=== PATIENT | female | born 1960 | race Caucasian/White ===

== ENCOUNTER 2016-12-18 16:55 | Observation (INO) | payer MEDICARE ==
[~2016-12-18] VITALS: Ht 160 cm; Wt 37.4 kg
[2016-12-18 16:57] VITALS: BP 156/104
--- NOTE | 2016-12-18 17:15 | Emergency Room Report ---
History of Present Illness Time Seen by [id number] Presenting Problem in Triage Pt arrived:Wheelchair Presenting Problem:C/O "FEELING FUNNY" TODAY, STATED SHE CHECKED BP AND IT WAS HIGH, PATIENT STATES SHE DID TAKE BP MEDICINE THIS MORING Onset of symptoms date/time:12/18/16 or onset unknown for: Treatment Prior to Arrival: ELECTROMATIC TYPIST Provided by: Sepsis Risk Assessment: Temp: 97.9 B/P: 156/104 MAP: 121 Pulse: 136 Resp: 20 Recent fever? N Clinical Suspician of Infection? N Mental Status: 1 - Regular (Normal Baseline) Sepsis Risk:Possible Sepsis Risk Have you (or family members/close friends) recently traveled outside the [place]? N If Yes, where/when: Have you had exposure to infectious disease within the past month? N TB? Other? Specify: 56 years old white female with a history of anxiety and abdominal surgery 2 weeks ago. She developed palpitations today she denies anxiety. She denies having chest pain nausea vomiting. Her abdominal pain is the same since surgery. Source patient, RN notes reviewed, family Exam Limitations no limitations ALLERGIES Coded Allergies: cinnamon (Severe, TONGUE SWELL, NAUSEA 12/07/16) acetaminophen (LIVER ISSUE 12/07/16) Home Medications Active Scripts DILTIAZEM HCL (Diltiazem 24HR ER) 120 MG PO DAILY #30 Ref 5 Prov: 01/12/16 Reported Medications Sucralfate (Carafate) 1 GM PO BID Aspirin (Aspirin EC) 81 MG PO DAILY Clonazepam (Klonopin 0.5MG) 0.5 MG PO TIDP PRN ANXIETY Omeprazole (Omeprazole 40MG) 40 MG PO QHS INSULIN GLARGINE (Lantus 3ML Solostar Pen) 15 UNITS SC QHS Apixaban (Eliquis) 2.5 MG PO BID OXYCODONE HCL (Oxycodone) 5 MG PO TIDP PRN PAIN LIPASE/PROTEASE/AMYLASE (Tashia Little 24,000 Units Capsule) 1 ECC PO AC MAGNESIUM OXIDE (Magnesium Oxide) 400 MG PO BID Polyethylene Glycol 3350 (Miralax) 17 GM PO DAILY ALBUTEROL (Albuterol 0.083% Neb) 2.5 MG INH QID LISINOPRIL (Lisinopril) 20 MG PO BID Estradiol 0.5 MG PO DAILY BUDESONIDE/FORMOTEROL FUMARATE (Symbicort 160-4.5 Mcg Inhaler) 2 PUFFS IH DAILY MULTIVITAMIN (Daily Multiple Vitamin) 1 TAB PO DAILY History Medical History General CAD? Yes Angina: Yes [place]: Yes Hypertension? Yes Hyperlipidemia? No CHF? No DVT? No PE? No COPD? Yes Asthma? No Anemia? No GERD? Yes Gastric ulcers? Yes GI Bleed? No Hernia? Yes Thyroid Problems? No Hypothyroidism? No CVA? No Seizures? Yes Diabetes? Yes Insulin Dependent: Yes Insulin Pump: No Home FSBS? Yes Renal Insuffiency? No End Stage Renal Disease? No UTI? Yes Stones? No BPH? No GB Disease: No Nephritic Syndrome? No Asplenia? No Hepatitis? No Sickle Cell Disease? No Arthritis? No Migraines? No Cataracts? No Glaucoma? No MRSA? No HIV? No TB? No Anxiety? Yes Depression? No Cancer? No Site: \\ More? Yes Additional hx: A. FIB Pancreatitis Malnutrition Immunization Hx DT/Tetanus 1-4 Years Ago Flu 2015-FSN Pneumonia Refuses Surgical Hx Previous Surgery?Y Hysterect TUBAL LIGATION L 4 FUSION BREAST AUGMENTATION PANCREATIC STENT HEART CATH HERNIA REPAIR [employer] Hx LMP N/A Comment hYSTERECTOMY Family History Family Hx Diabetes Yes CAD No Hypertension No Hyperlipidemia No Cancer Yes TB No Social History Smoking Hx Smoker: Current Every Day Smoker Tobacco: Yes Type Cigarettes Packs/day N/A Alcohol Alcohol: No Review of Systems All Other Systems Reviewed and Negative Constitutional no symptoms reported Eyes no symptoms reported ENT no symptoms reported. Respiratory no symptoms reported Cardiovascular see HPI, palpitations Gastrointestinal no symptoms reported Genitourinary no symptoms reported. Musculoskeletal no symptoms reported Skin no symptoms reported Psychiatric/Neurological no symptoms reported Physical Exam Vital Signs Vital Signs Date Time Temp Pulse Resp B/P Pulse O2 O2 Flow FiO2 Ox Delivery Rate 12/19 2003 97.9 133 22 116/78 96 12/18 1924 133 22 127/99 96 12/18 1657 97.9 136 20 156/104 98 - WBC >12,000 or <4,000 or 10% bands? 2 or more SIRS Criteria Met? B/P:156/104 MAP:121 Creatinine >2.0? UA output<0.5ml/kg/hr for 2 hrs? Platelet count >100,000? Lactate >2.0mmol/1? INR >1.2 or PTT > than 60 sec? Evidence of Organ Dysfunction? Provider documented clinical suspician of infection? N Sepsis Criteria Count: 2 Sepsis Risk: Possible Sepsis Risk General Appearance normal appearance, WD/WN, emaciated Eye Exam - bilateral eye normal exam, bilateral eye PERRL, bilateral eye EOMI Ear, Nose, Throat hearing grossly normal, normal ENT inspection Neck normal inspection, non-tender, supple, full range of motion Respiratory Status Yes: trachea midline, chest symmetrical, non tender chest. No: respiratory distress. Lung Sounds bilateral: normal breath sounds, lungs clear. Cardiovascular normal exam, regular rate/rhythm, no peripheral edema, no gallop, no JVD, no murmur, no rub, normal peripheral pulses Peripheral Pulses Pulses normal Yes Gastrointestinal normal bowel sounds, soft, no organomegaly, soft his abdominal tenderness, steristrips from her surgery. 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 No Results/Orders Laboratory Tests 12/18/161704: B-Natriuretic Peptide Pending, TSH 1.53, Free T4 Index 6.8, Thyroxine (T4) 8.5, T3 Uptake 32 12/18/161704: Sodium 136, Potassium 3.4 L, Chloride 97 L, Carbon Dioxide 25, BUN 9, Creatinine 0.7, Estimated Creat Clear 53, Estimated GFR (MDRD) 87, Glucose 184 H, Calcium 10.0, Total Bilirubin 0.6, AST 32, ALT 35, Alkaline Phosphatase 485 H, Creatine Kinase 38, CK-MB (CK-2) Rel Index 1.3, CK and CKMB Interp < 0.5, Troponin I < 0.02, Total Protein 8.0, Albumin 3.9, Globulin 4.1 H, Albumin/ Globulin Ratio 1.0 L, WBC 14.6 H, RBC 5.15, Hgb 15.7, Hct 48.8 H, MCV 94.6, RDW 14.2, Plt Count 630 H, MPV 7.1 L, Gran % 74.9, Gran # 10.9 H, Lymphocytes % 17.6, Monocytes % 6.1, Eosinophils % 0.9, Basophils % 0.5, Lymphocytes # 2.6, Monocytes # 0.9, Eosinophils # 0.1, Basophils # 0.1, PUBS MCHC 32.2, MCH 30.5 Current Medication Orders Sig/Gabriel Start time Last Medication Dose Route Stop Time Status Admin Potassium Chloride 20 MEQ ONCE ONE 12/18 2000 DC 12/18 PO 12/18 Potassium Chloride 0 .STK-MED ONE 12/18 1948 DC PO Ondansetron HCl 0 .STK-MED ONE 12/18 1947 DC .ROUTE Iopamidol 60 ML ONCE ONE 12/18 1900 UNV 12/18 IV 12/18 190 1901 Sodium Chloride 10 ML ONCE ONE 12/18 1900 UNV 12/18 IV 12/18 190 1901 Sodium Chloride 40 ML ONCE ONE 12/18 1900 UNV 12/18 IV 12/18 190 190 Ondansetron HCl 4 MG ONCE ONE 12/18 1730 DC 12/18 IV 12/18 1731 2000 Ondansetron HCl 0 .STK-MED ONE 12/18 1730 DC .ROUTE Sodium Chloride 1,000 ML .Q1H1M 12/18 1715 DC 12/18 IV 12/18 1815 1944 Sodium Chloride 10 ML PRN PRN 12/18 1715 AC IV 12/19 1711 Aspirin 324 MG ONCE ONE 12/18 1700 CAN PO 12/18 1701 Sodium Chloride 10 ML PRN PRN 12/18 1700 AC IV 12/19 1659 Orders Procedure Date/time Status DIET-NOTHING BY MOUTH 12/[address] ABD & PELVIS W/O CONTRAST 12/[address] ABD/PELVIS REQ 12/18 190 Complete CTA-CHEST 12/18 1818 Active LACTIC ACID 12/[address] CHEST W/PE PROTOCOL REQ 12/18 171 Complete ABD ACUTE(MUL VIEWS) 12/18 1710 Active THYROID PANEL 2 (WITH TSH) 12/18 171 Active BRAIN NATRIURETIC PEPTIDE 12/18 171 Active ELECTROCARDIOGRAM REQUEST 12/18 170 Active IV SALINE LOCK 12/18 170 Active CBC WITH AUTO DIFF 12/18 170 Complete CARDIAC ENZYMES 12/18 170 Complete CHEM 12 PROFILE 12/18 170 Complete 12 LEAD EKG-JOSE (INITIAL) 08/31 UNK Active Departure Departure Time of Disposition 2007 Disposition Still a Patient Clinical Impression Primary Impression: Tachycardia Secondary Impressions: Diarrhea, Leukocytosis Condition STABLE Referrals Kyree RICKETTS,Lorena Cunha (Family) Additional Instructions I DISCUSSED WITH DR WARREN WHO WILL ADMIT FOR IVF AND POSSIBLE ADDITIONAL CARDIZAEM. I INFOMED DR WINTER OF THE ADMISSION AND REQUESTD DIARRHEA PANEL AND FLAT AND UPROGHT X RAY IN AM. I DISCUSSED [facility] FAMILY WHO WERE AGREEABLE AND WAS ADMITTED IN A STABLE CONDTITION. Discharge Counseling Counseled pt/family regarding diagnosis, test results, medications/RX, follow up needs ED Critical Care Critical Care No If Critical Care minutes are documented, the time involved in the performance of seperately reportable procedures was not counted toward critical care time documented. I directly delivered medical care to this critically ill and/or injured patient. Timely evaluation and treatment was necessary to address the significant organ system(s) dysfunction present in this patient. at 2013
[2016-12-18 17:17] LABS: LYMPH # 2.6 K/mm3 (0.7-4.5); LYMPH % 17.6 % (10-50.0)
[2016-12-18 17:28] LABS: HEMOGLOBIN 15.7 g/dL (12.2-16.2)
[2016-12-18 17:34] LABS: FREE THYROXIN INDEX 6.8 ug/dl (5.93-13.13)
[2016-12-18 17:41] LABS: BUN 9 mg/dL (7-18)
[2016-12-18 17:43] LABS: GFR (ESTIMATED) 87 ML/MIN (59-)
[2016-12-18 20:29] LABS: AEROMONAS NOT DETECTED (NOT DETECTE); ASTROVIRUS NOT DETECTED (NOT DETECTE); CYCLOSPORA CAYETANENSIS NOT DETECTED (NOT DETECTE); E COLI O157 NOT DETECTED (NOT DETECTE); ENTEROAGGREGATIVE E COLI NOT DETECTED (NOT DETECTE); ENTEROPATHOGENIC E COLI NOT DETECTED (NOT DETECTE); ENTEROTOXIGENIC E COLI NOT DETECTED (NOT DETECTE); NOROVIRUS NOT DETECTED (NOT DETECTE); SAPOVIRUS NOT DETECTED (NOT DETECTE); SHIGA-LIKE TOXIN PROD. E COLI NOT DETECTED (NOT DETECTE); SHIGELLA/ENTEROINVASIVE E COLI NOT DETECTED (NOT DETECTE); VIBRIO CHOLERAE NOT DETECTED (NOT DETECTE)
[2016-12-18 22:13] VITALS: BP 127/91
[2016-12-18 22:15] VITALS: BP 127/91
[2016-12-19] VITALS (14 sets, daily range): BP systolic 82–112; BP diastolic 51–73
--- NOTE | 2016-12-19 05:39 | RADIOLOGY REPORT PS360 ---
CT ABD PELVIS W/O CONTRAST CLINICAL INDICATION: Generalized abdominal pain with elevated white blood cell count, recent colon surgery for bowel obstruction POST-OP 2 WEEKS BOWEL OBSTRUCTION SX ORDERING PHYSICIAN: Demi Gomes MD PATIENT AGE: 56 years COMPARISON: 12/07/2016 TECHNIQUE: Axial images obtained with sagittal and coronal reformats. PROCEDURE: Oral Contrast: None IV Contrast: None . FINDINGS: Contrast was not utilized for the exam however, there is residual contrast within the renal collecting system and kidneys with a dense nephrogram bilaterally raising the question of hypotension. Centrilobular emphysematous changes involve the lower chest. Small hiatal hernia. Partially visualized left breast implant. Liver margin is somewhat irregular anteriorly. There is subtle area of decreased attenuation involving the anterior aspect of the right hepatic lobe. There is moderate enhancement with central aspect of the liver. The spleen, adrenal glands, have an unremarkable appearance. There is diffuse calcification of the pancreas consistent with chronic pancreatitis. There is diffuse enhancement of the renal parenchyma raising the suspicion of hypotension. Gallbladder tidwell thickened. Multiple loops of nondilated gas and fluid-filled small bowel are present with mild wall thickening and mucosal enhancement consistent with enteritis. There is small amount of ascites. There may also be enhancement of the bowel wall with hypotension. Diffuse ischemia also a consideration. Gas and fluid-filled... Large bowel as well as may be seen with diarrhea. No evidence of appendicitis. No acute bony anomalies. IMPRESSION: 1. Chronic pancreatitis. 2. Irregular contour of the liver with heterogeneous enhancement which may be due to cirrhosis. There is enhancement central portion of the liver. This is of questionable clinical significance. Much of this is felt to be vascular in nature. Follow-up recommended 3. Multiple loops of mildly distended gas and fluid-filled small bowel with enhancement of the wall consistent with enteritis or diffuse small bowel ischemia. 4. Fluid-filled loops of large bowel with some enhancement of the wall which may be seen with colitis which could be infectious or ischemic. Diarrhea disease also considered 5. Intense enhancement of the renal parenchyma along with enhancement of the bowel wall which may be seen with diffuse hypotension.
--- NOTE | 2016-12-19 06:55 | CONSULT NOTE ---
See Addendum Standard Demographics Patient Demo Date of Consultation: 12/19/16 Referring Provider: Ewelina Adorno MD Reason for Consultation: abdominal pain and diarrhea during the postoperative phase PRIMARY DIAGNOSIS: TACHYCARDIA Allergies: Coded Allergies: cinnamon (Severe, TONGUE SWELL, NAUSEA 12/07/16) acetaminophen (LIVER ISSUE 12/07/16) History of Present Illness Chief Complaint: Abdominal pain and diarrhea History of Present Illness: This is a 56-year-old female who presented to emergency department yesterday with increasing abdominal pain and diarrhea. She was initially seen by her primary care provider with the above stated symptoms and was found to be tachycardic leading to subsequent transfer to the emergency department. She is now postoperative day 12 status post lysis of adhesions for small bowel obstruction. She had been progressing well postoperatively and was followed up earlier this week in the outpatient clinic for staple removal. Over the past 24- 36 hours she developed increasing symptoms and states that she "just got sick real fast". No fevers. No melena. No bright red blood per rectum. Past Medical History Reports: CAD, COPD, hypertension, diabetes mellitus. Surgical History Previous Surgery?Y Hysterect TUBAL LIGATION L 4 FUSION BREAST AUGMENTATION PANCREATIC STENT HEART CATH HERNIA REPAIR Incarcerated femoral hernia leading to small bowel resection in March 2014 Lysis of adhesions for small bowel obstruction in March 2016 Lysis of adhesions for small bowel obstruction on December 07, 2016 Allergies Coded Allergies: cinnamon (Severe, TONGUE SWELL, NAUSEA 12/07/16) acetaminophen (LIVER ISSUE 12/07/16) Medications: Active Scripts DILTIAZEM HCL (Diltiazem 24HR ER) 120 MG PO DAILY #30 Ref 5 Prov: 01/12/16 Reported Medications Sucralfate (Carafate) 1 GM PO BID Aspirin (Aspirin EC) 81 MG PO DAILY Clonazepam (Klonopin 0.5MG) 0.5 MG PO TIDP PRN ANXIETY Omeprazole (Omeprazole 40MG) 40 MG PO QHS INSULIN GLARGINE (Lantus 3ML Solostar Pen) 15 UNITS SC QHS Apixaban (Eliquis) 2.5 MG PO BID OXYCODONE HCL (Oxycodone) 5 MG PO TIDP PRN PAIN LIPASE/PROTEASE/AMYLASE (Creon Dr 24,000 Units Capsule) 1 ECC PO AC MAGNESIUM OXIDE (Magnesium Oxide) 400 MG PO BID Polyethylene Glycol 3350 (Miralax) 17 GM PO DAILY ALBUTEROL (Albuterol 0.083% Neb) 2.5 MG INH QID LISINOPRIL (Lisinopril) 20 MG PO BID Estradiol 0.5 MG PO DAILY BUDESONIDE/FORMOTEROL FUMARATE (Symbicort 160-4.5 Mcg Inhaler) 2 PUFFS IH DAILY MULTIVITAMIN (Daily Multiple Vitamin) 1 TAB PO DAILY Family history Postive for: HTN. Smoking Hx Tobacco: Yes Smoker: Current Every Day Smoker Type: Cigarettes Packs/day: < 1 Pack Are you/the child exposed to second-hand smoke: Yes Alcohol Alcohol: No Hx of Drug Use Drug Use? No Review of Systems Constitutional No: chills. Skin No: bruising. Immune/allergy No: anaphalaxis. Eyes No: discharge. ENT No: nose bleed. Respiratory No: pneumonia. Cardiovascular No: chest pain. GI Positive for: diarrhea. No: hematemeis, hematochezia, melena. (female) No: hematuria. Musculoskeletal No: thoracic pain. Heme No: petechia. Endocrine No: polydipsia. Neurological No: change in LOC. Psychiatric No: anxious. Physical Exam VS/I&O Vital Signs Date Time Temp Pulse Resp B/P Pulse O2 O2 Flow FiO2 Ox Delivery Rate 12/19 412 16 12/19 400 98.6 86 18 106/66 94 ROOM AIR 12/18 2252 16 12/18 2214 118 12/18 2214 98.3 118 16 127/91 12/18 2214 96 ROOM AIR 12/18 2212 98.3 118 20 127/91 96 ROOM AIR 12/18 2209 97.9 113 29 130/95 96 12/18 2140 97.9 113 29 130/95 96 12/18 2124 97.9 113 26 125/92 95 12/19 2003 97.9 133 22 116/78 96 12/18 1924 133 22 127/99 96 12/18 1657 97.9 136 20 156/104 98 I&O 12/19 0700 Intake Total 1888.8 Output Total 200 Balance 1688.8 Intake, IV 1888.8 Intake, Oral 0 Intake, Tube 0 Feeding Intake, Tube 0 Irrigant Output, 200 Emesis Output, Stool Patient 37.393 kg Weight Exam General appearance no acute distress Neck full ROM Respiratory no distress Cardiovascular regular rate and rhythm Abdomen no guarding, soft (+ TTP throughout) Findings/Data CT scan reveals multiple fluid and air-filled loops of small bowel with no definitive dilatation Plan Plan: Impression: Abdominal pain Diarrhea Likely enteritis Recent lysis of adhesions for small bowel obstruction Plan: Serial abdominal exams Follow-up pending morning labs and films Follow-up diarrhea panel Continue management as per primary service at 0657
--- NOTE | 2016-12-19 07:44 | PHARMACY CLINIC NOTE ---
Patient Demographics Patient Demographics Admission date: 12/18/16 Date: 12/19/16 Time: 0743 Allergies Coded Allergies: cinnamon (Severe, TONGUE SWELL, NAUSEA 12/07/16) acetaminophen (LIVER ISSUE 12/07/16) HEIGHT- FT: 5 IN: 3.00 K.393 VTE General Information Labs: Laboratory Tests 12/18 1705 Hematology Hgb (12.2 - 16.2 g/dL) 15.7 Hct (37.0 - 47.0 %) 48.8 H Plt Count (142 - 424 K/mm3) 630 H Disclaimer The following section includes nursing documentation that has been pulled in for pharmacy review. Patient's VTE score: 3 Patient's VTE Risk: LOW RISK Clinical trial participant? No VTE prophylaxis [id number] VTE prophylaxis ordered? Yes Type of prophylaxis/treatment: YENNY at 0743
[2016-12-19 08:22] LABS: LYMPH # 2.1 K/mm3 (0.7-4.5); LYMPH % 21.3 % (10-50.0)
[2016-12-19 08:26] LABS: HEMOGLOBIN 12.9 g/dL (12.2-16.2)
--- NOTE | 2016-12-19 08:42 | Operative Note ---
Surgeon/Diagnoses Surgeon/River Transportation Worker(s) Date of procedure: 12/19/16 Surgeon: MD Alise Winter Diagnoses Pre-op diagnosis: Hematemesis History peptic ulcer disease Upper abdominal pain Diarrhea Post-op diagnosis Same as preoperative diagnoses, with the addition of the following: Gastritis Sliding hiatal hernia Procedure Procedure Procedure: Esophagogastroduodenoscopy with biopsy Indications: LAURA KILLIAN is a 56 year-old Female with a history of peptic ulcer disease and recent nausea and vomiting with positive "Gastroccult". She is postoperative day 12 from [place] is some adhesions for small bowel obstruction and had progressed well and ultimately discharged from the hospital. She represented overnight with increasing abdominal pain and diarrhea and also complained of possible hematemesis. Gastroccult was positive. She does have a history of peptic ulcer disease and states that she "feels like this is an ulcer again". Findings: Gastroesophageal junction at 39 cm Moderate sliding hiatal hernia Mild to moderate patchy gastritis Increased inflammation of pylorus No visualized ulcers No sign of active or recent bleeding Complex deep rugal folds and the mid gastric body making visualization in this portion of stomach very difficult Procedure Description: After informed consent was obtained, the patient was taken to the endoscopy suite. Monitored anesthesia care ensued after she was transferred to the LEFT lateral decubitus position. The gastroscope was advanced. The stomach was entered. Retroflexion revealed a sliding hiatal hernia. Mild to moderate patchy gastritis was seen. Despite maximum insufflation very complex deep rugal folds in the mid gastric body were noted and visualization in and around this area was difficult. Biopsies were obtained. The pylorus was slightly more inflamed than surrounding tissue and multiple biopsies were obtained. Evaluation of the duodenal bulb and duodenal sweep revealed no ulcerations and no sign of active or recent bleeding. In general, no sign of recent hemorrhage or ulceration was noted throughout. The gastroscope was carefully removed and the patient was transferred to recovery. EBL (ml): 1 Anesthesia: Monitored anesthesia care Complications: No immediate Specimens: Biopsy of pylorus Biopsy of mid gastric body (deep rugal folds) Disposition Disposition: Stable to recovery from where she will be transferred back to the floor. at 0842
--- NOTE | 2016-12-19 08:46 | ACUTE CARE PROGRESS NOTE (QUA) ---
See Addendum Progress Notes Subjective Date 12/19/16 Time 0836 Note This 56-year-old white female was readmitted yesterday evening. She presented in the office of [facility] with abdominal pain and tachycardia. She recently had lysis of adhesions which was causing small bowel obstruction. She saw Dr. Galeano in follow-up and louis were removed this week but her symptoms developed subsequently. She is not running fever. She's had nausea. She has had some diarrhea. She's not had chest pain but has been aware of the tachycardia. From [facility] she was sent to the emergency room for evaluation. Her x-ray study was consistent with the bowel distention. She had sinus tachycardia. She was admitted for further evaluation treatment. Objective Findings Laboratory Tests 12/19/16 0630: Sodium 141, Potassium 3.6, Chloride 107, Carbon Dioxide 24, BUN 10, Creatinine 0.7, Estimated Creat Clear 53, Estimated GFR (MDRD) 87, Glucose 97, Calcium 8.4 L, WBC 9.8, RBC 4.15 L, Hgb 12.9, Hct 40.1, MCV 96.7, RDW 14.2, Plt Count 458 H, MPV 8.5, Gran % 69.1, Gran # 6.8, Lymphocytes % 21.3, Monocytes % 7.5, Eosinophils % 1.4, Basophils % 0.7, Lymphocytes # 2.1, Monocytes # 0.7, Eosinophils # 0.1, Basophils # 0.1, PUBS MCHC 32.1, MCH 31.0 12/18/162048: Lactic Acid 1.4 12/18/16 2030: Emesis for Blood POSITIVE 12/18/16 2010: Stl Cyclospora species NOT DETECTED, Stool Rotavirus (PCR) NOT DETECTED, Stool Campylobacter PCR NOT DETECTED, Stool Giardia Lamblia PCR NOT DETECTED, Stl Norovirus GI/GII PCR NOT DETECTED, Adenovirus (PCR) NOT DETECTED, C. difficile Tox (PCR) NOT DETECTED, E. coli (PCR) NOT DETECTED, Yersinia (PCR) NOT DETECTED 12/18/16 1705: B-Natriuretic Peptide 69, TSH 1.53, Free T4 Index 6.8, Thyroxine (T4) 8.5, T3 Uptake 32 12/18/16 1705: Sodium 136, Potassium 3.4 L, Chloride 97 L, Carbon Dioxide 25, BUN 9, Creatinine 0.7, Estimated Creat Clear 53, Estimated GFR (MDRD) 87, Glucose 184 H, Calcium 10.0, Total Bilirubin 0.6, AST 32, ALT 35, Alkaline Phosphatase 485 H, Creatine Kinase 38, CK-MB (CK-2) Rel Index 1.3, CK and CKMB Interp < 0.5, Troponin I < 0.02, Total Protein 8.0, Albumin 3.9, Globulin 4.1 H, Albumin/ Globulin Ratio 1.0 L, WBC 14.6 H, RBC 5.15, Hgb 15.7, Hct 48.8 H, MCV 94.6, RDW 14.2, Plt Count 630 H, MPV 7.1 L, Gran % 74.9, Gran # 10.9 H, Lymphocytes % 17.6, Monocytes % 6.1, Eosinophils % 0.9, Basophils % 0.5, Lymphocytes # 2.6, Monocytes # 0.9, Eosinophils # 0.1, Basophils # 0.1, PUBS MCHC 32.2, MCH 30.5 Microbiology 12/18 2048 BLOOD: Anaerobic Blood Culture - RECD 12/18 2048 BLOOD: Aerobic Blood Culture - RECD 12/18 2048 BLOOD: Anaerobic Blood Culture - RECD 12/18 2048 BLOOD: Aerobic Blood Culture - RECD Last VS-Temp:98.6 B/P:106/66 Pulse:86 Resp:16 SaO2:98 ROOM AIR Last weight lbs:82 oz:7 K.393 Method:Bed Scales Exam General appearance: mild distress Eyes: anicteric ENT: mucous membranes moist Neck: no JVD Cardiovascular: tachycardia (130's) Respiratory: clear to auscultation, diminished breath sounds ABD: surgical scar healing. Some distention and tenderness. Bowel sounds are hyperactive. Extremities: no peripheral edema Musculoskeletal: she is extremely thin. Skin: dry, intact, normal color Neuro: no deficit, oriented, speech clear Reviewed: vital signs, lab results, radiology report Assessment/Plan Problem List 1. Tobacco user Status: Chronic 2. pancreatic pseudocyst Status: Chronic 3. Nausea & vomiting Status: Acute 4. Abdominal pain Status: Acute 5. Tachycardia Status: Acute 6. Abdominal pain Status: Acute 7. Ileus Patient condition this evaluation is based on the day of admission. On the morning of December 19 the patient is receiving an EGD per Dr. Sewell. He reports that he saw some evidence of gastritis but no active ulceration. Rugae were prominent. In reviewing the record this morning her heart rate seems to have come into a normal range. Electrocardiogram was reviewed and is normal apart from her sinus tachycardia. Plan: continue current care, medications are reviewed. Her routine medications will be restarted if she can tolerate by mouth. This inpt stay is expected to cross 2 MNs from start of care Yes at 0845
--- NOTE | 2016-12-19 09:28 | HISTORY AND PHYSICAL REPORT ---
History and Physical (FCA) Date of admission: 12/18/16 Chief complaint: Hypertension History: History of Present Illness: Ms. Pineda is a 56-year-old white female with a history of CAD, COPD, hypertension, and DM who presented to the emergency department yesterday with increasing abdominal pain and diarrhea. She was initially seen by her primary care provider with the above stated symptoms, as well as some CP, elevated bp, and weakness, and was found to be tachycardic, which lead to subsequent transfer to the emergency department. Upon arrival, she was noted to be tachycardic. Her WBC was elevated and CT was abnormal. She was admitted and surgery was consulted. She is now postoperative day 12 status post lysis of adhesions for small bowel obstruction. She had been progressing well postoperatively and was followed up earlier this week in the outpatient clinic for staple removal. Over the past 24- 36 hours she developed increasing symptoms and stated that she "just got sick real fast". No fevers. No melena. No bright red blood per rectum. Past Medical History: Medical History: CAD? Yes Angina: Yes UT: Yes Hypertension? Yes Hyperlipidemia? No CHF? No DVT? No PE? No COPD? Yes Asthma? No Anemia? No GERD? Yes Gastric ulcers? Yes GI Bleed? No Hernia? Yes Thyroid Problems? No Hypothyroidism? No CVA? No Seizures? Yes Diabetes? Yes Insulin Dependent: Yes Insulin Pump: No Home FSBS? Yes Renal Insuffiency? No UTI? Yes Stones? No BPH? No GB Disease: No Nephritic Syndrome? No Asplenia? No Hepatitis? No Sickle Cell Disease? No Arthritis? No Migraines? No Cataracts? No Glaucoma? No MRSA? No HIV? No TB? No Anxiety? Yes Depression? No Cancer? No Site: \\ More? Yes Additional hx: A. FIB Pancreatitis Malnutrition Surgical history: Previous Surgery? 1. Hysterectomy 2. TUBAL LIGATION 3. L 4 FUSION 4. BREAST AUGMENTATION 5. PANCREATIC STENT 6. HEART CATH 7. Strangulated HERNIA REPAIR 03/2014 8. Exploratory Lap with lysis of adhesions for SBO 03/2016 9. Exploratory Lap with lysis of adhesions for SBO 11/2016 Medications: Discontinued Scripts DILTIAZEM HCL (Diltiazem 24HR ER) 120 MG PO DAILY #30 Ref 5 Prov: 01/12/16 DC: 12/19/16 0914 Reported Medications Aspirin (Aspirin EC) 81 MG PO DAILY Clonazepam (Klonopin 0.5MG) 0.5 MG PO TIDP PRN ANXIETY Omeprazole (Omeprazole 40MG) 40 MG PO QHS INSULIN GLARGINE (Lantus 3ML Solostar Pen) 15 UNITS SC QHS Apixaban (Eliquis) 2.5 MG PO BID Polyethylene Glycol 3350 (Miralax) 17 GM PO DAILY ALBUTEROL (Albuterol 0.083% Neb) 2.5 MG INH QID LISINOPRIL (Lisinopril) 20 MG PO BID LIPASE/PROTEASE/AMYLASE ([place] Dr 36,000 Units Capsule) 2 ECC PO TID Sucralfate (Carafate) 2 GM PO BID Hyoscyamine Sulfate (Anaspaz) 0.125 MG FT W/MEALS&HS DILTIAZEM HCL (Cartia Xt) 240 MG PO DAILY KETOROLAC TROMETHAMINE (TORADOL 10MG) 10 MG PO QID Estradiol 0.5 MG PO DAILY BUDESONIDE/FORMOTEROL FUMARATE (Symbicort 160-4.5 Mcg Inhaler) 2 PUFFS IH DAILY MULTIVITAMIN (Daily Multiple Vitamin) 1 TAB PO DAILY Discontinued Reported Medications Sucralfate (Carafate) 1 GM PO BID OXYCODONE HCL (Oxycodone) 5 MG PO TIDP PRN PAIN LIPASE/PROTEASE/AMYLASE ([place] Dr 24,000 Units Capsule) 1 ECC PO AC MAGNESIUM OXIDE (Magnesium Oxide) 400 MG PO BID Allergies: Coded Allergies: cinnamon (Severe, TONGUE SWELL, NAUSEA 12/07/16) acetaminophen (LIVER ISSUE 12/07/16) Family History: Family history: Postive for: cancer. Social History: Smoking Hx Tobacco: Yes Smoker: Current Every Day Smoker Type: Cigarettes Packs/day: < 1 Pack Are you exposed to second hand Yes Alcohol: Alcohol: No Hx of Drug Use: Drug Use? No Patien't marital status is: Review of Systems: Patient unresponsive? No Constitutional Positive for: weak, recent weight loss. No: chills. ENT No: ear ache, nasal congestion, sinus problems, sore throat. Cardiovascular Positive for: MARIANO, chest pain, edema, palpitations. Respiratory Positive for: dyspnea on exertion, shortness of air. No: hemoptysis, non- productive, pleuritic pain, pneumonia, productive cough (sputum), wheezing. GI Positive for: abdominal pain, diarrhea, nausea, vomitting. No: hematemeis, hematochezia, rectal pain. (female) No: frequency, hematuria, pelvic pain, urgency. Skin No: rash. Neurological Positive for: dizziness, weakness. No: confusion, gait problem, headache, light headed, numbness, syncope. Eyes No: blurry vision, vision loss. Musculoskeletal No: joint pain, joint swelling. Heme No: bleeding. Psychiatric No: confused, change in mental status. Physical Exam: Vital signs: 1ST Vital Signs Result Date Time Pulse Ox 98 12/18 1656 B/P 156/104 12/18 1656 Temp 97.9 12/18 1656 Pulse 136 12/18 1656 Resp 20 12/18 1656 O2 Delivery ROOM AIR 12/18 2213 Exam: General appearance: alert, awake, no acute distress, thin Eyes: anicteric, conjunctiva clear, PERRLA ENT: mucous membranes moist, pharynx normal, nares patent Neck: non-tender, full range of motion, no LAD Cardiovascular: regular rate & rhythm, normal peripheral pulses Respiratory: CTAB A&P ABD: no rebound, soft, no guarding, no organomegaly, no palpable mass, bowel sounds present, ttp bilateral upper quads and epigastrium Extremities: moves all, no peripheral edema Neuro: alert, oriented, speech clear, no focal deficit Lab data: Labs: Laboratory Tests 12/19/16 0630: Sodium 141, Potassium 3.6, Chloride 107, Carbon Dioxide 24, BUN 10, Creatinine 0.7, Estimated Creat Clear 53, Estimated GFR (MDRD) 87, Glucose 97, Calcium 8.4 L, WBC 9.8, RBC 4.15 L, Hgb 12.9, Hct 40.1, MCV 96.7, RDW 14.2, Plt Count 458 H, MPV 8.5, Gran % 69.1, Gran # 6.8, Lymphocytes % 21.3, Monocytes % 7.5, Eosinophils % 1.4, Basophils % 0.7, Lymphocytes # 2.1, Monocytes # 0.7, Eosinophils # 0.1, Basophils # 0.1, PUBS MCHC 32.1, MCH 31.0 12/18/162048: Lactic Acid 1.4 12/18/16 2030: Emesis for Blood POSITIVE 12/18/16 2010: Stl Cyclospora species NOT DETECTED, Stool Rotavirus (PCR) NOT DETECTED, Stool Campylobacter PCR NOT DETECTED, Stool Giardia Lamblia PCR NOT DETECTED, Stl Norovirus GI/GII PCR NOT DETECTED, Adenovirus (PCR) NOT DETECTED, C. difficile Tox (PCR) NOT DETECTED, E. coli (PCR) NOT DETECTED, Yersinia (PCR) NOT DETECTED 12/18/16 1705: B-Natriuretic Peptide 69, TSH 1.53, Free T4 Index 6.8, Thyroxine (T4) 8.5, T3 Uptake 32 12/18/16 170: Sodium 136, Potassium 3.4 L, Chloride 97 L, Carbon Dioxide 25, BUN 9, Creatinine 0.7, Estimated Creat Clear 53, Estimated GFR (MDRD) 87, Glucose 184 H, Calcium 10.0, Total Bilirubin 0.6, AST 32, ALT 35, Alkaline Phosphatase 485 H, Creatine Kinase 38, CK-MB (CK-2) Rel Index 1.3, CK and CKMB Interp < 0.5, Troponin I < 0.02, Total Protein 8.0, Albumin 3.9, Globulin 4.1 H, Albumin/ Globulin Ratio 1.0 L, WBC 14.6 H, RBC 5.15, Hgb 15.7, Hct 48.8 H, MCV 94.6, RDW 14.2, Plt Count 630 H, MPV 7.1 L, Gran % 74.9, Gran # 10.9 H, Lymphocytes % 17.6, Monocytes % 6.1, Eosinophils % 0.9, Basophils % 0.5, Lymphocytes # 2.6, Monocytes # 0.9, Eosinophils # 0.1, Basophils # 0.1, PUBS MCHC 32.2, MCH 30.5 Microbiology 12/18 2048 BLOOD: Anaerobic Blood Culture - RECD 12/18 2048 BLOOD: Aerobic Blood Culture - RECD 12/18 2048 BLOOD: Anaerobic Blood Culture - RECD 12/18 2048 BLOOD: Aerobic Blood Culture - RECD Radiology results: Results: 12/18/16 CT Abdomen/Pelvis without Contrast: 1. Chronic pancreatitis. 2. Irregular contour of the liver with heterogeneous enhancement which may be due to cirrhosis. There is enhancement central portion of the liver. This is of questionable clinical significance. Much of this is felt to be vascular in nature. Follow-up recommended 3. Multiple loops of mildly distended gas and fluid-filled small bowel with enhancement of the wall consistent with enteritis or diffuse small bowel ischemia. 4. Fluid-filled loops of large bowel with some enhancement of the wall which may be seen with colitis which could be infectious or ischemic. Diarrhea disease also considered 5. Intense enhancement of the renal parenchyma along with enhancement of the bowel wall which may be seen with diffuse hypotension. Diagnosis(es): 1. Tachycardia Status: Acute 2. Diarrhea Status: Acute 3. Abdominal pain Status: Acute 4. Nausea & vomiting Status: Acute 5. Type 2 diabetes mellitus Status: Chronic 6. COPD (chronic obstructive pulmonary disease) Status: Chronic 7. Leukocytosis Status: Acute 8. HTN (hypertension) Status: Chronic Plan: for EGD today per surgeon. at [id number]
--- NOTE | 2016-12-19 09:56 | RADIOLOGY REPORT PS360 ---
ABD ACUTE(MUL VIEWS) HISTORY: DIARRHEA, DEHYDRATION, S/P ABDOMINAL SURGERY. Patient Age: 56 years: Female Ordering Physician: Lorena Adorno MD TECHNIQUE: Upright chest with flat and upright views of abdomen COMPARISON :Acute abdominal series from 12/18/2016 FINDINGS \ Upright chest . Lungs clear with no active disease. No focal infiltrate Hyperexpansion. Emphysematous changes. Bilateral breast implants noted. Some type loop [device artifact overlying r base of left neck. Heart normal size no pleural effusion Abdomen. Contrast from yesterday's CT with a collecting systems of the kidneys bilaterally. The right pelvicalyceal system is more generous than the left but within normal limits There is a nonspecific bowel gas pattern. Given the fluid distention and enhancement of thickened small bowel tidwell on yesterday's CT and surprised that the plain film appearance of small bowel is quite unimpressive. Today. The small bowel gas is diminished with only a few small air-fluid level seen at the pelvis barely evident. Today we see minimal gas within the left colon and rectosigmoid today. . The air-fluid levels seen yesterday have improved at small bowel have regressed and barely evident today Faint staple lines from bowel anastomosis right upper quadrant. Stippled calcifications throughout the pancreas reflect chronic pancreatitis previously noted in this patient.. . No free air. IMPRESSION: Overall improvement since yesterday Only very small residual air-fluid levels in nondilated small bowel on today's plain film. Barely evident\ Surprisingly unimpressive bowel gas pattern given yesterday's CT Calcifications pancreas from chronic pancreatitis. Contrast within renal collecting systems from yesterday's CT Right pelvicalyceal system is slightly more generous than the left but I but within normal limits No active disease in the chest. COPD.
--- NOTE | 2016-12-19 09:56 | RADIOLOGY REPORT PS360 ---
ABD ACUTE(MUL VIEWS) HISTORY: 2 weeks post presnting eith tachycardia Patient Age: 56 years: Female Ordering Physician: Demi Gomes MD TECHNIQUE: Upright chest with flat and upright view abdomen COMPARISON :CT abdomen pelvis from this imaging performed 1 area subsequent to this exam, also previous flat and upright abdomen from May 2016 FINDINGS Upright chest. No active disease COPD blunting of CP angles most likely due to such The heart and mediastinal structures unremarkable. No free air beneath the diaphragm. Scattered calcified granulomas towards right and left lung base. Calcified hilar nodes bilaterally Abdomen. Again numerous stippled calcifications throughout pancreas reflecting chronic pancreatitis. Degenerative disc space L3/4 to the right. No free air. There are some moderate air-fluid levels seen throughout the bowel loops towards the left lower quadrant. IMPRESSION: 1_air-fluid minimal levels are seen mildly distended small bowel loop at pelvis & left lower quadrant. Findings are less pronounced than on the CT performed 1 hour thereafter which showed thickened enhancing small bowel loops throughout lower abdomen and pelvis 2. Chronic pancreatitis calcification 3. No active disease in the chest. COPD.
[2016-12-20 05:03] VITALS: BP 125/62
[2016-12-20 08:00] VITALS: BP 136/76
[2016-12-20 08:15] VITALS: BP 136/76
--- NOTE | 2016-12-20 08:17 | SURGEON PROGRESS NOTE ---
Subjective data Subjective data: She states that she is "feeling better today". No significant nausea this morning. She states that her bowel movements are "more normal now". Objective data Vitals,I&O,and Labs: Vital signs, intake and output,and available lab data for the last 24 hours is as noted below. Vital Signs Date Time Temp Pulse Resp B/P Pulse O2 O2 Flow FiO2 Ox Delivery Rate 12/20 0814 18 12/20 0510 18 12/20 0503 97.7 76 18 125/62 95 ROOM AIR 12/19 2353 18 12/19 2100 97.8 61 18 100/63 95 / 2024 18 12/19 1953 97.8 61 18 100/63 95 ROOM AIR 12/19 1707 18 12/19 1600 98.2 62 18 109/69 95 ROOM AIR 12/19 1432 18 12/19 1300 98.4 66 18 112/65 97 / 1202 18 12/19 1200 98.3 65 18 108/67 97 / 1100 98.2 59 18 110/68 94 / 1030 98.0 60 18 99/64 93 09/01 1000 97.9 60 18 106/69 93 / 0945 97.9 66 18 97/51 95 / 0930 98.0 61 18 104/73 96 09/ 0921 18 12/19 0915 97.6 57 18 100/58 97 09/01 0900 98.0 78 18 82/57 96 /01 0900 98.0 69 18 105/69 97 /01 0900 98.0 78 18 82/57 96 09/01 0845 98.0 78 18 82/57 96 OXYGEN 12/19 0844 77 18 78/45 12/19 0843 83 16 72/50 12/19 0831 98 /01 1500 12/19 2300 12/20 0700 Intake Total 620 693 1070 Output Total Balance 056 807 6977 Intake, IV 1969 Intake, Oral 600 600 Patient 37.393 kg Weight Laboratory Tests Test Result Date Time Chemistry Sodium (mmoL/L) 141 12/19 0630 Potassium (mmoL/L) 3.6 12/19 0630 Chloride (mmoL/L) 107 12/19 0630 Carbon Dioxide (mmoL/L) 24 12/19 0630 BUN (mg/dL) 10 12/19 0630 Creatinine (mg/dL) 0.7 12/19 629 Estimated Creat Clear (ML/MIN) 53 12/19 629 Estimated GFR (MDRD) (ML/MIN) 87 12/19 629 Glucose (mg/dL) 97 12/19 629 POC Glucose (mg/dl) 84 12/20 614 Lactic Acid (mmol/L) 1.4 12/18 2048 Calcium (mg/dL) 8.4 12/19 629 Total Bilirubin (mg/dL) 0.6 12/18 1704 AST (U/L) 32 12/18 1704 ALT (U/L) 35 12/18 1704 Alkaline Phosphatase (U/L) 485 12/18 1704 Creatine Kinase (U/L) 38 12/18 1704 CK-MB (CK-2) Rel Index (U/L) 1.3 12/18 1704 CK and CKMB Interp (ng/mL) < 0.5 12/18 1704 Troponin I (ng/mL) < 0.02 12/18 1704 B-Natriuretic Peptide (pg/mL) 69 12/18 1704 Total Protein (gm/dL) 8.0 12/18 1704 Albumin (gm/dL) 3.9 12/18 1704 Globulin (gm/dL) 4.1 12/18 1704 Albumin/Globulin Ratio 1.0 12/18 1704 Amylase (U/L) 9 12/19 629 Lipase (U/L) 40 12/19 629 TSH (uIU/ml) 1.53 12/18 1704 Free T4 Index (ug/dl) 6.8 12/18 1704 Thyroxine (T4) (ug/dl) 8.5 12/18 1704 T3 Uptake (%) 32 12/18 1704 Hematology WBC (K/MM3) 9.8 12/19 629 RBC (M/mm3) 4.15 12/19 629 Hgb (g/dL) 12.9 12/19 629 Hct (%) 40.1 12/19 629 MCV (fl) 96.7 12/19 629 RDW (%) 14.2 12/19 629 Plt Count (K/mm3) 458 12/19 629 MPV (fl) 8.5 12/19 629 Gran % (%) 69.1 12/19 629 Gran # (K/mm3) 6.8 12/19 629 Lymphocytes % (%) 21.3 12/19 629 Monocytes % (%) 7.5 12/19 629 Eosinophils % (%) 1.4 12/19 629 Basophils % (%) 0.7 12/19 629 Lymphocytes # (K/mm3) 2.1 12/19 629 Monocytes # (K/mm3) 0.7 12/19 629 Eosinophils # (K/mm3) 0.1 12/19 629 Basophils # (K/MM3) 0.1 12/19 629 PUBS MCHC (g/dl) 32.1 12/19 629 Immunology MCH (pg) 31.0 12/19 629 Other Body Source Emesis for Blood POSITIVE 12/18 2029 Stl Cyclospora species NOT DETECTED 12/18 2009 Stool Rotavirus (PCR) NOT DETECTED 12/18 2009 Stool Campylobacter PCR NOT DETECTED 12/18 2009 Stool Giardia Lamblia PCR NOT DETECTED 12/18 2009 Stl Norovirus GI/GII PCR NOT DETECTED 12/18 2009 Serology Adenovirus (PCR) NOT DETECTED 12/18 2009 C. difficile Tox (PCR) NOT DETECTED 12/18 2009 E. coli (PCR) NOT DETECTED 12/18 2009 Yersinia (PCR) NOT DETECTED 12/18 2009 Assessment findings Assessment Exam General appearance: no acute distress Cardiovascular: regular rate & rhythm Respiratory: no respiratory distress ABD: soft Patient plan Diagnoses: Enteritis-improving Recent small bowel obstruction due to adhesions Diarrhea-improving Plan: Advance diet, Ambulate, continue management as per primary service at 0816
--- NOTE | 2016-12-20 09:00 | ACUTE CARE PROGRESS NOTE (QUA) ---
Progress Notes Subjective Date 12/20/16 Time 0856 Note She is anxious to go home. Did require dose of pain med last PM. Passing gas, no BM Patient/family reports: feeling better Objective Findings Laboratory Tests 12/20/16 0615: POC Glucose 84 12/19/16 2025: POC Glucose 86 12/19/16 1654: POC Glucose 238 H 12/19/16 1206: POC Glucose 153 H Last VS-Temp:98.3 B/P:136/76 Pulse:79 Resp:18 SaO2:97 ROOM AIR Last weight lbs:82 oz:7 K.393 Method:Bed Scales Exam General appearance: alert, no acute distress Eyes: anicteric ENT: mucous membranes moist Cardiovascular: regular rate & rhythm Respiratory: clear to auscultation ABD: bowel sounds present (hyperactive) Extremities: no peripheral edema Skin: dry, intact Neuro: oriented, speech clear Reviewed: medications, vital signs, lab results, Amylase and lipase WNL Assessment/Plan Problem List 1. Tachycardia Status: Acute 2. Diarrhea Status: Acute 3. Abdominal pain Status: Acute 4. Nausea & vomiting Status: Acute 5. Type 2 diabetes mellitus Status: Chronic 6. COPD (chronic obstructive pulmonary disease) Status: Chronic 7. Leukocytosis Status: Acute 8. HTN (hypertension) Status: Chronic Patient condition Improving Plan: continue current care This inpt stay is expected to cross 2 MNs from start of care Yes at 0900
[2016-12-20 16:00] VITALS: BP 116/66
[2016-12-20 20:30] VITALS: BP 109/71
[2016-12-21 04:24] VITALS: BP 141/78
[2016-12-21 06:58] LABS: LYMPH # 1.8 K/mm3 (0.7-4.5); LYMPH % 23.4 % (10-50.0)
[2016-12-21 07:48] VITALS: BP 143/83
--- NOTE | 2016-12-21 08:34 | SURGEON PROGRESS NOTE ---
Subjective data Subjective data: She states that she "feels better". She states that her bowel movements are "much more normal". Objective data Vitals,I&O,and Labs: Vital signs, intake and output,and available lab data for the last 24 hours is as noted below. Vital Signs Date Time Temp Pulse Resp B/P Pulse O2 O2 Flow FiO2 Ox Delivery Rate 12/21 0748 97.9 69 18 143/83 96 ROOM AIR 12/21 0619 18 12/21 0424 97.6 61 18 141/78 97 ROOM AIR 12/21 0343 18 12/20 2327 18 12/20 2030 97.7 65 18 109/71 98 12/20 2030 97.7 65 18 109/71 98 ROOM AIR 12/20 2004 18 12/20 1632 18 12/20 1600 98.0 71 16 116/66 96 ROOM AIR 12/20 1354 18 12/20 1039 18 12/20 1500 12/20 2300 12/21 0700 Intake Total 1449 700 0823 Output Total Balance 6755 017 4574 Intake, IV 1799 Intake, Oral 1480 480 Laboratory Tests Test Result Date Time Chemistry Sodium (mmoL/L) 144 12/21 0555 Potassium (mmoL/L) 4.2 12/21 0555 Chloride (mmoL/L) 112 12/21 0555 Carbon Dioxide (mmoL/L) 21 12/21 0555 BUN (mg/dL) 4 12/21 0555 Creatinine (mg/dL) 0.6 12/21 0555 Estimated Creat Clear (ML/MIN) 62 12/21 0555 Estimated GFR (MDRD) (ML/MIN) 103 12/21 0555 Glucose (mg/dL) 86 12/21 0555 POC Glucose (mg/dl) 74 12/21 0613 Lactic Acid (mmol/L) 1.4 12/18 2049 Calcium (mg/dL) 8.0 12/21 0555 Total Bilirubin (mg/dL) 0.6 12/18 1705 AST (U/L) 32 12/18 1705 ALT (U/L) 35 12/18 1705 Alkaline Phosphatase (U/L) 485 12/18 170 Creatine Kinase (U/L) 38 12/18 170 CK-MB (CK-2) Rel Index (U/L) 1.3 12/18 170 CK and CKMB Interp (ng/mL) < 0.5 12/18 1704 Troponin I (ng/mL) < 0.02 12/18 1704 B-Natriuretic Peptide (pg/mL) 69 12/18 1704 Total Protein (gm/dL) 8.0 12/18 1704 Albumin (gm/dL) 3.9 12/18 1704 Globulin (gm/dL) 4.1 12/18 1704 Albumin/Globulin Ratio 1.0 12/18 1704 Amylase (U/L) 9 12/19 629 Lipase (U/L) 40 12/19 06 TSH (uIU/ml) 1.53 12/18 1704 Free T4 Index (ug/dl) 6.8 12/18 1704 Thyroxine (T4) (ug/dl) 8.5 12/18 1704 T3 Uptake (%) 32 12/18 1704 Hematology WBC (K/MM3) 7.5 12/21 05 RBC (M/mm3) 3.91 12/21 05 Hgb (g/dL) 12.0 12/21 0555 Hct (%) 38.1 12/21 0555 MCV (fl) 97.3 12/21 0555 RDW (%) 14.1 12/21 0555 Plt Count (K/mm3) 392 12/21 05 MPV (fl) 9.0 12/21 0555 Gran % (%) 64.8 12/21 0555 Gran # (K/mm3) 4.9 12/21 0555 Lymphocytes % (%) 23.4 12/21 0555 Monocytes % (%) 6.2 12/21 0555 Eosinophils % (%) 4.7 12/21 0555 Basophils % (%) 0.8 12/21 0555 Lymphocytes # (K/mm3) 1.8 12/21 0555 Monocytes # (K/mm3) 0.5 12/21 0555 Eosinophils # (K/mm3) 0.4 12/21 0555 Basophils # (K/MM3) 0.1 12/21 0555 PUBS MCHC (g/dl) 31.4 12/21 05 Immunology MCH (pg) 30.6 12/21 05 Other Body Source Emesis for Blood POSITIVE 12/18 2029 Stl Cyclospora species NOT DETECTED 12/18 2009 Stool Rotavirus (PCR) NOT DETECTED 12/18 2009 Stool Campylobacter PCR NOT DETECTED 12/18 2009 Stool Giardia Lamblia PCR NOT DETECTED 12/18 2009 Stl Norovirus GI/GII PCR NOT DETECTED 12/18 2009 Serology Adenovirus (PCR) NOT DETECTED 12/18 2009 C. difficile Tox (PCR) NOT DETECTED 12/18 2009 E. coli (PCR) NOT DETECTED 12/18 2009 Yersinia (PCR) NOT DETECTED 12/18 2009 Assessment findings Assessment Exam General appearance: normal appearance, no acute distress Cardiovascular: regular rate & rhythm Respiratory: no respiratory distress ABD: soft Patient plan Diagnoses: Enteritis-improving Diarrhea-essentially resolved POD 14 status post extensive lysis of adhesions for small bowel obstruction Plan: Ambulate, management as per primary service at 0833
--- NOTE | 2016-12-21 09:56 | ACUTE CARE PROGRESS NOTE (QUA) ---
Progress Notes Subjective Date 12/21/16 Time 0949 Note She would like to go home today. She did require 1 dose of pain medicine early this morning. She is eating and tolerating full liquids. Her vital signs are stable. Patient/family reports: feeling better Nursing reports: no complaints Objective Findings Last VS-Temp:97.9 B/P:143/83 Pulse:69 Resp:18 SaO2:96 ROOM AIR Last weight lbs:82 oz:7 K.393 Method:Bed Scales Exam General appearance: normal appearance, alert Eyes: anicteric ENT: mucous membranes moist Neck: normal inspection Cardiovascular: regular rate & rhythm Respiratory: clear to auscultation, diminished breath sounds ABD: soft, wound healing, hyperactive bowel sounds Genitourinary: normal voiding & quantity Extremities: no peripheral edema Skin: dry, intact Neuro: alert, oriented, speech clear Reviewed: medications, vital signs, consult note Assessment/Plan Problem List 1. Tachycardia Status: Acute 2. Diarrhea Status: Acute 3. Abdominal pain Status: Acute 4. Nausea & vomiting Status: Acute 5. Type 2 diabetes mellitus Status: Chronic 6. COPD (chronic obstructive pulmonary disease) Status: Chronic 7. Leukocytosis Status: Acute 8. HTN (hypertension) Status: Chronic 9. Ileus 10. Post-operative state Patient condition Improving Plan: initiate discharge plan This inpt stay is expected to cross 2 MNs from start of care Yes Antibiotic Stewardship (2) Current Culture Results Microbiology 12/18 2048 BLOOD: Anaerobic Blood Culture - RECD 12/18 2048 BLOOD: Aerobic Blood Culture - RECD Infxn that will respond? Yes Right drug,dose,and route? Yes More targeted antbx? No How long atbx needed? 0 Comment: Discharge to home at 0955
[2016-12-21 13:38] VITALS: BP 143/83
--- NOTE | 2016-12-21 19:02 | DISCHARGE SUMMARY STANDARD ---
Discharge Summary (F[facility]2) Date of admission: 12/18/16 Date of discharge: 12/21/16 Problem List: 1. Tachycardia 2. Diarrhea 3. Abdominal pain 4. Nausea & vomiting 5. Type 2 diabetes mellitus 6. COPD (chronic obstructive pulmonary disease) 7. Leukocytosis 8. HTN (hypertension) 9. Ileus 10. Post-operative state History of present illness: History of Present Illness: Ms. Pineda is a 56-year-old white female with a history of CAD, COPD, hypertension, and DM who presented to the emergency department with increasing abdominal pain and diarrhea. She was initially seen by her primary care provider with the above stated symptoms, as well as some CP, elevated bp, and weakness, and was found to be tachycardic, which lead to subsequent transfer to the emergency department. Upon arrival, she was noted to be tachycardic. Her WBC was elevated and CT was abnormal. She was admitted and surgery was consulted. She was noted to be postoperative day 12 status post lysis of adhesions for small bowel obstruction. She had been progressing well postoperatively and was followed up earlier in the week in the outpatient clinic for staple removal. Over the past 24-36 hours she developed increasing symptoms and stated that she "just got sick real fast". No fevers. No melena. No bright red blood per rectum. She was evaluated in the ER, given IVF and antiemetics and then admitted for further evaluation and treatment. Exam on admission: Vital signs: 1ST Vital Signs Result Date Time Pulse Ox 98 12/18 1657 B/P 156/104 12/18 1657 Temp 97.9 12/18 1657 Pulse 136 12/18 1657 Resp 20 12/18 1657 O2 Delivery ROOM AIR 12/18 2213 Exam: General appearance: alert, awake, no acute distress, thin Eyes: anicteric, conjunctiva clear, PERRLA ENT: mucous membranes moist, pharynx normal, nares patent Neck: non-tender, full range of motion, no LAD Cardiovascular: regular rate & rhythm, normal peripheral pulses Respiratory: CTAB A&P ABD: no rebound, soft, no guarding, no organomegaly, no palpable mass, bowel sounds present, ttp bilateral upper quads and epigastrium Extremities: moves all, no peripheral edema Neuro: alert, oriented, speech clear, no focal deficit Hospital Course: Patient was seen by her surgeon, Dr. Sewell, on admission. He performed an EGD with biopsy on 12/19/16 and found a sliding hiatal hernia and gastritis. He followed her throughout her admission. The patient received IVF and was started on home meds which included her insulin, PPI, carafate, and cardizem. Her heart returned to normal and her stools were normal. She tolerated Full liquids and required minimal pain med. On 12/21/16 she was stable to be discharged to home. Laboratory data this visit: 12/19/16 0630: Sodium 141, Potassium 3.6, Chloride 107, Carbon Dioxide 24, BUN 10, Creatinine 0.7, Estimated Creat Clear 53, Estimated GFR (MDRD) 87, Glucose 97, Calcium 8.4 L, WBC 9.8, RBC 4.15 L, Hgb 12.9, Hct 40.1, MCV 96.7, RDW 14.2, Plt Count 458 H, MPV 8.5, Gran % 69.1, Gran # 6.8, Lymphocytes % 21.3, Monocytes % 7.5, Eosinophils % 1.4, Basophils % 0.7, Lymphocytes # 2.1, Monocytes # 0.7, Eosinophils # 0.1, Basophils # 0.1, PUBS MCHC 32.1, MCH 31.0 12/18/162048: Lactic Acid 1.4 12/18/16 2030: Emesis for Blood POSITIVE 12/18/16 2010: Stl Cyclospora species NOT DETECTED, Stool Rotavirus (PCR) NOT DETECTED, Stool Campylobacter PCR NOT DETECTED, Stool Giardia Lamblia PCR NOT DETECTED, Stl Norovirus GI/GII PCR NOT DETECTED, Adenovirus (PCR) NOT DETECTED, C. difficile Tox (PCR) NOT DETECTED, E. coli (PCR) NOT DETECTED, Yersinia (PCR) NOT DETECTED 12/18/16 1705: B-Natriuretic Peptide 69, TSH 1.53, Free T4 Index 6.8, Thyroxine (T4) 8.5, T3 Uptake 32 12/18/16 170: Sodium 136, Potassium 3.4 L, Chloride 97 L, Carbon Dioxide 25, BUN 9, Creatinine 0.7, Estimated Creat Clear 53, Estimated GFR (MDRD) 87, Glucose 184 H, Calcium 10.0, Total Bilirubin 0.6, AST 32, ALT 35, Alkaline Phosphatase 485 H, Creatine Kinase 38, CK-MB (CK-2) Rel Index 1.3, CK and CKMB Interp < 0.5, Troponin I < 0.02, Total Protein 8.0, Albumin 3.9, Globulin 4.1 H, Albumin/ Globulin Ratio 1.0 L, WBC 14.6 H, RBC 5.15, Hgb 15.7, Hct 48.8 H, MCV 94.6, RDW 14.2, Plt Count 630 H, MPV 7.1 L, Gran % 74.9, Gran # 10.9 H, Lymphocytes % 17.6, Monocytes % 6.1, Eosinophils % 0.9, Basophils % 0.5, Lymphocytes # 2.6, Monocytes # 0.9, Eosinophils # 0.1, Basophils # 0.1, PUBS MCHC 32.2, MCH 30.5 Chemistry Sodium (mmoL/L) 144 12/21 0555 Potassium (mmoL/L) 4.2 12/21 0555 Chloride (mmoL/L) 112 12/21 0555 Carbon Dioxide (mmoL/L) 21 12/21 0555 BUN (mg/dL) 4 12/21 0555 Creatinine (mg/dL) 0.6 12/21 0555 Estimated Creat Clear (ML/MIN) 62 12/21 0555 Estimated GFR (MDRD) (ML/MIN) 103 12/21 0555 Glucose (mg/dL) 86 12/21 0555 POC Glucose (mg/dl) 74 12/21 0613 Lactic Acid (mmol/L) 1.4 12/18 2049 Calcium (mg/dL) 8.0 12/21 0555 Total Bilirubin (mg/dL) 0.6 12/18 170 AST (U/L) 32 12/18 1705 ALT (U/L) 35 12/18 170 Alkaline Phosphatase (U/L) 485 12/18 170 Creatine Kinase (U/L) 38 12/18 170 CK-MB (CK-2) Rel Index (U/L) 1.3 12/18 1704 CK and CKMB Interp (ng/mL) < 0.5 12/18 1704 Troponin I (ng/mL) < 0.02 12/18 1704 B-Natriuretic Peptide (pg/mL) 69 12/18 170 Total Protein (gm/dL) 8.0 12/18 170 Albumin (gm/dL) 3.9 12/18 170 Globulin (gm/dL) 4.1 12/18 170 Albumin/Globulin Ratio 1.0 12/18 1704 Amylase (U/L) 9 12/19 629 Lipase (U/L) 40 12/19 629 TSH (uIU/ml) 1.53 12/18 1704 Free T4 Index (ug/dl) 6.8 12/18 1704 Thyroxine (T4) (ug/dl) 8.5 12/18 1704 T3 Uptake (%) 32 12/18 170 Hematology WBC (K/MM3) 7.5 12/21 05 RBC (M/mm3) 3.91 12/21 05 Hgb (g/dL) 12.0 12/21 05 Hct (%) 38.1 12/21 0555 MCV (fl) 97.3 12/21 0555 RDW (%) 14.1 12/21 0555 Plt Count (K/mm3) 392 12/21 554 MPV (fl) 9.0 12/21 0555 Gran % (%) 64.8 12/21 0555 Gran # (K/mm3) 4.9 12/21 0555 Lymphocytes % (%) 23.4 12/21 0555 Monocytes % (%) 6.2 12/21 0555 Eosinophils % (%) 4.7 12/21 0555 Basophils % (%) 0.8 12/21 0555 Lymphocytes # (K/mm3) 1.8 12/21 0555 Monocytes # (K/mm3) 0.5 12/21 0555 Eosinophils # (K/mm3) 0.4 12/21 0555 Basophils # (K/MM3) 0.1 12/21 0555 PUBS MCHC (g/dl) 31.4 12/21 0555 Immunology MCH (pg) 30.6 12/21 0555 Imagin12/18/16 CT Abdomen/Pelvis without Contrast: 1. Chronic pancreatitis. 2. Irregular contour of the liver with heterogeneous enhancement which may be due to cirrhosis. There is enhancement central portion of the liver. This is of questionable clinical significance. Much of this is felt to be vascular in nature. Follow-up recommended 3. Multiple loops of mildly distended gas and fluid-filled small bowel with enhancement of the wall consistent with enteritis or diffuse small bowel ischemia. 4. Fluid-filled loops of large bowel with some enhancement of the wall which may be seen with colitis which could be infectious or ischemic. Diarrhea disease also considered 5. Intense enhancement of the renal parenchyma along with enhancement of the bowel wall which may be seen with diffuse hypotension. 12/18/16 Acute abdominal IMPRESSION: 1_air-fluid minimal levels are seen mildly distended small bowel loop at pelvis & left lower quadrant. Findings are less pronounced than on the CT performed 1 hour thereafter which showed thickened enhancing small bowel loops throughout lower abdomen and pelvis 2. Chronic pancreatitis calcification 3. No active disease in the chest. COPD. 12/19/16 acute abdominal series IMPRESSION: Overall improvement since yesterday Only very small residual air-fluid levels in nondilated small bowel on today's plain film. Barely evident\\ Surprisingly unimpressive bowel gas pattern given yesterday's CT Calcifications pancreas from chronic pancreatitis. Contrast within renal collecting systems from yesterday's CT Right pelvicalyceal system is slightly more generous than the left but I but within normal limits No active disease in the chest. COPD. Discharge medications: Stop taking the following medications: LISINOPRIL (Lisinopril) 20 MG TABLET ORAL TWICE A DAY Continue taking these medications: Estradiol (Estradiol) 0.5 MG TABLET 0.5 MILLIGRAM ORAL DAILY ALBUTEROL (Albuterol 0.083% Neb) 2.5 MG/3 ML NEB 3 MILLILITER INHALATION (NEB) FOUR TIMES A DAY NEEDED as needed for BREATHING BUDESONIDE/FORMOTEROL FUMARATE (Symbicort 160-4.5 Mcg Inhaler) 10.2 GM HFA.AER.AD 2 PUFFS INHALATION DAILY Instructions: PT STATES SHE DOESN'T USE THIS A LOT BECAUSE "SHE CAN'T AFFORD IT." Clonazepam (Klonopin 0.5MG) 0.5 MG TABLET 0.5 MILLIGRAM ORAL THREE TIMES A DAY NEEDED as needed for ANXIETY Omeprazole (Omeprazole 40MG) 40 MG CAPSULE. 40 MILLIGRAM ORAL AT BEDTIME NIGHTLY INSULIN GLARGINE (Lantus 3ML Solostar Pen) 100 UNIT/ML VIAL 15 UNITS Subcutaneous Injection AT BEDTIME NIGHTLY Aspirin (Aspirin EC) 81 MG TABLET. 81 MILLIGRAM ORAL DAILY MULTIVITAMIN (Daily Multiple Vitamin) 1 EACH TABLET 1 TABLET ORAL DAILY Apixaban (Eliquis) 5 MG TABLET 2.5 MILLIGRAM ORAL TWICE A DAY LIPASE/PROTEASE/AMYLASE (Reaon 36,000 Units Capsule) 1 EACH CAPSULE.DR 2 CAPSULE, ENTERIC COATED ORAL THREE TIMES A DAY Sucralfate (Carafate) 1 GM TABLET 2 GRAM ORAL TWICE A DAY Hyoscyamine Sulfate (Anaspaz) 0.125 MG TAB.RAPDIS 0.125 MILLIGRAM ORAL WITH MEALS & AT BEDTIME DILTIAZEM HCL (Cartia Xt) 240 MG CAP.ER.24H 240 MILLIGRAM ORAL DAILY KETOROLAC TROMETHAMINE (TORADOL 10MG) 10 MG TABLET 10 MILLIGRAM ORAL FOUR TIMES A DAY Start taking the following new medications: OXYCODONE HCL (Oxycodone) 5 MG TABLET 5 MILLIGRAM NASOGASTRIC TUBE THREE TIMES A DAY Qty = 60 No Refills Disposition: Patient was discharged to home in stable and satisfactory condition. Meds as per reconciliation sheet. She was to have limited activity and a regular diet as tolerated. She was to follow-up with Dr. Adorno in 4 days. at 1901
--- NOTE | 2016-12-22 17:21 | RADIOLOGY REPORT PS360 ---
CTA-CHEST HISTORY: Chest pain surgery. 2 weeks ago colon surgery bowel obstruction POST OP X1 WEEK, TACHYCARDIA ORDERING PHYSICIAN: Demi Gomes MD PATIENT AGE: 56 years TECHNIQUE: Helical acquisition obtained following the bolus administration of 60 mL of Isovue 370 followed by a saline bolus. Axial, sagittal, and coronal reformatted images are generated and reviewed. COMPARISON: 2 view chest 01/09/[address] chest March 2015 FINDINGS: 2 sets of chest images were performed.. The initial set is an arterial injection, which yields contrast through the left subclavian artery filling the posterior aspect of the aorta and yields extensive filling of numerous arterial vessels overlying the left chest. The technologist recognized such an the ER restarted the patient's IV with appropriate venous positioning. The technologist proceeded with repeat study yielding normal CTA type images contrast distribution nicely visualizing pulmonary artery The latter study is of good quality CTA chest pulmonary arteries are well-visualized with no evidence of PE... Lung downs: hyperexpanded clear with nothing definitely acute. No focal pneumonia . Underlying prominent underlying COPD & emphysematous changes. . No consolidation. No pleural findings. Minimal apical pleural scarring is similar to previous 2015 study chest wall and ribs appear intact. No pneumothorax. No pleural the effusion No significant mass lesion or nodule . Only CalcifiedGranulomas at the left lung base Bilateral breast implants. No rib fractures evident. Mediastinum. No mediastinal mass or adenopathy. Heart normal size no pericardial effusion. . Osseous structures appear intact with minor degenerative changes minor anterior marginal osteophytes lower T-spine. IMPRESSION: 1. No evidence of pulmonary embolism. . Today's second injection demonstrates excellent visualization of pulmonary arteries. The appear normal 2. Aorta and mediastinum appear satisfactory.. No mediastinal pathology evident. 3. COPD. Prominent Emphysematous changes throughout the lungs, with no acute pulmonary findings. No focal pneumonia. No chest wall lesions. Send copy Lindsay Garvey--/.
--- OUTSIDE RECORDS SUMMARY | 2017-01-23 21:45 | External Medical Summary Rpt ---
Author Author , DAGOBERTO ARENAS Address Unknown Phone [email or web address] Providers Care Health And Safety Representative Name Role Phone Charlene PHIPPS, Unavailable Unavailable Charlene Adorno MD, Unavailable Unavailable Ewelina Juárez APRN, Unavailable Unavailable Rosanne Jha MD, Unavailable Unavailable Princess Jha MD Purpose Continuity of Care Document - 09-06-2012 through 2016 Problems Code Diagnosis DOS Provider Status [id number] Acute [facility] [id number] Abdominal [place] pain [facility] 288.8 Leukocytosi [facility] 305.1 Tobacco [place] user [facility] [id number] Active [facility] 571.2 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 [facility] 577.1 Chronic [facility] 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 [facility] 787.01 Nausea and [place] vomiting [facility] 787.91 Diarrhea [facility] [id number] [facility] Allergies, Adverse Reactions, Alerts Type Allergy to substance Drug Allergy Propensity to adverse reactions to drug Adverse Reaction to Substance Substance Reaction Severity Cinnamon Oil TONGUE SWELL, NAUSEA Severe Cinnamon Bark TONGUE SWELL, NAUSEA Severe Acetaminophen LIVER ISSUE Unknown Medications Na ND Rx Da Fi Fi Am Da Di Ph RX Ph St me C No te ll ll ou ys ag ar # ys at rm s nt no ma ic us Or Da si cy ia de te s n re d FA 51 02 1 No MO 07 -2 TI 90 1- Lo DI 96 20 ng NE 62 14 er 0 20 Ac ti MG ve TA BL ET Mo 00 02 2 No rp 40 -2 hi 91 0- Lo ne 76 20 ng 23 14 er 2M 0 G/ Ac Ml ti ve Sy ri ng e LI 63 02 2 No SI 73 -2 NO 90 0- Lo TN 34 20 ng IL 91 14 er 0 10 Ac ti MG ve TA BL ET IS 00 02 0 No OV 27 -2 UE 01 0- Lo -3 31 20 ng 70 65 14 er 2 76 Ac % ti IN ve FU S DOUG TT LE ON 00 02 3 No DA 64 -1 NS 16 9- Lo ET 08 20 ng RO 02 14 er N 5 HC Ac L ti 4 ve MG /2 ML AL Mo 00 02 0 No rp 40 -1 hi 91 9- Lo ne 76 20 ng 23 14 er 2M 0 G/ Ac Ml ti ve Sy ri ng e OX 00 02 3 No YC 40 -1 OD 60 9- Lo ON 55 20 ng E 26 14 er HC 2 L Ac 5 ti MG ve TA BL ET CL 00 02 1 No ON 90 -1 ID 45 9- Lo IN 65 20 ng E 66 14 er HC 1 L Ac 0. ti 1 ve MG TA BL ET FA 00 02 2 No MO 64 -1 TI 16 9- Lo DI 02 20 ng NE 22 14 er 5 20 Ac ti MG ve /2 ML AL LI 63 02 1 No SI 73 -1 NO 90 9- Lo TN 35 20 ng IL 01 14 er 0 20 Ac ti MG ve TA BL ET NA 51 02 3 No DO 07 -1 LO 90 9- Lo L 81 20 ng 20 22 14 er 0 MG Ac ti TA ve BL ET MO 00 02 3 No RP 40 -1 HI 68 9- Lo NE 31 20 ng 50 14 er GARZA 1 LF Ac ti ER ve 15 MG TA BL ET LA 00 02 3 No NT 08 -1 US 82 9- Lo 21 20 ng SO 90 [address] Ac AR ti ve 10 0 UN IT /M L FS 02 3 No -1 BL 9- Lo OO 20 ng D 14 er GARZA GA Ac R ti ve HU 00 02 3 No MA 00 -1 LO 27 9- Lo G 51 20 ng 10 01 14 er 0 7 UN Ac IT ti S/ ve ML AL Mo 00 02 1 No rp 40 -1 hi 91 9- Lo ne 76 20 ng 23 14 er 2M 0 G/ Ac Ml ti ve Sy ri ng e SO 00 02 2 No DI 40 -1 UM 97 9- Lo 98 20 ng CH 30 14 er LO 9 RI Ac DE ti ve 0. 9% SO TYREL TI ON FA 00 02 1 No MO 64 -1 TI 16 8- Lo DI 02 20 ng NE 22 14 er 5 20 Ac ti MG ve /2 ML AL FS 02 1 No -1 BL 8- Lo OO 20 ng D 14 er GARZA GA Ac R ti ve HU 00 02 1 No MA 00 -1 LO 27 8- Lo G 51 20 ng 10 01 14 er 0 7 UN Ac IT ti S/ ve ML AL LI 63 02 1 No SI 73 -1 NO 90 8- Lo TN 35 20 ng IL 01 14 er 0 20 Ac ti MG ve TA BL ET NA 51 02 1 No DO 07 -1 LO 90 8- Lo L 81 20 ng 20 22 14 er 0 MG Ac ti TA ve BL ET Mo 00 02 1 No rp 40 -1 hi 91 8- Lo ne 76 20 ng 23 14 er 2M 0 G/ Ac Ml ti ve Sy ri ng e CL 00 02 1 No ON 90 -1 ID 45 8- Lo IN 65 20 ng E 66 14 er HC 1 L Ac 0. ti 1 ve MG TA BL ET SO 00 02 1 No DI 40 -1 UM 97 8- Lo 98 20 ng CH 30 14 er LO 9 RI Ac DE ti ve 0. 9% SO TYREL TI ON NI 00 01 1 No TR 28 -0 O- 10 6- Lo BI 32 20 ng D 60 14 er 2% 8 Ac OI ti NT ve ME NT SO 00 01 1 No TYREL 00 -0 -M 90 6- Lo ED 04 20 ng RO 72 14 er L 2 12 Ac 5 ti MG ve AL Ce 59 01 1 No fd 76 -0 in 22 6- Lo ir 18 20 ng 00 14 er 30 1 0M Ac G ti Ca ve ps ul e IP 00 01 1 No RA 48 -0 T- 70 6- Lo AL 20 20 ng BU 10 14 er T 1 0. Ac 5- ti 3( ve 2. 5) MG /3 ML Po 00 01 1 No ta 24 -0 ss 50 6- Lo iu 04 20 ng m 10 14 er Ch 1 lo Ac ri ti de ve 10 ME Q TA BL E SO 00 01 1 No DI 40 -0 UM 97 6- Lo 98 20 ng CH 30 14 er LO 9 RI Ac DE ti ve 0. 9% SO TYREL TI ON BI 00 01 0 No SO 18 -0 TN 50 6- Lo OL 77 20 ng OL 13 14 er 0 FU Ac MA ti RA ve TE 5 MG TA B Ce 59 01 1 No fd 76 -0 in 22 6- Lo ir 18 20 ng 00 14 er 30 1 0M Ac G ti Ca ve ps ul e CL 51 01 1 No ON 07 -0 ID 90 6- Lo IN 30 20 ng E 02 14 er HC 0 L Ac 0. ti 2 ve MG TA BL ET LI 63 01 0 No SI 73 -0 NO 90 6- Lo TN 35 20 ng IL 01 14 er 0 20 Ac ti MG ve TA BL ET AM 51 01 1 No LO 07 -0 DI 90 6- Lo PI 45 20 ng NE 22 14 er 0 BE Ac SY ti LA ve TE 10 MG TA B 16 01 1 No PI 10 -0 RI 30 6- Lo N 35 20 ng EC 60 14 er 9 81 Ac ti MG ve TA BL ET FA 51 01 1 No MO 07 -0 TI 90 6- Lo DI 96 20 ng NE 62 14 er 0 20 Ac ti MG ve TA BL ET MO 00 01 1 No RP 40 -0 HI 68 6- Lo NE 31 20 ng 50 14 er GARZA 1 LF Ac ti ER ve 15 MG TA BL ET Po 00 01 1 No ta 24 -0 ss 50 6- Lo iu 04 20 ng m 10 14 er Ch 1 lo Ac ri ti de ve 10 ME Q TA BL E Sa 63 01 1 No li 80 -0 ne 70 5- Lo 10 20 ng Fl 07 14 er us 5 h Ac 10 ti ML ve Sy ri ng e Sa 63 01 1 No li 80 -0 ne 70 5- Lo 10 20 ng Fl 07 14 er us 5 h Ac 10 ti ML ve Sy ri ng e IP 00 01 0 No RA 48 -0 T- 70 5- Lo AL 20 20 ng BU 10 14 er T 1 0. Ac 5- ti 3( ve 2. 5) MG /3 ML 66 01 0 No PI 55 -0 RI 30 5- Lo N 00 20 ng 32 10 14 er 5 1 MG Ac ti TA ve BL ET SO 00 01 0 No TYREL 00 -0 -M 90 5- Lo ED 04 20 ng RO 72 14 er L 2 12 Ac 5 ti MG ve AL NI 00 01 0 No TR 28 -0 O- 10 5- Lo BI 32 20 ng D 60 14 er 2% 8 Ac OI ti NT ve ME NT AM 51 12 0 No LO 07 -3 DI 90 0- Lo PI 45 20 ng NE 22 13 er 0 BE Ac SY ti LA ve TE 10 MG TA B TN 00 12 0 No ED 05 -3 NI 40 0- Lo SO 01 20 ng NE 72 13 er 0 10 Ac ti MG ve TA BL ET CL 51 12 1 No ON 07 -2 ID 90 9- Lo IN 30 20 ng E 02 13 er HC 0 L Ac 0. ti 2 ve MG TA BL ET AM 51 12 0 No LO 07 -2 DI 90 9- Lo PI 45 20 ng NE 12 13 er 0 BE Ac SY ti LA ve TE 5 MG TA B CL 00 12 0 No ON 90 -2 ID 45 8- Lo IN 65 20 ng E 66 13 er HC 1 L Ac 0. ti 1 ve MG TA BL ET AM 51 12 1 No LO 07 -2 DI 90 8- Lo PI 45 20 ng NE 12 13 er 0 BE Ac SY ti LA ve TE 5 MG TA B FA 51 12 2 No MO 07 -2 TI 90 8- Lo DI 96 20 ng NE 62 13 er 0 20 Ac ti MG ve TA BL ET 16 12 3 No PI 10 -2 RI 30 7- Lo N 35 20 ng EC 60 13 er 9 81 Ac ti MG ve TA BL ET LO 00 12 3 No VE 07 -2 NO 50 7- Lo X 62 20 ng 40 04 13 er 1 MG Ac /0 ti .4 ve ML SY RI NG E LI 63 12 3 No SI 73 -2 NO 90 7- Lo TN 35 20 ng IL 01 13 er 0 20 Ac ti MG ve TA BL ET PA 12 3 No TI -2 EN 7- Lo T' 20 ng S 13 er OW N Ac HO ti ME ve ME DS MA 00 12 0 No GN 51 -2 ES 72 7- Lo IU 60 20 ng M 22 13 er GARZA 5 LF Ac AT ti E ve 50 % AL SO 00 12 0 No DI 40 -2 UM 97 7- Lo 98 20 ng CH 43 13 er LO 6 RI Ac DE ti ve 0. 9% SO TYREL TI ON SO 00 12 2 No TYREL 00 -2 -M 90 7- Lo ED 04 20 ng RO 72 13 er L 2 12 Ac 5 ti MG ve AL Po 00 12 0 No ta 24 -2 ss 50 6- Lo iu 04 20 ng m 10 13 er Ch 1 lo Ac ri ti de ve 10 ME Q TA BL E Mo 00 12 4 No rp 40 -2 hi 91 6- Lo ne 76 20 ng 23 13 er 2M 0 G/ Ac Ml ti ve Sy ri ng e Mo 00 12 4 No rp 40 -2 hi 91 6- Lo ne 25 20 ng 83 13 er 4M 0 G/ Ac Ml ti ve Sy ri ng e Sa 63 12 4 No li 80 -2 ne 70 6- Lo 10 20 ng Fl 07 13 er us 5 h Ac 10 ti ML ve Sy ri ng e Le 00 12 4 No va 59 -2 lb 12 6- Lo ut 92 20 ng er 02 13 er ol 3 Ac 1. ti 25 ve MG /3 ML Ne b FA 63 12 2 No MO 32 -2 TI 30 6- Lo DI 73 20 ng NE 91 13 er 2 20 Ac ti MG ve /2 ML AL Po 00 12 4 No ta 24 -2 ss 50 6- Lo iu 04 20 ng m 10 13 er Ch 1 lo Ac ri ti de ve 10 ME Q TA BL E Sa 63 12 3 No li 80 -2 ne 70 6- Lo 10 20 ng Fl 07 13 er us 5 h Ac 10 ti ML ve Sy ri ng e Po 00 12 0 No ta 24 -2 ss 50 6- Lo iu 04 20 ng m 10 13 er Ch 1 lo Ac ri ti de ve 10 ME Q TA BL E LO 00 12 3 No RA 64 -2 ZE 16 6- Lo PA 04 20 ng M 82 13 er 2 5 MG Ac /M ti L ve AL Mo 00 12 4 No rp 40 -2 hi 91 6- Lo ne 76 20 ng 23 13 er 2M 0 G/ Ac Ml ti ve Sy ri ng e Mo 00 12 4 No rp 40 -2 hi 91 6- Lo ne 25 20 ng 83 13 er 4M 0 G/ Ac Ml ti ve Sy ri ng e Sa 63 12 4 No li 80 -2 ne 70 6- Lo 10 20 ng Fl 07 13 er us 5 h Ac 10 ti ML ve Sy ri ng e NI 00 12 4 No TR 28 -2 O- 10 6- Lo BI 32 20 ng D 60 13 er 2% 8 Ac OI ti NT ve ME NT MO 00 12 4 No RP 40 -2 HI 68 6- Lo NE 31 20 ng 50 13 er GARZA 1 LF Ac ti ER ve 15 MG TA BL ET Le 00 12 4 No va 59 -2 lb 12 6- Lo ut 92 20 ng er 02 13 er ol 3 Ac 1. ti 25 ve MG /3 ML Ne b CL 00 12 2 No ON 90 -2 ID 45 6- Lo IN 65 20 ng E 66 13 er HC 1 L Ac 0. ti 1 ve MG TA BL ET Fa 63 12 2 No mo 32 -2 ti 30 6- Lo di 73 20 ng ne 90 13 er 2 20 Ac MG ti /2 ve ML Vi al Po 00 12 4 No ta 24 -2 ss 50 6- Lo iu 04 20 ng m 10 13 er Ch 1 lo Ac ri ti de ve 10 ME Q TA BL E Sa 63 12 3 No li 80 -2 ne 70 6- Lo 10 20 ng Fl 07 13 er us 5 h Ac 10 ti ML ve Sy ri ng e BI 00 12 4 No SO 18 -2 TN 50 6- Lo OL 77 20 ng OL 13 13 er 0 FU Ac MA ti RA ve TE 5 MG TA B CE 00 12 4 No FT 40 -2 RI 97 6- Lo AX 33 20 ng ON 30 13 er E 4 1 Ac GM ti ve AL SO 00 12 4 No DI 40 -2 UM 97 6- Lo 10 20 ng CH 16 13 er LO 6 RI Ac DE ti ve 0. 9% SO LN PO 00 12 0 No TA 40 -2 SS 99 6- Lo IU 25 20 ng M 73 13 er CL 9 Ac 20 ti ve ME Q- 0. 45 % NA CL SO 00 12 1 No DI 40 -2 UM 97 5- Lo 98 20 ng CH 50 13 er LO 9 RI Ac DE ti ve 0. 45 % SO LN LI 63 12 1 No SI 73 -2 NO 90 5- Lo TN 35 20 ng IL 01 13 er 0 20 Ac ti MG ve TA BL ET Sa 63 12 1 No li 80 -2 ne 70 5- Lo 10 20 ng Fl 07 13 er us 5 h Ac 10 ti ML ve Sy ri ng e CL 00 12 1 No ON 90 -2 ID 45 5- Lo IN 65 20 ng E 66 13 er HC 1 L Ac 0. ti 1 ve MG TA BL ET 16 12 1 No PI 10 -2 RI 30 5- Lo N 35 20 ng EC 60 13 er 9 81 Ac ti MG ve TA BL ET LO 00 12 1 No VE 07 -2 NO 50 5- Lo X 62 20 ng 40 04 13 er 1 MG Ac /0 ti .4 ve ML SY RI NG E LO 00 12 1 No RA 64 -2 ZE 16 5- Lo PA 04 20 ng M 82 13 er 2 5 MG Ac /M ti L ve AL Sa 63 12 1 No li 80 -2 ne 70 5- Lo 10 20 ng Fl 07 13 er us 5 h Ac 10 ti ML ve Sy ri ng e Mo 00 12 2 No rp 40 -2 hi 91 4- Lo ne 76 20 ng 23 13 er 2M 0 G/ Ac Ml ti ve Sy ri ng e 45 12 0 No AI 80 -2 FE 20 4- Lo NE 49 20 ng SI 85 13 er N 8 ER Ac ti 60 ve 0 MG TA BL ET FA 63 12 2 No MO 32 -2 TI 30 4- Lo DI 73 20 ng NE 91 13 er 2 20 Ac ti MG ve /2 ML AL Sa 63 12 2 No li 80 -2 ne 70 4- Lo 10 20 ng Fl 07 13 er us 5 h Ac 10 ti ML ve Sy ri ng e Mo 00 12 0 No rp 40 -2 hi 91 4- Lo ne 76 20 ng 23 13 er 2M 0 G/ Ac Ml ti ve Sy ri ng e IP 00 12 2 No RA 48 -2 T- 70 4- Lo AL 20 20 ng BU 10 13 er T 1 0. Ac 5- ti 3( ve 2. 5) MG /3 ML CE 00 12 2 No FT 40 -2 RI 97 4- Lo AX 33 20 ng ON 30 13 er E 4 1 Ac GM ti ve AL LE 25 12 4 No VO 02 -2 FL 10 4- Lo OX 13 20 ng AC 28 13 er IN 3 Ac 75 ti 0 ve MG /1 50 ML -D 5W DI 63 12 1 No TN 32 -2 IV 30 4- Lo AN 26 20 ng 96 13 er 1, 5 00 Ac 0 ti MG ve /1 00 ML AL AL 00 12 0 No BU 48 -2 TE 79 4- Lo RO 50 20 ng L 10 13 er GARZA 1 L Ac 2. ti 5 ve MG /3 ML SO LN SO 00 12 0 No TYREL 00 -2 -M 90 4- Lo ED 04 20 ng RO 72 13 er L 2 12 Ac 5 ti MG ve AL KS 00 12 0 No DA 40 -2 ZO 92 4- Lo LA 30 20 ng M 84 13 er HC 9 L Ac 5 ti MG ve /M L AL Mo 00 12 2 No rp 40 -2 hi 91 4- Lo ne 76 20 ng 23 13 er 2M 0 G/ Ac Ml ti ve Sy ri ng e SO 00 12 0 No DI 40 -2 UM 97 4- Lo 98 20 ng CH 30 13 er LO 2 RI Ac DE ti ve 0. 9% SO TYREL TI ON Gu 63 12 0 No ai 82 -2 fe 40 4- Lo ne 00 20 ng si 84 13 er n 0 LA Ac ti 60 ve 0M G Ta bl et LO 00 12 0 No VE 07 -2 NO 50 4- Lo X 62 20 ng 40 04 13 er 1 MG Ac /0 ti .4 ve ML SY RI NG E Fa 63 12 2 No mo 32 -2 ti 30 4- Lo di 73 20 ng ne 90 13 er 2 20 Ac MG ti /2 ve ML Vi al Sa 63 12 2 No li 80 -2 ne 70 4- Lo 10 20 ng Fl 07 13 er us 5 h Ac 10 ti ML ve Sy ri ng e LO 00 12 0 No RA 64 -2 ZE 16 4- Lo PA 04 20 ng M 82 13 er 2 5 MG Ac /M ti L ve AL Mo 00 12 0 No rp 40 -2 hi 91 4- Lo ne 76 20 ng 23 13 er 2M 0 G/ Ac Ml ti ve Sy ri ng e 63 12 0 No PI 73 -2 RI 90 4- Lo N 02 20 ng EC 30 13 er 1 32 Ac 5 ti MG ve TA BL ET ME 51 12 2 No TO 07 -2 TN 90 4- Lo OL 25 20 ng OL 52 13 er 0 TA Ac RT ti RA ve TE 25 MG TA B CL 00 12 0 No ON 90 -2 ID 45 4- Lo IN 65 20 ng E 66 13 er HC 1 L Ac 0. ti 1 ve MG TA BL ET DE 00 12 2 No XT 40 -2 RO 97 3- Lo SE 92 20 ng 40 13 er 5% 9 -0 Ac .2 ti 25 ve % NA CL IV SO L TA 00 12 1 No KS 00 -2 FL 40 3- Lo U 80 20 ng 75 08 13 er 5 MG Ac ti CA ve PS UL E TN 00 12 1 No ED 05 -2 NI 40 3- Lo SO 01 20 ng NE 72 13 er 0 10 Ac ti MG ve TA BL ET OX 00 12 1 No YC 40 -2 OD 60 3- Lo ON 55 20 ng E 26 13 er HC 2 L Ac 5 ti MG ve TA BL ET Le 00 12 3 No va 59 -2 lb 12 3- Lo ut 92 20 ng er 02 13 er ol 3 Ac 1. ti 25 ve MG /3 ML Ne b MO 00 12 3 No RP 40 -2 HI 68 3- Lo NE 31 20 ng 50 13 er GARZA 1 LF Ac ti ER ve 15 MG TA BL ET Le 00 12 3 No va 59 -2 lb 12 3- Lo ut 92 20 ng er 02 13 er ol 3 Ac 1. ti 25 ve MG /3 ML Ne b CL 00 12 1 No ON 90 -2 ID 45 3- Lo IN 65 20 ng E 66 13 er HC 1 L Ac 0. ti 1 ve MG TA BL ET PN 00 09 0 No EU 00 -2 MO 64 3- Lo VA 94 20 ng X 30 13 er 23 0 Ac ti AL ve Le 51 09 0 No vo 07 -2 fl 90 3- Lo ox 03 20 ng ac 52 13 er in 0 Ac 50 ti 0M ve G Ta bl et Mo 00 09 1 No rp 40 -2 hi 91 2- Lo ne 76 20 ng 23 13 er 2M 0 G/ Ac Ml ti ve Sy ri ng e Sa 63 09 1 No li 80 -2 ne 70 2- Lo 10 20 ng Fl 07 13 er us 5 h Ac 10 ti ML ve Sy ri ng e MO 00 09 1 No RP 40 -2 HI 68 2- Lo NE 31 20 ng 50 13 er GARZA 1 LF Ac ti ER ve 15 MG TA BL ET TN 00 09 1 No ED 05 -2 NI 40 2- Lo SO 01 20 ng NE 72 13 er 0 10 Ac ti MG ve TA BL ET NA 51 09 3 No DO 07 -2 LO 90 0- Lo L 81 20 ng 20 22 13 er 0 MG Ac ti TA ve BL ET PA 09 3 No TI -2 EN 0- Lo T' 20 ng S 13 er OW N Ac HO ti ME ve ME DS LE 50 09 3 No VA 45 -1 QU 80 9- Lo IN 16 20 ng -D 80 13 er 5W 1 Ac 50 ti 0 ve MG /1 00 ML BA G SO 00 09 3 No DI 40 -1 UM 97 9- Lo 98 20 ng CH 30 13 er LO 9 RI Ac DE ti ve 0. 9% SO TYREL TI ON TN 00 09 3 No ED 05 -1 NI 40 9- Lo SO 01 20 ng NE 72 13 er 0 10 Ac ti MG ve TA BL ET Mo 00 09 3 No rp 40 -1 hi 91 9- Lo ne 25 20 ng 83 13 er 4M 0 G/ Ac Ml ti ve Sy ri ng e LI 63 09 4 No SI 73 -1 NO 90 9- Lo TN 35 20 ng IL 01 13 er 0 20 Ac ti MG ve TA BL ET OX 00 09 4 No YC 40 -1 OD 60 9- Lo ON 55 20 ng E 26 13 er HC 2 L Ac 5 ti MG ve TA BL ET AN 00 09 4 No 22 -1 PA 50 9- Lo Z 29 20 ng 0. 51 13 er 12 5 5 Ac MG ti ve TA BL ET OD T CL 00 09 4 No ON 90 -1 ID 45 9- Lo IN 65 20 ng E 66 13 er HC 1 L Ac 0. ti 1 ve MG TA BL ET HY [address] 07 -0 OC 90 2- Lo HL 77 20 ng OR 62 13 er OT 0 HI Ac AZ ti ID ve E 12 .5 MG CP RA 63 09 0 No D- 80 -0 SA 70 1- Lo LI 10 20 ng NE 07 13 er 5A FL Ac US ti H ve 10 ML SY RI NG E IS 00 09 0 No OV 27 -0 UE 01 1- Lo -3 31 20 ng 70 65 13 er 2 76 Ac % ti IN ve FU S DOUG TT LE RA 63 09 0 No D- 80 -0 SA 70 1- Lo LI 10 20 ng NE 07 13 er 5A FL Ac US ti H ve 10 ML SY RI NG E TO 00 08 2 No TN 18 -3 OL 61 1- Lo 08 20 ng XL 83 13 er 9 25 Ac ti MG ve TA BL ET TN 00 08 4 No ED 05 -2 NI 40 9- Lo SO 01 20 ng NE 82 13 er 0 20 Ac ti MG ve TA BL ET CL 00 08 0 No ON 90 -2 ID 45 9- Lo IN 65 20 ng E 66 13 er HC 1 L Ac 0. ti 1 ve MG TA BL ET LI 63 08 4 No SI 73 -2 NO 90 9- Lo TN 35 20 ng IL 01 13 er 0 20 Ac ti MG ve TA BL ET MO 00 08 5 No RP 40 -2 HI 68 8- Lo NE 31 20 ng 50 13 er GARZA 1 LF Ac ti ER ve 15 MG TA BL ET OC 62 08 5 No TR 75 -2 EO 60 8- Lo TI 34 20 ng DE 94 13 er 4 AC Ac ET ti ve 10 0 MC G/ ML AM P TN 00 08 0 No ED 05 -2 NI 40 8- Lo SO 01 20 ng NE 82 13 er 0 20 Ac ti MG ve TA BL ET HY [address] 40 -2 OM 91 8- Lo OR 31 20 ng PH 23 13 er ON 0 E Ac 2 ti MG ve /M L CA RP UJ CT AN 00 08 5 No 22 -2 PA 50 8- Lo Z 29 20 ng 0. 51 13 er 12 5 5 Ac MG ti ve TA BL ET OD T IS 00 08 0 No OV 27 -2 UE 01 7- Lo -3 31 20 ng 70 65 13 er 2 76 Ac % ti IN ve FU S DOUG TT LE RA 63 08 0 No D- 80 -2 SA 70 7- Lo LI 10 20 ng NE 07 13 er 5A FL Ac US ti H ve 10 ML SY RI NG E Mo 00 08 0 No rp 40 -2 hi 91 7- Lo ne 26 20 ng 06 13 er 8M 9 G/ Ac Ml ti ve Sy ri ng e TN 00 08 6 No OT 00 -2 ON 80 7- Lo IX 92 20 ng 35 13 er IV 5 Ac 40 ti ve MG AL SO 00 08 6 No DI 40 -2 UM 97 7- Lo 98 20 ng CH 43 13 er LO 7 RI Ac DE ti ve 0. 9% SO TYREL TI ON ON 00 08 0 No DA 64 -2 NS 16 7- Lo ET 08 20 ng RO 02 13 er N 5 HC Ac L ti 4 ve MG /2 ML AL GA [address] 27 -2 RO 00 7- Lo GR 44 20 ng AF 53 13 er IN 5 Ac 66 ti -1 ve 0 SO TYREL TI ON RA 63 08 0 No D- 80 -2 SA 70 7- Lo LI 10 20 ng NE 07 13 er 5A FL Ac US ti H ve 10 ML SY RI NG E HY [address] 40 -2 OM 91 7- Lo OR 30 20 ng PH 43 13 er ON 1 E Ac 4 ti MG ve /M L CA RP UJ CT TN 00 08 6 No OM 64 -2 ET 11 7- Lo BURCH 49 20 ng ZI 53 13 er NE 5 Ac 25 ti ve MG /M L AM PU L Mo 00 08 0 No rp 40 -2 hi 91 7- Lo ne 26 20 ng 06 13 er 8M 9 G/ Ac Ml ti ve Sy ri ng e CL 00 08 0 No IN 33 -0 IM 81 5- Lo IX 14 20 ng E 50 13 er 3 4. Ac 25 ti %- ve 10 % SO TYREL TI ON M. 61 08 0 No V. 70 -0 I. 30 5- Lo 42 20 ng AD 28 13 er UL 2 T Ac ti AL ve HU 00 08 1 No MA 00 -0 LO 27 5- Lo G 51 20 ng 10 01 13 er 0 7 UN Ac IT ti S/ ve ML AL FS 08 1 No -0 BL 5- Lo OO 20 ng D 13 er GARZA GA Ac R ti ve MA 00 08 0 No GN 51 -0 ES 72 5- Lo IU 60 20 ng M 22 13 er GARZA 5 LF Ac AT ti E ve 50 % AL SO 00 08 0 No DI 40 -0 UM 97 5- Lo 98 20 ng CH 43 13 er LO 6 RI Ac DE ti ve 0. 9% SO TYREL TI ON LI 63 08 2 No SI 73 -0 NO 90 4- Lo TN 35 20 ng IL 01 13 er 0 20 Ac ti MG ve TA BL ET PO 00 08 0 No TA 40 -0 SS 97 4- Lo IU 07 20 ng M 42 13 er CL 6 Ac 10 ti ve ME Q/ 10 0 ML SO L CL 00 08 0 No IN 33 -0 IM 81 4- Lo IX 14 20 ng E 50 13 er 3 4. Ac 25 ti %- ve 10 % SO TYREL TI ON CL 00 08 2 No ON 90 -0 ID 45 4- Lo IN 65 20 ng E 66 13 er HC 1 L Ac 0. ti 1 ve MG TA BL ET FS 08 0 No -0 BL 4- Lo OO 20 ng D 13 er GARZA GA Ac R ti ve MA 00 08 0 No GN 51 -0 ES 72 4- Lo IU 60 20 ng M 22 13 er GARZA 5 LF Ac AT ti E ve 50 % AL SO 00 08 0 No DI 40 -0 UM 97 4- Lo 98 20 ng CH 43 13 er LO 6 RI Ac DE ti ve 0. 9% SO TYREL TI ON Li 00 08 1 No si 17 -0 no 23 3- Lo pr 75 20 ng il 91 13 er 0 10 Ac MG ti ve Ta bl et Li 00 08 1 No si 17 -0 no 23 3- Lo pr 75 20 ng il 91 13 er 0 10 Ac MG ti ve Ta bl et CA 00 08 0 No TA 59 -0 TN 70 3- Lo ES 03 20 ng -T 13 13 er TS 4 1 Ac ti PA ve TC H CL 00 08 0 No ON 90 -0 ID 45 3- Lo IN 65 20 ng E 66 13 er HC 1 L Ac 0. ti 1 ve MG TA BL ET CL 00 08 0 No IN 33 -0 IM 81 3- Lo IX 14 20 ng E 50 13 er 3 4. Ac 25 ti %- ve 10 % SO TYREL TI ON M. 61 08 1 No V. 70 -0 I. 30 3- Lo 42 20 ng AD 28 13 er UL 2 T Ac ti AL ve IN 00 08 4 No TR 33 -0 AL 80 2- Lo IP 51 20 ng ID 90 13 er 2 20 Ac % ti IV ve FA T EM UL MA 00 08 0 No GN 51 -0 ES 72 2- Lo IU 60 20 ng M 22 13 er GARZA 5 LF Ac AT ti E ve 50 % AL SO 00 08 0 No DI 40 -0 UM 97 2- Lo 98 20 ng CH 43 13 er LO 6 RI Ac DE ti ve 0. 9% SO TYREL TI ON M. 61 08 1 No V. 70 -0 I. 30 2- Lo 42 20 ng AD 28 13 er UL 2 T Ac ti AL ve PA 08 0 No TI -0 EN 2- Lo T' 20 ng S 13 er OW N Ac HO ti ME ve ME DS OC 62 08 4 No TR 75 -0 EO 60 2- Lo TI 34 20 ng DE 94 13 er 4 AC Ac ET ti ve 10 0 MC G/ ML AM P CL 00 08 1 No IN 33 -0 IM 81 2- Lo IX 14 20 ng E 50 13 er 3 4. Ac 25 ti %- ve 10 % SO TYREL TI ON M. 61 08 1 No V. 70 -0 I. 30 1- Lo 42 20 ng AD 28 13 er UL 2 T Ac ti AL ve IN 00 08 5 No VA 00 -0 NZ 63 1- Lo 1 84 20 ng 57 13 er GM 1 Ac AD ti D- ve VA NT AG E AL SO 00 08 5 No DI 40 -0 UM 97 1- Lo 10 20 ng CH 16 13 er LO 6 RI Ac DE ti ve 0. 9% SO LN OX 00 08 5 No YC 40 -0 OD 60 1- Lo ON 55 20 ng E 26 13 er HC 2 L Ac 5 ti MG ve TA BL ET PA 08 5 No TI -0 EN 1- Lo T' 20 ng S 13 er OW N Ac HO ti ME ve ME DS HU 00 08 4 No MA 00 -0 LO 27 1- Lo G 51 20 ng 10 01 13 er 0 7 UN Ac IT ti S/ ve ML AL LO 00 08 5 No VE 07 -0 NO 50 1- Lo X 62 20 ng 40 04 13 er 1 MG Ac /0 ti .4 ve ML SY RI NG E FS 08 4 No -0 BL 1- Lo OO 20 ng D 13 er GARZA GA Ac R ti ve 00 08 1 No TA 40 -0 KS 99 1- Lo N 15 20 ng K- 80 13 er 1 1 10 Ac ti MG ve /M L AM PU L CY 00 08 1 No AN 51 -0 OC 70 1- Lo OB 03 20 ng AL 12 13 er AM 5 IN Ac ti 1, ve 00 0 MC G/ ML CL 00 08 1 No IN 33 -0 IM 81 1- Lo IX 14 20 ng E 50 13 er 3 4. Ac 25 ti %- ve 10 % SO TYREL TI ON CE 00 07 0 No FT 40 -3 RI 97 1- Lo AX 33 20 ng ON 30 13 er E 4 1 Ac GM ti ve AL IN 00 07 1 No VA 00 -3 NZ 63 1- Lo 1 84 20 ng 57 13 er GM 1 Ac AD ti D- ve VA NT AG E AL LA [address] 40 -3 AT 97 1- Lo ED 95 20 ng 30 13 er RI 9 NG Ac ER ti S ve IN JE CT IO N NICK 00 07 6 No L 40 -3 20 97 1- Lo 11 20 ng ME 50 13 er Q- 9 NS Ac ti 1, ve 00 0 ML IV SO LN Sa 63 07 1 No li 80 -3 ne 70 1- Lo 10 20 ng Fl 07 13 er us 5 h Ac 10 ti ML ve Sy ri ng e ON 00 07 0 No DA 64 -3 NS 16 1- Lo ET 08 20 ng RO 02 13 er N 5 HC Ac L ti 4 ve MG /2 ML AL GA [address] 27 -3 RO 00 1- Lo GR 44 20 ng AF 53 13 er IN 5 Ac 66 ti -1 ve 0 SO TYREL TI ON Mo 00 07 0 No rp 40 -3 hi 91 1- Lo ne 26 20 ng 06 13 er 8M 9 G/ Ac Ml ti ve Sy ri ng e Mo 00 07 0 No rp 40 -3 hi 91 1- Lo ne 26 20 ng 06 13 er 8M 9 G/ Ac Ml ti ve Sy ri ng e RA 00 07 0 No D- 27 -3 IS 01 1- Lo OV 31 20 ng UE 53 13 er -3 5B 00 Ac ;1 ti 00 ve ML AL RA 63 07 0 No D- 80 -3 SA 70 1- Lo LI 10 20 ng NE 07 13 er 5A FL Ac US ti H ve 10 ML SY RI NG E OX 00 07 0 No YC 40 -3 OD 60 1- Lo ON 55 20 ng E 26 13 er HC 2 L Ac 5 ti MG ve TA BL ET Mo 00 07 0 No rp 40 -3 hi 91 1- Lo ne 26 20 ng 06 13 er 8M 9 G/ Ac Ml ti ve Sy ri ng e Mo 00 07 6 No rp 40 -3 hi 91 1- Lo ne 25 20 ng 83 13 er 4M 0 G/ Ac Ml ti ve Sy ri ng e TN 00 07 6 No OM 64 -3 ET 11 1- Lo BURCH 49 20 ng ZI 53 13 er NE 5 Ac 25 ti ve MG /M L AM PU L SO 00 07 6 No TYREL 00 -3 -M 90 1- Lo ED 04 20 ng RO 72 13 er L 2 12 Ac 5 ti MG ve AL SO 00 07 6 No DI 40 -3 UM 97 1- Lo 98 20 ng CH 42 13 er LO 0 RI Ac DE ti ve 0. 9% SO TYREL TI ON Sa 63 07 1 No li 80 -3 ne 70 1- Lo 10 20 ng Fl 07 13 er us 5 h Ac 10 ti ML ve Sy ri ng e Mo 00 07 0 No rp 40 -3 hi 91 1- Lo ne 26 20 ng 06 13 er 8M 9 G/ Ac Ml ti ve Sy ri ng e Mo 00 07 0 No rp 40 -3 hi 91 1- Lo ne 26 20 ng 06 13 er 8M 9 G/ Ac Ml ti ve Sy ri ng e RA 00 07 0 No D- 27 -3 IS 01 1- Lo OV 31 20 ng UE 53 13 er -3 5B 00 Ac ;1 ti 00 ve ML AL RA 63 07 0 No D- 80 -3 SA 70 1- Lo LI 10 20 ng NE 07 13 er 5A FL Ac US ti H ve 10 ML SY RI NG E Mo 00 07 0 No rp 40 -3 hi 91 1- Lo ne 26 20 ng 06 13 er 8M 9 G/ Ac Ml ti ve Sy ri ng e Mo 00 07 6 No rp 40 -3 hi 91 1- Lo ne 25 20 ng 83 13 er 4M 0 G/ Ac Ml ti ve Sy ri ng e MO 00 07 6 No RP 40 -3 HI 68 1- Lo NE 31 20 ng 50 13 er GARZA 1 LF Ac ti ER ve 15 MG TA BL ET SO 00 07 0 No DI 40 -1 UM 97 0- Lo 98 20 ng CH 30 13 er LO 9 RI Ac DE ti ve 0. 9% SO TYREL TI ON TN 00 07 0 No OM 64 -1 ET 11 0- Lo BURCH 49 20 ng ZI 53 13 er NE 5 Ac 25 ti ve MG /M L AM PU L Mo 00 07 0 No rp 40 -1 hi 91 0- Lo ne 25 20 ng 83 13 er 4M 0 G/ Ac Ml ti ve Sy ri ng e ON 00 07 0 No DA 64 -1 NS 16 0- Lo ET 08 20 ng RO 02 13 er N 5 HC Ac L ti 4 ve MG /2 ML AL Mo 00 07 0 No rp 40 -1 hi 91 0- Lo ne 25 20 ng 83 13 er 4M 0 G/ Ac Ml ti ve Sy ri ng e Mo 00 07 0 No rp 40 -1 hi 91 0- Lo ne 25 20 ng 83 13 er 4M 0 G/ Ac Ml ti ve Sy ri ng e Mo 00 07 0 No rp 40 -1 hi 91 0- Lo ne 25 20 ng 83 13 er 4M 0 G/ Ac Ml ti ve Sy ri ng e AN 00 06 1 No TA 11 -2 CI 30 4- Lo D [address] 74 13 er US 0 Ac AN ti TI ve -G RE LF LI Q Mo 00 06 2 No rp 40 -2 hi 91 3- Lo ne 76 20 ng 23 13 er 2M 0 G/ Ac Ml ti ve Sy ri ng e Mo 00 06 0 No rp 40 -2 hi 91 3- Lo ne 76 20 ng 23 13 er 2M 0 G/ Ac Ml ti ve Sy ri ng e Mo 00 06 2 No rp 40 -2 hi 91 3- Lo ne 76 20 ng 23 13 er 2M 0 G/ Ac Ml ti ve Sy ri ng e Mo 00 06 0 No rp 40 -2 hi 91 3- Lo ne 76 20 ng 23 13 er 2M 0 G/ Ac Ml ti ve Sy ri ng e Ib 62 06 3 No up 58 -2 ro 40 2- Lo fe 74 20 ng n 70 13 er 60 1 0M Ac G ti Ta ve bl et TN 00 06 3 No ED 05 -2 NI 40 2- Lo SO 01 20 ng NE 72 13 er 0 10 Ac ti MG ve TA BL ET Ib 62 06 3 No up 58 -2 ro 40 2- Lo fe 74 20 ng n 70 13 er 60 1 0M Ac G ti Ta ve bl et PA 06 4 No TI -2 EN 1- Lo T' 20 ng S 13 er OW N Ac HO ti ME ve ME DS Mo 00 06 2 No rp 40 -2 hi 91 1- Lo ne 76 20 ng 23 13 er 2M 0 G/ Ac Ml ti ve Sy ri ng e MO 00 06 4 No RP 40 -2 HI 68 1- Lo NE 31 20 ng 50 13 er GARZA 1 LF Ac ti ER ve 15 MG TA BL ET Mo 00 06 2 No rp 40 -2 hi 91 1- Lo ne 76 20 ng 23 13 er 2M 0 G/ Ac Ml ti ve Sy ri ng e Mo 00 06 0 No rp 40 -2 hi 91 0- Lo ne 76 20 ng 23 13 er 2M 0 G/ Ac Ml ti ve Sy ri ng e Mo 00 06 1 No rp 40 -2 hi 91 0- Lo ne 25 20 ng 83 13 er 4M 0 G/ Ac Ml ti ve Sy ri ng e DE 00 06 3 No XT 40 -2 RO 97 0- Lo SE 92 20 ng 60 13 er 5% 9 -0 Ac .4 ti 5% ve NA CL IV SO LN Mo 00 06 0 No rp 40 -2 hi 91 0- Lo ne 76 20 ng 23 13 er 2M 0 G/ Ac Ml ti ve Sy ri ng e Mo 00 06 1 No rp 40 -2 hi 91 0- Lo ne 25 20 ng 83 13 er 4M 0 G/ Ac Ml ti ve Sy ri ng e TN 00 06 0 No OM 64 -1 ET 11 9- Lo BURCH 49 20 ng ZI 53 13 er NE 5 Ac 25 ti ve MG /M L AM PU L Mo 00 06 0 No rp 40 -1 hi 91 9- Lo ne 25 20 ng 83 13 er 4M 0 G/ Ac Ml ti ve Sy ri ng e SO 00 06 6 No DI 40 -1 UM 97 9- Lo 98 20 ng CH 42 13 er LO 0 RI Ac DE ti ve 0. 9% SO TYREL TI ON Mo 00 06 0 No rp 40 -1 hi 91 9- Lo ne 25 20 ng 83 13 er 4M 0 G/ Ac Ml ti ve Sy ri ng e FE 00 05 1 No NT 59 -2 AN 13 3- Lo YL 60 20 ng 17 13 er 50 2 Ac MC ti G/ ve HR PA TC H ES 00 05 1 No TR 43 -2 AC 00 1- Lo E 72 20 ng 1 12 13 er MG 4 Ac TA ti BL ve ET TO 00 05 1 No TN 18 -2 OL 61 1- Lo 09 20 ng XL 00 13 er 5 50 Ac ti MG ve TA BL ET SP 51 05 1 No IR 07 -2 ON 90 1- Lo OL 10 20 ng AC 32 13 er TO 0 NE Ac ti 25 ve MG TA BL ET Mo 00 05 1 No rp 40 -2 hi 91 1- Lo ne 76 20 ng 23 13 er 2M 0 G/ Ac Ml ti ve Sy ri ng e SO 00 05 2 No DI 40 -2 UM 97 0- Lo 98 20 ng CH 50 13 er LO 9 RI Ac DE ti ve 0. 45 % SO LN TN 00 05 2 No ED 05 -2 NI 40 0- Lo SO 01 20 ng NE 72 13 er 0 10 Ac ti MG ve TA BL ET Fe 00 05 1 No nt 59 -2 an 13 0- Lo yl 60 20 ng 07 13 er 25 2 MC Ac G/ ti Pa ve tc h Mo 00 05 1 No rp 40 -2 hi 91 0- Lo ne 76 20 ng 23 13 er 2M 0 G/ Ac Ml ti ve Sy ri ng e LA [address] 12 -2 UL 14 0- Lo OS 57 20 ng E 73 13 er 20 0 Ac GM ti /3 ve 0 ML SO TYREL TI ON Vital Signs 06-11-2013 12:50 Name Value Interpretat Reference Comment ion Range Body 98.5 [degF] Temperature BP 95 mm[Hg] Diastolic BP Systolic 136 mm[Hg] Heart 62 /min Rate/Pulse Respiratory 17 /min Rate 06-11-2013 08:00 Name Value Interpretat Reference Comment ion Range O2% 97 % 06-07-2013 19:40 Name Value Interpretat Reference Comment ion Range O2% 99 % 06-07-2013 15:15 Name Value Interpretat Reference Comment ion Range Body 98.1 [degF] Temperature BP 104 mm[Hg] Diastolic BP Systolic 147 mm[Hg] Heart 110 /min Rate/Pulse Height 160.02 cm Respiratory 24 /min Rate Weight 86 [lb_av] Measured Weight 39.009 kg Measured 04-26-2013 13:51 Name Value Interpretat Reference Comment ion Range Body 98.0 [degF] Temperature BP 88 mm[Hg] Diastolic BP Systolic 159 mm[Hg] Heart 75 /min Rate/Pulse Respiratory 20 /min Rate 04-26-2013 12:00 Name Value Interpretat Reference Comment ion Range O2% 93 % 04-25-2013 00:37 Name Value Interpretat Reference Comment ion Range Height 160.02 cm Weight 42.411 kg Measured 04-24-2013 20:59 Name Value Interpretat Reference Comment ion Range Body 98.4 [degF] Temperature BP 85 mm[Hg] Diastolic BP Systolic 120 mm[Hg] Heart 92 /min Rate/Pulse O2% 98 % Respiratory 28 /min Rate Weight 0 [oz_av] Measured 04-18-2013 11:36 Name Value Interpretat Reference Comment ion Range Body 97.8 [degF] Temperature BP 56 mm[Hg] Diastolic BP Systolic 87 mm[Hg] Heart 72 /min Rate/Pulse Respiratory 22 /min Rate 04-18-2013 08:00 Name Value Interpretat Reference Comment ion Range O2% 86 % 04-11-2013 16:00 Name Value Interpretat Reference Comment ion Range O2% 92 % 04-11-2013 12:18 Name Value Interpretat Reference Comment ion Range Body 98.4 [degF] Temperature BP 73 mm[Hg] Diastolic BP Systolic 109 mm[Hg] Height 160.02 cm Respiratory 24 /min Rate Weight 98 [lb_av] Measured Weight 44.537 kg Measured 04-11-2013 12:08 Name Value Interpretat Reference Comment ion Range Heart 99 /min Rate/Pulse 01-10-2013 10:47 Name Value Interpretat Reference Comment ion Range Body 97.0 [degF] Temperature BP 84 mm[Hg] Diastolic BP Systolic 153 mm[Hg] Heart 63 /min Rate/Pulse Respiratory 18 /min Rate 01-10-2013 08:00 Name Value Interpretat Reference Comment ion Range O2% 99 % 01-06-2013 16:00 Name Value Interpretat Reference Comment ion Range O2% 97 % 01-06-2013 15:00 Name Value Interpretat Reference Comment ion Range Body 98.8 [degF] Temperature BP 99 mm[Hg] Diastolic BP Systolic 144 mm[Hg] Heart 74 /min Rate/Pulse Height 160.02 cm Respiratory 20 /min Rate Weight 91 [lb_av] Measured Weight 41.277 kg Measured 12-20-2012 13:20 Name Value Interpretat Reference Comment ion Range Body 97.4 [degF] Temperature BP 74 mm[Hg] Diastolic BP Systolic 142 mm[Hg] Heart 53 /min Rate/Pulse Respiratory 20 /min Rate 12-20-2012 11:00 Name Value Interpretat Reference Comment ion Range Body 97.4 [degF] Temperature BP 74 mm[Hg] Diastolic BP Systolic 142 mm[Hg] Heart 53 /min Rate/Pulse O2% 98 % Respiratory 20 /min Rate 12-14-2012 18:40 Name Value Interpretat Reference Comment ion Range Height 160.02 cm Weight 42.893 kg Measured 12-14-2012 13:47 Name Value Interpretat Reference Comment ion Range Body 98 [degF] Temperature BP 99 mm[Hg] Diastolic BP Systolic 155 mm[Hg] Heart 134 /min Rate/Pulse O2% 100 % Respiratory 20 /min Rate Weight 0 [oz_av] Measured 11-23-2012 13:49 Name Value Interpretat Reference Comment ion Range Body 98.2 [degF] Temperature BP 97 mm[Hg] Diastolic BP Systolic 194 mm[Hg] Heart 50 /min Rate/Pulse Respiratory 20 /min Rate 11-23-2012 12:00 Name Value Interpretat Reference Comment ion Range Body 98.2 [degF] Temperature BP 97 mm[Hg] Diastolic BP Systolic 194 mm[Hg] Heart 50 /min Rate/Pulse O2% 97 % Respiratory 20 /min Rate 11-17-2012 16:55 Name Value Interpretat Reference Comment ion Range Height 160.02 cm Weight 43.092 kg Measured 11-17-2012 09:56 Name Value Interpretat Reference Comment ion Range Body 98.5 [degF] Temperature BP 94 mm[Hg] Diastolic BP Systolic 138 mm[Hg] Heart 115 /min Rate/Pulse O2% 98 % Respiratory 24 /min Rate Weight 0 [oz_av] Measured 10-27-2012 10:14 Name Value Interpretat Reference Comment ion Range Body 98.9 [degF] Temperature BP 99 mm[Hg] Diastolic BP Systolic 159 mm[Hg] Heart 81 /min Rate/Pulse O2% 97 % Respiratory 18 /min Rate 10-27-2012 08:55 Name Value Interpretat Reference Comment ion Range BP 101 mm[Hg] Diastolic BP Systolic 170 mm[Hg] Heart 80 /min Rate/Pulse O2% 97 % Respiratory 18 /min Rate 10-12-2012 12:00 Name Value Interpretat Reference Comment ion Range Body 98.1 [degF] Temperature BP 80 mm[Hg] Diastolic BP Systolic 148 mm[Hg] Heart 82 /min Rate/Pulse Respiratory 20 /min Rate 10-12-2012 07:34 Name Value Interpretat Reference Comment ion Range Body 98.1 [degF] Temperature BP 80 mm[Hg] Diastolic BP Systolic 148 mm[Hg] Heart 82 /min Rate/Pulse O2% 97 % Respiratory 20 /min Rate 10-06-2012 17:00 Name Value Interpretat Reference Comment ion Range Height 160.02 cm Weight 39.009 kg Measured 10-06-2012 13:31 Name Value Interpretat Reference Comment ion Range Body 97.6 [degF] Temperature BP 93 mm[Hg] Diastolic BP Systolic 126 mm[Hg] Heart 130 /min Rate/Pulse O2% 98 % Respiratory 16 /min Rate Weight 0 [oz_av] Measured 09-08-2012 08:00 Name Value Interpretat Reference Comment ion Range Body 97.6 [degF] Temperature BP 79 mm[Hg] Diastolic BP Systolic 113 mm[Hg] Heart 70 /min Rate/Pulse O2% 98 % Respiratory 20 /min Rate 09-06-2012 20:00 Name Value Interpretat Reference Comment ion Range O2% 98 % 09-06-2012 15:32 Name Value Interpretat Reference Comment ion Range Body 98.1 [degF] Temperature BP 94 mm[Hg] Diastolic BP Systolic 115 mm[Hg] Heart 93 /min Rate/Pulse Height 160.02 cm Respiratory 20 /min Rate Weight 97 [lb_av] Measured Weight 43.999 kg Measured Results Labs Lab Lab Date Result Refere Interp Status Commen Order Detail nces retati t Range on Glucose BldC Glucomtr-mCnc (06-11-2013 11:45) Glucose 187 70-110 complet BldC 014 mg/dl ed Glucomt 11:45 r-mCnc Glucose BldC Glucomtr-mCnc (06-10-2013 20:45) Glucose 132 70-110 complet BldC 014 mg/dl ed Glucomt 20:45 r-mCnc Glucose BldC Glucomtr-mCnc (06-10-2013 17:58) Glucose 126 70-110 complet BldC 014 mg/dl ed Glucomt 17:58 r-mCnc Glucose BldC Glucomtr-mCnc (06-10-2013 17:06) Glucose 158 70-110 complet BldC 014 mg/dl ed Glucomt 17:06 r-mCnc Glucose BldC Glucomtr-mCnc (06-10-2013 11:39) Glucose 322 70-110 High complet BldC 014 mg/dl alert ed Glucomt 11:39 r-mCnc Glucose BldC Glucomtr-mCnc (06-10-2013 06:48) Glucose 138 70-110 complet BldC 014 mg/dl ed Glucomt 06:48 r-mCnc Glucose BldC Glucomtr-mCnc (06-09-2013 20:28) Glucose 144 70-110 complet BldC 014 mg/dl ed Glucomt 20:28 r-mCnc Glucose BldC Glucomtr-mCnc (06-09-2013 16:40) Glucose 246 70-110 complet BldC 014 mg/dl ed Glucomt 16:40 r-nc Glucose BldC Glucomtr-nc (06-09-2013 11:33) Glucose 156 70-110 complet BldC 014 mg/dl ed Glucomt 11:33 r-nc Glucose BldC Glucomtr-nc (06-09-2013 06:54) Glucose 143 70-110 complet BldC 014 mg/dl ed Glucomt 06:54 r[facility] BASIC METABOLIC PANEL (06-09-2013 06:10) Glucose 157 74-106 complet 014 mg/dL ed Bld-mCn 06:10 c BUN 7 mg/dL 7-18 complet Bld-mCn 014 ed c 06:10 Creat 0.6 0.6-1.0 complet SerPl-m 014 mg/dL ed Cnc 06:10 Creat 68 50-200 complet Cl 014 ML/MIN ed predict 06:10 ed SerPl C-G-vRa te GFR/BSA 105 59- complet .pred 014 ML/MIN ed SerPl 06:10 Schwart z-vRate Sodium 139 136-145 complet SerPl-s 014 mmoL/L ed Cnc 06:10 Potassi 4.5 3.5-5.1 complet um 014 mmoL/L ed SerPl-s 06:10 Cnc Chlorid 108 98-107 complet e 014 mmoL/L ed SerPl-s 06:10 Cnc CO2 02-20-2 25 21.0-32 complet SerPl-s 014 mmoL/L .0 ed Cnc 06:10 Calcium -20-2 8.3 8.5-10. complet 014 mg/dL 1 ed SerPl-m 06:10 Cnc CBC with AUTO DIFF (06-09-2013 06:10) WBC # 02-20-2 6.6 4.8-10. complet Bld 014 K/MM3 8 ed Auto 06:10 RBC # 02-20-2 4.18 4.2-5.4 complet Bld 014 M/mm3 ed Auto 06:10 Hgb 20-2 11.7 12.2-16 complet Bld-mCn 014 g/dL .2 ed c 06:10 Hct Fr 06-09- 36.6 % 37.0-47 complet Bld 014 .0 ed 06:10 MCV RBC 20-2 87.8 fl 82.2-97 complet 014 .8 ed 06:10 MCH RBC 06-09- 28.0 pg 27-31.2 complet Qn 014 ed Auto 06:10 MEAN 06-09- 31.9 31.8-35 complet CORPUSC 014 g/dl .4 ed ULAR 06:10 HGB CONC RDW RBC 06-09-2 15.6 % 11.5-17 complet Auto 014 .5 ed 06:10 Platele 20-2 192 142-424 complet t Bld 014 K/mm3 ed Ql 06:10 Manual MEAN 06-09-2 7.9 fl 7.4-10. complet PLATELE 014 4 ed T 06:10 VOLUME Granulo 06-09-2 53.7 % 37.0-80 complet cytes 014 .0 ed Fr Bld 06:10 Auto LYMPH % -20-2 37.1 % 10-50.0 complet 014 ed 06:10 Monocyt -20-2 5.9 % 1.7-9.3 complet es Fr 014 ed Bld 06:10 Auto Eosinop -20-2 2.6 % 0.1-12. complet hil Fr 014 0 ed Bld 06:10 Auto Basophi 20-2 0.6 % 0.1-2.0 complet ls Fr 014 ed Bld 06:10 Auto Granulo -20-2 3.5 1.8-7.8 complet cytes # 014 K/mm3 ed Bld 06:10 Auto Lymphoc 20-2 2.5 0.7-4.5 complet ytes Fr 014 K/mm3 ed Bld 06:10 Auto Monocyt -20-2 0.4 0.1-1.0 complet es # 014 K/mm3 ed Bld 06:10 Auto Eosinop 20-2 0.2 0.0-0.4 complet hil # 014 K/mm3 ed Bld 06:10 Auto Basophi 06-09-2 0.0 0-0.2 complet ls # 014 K/MM3 ed Bld 06:10 Auto Glucose BldC Glucomtr-nc (06-08-2013 20:03) Glucose 239 70-110 complet BldC 014 mg/dl ed Glucomt 20:03 r-nc Glucose BldC Glucomtr-nc (06-08-2013 16:40) Glucose 363 70-110 High complet BldC 014 mg/dl alert ed Glucomt 16:40 r-nc Glucose BldC Glucomtr-nc (06-08-2013 11:33) Glucose 326 70-110 High complet BldC 014 mg/dl alert ed Glucomt 11:33 r-nc Glucose BldC Glucomtr-mCnc (06-08-2013 06:25) Glucose 202 70-110 complet BldC 014 mg/dl ed Glucomt 06:25 r-nc BASIC METABOLIC PANEL (06-08-2013 06:15) Glucose 203 74-106 complet 014 mg/dL ed Bld-mCn 06:15 c BUN 13 7-18 complet Bld-mCn 014 mg/dL ed c 06:15 Creat 0.7 0.6-1.0 complet SerPl-m 014 mg/dL ed Cnc 06:15 Creat 58 50-200 complet Cl 014 ML/MIN ed predict 06:15 ed SerPl C-G-vRa te GFR/BSA 88 59- complet .pred 014 ML/MIN ed SerPl 06:15 Schwart z-vRate Sodium 139 136-145 complet SerPl-s 014 mmoL/L ed Cnc 06:15 Potassi 4.4 3.5-5.1 complet um 014 mmoL/L ed SerPl-s 06:15 Cnc Chlorid 103 98-107 complet e 014 mmoL/L ed SerPl-s 06:15 Cnc CO2 26 21.0-32 complet SerPl-s 014 mmoL/L .0 ed Cnc 06:15 Calcium 9.8 8.5-10. complet 014 mg/dL 1 ed SerPl-m 06:15 Cnc Amylase SerPl-cCnc (06-08-2013 06:15) Amylase 19 U/L 25-115 complet 014 ed SerPl-c 06:15 Cnc LIPASE (06-08-2013 06:15) LIPASE 143 U/L 73-393 complet 014 ed 06:15 ACETONE, SERUM (06-08-2013 06:15) ACETONE NONE NOT complet , SERUM 014 DETECTE DETECTD ed 06:15 D CBC with AUTO DIFF (06-08-2013 06:15) WBC # 06-08-2 10.5 4.8-10. complet Bld 014 K/MM3 8 ed Auto 06:15 RBC # 06-08-2 5.10 4.2-5.4 complet Bld 014 M/mm3 ed Auto 06:15 Hgb 14.1 12.2-16 complet Bld-mCn 014 g/dL .2 ed c 06:15 Hct Fr 44.7 % 37.0-47 complet Bld 014 .0 ed 06:15 MCV RBC 87.7 fl 82.2-97 complet 014 .8 ed 06:15 MCH RBC 27.6 pg 27-31.2 complet Qn 014 ed Auto 06:15 MEAN 31.5 31.8-35 complet CORPUSC 014 g/dl .4 ed ULAR 06:15 HGB CONC RDW RBC 06-08- 15.9 % 11.5-17 complet Auto 014 .5 ed 06:15 Platele 297 142-424 complet t Bld 014 K/mm3 ed Ql 06:15 Manual MEAN 8.4 fl 7.4-10. complet PLATELE 014 4 ed T 06:15 VOLUME Granulo 02-19-2 67.1 % 37.0-80 complet cytes 014 .0 ed Fr Bld 06:15 Auto LYMPH % 02-19-2 24.9 % 10-50.0 complet 014 ed 06:15 Monocyt 02-19-2 6.2 % 1.7-9.3 complet es Fr 014 ed Bld 06:15 Auto Eosinop 02-19-2 1.3 % 0.1-12. complet hil Fr 014 0 ed Bld 06:15 Auto Basophi 02-19-2 0.5 % 0.1-2.0 complet ls Fr 014 ed Bld 06:15 Auto Granulo 02-19-2 7.0 1.8-7.8 complet cytes # 014 K/mm3 ed Bld 06:15 Auto Lymphoc 02-19-2 2.6 0.7-4.5 complet ytes Fr 014 K/mm3 ed Bld 06:15 Auto Monocyt 02-19-2 0.7 0.1-1.0 complet es # 014 K/mm3 ed Bld 06:15 Auto Eosinop 02-19-2 0.1 0.0-0.4 complet hil # 014 K/mm3 ed Bld 06:15 Auto Basophi 02-19-2 0.1 0-0.2 complet ls # 014 K/MM3 ed Bld 06:15 Auto GLYCOHEMOGLOBIN (A1c) (06-08-2013 06:15) HEMOGLO -19-2 13.2 % 0.0-7.0 complet BIN A1C 014 ed 06:15 Glucose BldC Glucomtr-nc (06-07-2013 21:00) Glucose 06-07-2 447 70-110 High complet BldC 014 mg/dl alert ed [facility] (06-07-2013 16:49) Glucose 06-07-2 336 70-110 High complet BldC 014 mg/dl alert ed [facility] COMPREHENSIVE METABOLIC PANEL (06-07-2013 16:00) Glucose 06-07-2 376 74-106 complet 014 mg/dL ed Bld-n 16:00 c BUN 02-18-2 13 7-18 complet Bld-mCn 014 mg/dL ed c 16:00 Creat 06-07-2 0.7 0.6-1.0 complet SerPl-m 014 mg/dL ed Cnc 16:00 Creat 58 50-200 complet Cl 014 ML/MIN ed predict 16:00 ed SerPl C-G-vRa te GFR/BSA 88 59- complet .pred 014 ML/MIN ed SerPl 16:00 Schwart z-vRate Sodium 132 136-145 complet SerPl-s 014 mmoL/L ed Cnc 16:00 Potassi 4.9 3.5-5.1 complet um 014 mmoL/L ed SerPl-s 16:00 Cnc Chlorid 95 98-107 complet e 014 mmoL/L ed SerPl-s 16:00 Cnc CO2 17 21.0-32 complet SerPl-s 014 mmoL/L .0 ed Cnc 16:00 Calcium 10.5 8.5-10. complet 014 mg/dL 1 ed SerPl-m 16:00 Cnc Prot 7.7 6.4-8.2 complet SerPl-m 014 gm/dL ed Cnc 16:00 Albumin 06-07- 3.7 3.4-5.0 complet 014 gm/dL ed SerPl-m 16:00 Cnc Globuli 4.0 1.3-3.2 complet n 014 gm/dL ed Ser-mCn 16:00 c Albumin 0.9 UNK 1.1-1.8 complet /Glob 014 ed SerPl-m 16:00 Rto Bilirub 0.7 0.2-1.0 complet 014 mg/dL ed SerPl-m 16:00 Cnc AST 06-07- 31 U/L 15-37 complet SerPl-c 014 ed Cnc 16:00 ALT 06-07- 33 U/L 12-78 complet SerPl-c 014 ed Cnc 16:00 ALP 06-07- 550 U/L 50-136 complet SerPl-c 014 ed Cnc 16:00 Amylase SerPl-cCnc (06-07-2013 16:00) Amylase 02 13 U/L 25-115 complet 014 ed SerPl-c 16:00 Cnc LIPASE (06-07-2013 16:00) LIPASE 97 U/L 73-393 complet 014 ed 16:00 ACETONE, SERUM (06-07-2013 16:00) ACETONE DETECTE NOT complet , SERUM 014 D DETECTD ed 16:00 Glucose BldC Glucomtr-mCnc (06-07-2013 15:11) Glucose 418 70-110 High complet BldC 014 mg/dl alert ed Glucomt 15:11 r-mCnc BNP Bld-mCnc (04-26-2013 11:50) BNP 536 0-100 complet Bld-mCn 014 pg/mL ed c 11:50 D Dimer PPP (04-26-2013 11:50) D Dimer 183 0-400 complet PPP 014 ng/mL ed 11:50 Amylase SerPl-cCnc (04-25-2013 00:10) Amylase 19 U/L 25-115 complet 014 ed SerPl-c 00:10 Cnc LIPASE (04-25-2013 00:10) LIPASE 82 U/L 73-393 complet 014 ed 00:10 ARTERIAL BLOOD GAS (04-24-2013 21:19) ARTERIA 7.40 7.35-7. complet L PH 014 MMOL/L 45 ed 21:19 ARTERIA 40.4 35.0-45 complet L PCO2 014 MMHG .0 ed 21:19 ARTERIA 103.1 80-100 complet L PO2 014 MMHG ed 21:19 ARTERIA 24.5 22.0-26 complet L HCO3 014 MMOL/L .0 ed 21:19 ARTERIA 25.8 23-27 complet L TCO2 014 MMOL/L ed 21:19 Base -0.3 -2.4-+2 complet excess 014 MMOL/L .3 ed BldA-sC 21:19 nc ARTERIA 98 % 90-100 complet L O2 014 ed SAT 21:19 OXYGEN 2 UNK complet 014 ed 21:19 Arteria Y complet l 014 ed patency 21:19 Wrist a SOURCE R/R complet 014 ed 21:19 COMPREHENSIVE METABOLIC PANEL (04-24-2013 21:15) Glucose 173 74-106 complet 014 mg/dL ed Bld-mCn 21:15 c BUN 14 7-18 complet Bld-mCn 014 mg/dL ed c 21:15 Creat 0.8 0.6-1.0 complet SerPl-m 014 mg/dL ed Cnc 21:15 GFR/BSA 75 59- complet .pred 014 ML/MIN ed SerPl 21:15 Schwart z-vRate Sodium 139 136-145 complet SerPl-s 014 mmoL/L ed Cnc 21:15 Potassi 3.8 3.5-5.1 complet um 014 mmoL/L ed SerPl-s 21:15 Cnc Chlorid 102 98-107 complet e 014 mmoL/L ed SerPl-s 21:15 Cnc CO2 26 21.0-32 complet SerPl-s 014 mmoL/L .0 ed Cnc 21:15 Calcium 8.4 8.5-10. complet 014 mg/dL 1 ed SerPl-m 21:15 Cnc Prot 6.5 6.4-8.2 complet SerPl-m 014 gm/dL ed Cnc 21:15 Albumin 2.9 3.4-5.0 complet 014 gm/dL ed SerPl-m 21:15 Cnc Globuli 3.6 1.3-3.2 complet n 014 gm/dL ed Ser-mCn 21:15 c Albumin 0.8 UNK 1.1-1.8 complet /Glob 014 ed SerPl-m 21:15 Rto Bilirub 0.4 0.2-1.0 complet 014 mg/dL ed SerPl-m 21:15 Cnc AST 24 U/L 15-37 complet SerPl-c 014 ed Cnc 21:15 ALT 59 U/L 30-65 complet SerPl-c 014 ed Cnc 21:15 ALP 423 U/L 50-136 complet SerPl-c 014 ed Cnc 21:15 CBC with AUTO DIFF (04-24-2013 21:15) WBC # 01-05-2 8.0 4.8-10. complet Bld 014 K/MM3 8 ed Auto 21:15 RBC # -05-2 4.27 4.2-5.4 complet Bld 014 M/mm3 ed Auto 21:15 Hgb -05-2 11.7 12.2-16 complet Bld-mCn 014 g/dL .2 ed c 21:15 Hct Fr 05-2 37.4 % 37.0-47 complet Bld 014 .0 ed 21:15 MCV RBC 05-2 87.6 fl 82.2-97 complet 014 .8 ed 21:15 MCH RBC 05-2 27.5 pg 27-31.2 complet Qn 014 ed Auto 21:15 MEAN 04-24-2 31.4 31.8-35 complet CORPUSC 014 g/dl .4 ed ULAR 21:15 HGB CONC RDW RBC 05-2 17.3 % 11.5-17 complet Auto 014 .5 ed 21:15 Platele 05-2 273 142-424 complet t Bld 014 K/mm3 ed Ql 21:15 Manual MEAN 04-24-2 7.5 fl 7.4-10. complet PLATELE 014 4 ed T 21:15 VOLUME Granulo -05-2 72.0 % 37.0-80 complet cytes 014 .0 ed Fr Bld 21:15 Auto LYMPH % 05-2 18.4 % 10-50.0 complet 014 ed 21:15 Monocyt -05-2 7.8 % 1.7-9.3 complet es Fr 014 ed Bld 21:15 Auto Eosinop -05-2 1.5 % 0.1-12. complet hil Fr 014 0 ed Bld 21:15 Auto Basophi -05-2 0.3 % 0.1-2.0 complet ls Fr 014 ed Bld 21:15 Auto Granulo -05-2 5.7 1.8-7.8 complet cytes # 014 K/mm3 ed Bld 21:15 Auto Lymphoc -05-2 1.5 0.7-4.5 complet ytes Fr 014 K/mm3 ed Bld 21:15 Auto Monocyt 2 0.6 0.1-1.0 complet es # 014 K/mm3 ed Bld 21:15 Auto Eosinop 2 0.1 0.0-0.4 complet hil # 014 K/mm3 ed Bld 21:15 Auto Basophi 0.0 0-0.2 complet ls # 014 K/MM3 ed Bld 21:15 Auto BASIC METABOLIC PANEL (04-15-2013 06:15) Glucose 131 74-106 complet 013 mg/dL ed Bld-mCn 06:15 c BUN 17 7-18 complet Bld-mCn 013 mg/dL ed c 06:15 Creat 0.7 0.6-1.0 complet SerPl-m 013 mg/dL ed Cnc 06:15 Creat 67 50-200 complet Cl 013 ML/MIN ed predict 06:15 ed SerPl C-G-vRa te GFR/BSA 88 59- complet .pred 013 ML/MIN ed SerPl 06:15 Schwart z-vRate Sodium 137 136-145 complet SerPl-s 013 mmoL/L ed Cnc 06:15 Potassi 4.2 3.5-5.1 complet um 013 mmoL/L ed SerPl-s 06:15 Cnc Chlorid 102 98-107 complet e 013 mmoL/L ed SerPl-s 06:15 Cnc CO2 30 21.0-32 complet SerPl-s 013 mmoL/L .0 ed Cnc 06:15 Calcium 8.9 8.5-10. complet 013 mg/dL 1 ed SerPl-m 06:15 Cnc Magnesium SerPl-mCnc (04-15-2013 06:15) Magnesi 1.6 1.4-2.2 complet um 013 mg/dL ed SerPl-m 06:15 Cnc TROPONIN I (04-15-2013 06:15) TROPONI 0.12 0.00-0. complet N I 013 ng/mL 06 ed 06:15 CBC with AUTO DIFF (04-15-2013 06:15) WBC # 12-27-2 9.6 4.8-10. complet Bld 013 K/MM3 8 ed Auto 06:15 RBC # 04-15-2 4.64 4.2-5.4 complet Bld 013 M/mm3 ed Auto 06:15 Hgb 04-15-2 12.7 12.2-16 complet Bld-mCn 013 g/dL .2 ed c 06:15 Hct Fr 40.2 % 37.0-47 complet Bld 013 .0 ed 06:15 MCV RBC 86.5 fl 82.2-97 complet 013 .8 ed 06:15 MCH RBC 27.4 pg 27-31.2 complet Qn 013 ed Auto 06:15 MEAN 31.7 31.8-35 complet CORPUSC 013 g/dl .4 ed ULAR 06:15 HGB CONC RDW RBC 17.2 % 11.5-17 complet Auto 013 .5 ed 06:15 Platele 04-15- 224 142-424 complet t Bld 013 K/mm3 ed Ql 06:15 Manual MEAN 8.0 fl 7.4-10. complet PLATELE 013 4 ed T 06:15 VOLUME Granulo 73.5 % 37.0-80 complet cytes 013 .0 ed Fr Bld 06:15 Auto LYMPH % 04-15-2 18.0 % 10-50.0 complet 013 ed 06:15 Monocyt 04-15-2 8.1 % 1.7-9.3 complet es Fr 013 ed Bld 06:15 Auto Eosinop 04-15-2 0.0 % 0.1-12. complet hil Fr 013 0 ed Bld 06:15 Auto Basophi 04-15-2 0.3 % 0.1-2.0 complet ls Fr 013 ed Bld 06:15 Auto Granulo 04-15-2 7.1 1.8-7.8 complet cytes # 013 K/mm3 ed Bld 06:15 Auto Lymphoc 04-15-2 1.7 0.7-4.5 complet ytes Fr 013 K/mm3 ed Bld 06:15 Auto Monocyt 04-15-2 0.8 0.1-1.0 complet es # 013 K/mm3 ed Bld 06:15 Auto Eosinop 2 0.0 0.0-0.4 complet hil # 013 K/mm3 ed Bld 06:15 Auto Basophi 04-15-2 0.0 0-0.2 complet ls # 013 K/MM3 ed Bld 06:15 Auto ARTERIAL BLOOD GAS (04-14-2013 10:35) ARTERIA 04-14- 7.47 7.35-7. complet L PH 013 MMOL/L 45 ed 10:35 ARTERIA 04-14-2 35.1 35.0-45 complet L PCO2 013 MMHG .0 ed 10:35 ARTERIA 04-14-2 80.8 80-100 complet L PO2 013 MMHG ed 10:35 ARTERIA 24.7 22.0-26 complet L HCO3 013 MMOL/L .0 ed 10:35 ARTERIA 04-14-2 25.8 23-27 complet L TCO2 013 MMOL/L ed 10:35 Base 1.0 -2.4-+2 complet excess 013 MMOL/L .3 ed BldA-sC 10:35 nc ARTERIA 96.3 % 90-100 complet L O2 013 ed SAT 10:35 OXYGEN 28% complet 013 ed 10:35 Arteria ACCEPTA complet l 013 BLE ed patency 10:35 Wrist a SOURCE RIGHT complet 013 BRACHIA ed 10:35 L BASIC METABOLIC PANEL (04-14-2013 10:15) Glucose 251 74-106 complet 013 mg/dL ed Bld-mCn 10:15 c BUN 19 7-18 complet Bld-mCn 013 mg/dL ed c 10:15 Creat 0.7 0.6-1.0 complet SerPl-m 013 mg/dL ed Cnc 10:15 Creat 67 50-200 complet Cl 013 ML/MIN ed predict 10:15 ed SerPl C-G-vRa te GFR/BSA 88 59- complet .pred 013 ML/MIN ed SerPl 10:15 Schwart z-vRate Sodium 138 136-145 complet SerPl-s 013 mmoL/L ed Cnc 10:15 Potassi 3.0 3.5-5.1 complet um 013 mmoL/L ed SerPl-s 10:15 Cnc Chlorid 102 98-107 complet e 013 mmoL/L ed SerPl-s 10:15 Cnc CO2 28 21.0-32 complet SerPl-s 013 mmoL/L .0 ed Cnc 10:15 Calcium 8.6 8.5-10. complet 013 mg/dL 1 ed SerPl-m 10:15 Cnc CBC with AUTO DIFF (04-14-2013 10:15) WBC # 04-14-2 9.1 4.8-10. complet Bld 013 K/MM3 8 ed Auto 10:15 RBC # 04-14-2 4.43 4.2-5.4 complet Bld 013 M/mm3 ed Auto 10:15 Hgb 04-14- 12.2 12.2-16 complet Bld-mCn 013 g/dL .2 ed c 10:15 Hct Fr 37.9 % 37.0-47 complet Bld 013 .0 ed 10:15 MCV RBC 85.5 fl 82.2-97 complet 013 .8 ed 10:15 MCH RBC 27.5 pg 27-31.2 complet Qn 013 ed Auto 10:15 MEAN 32.1 31.8-35 complet CORPUSC 013 g/dl .4 ed ULAR 10:15 HGB CONC RDW RBC 04-14- 17.1 % 11.5-17 complet Auto 013 .5 ed 10:15 Platele 183 142-424 complet t Bld 013 K/mm3 ed Ql 10:15 Manual MEAN 8.3 fl 7.4-10. complet PLATELE 013 4 ed T 10:15 VOLUME Granulo 83.3 % 37.0-80 complet cytes 013 .0 ed Fr Bld 10:15 Auto LYMPH % 04-14-2 12.0 % 10-50.0 complet 013 ed 10:15 Monocyt 04-14-2 4.5 % 1.7-9.3 complet es Fr 013 ed Bld 10:15 Auto Eosinop 04-14-2 0.1 % 0.1-12. complet hil Fr 013 0 ed Bld 10:15 Auto Basophi 04-14-2 0.2 % 0.1-2.0 complet ls Fr 013 ed Bld 10:15 Auto Granulo 04-14-2 7.6 1.8-7.8 complet cytes # 013 K/mm3 ed Bld 10:15 Auto Lymphoc 04-14-2 1.1 0.7-4.5 complet ytes Fr 013 K/mm3 ed Bld 10:15 Auto Monocyt 04-14-2 0.4 0.1-1.0 complet es # 013 K/mm3 ed Bld 10:15 Auto Eosinop 04-14-2 0.0 0.0-0.4 complet hil # 013 K/mm3 ed Bld 10:15 Auto Basophi 04-14-2 0.0 0-0.2 complet ls # 013 K/MM3 ed Bld 10:15 Auto ARTERIAL BLOOD GAS (04-13-2013 12:38) ARTERIA 7.45 7.35-7. complet L PH 013 MMOL/L 45 ed 12:38 ARTERIA 36.3 35.0-45 complet L PCO2 013 MMHG .0 ed 12:38 ARTERIA 125.2 80-100 complet L PO2 013 MMHG ed 12:38 ARTERIA 24.8 22.0-26 complet L HCO3 013 MMOL/L .0 ed 12:38 ARTERIA 25.9 23-27 complet L TCO2 013 MMOL/L ed 12:38 Base 0.9 -2.4-+2 complet excess 013 MMOL/L .3 ed BldA-sC 12:38 nc ARTERIA 98.9 % 90-100 complet L O2 013 ed SAT 12:38 TIDAL 450 UNK complet VOLUME 013 ed 12:38 OXYGEN 40 UNK complet 013 ed 12:38 VENT 6 UNK complet RATE 013 ed 12:38 PEEP 04-13-2 5 UNK complet 013 ed 12:38 Arteria ACCEPTA complet l 013 BLE ed patency 12:38 Wrist a SOURCE LEFT complet 013 RADIAL ed 12:38 ARTERIAL BLOOD GAS (04-13-2013 05:35) ARTERIA 7.40 7.35-7. complet L PH 013 MMOL/L 45 ed 05:35 ARTERIA 41.1 35.0-45 complet L PCO2 013 MMHG .0 ed 05:35 ARTERIA 138.0 80-100 complet L PO2 013 MMHG ed 05:35 ARTERIA 24.7 22.0-26 complet L HCO3 013 MMOL/L .0 ed 05:35 ARTERIA 25.9 23-27 complet L TCO2 013 MMOL/L ed 05:35 Base -0.2 -2.4-+2 complet excess 013 MMOL/L .3 ed BldA-sC 05:35 nc ARTERIA 99.1 % 90-100 complet L O2 013 ed SAT 05:35 TIDAL 450 UNK complet VOLUME 013 ed 05:35 OXYGEN 50 UNK complet 013 ed 05:35 VENT 16 UNK complet RATE 013 ed 05:35 PEEP 5 UNK complet 013 ed 05:35 SOURCE LEFT complet 013 RADIAL ed 05:35 BASIC METABOLIC PANEL (04-13-2013 04:35) Glucose 385 74-106 complet 013 mg/dL ed Bld-mCn 04:35 c BUN 15 7-18 complet Bld-mCn 013 mg/dL ed c 04:35 Creat 0.7 0.6-1.0 complet SerPl-m 013 mg/dL ed Cnc 04:35 Creat 69 50-200 complet Cl 013 ML/MIN ed predict 04:35 ed SerPl C-G-vRa te GFR/BSA 88 59- complet .pred 013 ML/MIN ed SerPl 04:35 Schwart z-vRate Sodium 134 136-145 complet SerPl-s 013 mmoL/L ed Cnc 04:35 Potassi 3.9 3.5-5.1 complet um 013 mmoL/L ed SerPl-s 04:35 Cnc Chlorid 99 98-107 complet e 013 mmoL/L ed SerPl-s 04:35 Cnc CO2 12-25-2 25 21.0-32 complet SerPl-s 013 mmoL/L .0 ed Cnc 04:35 Calcium --2 8.8 8.5-10. complet 013 mg/dL 1 ed SerPl-m 04:35 Cnc LIPID PROFILE (04-13-2013 04:35) Cholest -25-2 139 Less complet 013 mg/dL than ed SerPl-m 04:35 200 Cnc HDLc 25-2 29.0 40-60 complet SerPl-m 013 MG/DL ed Cnc 04:35 LDLc -25-2 79.6 0-130 complet SerPl 013 mg/dL ed Calc-mC 04:35 nc VLDL 04-13-2 30.4 0-40 complet CHOLEST 013 UNK ed LANEY 04:35 Trigl 04-13-2 152 30-200 complet SerPl-m 013 mg/dL ed Cnc 04:35 CBC with AUTO DIFF (04-13-2013 04:35) WBC # 25-2 3.9 4.8-10. complet Bld 013 K/MM3 8 ed Auto 04:35 RBC # 04-13-2 4.19 4.2-5.4 complet Bld 013 M/mm3 ed Auto 04:35 Hgb 04-13-2 11.8 12.2-16 complet Bld-mCn 013 g/dL .2 ed c 04:35 Hct Fr 04-13-2 37.3 % 37.0-47 complet Bld 013 .0 ed 04:35 MCV RBC 04-13-2 88.9 fl 82.2-97 complet 013 .8 ed 04:35 MCH RBC 04-13-2 28.0 pg 27-31.2 complet Qn 013 ed Auto 04:35 MEAN 04-13-2 31.6 31.8-35 complet CORPUSC 013 g/dl .4 ed ULAR 04:35 HGB CONC RDW RBC 04-13-2 17.4 % 11.5-17 complet Auto 013 .5 ed 04:35 Platele --2 113 142-424 complet t Bld 013 K/mm3 ed Ql 04:35 Manual MEAN 1225-2 8.9 fl 7.4-10. complet PLATELE 013 4 ed T 04:35 VOLUME Granulo 04-13-2 80.6 % 37.0-80 complet cytes 013 .0 ed Fr Bld 04:35 Auto LYMPH % 12-25-2 15.0 % 10-50.0 complet 013 ed 04:35 Monocyt 12-25-2 4.0 % 1.7-9.3 complet es Fr 013 ed Bld 04:35 Auto Eosinop 12-25-2 0.3 % 0.1-12. complet hil Fr 013 0 ed Bld 04:35 Auto Basophi 12-25-2 0.2 % 0.1-2.0 complet ls Fr 013 ed Bld 04:35 Auto Granulo 12-25-2 3.2 1.8-7.8 complet cytes # 013 K/mm3 ed Bld 04:35 Auto Lymphoc 12-25-2 0.6 0.7-4.5 complet ytes Fr 013 K/mm3 ed Bld 04:35 Auto Monocyt 12-25-2 0.2 0.1-1.0 complet es # 013 K/mm3 ed Bld 04:35 Auto Eosinop 12-25-2 0.0 0.0-0.4 complet hil # 013 K/mm3 ed Bld 04:35 Auto Basophi 12-25-2 0.0 0-0.2 complet ls # 013 K/MM3 ed Bld 04:35 Auto URINALYSIS/COMPLETE (04-12-2013 09:39) URINE 12-24-2 DK YELLOW complet COLOR 013 YELLOW ed 09:39 URINE 12-24-2 CLEAR CLEAR complet APPEARA 013 ed NCE 09:39 URINE 12-24-2 TRACE NEG complet GLUCOSE 013 ed - 09:39 DIPSTIC K URINE 12-24-2 NEGATIV NEG complet BILIRUB 013 E ed IN - 09:39 DIPSTIC K URINE 12-24-2 NEGATIV NEG complet KETONE 013 E mg/dL ed 09:39 URINE 12-24-2 Greater 1.005-1 complet SPECIFI 013 than .030 ed C 09:39 or GRAVITY equal to 1.030 URINE 12-24-2 TRACE-I NEG complet BLOOD 013 NTACT ed 09:39 URINE 12-24-2 6.0 UNK 5.0-8.5 complet PH 013 ed 09:39 URINE 12-24-2 2+ NEG complet PROTEIN 013 mg/dL ed - 09:39 DIPSTIC K URINE 12-24-2 1.0 NEG complet UROBILI 013 E.U./dL ed NOGEN - 09:39 DIPSTIC K URINE 04-12-2 NEGATIV NEG complet NITRATE 013 E ed - 09:39 DIPSTIC K URINE 04-12-2 NEGATIV NEG complet LEUK 013 E ed ESTERAS 09:39 E URINE 04-12-2 5-10 0 complet RBC 013 rbc/hpf ed 09:39 URINE 04-12-2 5-10 O complet WBC 013 wbc/hpf ed 09:39 URINE 04-12-2 OCC 0-5 complet SQUAMOU 013 #/hpf ed S CELLS 09:39 URINE 04-12-2 3+ O complet BACTERI 013 ed A 09:39 ARTERIAL BLOOD GAS (04-12-2013 08:45) ARTERIA 04-12-2 7.35 7.35-7. complet L PH 013 MMOL/L 45 ed 08:45 ARTERIA 2 46.0 35.0-45 complet L PCO2 013 MMHG .0 ed 08:45 ARTERIA 2 76.0 80-100 complet L PO2 013 MMHG ed 08:45 ARTERIA 2 25.0 22.0-26 complet L HCO3 013 MMOL/L .0 ed 08:45 ARTERIA 2 16.0 23-27 complet L TCO2 013 MMOL/L ed 08:45 Base 04-12-2 -0.5 -2.4-+2 complet excess 013 MMOL/L .3 ed BldA-sC 08:45 nc ARTERIA 2 95 % 90-100 complet L O2 013 ed SAT 08:45 TIDAL 2 500 UNK complet VOLUME 013 ed 08:45 OXYGEN 04-12-2 50 UNK complet 013 ed 08:45 VENT 04-12-2 16 UNK complet RATE 013 ed 08:45 PEEP 24-2 5 UNK complet 013 ed 08:45 Arteria 04-12-2 ACCEPTA complet l 013 BLE ed patency 08:45 Wrist a SOURCE 04-12-2 RIGHT complet 013 RADIAL ed 08:45 ARTERIAL BLOOD GAS (04-12-2013 07:30) ARTERIA 04-12-2 7.12 7.35-7. Low complet L PH 013 MMOL/L 45 alert ed 07:30 ARTERIA 2 84.0 35.0-45 complet L PCO2 013 MMHG .0 ed 07:30 ARTERIA 51.0 80-100 complet L PO2 013 MMHG ed 07:30 ARTERIA 27.0 22.0-26 complet L HCO3 013 MMOL/L .0 ed 07:30 ARTERIA 14.0 23-27 complet L TCO2 013 MMOL/L ed 07:30 Base -2.5 -2.4-+2 complet excess 013 MMOL/L .3 ed BldA-sC 07:30 nc ARTERIA 74 % 90-100 Low complet L O2 013 alert ed SAT 07:30 OXYGEN 35 UNK complet 013 ed 07:30 Arteria NON complet l 013 APPLICA ed patency 07:30 BLE Wrist a SOURCE RIGHT complet 013 FEMORAL ed 07:30 BNP Bld-mCnc (04-12-2013 07:10) BNP 272 0-100 complet Bld-mCn 013 pg/mL ed c 07:10 BASIC METABOLIC PANEL (04-12-2013 07:09) Glucose 169 74-106 complet 013 mg/dL ed Bld-mCn 07:09 c BUN 11 7-18 complet Bld-mCn 013 mg/dL ed c 07:09 Creat 0.7 0.6-1.0 complet SerPl-m 013 mg/dL ed Cnc 07:09 Creat 66 50-200 complet Cl 013 ML/MIN ed predict 07:09 ed SerPl C-G-vRa te GFR/BSA 88 59- complet .pred 013 ML/MIN ed SerPl 07:09 Schwart z-vRate Sodium 135 136-145 complet SerPl-s 013 mmoL/L ed Cnc 07:09 Potassi 3.8 3.5-5.1 complet um 013 mmoL/L ed SerPl-s 07:09 Cnc Chlorid 97 98-107 complet e 013 mmoL/L ed SerPl-s 07:09 Cnc CO2 27 21.0-32 complet SerPl-s 013 mmoL/L .0 ed Cnc 07:09 Calcium 1224-2 8.7 8.5-10. complet 013 mg/dL 1 ed SerPl-m 07:09 Cnc CBC with AUTO DIFF (04-12-2013 07:09) WBC # 12-24-2 12.2 4.8-10. complet Bld 013 K/MM3 8 ed Auto 07:09 RBC # 1224-2 4.56 4.2-5.4 complet Bld 013 M/mm3 ed Auto 07:09 Hgb 24-2 11.9 12.2-16 complet Bld-mCn 013 g/dL .2 ed c 07:09 Hct Fr 24-2 39.1 % 37.0-47 complet Bld 013 .0 ed 07:09 MCV RBC 24-2 85.7 fl 82.2-97 complet 013 .8 ed 07:09 MCH RBC 24-2 26.1 pg 27-31.2 complet Qn 013 ed Auto 07:09 MEAN 24-2 30.4 31.8-35 complet CORPUSC 013 g/dl .4 ed ULAR 07:09 HGB CONC RDW RBC 24-2 18.5 % 11.5-17 complet Auto 013 .5 ed 07:09 Platele 04-12-2 225 142-424 complet t Bld 013 K/mm3 ed Ql 07:09 Manual Granulo 24-2 74.7 % 37.0-80 complet cytes 013 .0 ed Fr Bld 07:09 Auto LYMPH % 24-2 20.1 % 10-50.0 complet 013 ed 07:09 Monocyt 24-2 5.2 % 1.7-9.3 complet es Fr 013 ed Bld 07:09 Auto Granulo -24-2 9.1 1.8-7.8 complet cytes # 013 K/mm3 ed Bld 07:09 Auto Lymphoc 24-2 2.5 0.7-4.5 complet ytes Fr 013 K/mm3 ed Bld 07:09 Auto Monocyt 12-24-2 0.6 0.1-1.0 complet es # 013 K/mm3 ed Bld 07:09 Auto COMPREHENSIVE METABOLIC PANEL (04-11-2013 14:20) Glucose 04-11-2 147 74-106 complet 013 mg/dL ed Bld-mCn 14:20 c BUN 04-11-2 21 7-18 complet Bld-mCn 013 mg/dL ed c 14:20 Creat 04-11-2 0.7 0.6-1.0 complet SerPl-m 013 mg/dL ed Cnc 14:20 Creat 04-11- 66 50-200 complet Cl 013 ML/MIN ed predict 14:20 ed SerPl C-G-vRa te GFR/BSA 88 59- complet .pred 013 ML/MIN ed SerPl 14:20 Schwart z-vRate Sodium 135 136-145 complet SerPl-s 013 mmoL/L ed Cnc 14:20 Potassi 3.5 3.5-5.1 complet um 013 mmoL/L ed SerPl-s 14:20 Cnc Chlorid 96 98-107 complet e 013 mmoL/L ed SerPl-s 14:20 Cnc CO2 30 21.0-32 complet SerPl-s 013 mmoL/L .0 ed Cnc 14:20 Calcium 8.8 8.5-10. complet 013 mg/dL 1 ed SerPl-m 14:20 Cnc Prot 6.7 6.4-8.2 complet SerPl-m 013 gm/dL ed Cnc 14:20 Albumin 3.3 3.4-5.0 complet 013 gm/dL ed SerPl-m 14:20 Cnc Globuli 3.4 1.3-3.2 complet n 013 gm/dL ed Ser-mCn 14:20 c Albumin 04-11-2 1.0 UNK 1.1-1.8 complet /Glob 013 ed SerPl-m 14:20 Rto Bilirub 04-11-2 0.5 0.2-1.0 complet 013 mg/dL ed SerPl-m 14:20 Cnc AST 04-11- 41 U/L 15-37 complet SerPl-c 013 ed Cnc 14:20 ALT 04-11- 52 U/L 30-65 complet SerPl-c 013 ed Cnc 14:20 ALP 426 U/L 50-136 complet SerPl-c 013 ed Cnc 14:20 Amylase SerPl-cCnc (12-23-2013 14:20) Amylase -23-2 22 U/L 25-115 complet 013 ed SerPl-c 14:20 Cnc LIPASE (04-11-2013 14:20) LIPASE -23-2 123 U/L 73-393 complet 013 ed 14:20 CBC with AUTO DIFF (04-11-2013 14:20) WBC # 12-23-2 8.2 4.8-10. complet Bld 013 K/MM3 8 ed Auto 14:20 RBC # 12-23-2 4.29 4.2-5.4 complet Bld 013 M/mm3 ed Auto 14:20 Hgb -23-2 11.6 12.2-16 complet Bld-mCn 013 g/dL .2 ed c 14:20 Hct Fr 23-2 36.8 % 37.0-47 complet Bld 013 .0 ed 14:20 MCV RBC 23-2 85.8 fl 82.2-97 complet 013 .8 ed 14:20 MCH RBC 23-2 27.0 pg 27-31.2 complet Qn 013 ed Auto 14:20 MEAN 23-2 31.5 31.8-35 complet CORPUSC 013 g/dl .4 ed ULAR 14:20 HGB CONC RDW RBC 23-2 17.3 % 11.5-17 complet Auto 013 .5 ed 14:20 Platele 12-23-2 164 142-424 complet t Bld 013 K/mm3 ed Ql 14:20 Manual MEAN 23-2 7.9 fl 7.4-10. complet PLATELE 013 4 ed T 14:20 VOLUME Granulo -23-2 82.6 % 37.0-80 complet cytes 013 .0 ed Fr Bld 14:20 Auto LYMPH % -23-2 10.7 % 10-50.0 complet 013 ed 14:20 Monocyt 12-23-2 6.2 % 1.7-9.3 complet es Fr 013 ed Bld 14:20 Auto Eosinop 12-23-2 0.3 % 0.1-12. complet hil Fr 013 0 ed Bld 14:20 Auto Basophi 12-23-2 0.2 % 0.1-2.0 complet ls Fr 013 ed Bld 14:20 Auto Granulo 12-23-2 6.8 1.8-7.8 complet cytes # 013 K/mm3 ed Bld 14:20 Auto Lymphoc 04-11-2 0.9 0.7-4.5 complet ytes Fr 013 K/mm3 ed Bld 14:20 Auto Monocyt 04-11-2 0.5 0.1-1.0 complet es # 013 K/mm3 ed Bld 14:20 Auto Eosinop 04-11-2 0.0 0.0-0.4 complet hil # 013 K/mm3 ed Bld 14:20 Auto Basophi 04-11-2 0.0 0-0.2 complet ls # 013 K/MM3 ed Bld 14:20 Auto COMPREHENSIVE METABOLIC PANEL (01-07-2013 08:25) Glucose 252 74-106 complet 013 mg/dL ed Bld-mCn 08:25 c BUN 12 7-18 complet Bld-mCn 013 mg/dL ed c 08:25 Creat 0.8 0.6-1.0 complet SerPl-m 013 mg/dL ed Cnc 08:25 ESTIMAT 54 50-200 complet ED 013 ML/MIN ed CREATIN 08:25 INE CLEARAN CE GFR 75 59- complet (ESTIMA 013 ML/MIN ed YENNY) 08:25 Sodium 01-07- 138 136-145 complet SerPl-s 013 mmoL/L ed Cnc 08:25 Potassi 4.3 3.5-5.1 complet um 013 mmoL/L ed SerPl-s 08:25 Cnc Chlorid 102 98-107 complet e 013 mmoL/L ed SerPl-s 08:25 Cnc CO2 01-07- 27 21.0-32 complet SerPl-s 013 mmoL/L .0 ed Cnc 08:25 Calcium 01-07-2 8.9 8.5-10. complet 013 mg/dL 1 ed SerPl-m 08:25 Cnc Prot 01-07-2 6.9 6.4-8.2 complet SerPl-m 013 gm/dL ed Cnc 08:25 Albumin 01-07-2 3.1 3.4-5.0 complet 013 gm/dL ed SerPl-m 08:25 Cnc GLOBULI 09-20-2 3.8 1.3-3.2 complet N 013 gm/dL ed 08:25 ALB/UMESH 09-20-2 0.8 UNK 1.1-1.8 complet B RATIO 013 ed 08:25 Bilirub 09-20-2 0.8 0.2-1.0 complet 013 mg/dL ed SerPl-m 08:25 Cnc AST 20-2 14 U/L 15-37 complet SerPl-c 013 ed Cnc 08:25 ALT -20-2 55 U/L 30-65 complet SerPl-c 013 ed Cnc 08:25 ALP -20-2 527 U/L 50-136 complet SerPl-c 013 ed Cnc 08:25 CBC with AUTO DIFF (01-07-2013 08:25) WBC # 09-20-2 8.0 4.8-10. complet Bld 013 K/MM3 8 ed Auto 08:25 RBC # 09-20-2 3.78 4.2-5.4 complet Bld 013 M/mm3 ed Auto 08:25 Hgb -20-2 10.4 12.2-16 complet Bld-mCn 013 g/dL .2 ed c 08:25 Hct Fr 20-2 34.9 % 37.0-47 complet Bld 013 .0 ed 08:25 MCV RBC -20-2 92.4 fl 82.2-97 complet 013 .8 ed 08:25 MCH RBC -20-2 27.4 pg 27-31.2 complet Qn 013 ed Auto 08:25 MEAN 09-20-2 29.7 31.8-35 complet CORPUSC 013 g/dl .4 ed ULAR 08:25 HGB CONC RDW RBC -20-2 17.9 % 11.5-17 complet Auto 013 .5 ed 08:25 Platele 09-20-2 312 142-424 complet t Bld 013 K/mm3 ed Ql 08:25 Manual MEAN 09-20-2 7.7 fl 7.4-10. complet PLATELE 013 4 ed T 08:25 VOLUME Granulo 09-20-2 73.1 % 37.0-80 complet cytes 013 .0 ed Fr Bld 08:25 Auto LYMPH % 09-20-2 18.5 % 10-50.0 complet 013 ed 08:25 Monocyt 09-20-2 6.1 % 1.7-9.3 complet es Fr 013 ed Bld 08:25 Auto Eosinop 09-20-2 2.1 % 0.1-12. complet hil Fr 013 0 ed Bld 08:25 Auto Basophi 09-20-2 0.2 % 0.1-2.0 complet ls Fr 013 ed Bld 08:25 Auto Granulo 09-20-2 5.9 1.8-7.8 complet cytes # 013 K/mm3 ed Bld 08:25 Auto Lymphoc 09-20-2 1.5 0.7-4.5 complet ytes Fr 013 K/mm3 ed Bld 08:25 Auto Monocyt 09-20-2 0.5 0.1-1.0 complet es # 013 K/mm3 ed Bld 08:25 Auto Eosinop 09-20-2 0.2 0.0-0.4 complet hil # 013 K/mm3 ed Bld 08:25 Auto Basophi 09-20-2 0.0 0-0.2 complet ls # 013 K/MM3 ed Bld 08:25 Auto COMPREHENSIVE METABOLIC PANEL (01-06-2013 14:20) Glucose 84 74-106 complet 013 mg/dL ed Bld-mCn 14:20 c BUN 01-06- 15 7-18 complet Bld-mCn 013 mg/dL ed c 14:20 Creat 01-06- 0.6 0.6-1.0 complet SerPl-m 013 mg/dL ed Cnc 14:20 GFR 105 59- complet (ESTIMA 013 ML/MIN ed YENNY) 14:20 Sodium 135 136-145 complet SerPl-s 013 mmoL/L ed Cnc 14:20 Potassi 4.7 3.5-5.1 complet um 013 mmoL/L ed SerPl-s 14:20 Cnc Chlorid 98 98-107 complet e 013 mmoL/L ed SerPl-s 14:20 Cnc CO2 26 21.0-32 complet SerPl-s 013 mmoL/L .0 ed Cnc 14:20 Calcium 9.7 8.5-10. complet 013 mg/dL 1 ed SerPl-m 14:20 Cnc Prot 7.4 6.4-8.2 complet SerPl-m 013 gm/dL ed Cnc 14:20 Albumin 01-06- 4.0 3.4-5.0 complet 013 gm/dL ed SerPl-m 14:20 Cnc Globuli 3.4 1.3-3.2 complet n 013 gm/dL ed Ser-mCn 14:20 c Albumin 1.2 UNK 1.1-1.8 complet /Glob 013 ed SerPl-m 14:20 Rto Bilirub 1.3 0.2-1.0 complet 013 mg/dL ed SerPl-m 14:20 Cnc AST 31 U/L 15-37 complet SerPl-c 013 ed Cnc 14:20 ALT 79 U/L 30-65 complet SerPl-c 013 ed Cnc 14:20 ALP 744 U/L 50-136 complet SerPl-c 013 ed Cnc 14:20 Amylase SerPl-cCnc (01-06-2013 14:20) Amylase 01-06- 54 U/L 25-115 complet 013 ed SerPl-c 14:20 Cnc LIPASE (01-06-2013 14:20) LIPASE 293 U/L 73-393 complet 013 ed 14:20 CBC with AUTO DIFF (12-19-2012 10:30) WBC # 12-19- 11.9 4.8-10. complet Bld 013 K/MM3 8 ed Auto 10:30 RBC # 12-19- 3.98 4.2-5.4 complet Bld 013 M/mm3 ed Auto 10:30 Hgb 11.2 12.2-16 complet Bld-mCn 013 g/dL .2 ed c 10:30 Hct Fr 36.6 % 37.0-47 complet Bld 013 .0 ed 10:30 MCV RBC 91.9 fl 82.2-97 complet 013 .8 ed 10:30 MCH RBC 28.0 pg 27-31.2 complet Qn 013 ed Auto 10:30 MEAN 30.5 31.8-35 complet CORPUSC 013 g/dl .4 ed ULAR 10:30 HGB CONC RDW RBC 16.5 % 11.5-17 complet Auto 013 .5 ed 10:30 Platele --2 384 142-424 complet t Bld 013 K/mm3 ed Ql 10:30 Manual MEAN 12-19-2 7.5 fl 7.4-10. complet PLATELE 013 4 ed T 10:30 VOLUME Granulo 12-19-2 83.6 % 37.0-80 complet cytes 013 .0 ed Fr Bld 10:30 Auto LYMPH % 12-19-2 10.2 % 10-50.0 complet 013 ed 10:30 Monocyt 12-19-2 5.4 % 1.7-9.3 complet es Fr 013 ed Bld 10:30 Auto Eosinop --2 0.5 % 0.1-12. complet hil Fr 013 0 ed Bld 10:30 Auto Basophi 12-19-2 0.3 % 0.1-2.0 complet ls Fr 013 ed Bld 10:30 Auto Granulo 12-19-2 9.9 1.8-7.8 complet cytes # 013 K/mm3 ed Bld 10:30 Auto Lymphoc 12-19-2 1.2 0.7-4.5 complet ytes Fr 013 K/mm3 ed Bld 10:30 Auto Monocyt 12-19-2 0.7 0.1-1.0 complet es # 013 K/mm3 ed Bld 10:30 Auto Eosinop --2 0.1 0.0-0.4 complet hil # 013 K/mm3 ed Bld 10:30 Auto Basophi 12-19-2 0.0 0-0.2 complet ls # 013 K/MM3 ed Bld 10:30 Auto BASIC METABOLIC PANEL (12-18-2012 10:05) Glucose 12-18- 181 74-106 complet 013 mg/dL ed Bld-mCn 10:05 c BUN 12-18- 8 mg/dL 7-18 complet Bld-mCn 013 ed c 10:05 Creat 12-18-2 0.8 0.6-1.0 complet SerPl-m 013 mg/dL ed Cnc 10:05 ESTIMAT 56 50-200 complet ED 013 ML/MIN ed CREATIN 10:05 INE CLEARAN CE GFR 75 59- complet (ESTIMA 013 ML/MIN ed YENNY) 10:05 Sodium 142 136-145 complet SerPl-s 013 mmoL/L ed Cnc 10:05 Potassi 3.8 3.5-5.1 complet um 013 mmoL/L ed SerPl-s 10:05 Cnc Chlorid 107 98-107 complet e 013 mmoL/L ed SerPl-s 10:05 Cnc CO2 24 21.0-32 complet SerPl-s 013 mmoL/L .0 ed Cnc 10:05 Calcium 8.2 8.5-10. complet 013 mg/dL 1 ed SerPl-m 10:05 Cnc BASIC METABOLIC PANEL (12-15-2012 06:15) Glucose 71 74-106 complet 013 mg/dL ed Bld-mCn 06:15 c BUN 11 7-18 complet Bld-mCn 013 mg/dL ed c 06:15 Creat 0.6 0.6-1.0 complet SerPl-m 013 mg/dL ed Cnc 06:15 ESTIMAT 74 50-200 complet ED 013 ML/MIN ed CREATIN 06:15 INE CLEARAN CE GFR 105 59- complet (ESTIMA 013 ML/MIN ed YENNY) 06:15 Sodium 138 136-145 complet SerPl-s 013 mmoL/L ed Cnc 06:15 Potassi 4.6 3.5-5.1 complet um 013 mmoL/L ed SerPl-s 06:15 Cnc Chlorid 106 98-107 complet e 013 mmoL/L ed SerPl-s 06:15 Cnc CO2 27 21.0-32 complet SerPl-s 013 mmoL/L .0 ed Cnc 06:15 Calcium 8.3 8.5-10. complet 013 mg/dL 1 ed SerPl-m 06:15 Cnc Amylase SerPl-cCnc (12-15-2012 06:15) Amylase 71 U/L 25-115 complet 013 ed SerPl-c 06:15 Cnc LIPASE (12-15-2012 06:15) LIPASE 08-28-2 284 U/L 73-393 complet 013 ed 06:15 CBC with AUTO DIFF (12-15-2012 06:15) WBC # 08-2 6.9 4.8-10. complet Bld 013 K/MM3 8 ed Auto 06:15 RBC # 12-15-2 3.75 4.2-5.4 complet Bld 013 M/mm3 ed Auto 06:15 Hgb 12-15-2 10.2 12.2-16 complet Bld-mCn 013 g/dL .2 ed c 06:15 Hct Fr 2 33.4 % 37.0-47 complet Bld 013 .0 ed 06:15 MCV RBC 89.0 fl 82.2-97 complet 013 .8 ed 06:15 MCH RBC 2 27.1 pg 27-31.2 complet Qn 013 ed Auto 06:15 MEAN 30.4 31.8-35 complet CORPUSC 013 g/dl .4 ed ULAR 06:15 HGB CONC RDW RBC 2 16.7 % 11.5-17 complet Auto 013 .5 ed 06:15 Platele 12-15-2 389 142-424 complet t Bld 013 K/mm3 ed Ql 06:15 Manual MEAN 2 7.2 fl 7.4-10. complet PLATELE 013 4 ed T 06:15 VOLUME Granulo 12-15-2 72.5 % 37.0-80 complet cytes 013 .0 ed Fr Bld 06:15 Auto LYMPH % 12-15-2 15.3 % 10-50.0 complet 013 ed 06:15 Monocyt 12-15-2 9.8 % 1.7-9.3 complet es Fr 013 ed Bld 06:15 Auto Eosinop 12-15-2 2.2 % 0.1-12. complet hil Fr 013 0 ed Bld 06:15 Auto Basophi 12-15-2 0.2 % 0.1-2.0 complet ls Fr 013 ed Bld 06:15 Auto Granulo 12-15-2 5.0 1.8-7.8 complet cytes # 013 K/mm3 ed Bld 06:15 Auto Lymphoc 12-15-2 1.1 0.7-4.5 complet ytes Fr 013 K/mm3 ed Bld 06:15 Auto Monocyt 12-15-2 0.7 0.1-1.0 complet es # 013 K/mm3 ed Bld 06:15 Auto Eosinop 12-15-2 0.2 0.0-0.4 complet hil # 013 K/mm3 ed Bld 06:15 Auto Basophi 12-15-2 0.0 0-0.2 complet ls # 013 K/MM3 ed Bld 06:15 Auto COMPREHENSIVE METABOLIC PANEL (12-14-2012 14:25) Glucose 125 74-106 complet 013 mg/dL ed Bld-mCn 14:25 c BUN 15 7-18 complet Bld-mCn 013 mg/dL ed c 14:25 Creat 0.7 0.6-1.0 complet SerPl-m 013 mg/dL ed Cnc 14:25 GFR 88 59- complet (ESTIMA 013 ML/MIN ed YENNY) 14:25 Sodium 135 136-145 complet SerPl-s 013 mmoL/L ed Cnc 14:25 Potassi 4.3 3.5-5.1 complet um 013 mmoL/L ed SerPl-s 14:25 Cnc Chlorid 100 98-107 complet e 013 mmoL/L ed SerPl-s 14:25 Cnc CO2 26 21.0-32 complet SerPl-s 013 mmoL/L .0 ed Cnc 14:25 Calcium 10.0 8.5-10. complet 013 mg/dL 1 ed SerPl-m 14:25 Cnc Prot 7.8 6.4-8.2 complet SerPl-m 013 gm/dL ed Cnc 14:25 Albumin 3.4 3.4-5.0 complet 013 gm/dL ed SerPl-m 14:25 Cnc GLOBULI 4.4 1.3-3.2 complet N 013 gm/dL ed 14:25 ALB/UMESH 0.8 UNK 1.1-1.8 complet B RATIO 013 ed 14:25 Bilirub 2 0.5 0.2-1.0 complet 013 mg/dL ed SerPl-m 14:25 Cnc AST 12-14-2 65 U/L 15-37 complet SerPl-c 013 ed Cnc 14:25 ALT 12-14-2 87 U/L 30-65 complet SerPl-c 013 ed Cnc 14:25 ALP 12-14-2 585 U/L 50-136 complet SerPl-c 013 ed Cnc 14:25 Amylase SerPl-cCnc (12-14-2012 14:25) Amylase 12-14-2 127 U/L 25-115 complet 013 ed SerPl-c 14:25 Cnc LIPASE (12-14-2012 14:25) LIPASE 12-14-2 915 U/L 73-393 complet 013 ed 14:25 CBC with AUTO DIFF (12-14-2012 14:25) WBC # 27-2 12.7 4.8-10. complet Bld 013 K/MM3 8 ed Auto 14:25 RBC # 12-14-2 4.62 4.2-5.4 complet Bld 013 M/mm3 ed Auto 14:25 Hgb 12-14-2 12.8 12.2-16 complet Bld-mCn 013 g/dL .2 ed c 14:25 Hct Fr 12-14-2 40.0 % 37.0-47 complet Bld 013 .0 ed 14:25 MCV RBC 12-14-2 86.5 fl 82.2-97 complet 013 .8 ed 14:25 MCH RBC 12-14-2 27.8 pg 27-31.2 complet Qn 013 ed Auto 14:25 MEAN 12-14-2 32.1 31.8-35 complet CORPUSC 013 g/dl .4 ed ULAR 14:25 HGB CONC RDW RBC 12-14-2 16.8 % 11.5-17 complet Auto 013 .5 ed 14:25 Platele 12-14-2 699 142-424 complet t Bld 013 K/mm3 ed Ql 14:25 Manual MEAN 12-14-2 7.6 fl 7.4-10. complet PLATELE 013 4 ed T 14:25 VOLUME Granulo 12-14-2 77.1 % 37.0-80 complet cytes 013 .0 ed Fr Bld 14:25 Auto LYMPH % 12-14-2 14.4 % 10-50.0 complet 013 ed 14:25 Monocyt 12-14-2 6.6 % 1.7-9.3 complet es Fr 013 ed Bld 14:25 Auto Eosinop 08-27-2 1.6 % 0.1-12. complet hil Fr 013 0 ed Bld 14:25 Auto Basophi 08-27-2 0.3 % 0.1-2.0 complet ls Fr 013 ed Bld 14:25 Auto Granulo 08-27-2 9.8 1.8-7.8 complet cytes # 013 K/mm3 ed Bld 14:25 Auto Lymphoc 08-27-2 1.8 0.7-4.5 complet ytes Fr 013 K/mm3 ed Bld 14:25 Auto Monocyt 08-27-2 0.8 0.1-1.0 complet es # 013 K/mm3 ed Bld 14:25 Auto Eosinop 08-27-2 0.2 0.0-0.4 complet hil # 013 K/mm3 ed Bld 14:25 Auto Basophi 08-27-2 0.0 0-0.2 complet ls # 013 K/MM3 ed Bld 14:25 Auto Glucose BldC Glucomtr-mCnc (11-23-2012 12:25) Glucose 11-23-2 189 70-110 complet BldC 013 mg/dl ed Glucomt 12:25 r-mCnc C dif Tox A+B Stl Ql (11-23-2012 11:03) C dif 11-23-2 NOT NOT complet Tox A+B 013 DETECTE DETECTE ed Stl Ql 11:03 D BASIC METABOLIC PANEL (11-23-2012 08:40) Glucose 11-23-2 146 74-106 complet 013 mg/dL ed Bld-mCn 08:40 c BUN 11-23-2 19 7-18 complet Bld-mCn 013 mg/dL ed c 08:40 Creat 11-23-2 0.8 0.6-1.0 complet SerPl-m 013 mg/dL ed Cnc 08:40 ESTIMAT 06-2 65 50-200 complet ED 013 ML/MIN ed CREATIN 08:40 INE CLEARAN CE GFR 06-2 75 59- complet (ESTIMA 013 ML/MIN ed YENNY) 08:40 Sodium 0806-2 140 136-145 complet SerPl-s 013 mmoL/L ed Cnc 08:40 Potassi 08-06-2 4.1 3.5-5.1 complet um 013 mmoL/L ed SerPl-s 08:40 Cnc Chlorid 105 98-107 complet e 013 mmoL/L ed SerPl-s 08:40 Cnc CO2 34 21.0-32 complet SerPl-s 013 mmoL/L .0 ed Cnc 08:40 Calcium 8.5 8.5-10. complet 013 mg/dL 1 ed SerPl-m 08:40 Cnc Phosphate SerPl-mCnc (11-23-2012 08:40) Phospha 3.1 2.4-4.9 complet te 013 mg/dL ed SerPl-m 08:40 Cnc Magnesium SerPl-nc (11-23-2012 08:40) Magnesi 1.8 1.4-2.2 complet um 013 mg/dL ed SerPl-m 08:40 Cnc Glucose BldC Glucomtr-[facility] (11-23-2012 06:32) Glucose 257 70-110 complet BldC 013 mg/dl ed Glucomt 06:32 r-mCnc Glucose BldC Glucomtr-[facility] (11-22-2012 17:02) Glucose 380 70-110 High complet BldC 013 mg/dl alert ed Glucomt 17:02 r-mCnc Glucose BldC Glucomtr-nc (11-22-2012 11:17) Glucose 210 70-110 complet BldC 013 mg/dl ed Glucomt 11:17 r-nc Glucose BldC Glucomtr-nc (11-22-2012 05:44) Glucose 254 70-110 complet BldC 013 mg/dl ed Glucomt 05:44 r-nc COMPREHENSIVE METABOLIC PANEL (11-22-2012 05:40) Glucose 257 74-106 complet 013 mg/dL ed Bld-mCn 05:40 c BUN 17 7-18 complet Bld-mCn 013 mg/dL ed c 05:40 Creat 0.8 0.6-1.0 complet SerPl-m 013 mg/dL ed Cnc 05:40 ESTIMAT 59 50-200 complet ED 013 ML/MIN ed CREATIN 05:40 INE CLEARAN CE GFR 11-22- 75 59- complet (ESTIMA 013 ML/MIN ed YENNY) 05:40 Sodium 11-22- 139 136-145 complet SerPl-s 013 mmoL/L ed Cnc 05:40 Potassi 4.2 3.5-5.1 complet um 013 mmoL/L ed SerPl-s 05:40 Cnc Chlorid 101 98-107 complet e 013 mmoL/L ed SerPl-s 05:40 Cnc CO2 11-22-2 33 21.0-32 complet SerPl-s 013 mmoL/L .0 ed Cnc 05:40 Calcium 2 9.0 8.5-10. complet 013 mg/dL 1 ed SerPl-m 05:40 Cnc Prot 5.9 6.4-8.2 complet SerPl-m 013 gm/dL ed Cnc 05:40 Albumin 2.8 3.4-5.0 complet 013 gm/dL ed SerPl-m 05:40 Cnc Globuli 3.1 1.3-3.2 complet n 013 gm/dL ed Ser-mCn 05:40 c Albumin 2 0.9 UNK 1.1-1.8 complet /Glob 013 ed SerPl-m 05:40 Rto Bilirub 2 0.4 0.2-1.0 complet 013 mg/dL ed SerPl-m 05:40 Cnc AST 50 U/L 15-37 complet SerPl-c 013 ed Cnc 05:40 ALT 97 U/L 30-65 complet SerPl-c 013 ed Cnc 05:40 ALP 214 U/L 50-136 complet SerPl-c 013 ed Cnc 05:40 Phosphate SerPl-mCnc (11-22-2012 05:40) Phospha 11-22-2 3.3 2.4-4.9 complet te 013 mg/dL ed SerPl-m 05:40 Cnc Magnesium SerPl-mCnc (11-22-2012 05:40) Magnesi 11-22-2 1.9 1.4-2.2 complet um 013 mg/dL ed SerPl-m 05:40 Cnc Glucose BldC Glucomtr-[facility] (11-21-2012 20:40) Glucose 245 70-110 complet BldC 013 mg/dl ed Glucomt 20:40 r-nc Glucose BldC Glucomtr-[facility] (11-21-2012 18:51) Glucose 451 70-110 High complet BldC 013 mg/dl alert ed Glucomt 18:51 r-[facility] Glucose Bld-nc (11-21-2012 16:30) Glucose 458 74-106 complet 013 mg/dL ed Bld-mCn 16:30 c Glucose BldC Glucomtr-[facility] (11-21-2012 11:25) Glucose 187 70-110 complet BldC 013 mg/dl ed Glucomt 11:25 r-[facility] BASIC METABOLIC PANEL (11-21-2012 06:30) Glucose 202 74-106 complet 013 mg/dL ed Bld-mCn 06:30 c BUN 16 7-18 complet Bld-mCn 013 mg/dL ed c 06:30 Creat 0.7 0.6-1.0 complet SerPl-m 013 mg/dL ed Cnc 06:30 ESTIMAT 67 50-200 complet ED 013 ML/MIN ed CREATIN 06:30 INE CLEARAN CE GFR 88 59- complet (ESTIMA 013 ML/MIN ed YENNY) 06:30 Sodium 142 136-145 complet SerPl-s 013 mmoL/L ed Cnc 06:30 Potassi 3.2 3.5-5.1 complet um 013 mmoL/L ed SerPl-s 06:30 Cnc Chlorid 103 98-107 complet e 013 mmoL/L ed SerPl-s 06:30 Cnc CO2 31 21.0-32 complet SerPl-s 013 mmoL/L .0 ed Cnc 06:30 Calcium 9.3 8.5-10. complet 013 mg/dL 1 ed SerPl-m 06:30 Cnc Phosphate SerPl-[facility] (11-21-2012 06:30) Phospha 3.1 2.4-4.9 complet te 013 mg/dL ed SerPl-m 06:30 Cnc Magnesium SerPl-mCnc (11-21-2012 06:30) Magnesi 1.6 1.4-2.2 complet um 013 mg/dL ed SerPl-m 06:30 Cnc Glucose BldC Glucomtr-mCnc (11-21-2012 04:49) Glucose 228 70-110 complet BldC 013 mg/dl ed Glucomt 04:49 r-mCnc Glucose BldC Glucomtr-mCnc (11-20-2012 21:29) Glucose 130 70-110 complet BldC 013 mg/dl ed Glucomt 21:29 r-mCnc Glucose BldC Glucomtr-mCnc (11-20-2012 16:43) Glucose 266 70-110 complet BldC 013 mg/dl ed Glucomt 16:43 r-mCnc Glucose BldC Glucomtr-mCnc (11-20-2012 11:21) Glucose 310 70-110 High complet BldC 013 mg/dl alert ed Glucomt 11:21 r-mCnc Glucose BldC Glucomtr-mCnc (11-20-2012 06:42) Glucose 203 70-110 complet BldC 013 mg/dl ed Glucomt 06:42 r-mCnc BASIC METABOLIC PANEL (11-20-2012 06:20) Glucose 191 74-106 complet 013 mg/dL ed Bld-mCn 06:20 c BUN 12 7-18 complet Bld-mCn 013 mg/dL ed c 06:20 Creat 0.6 0.6-1.0 complet SerPl-m 013 mg/dL ed Cnc 06:20 ESTIMAT 77 50-200 complet ED 013 ML/MIN ed CREATIN 06:20 INE CLEARAN CE GFR 105 59- complet (ESTIMA 013 ML/MIN ed YENNY) 06:20 Sodium 138 136-145 complet SerPl-s 013 mmoL/L ed Cnc 06:20 Potassi 4.5 3.5-5.1 complet um 013 mmoL/L ed SerPl-s 06:20 Cnc Chlorid 102 98-107 complet e 013 mmoL/L ed SerPl-s 06:20 Cnc CO2 24 21.0-32 complet SerPl-s 013 mmoL/L .0 ed Cnc 06:20 Calcium 2 9.4 8.5-10. complet 013 mg/dL 1 ed SerPl-m 06:20 Cnc Phosphate SerPl-mCnc (11-20-2012 06:20) Phospha 11-20-2 3.2 2.4-4.9 complet te 013 mg/dL ed SerPl-m 06:20 Cnc Magnesium SerPl-mCnc (11-20-2012 06:20) Magnesi 11-20-2 2.0 1.4-2.2 complet um 013 mg/dL ed SerPl-m 06:20 Cnc CBC with AUTO DIFF (11-20-2012 06:20) WBC # -03-2 10.6 4.8-10. complet Bld 013 K/MM3 8 ed Auto 06:20 RBC # 03-2 3.83 4.2-5.4 complet Bld 013 M/mm3 ed Auto 06:20 Hgb 11.2 12.2-16 complet Bld-mCn 013 g/dL .2 ed c 06:20 Hct Fr 35.6 % 37.0-47 complet Bld 013 .0 ed 06:20 MCV RBC 92.9 fl 82.2-97 complet 013 .8 ed 06:20 MCH RBC 29.1 pg 27-31.2 complet Qn 013 ed Auto 06:20 MEAN 31.4 31.8-35 complet CORPUSC 013 g/dl .4 ed ULAR 06:20 HGB CONC RDW RBC 11-20-2 15.6 % 11.5-17 complet Auto 013 .5 ed 06:20 Platele 11-20- 244 142-424 complet t Bld 013 K/mm3 ed Ql 06:20 Manual MEAN 9.3 fl 7.4-10. complet PLATELE 013 4 ed T 06:20 VOLUME Granulo 89.5 % 37.0-80 complet cytes 013 .0 ed Fr Bld 06:20 Auto LYMPH % 08-03-2 6.4 % 10-50.0 complet 013 ed 06:20 Monocyt 08-03-2 3.4 % 1.7-9.3 complet es Fr 013 ed Bld 06:20 Auto Eosinop 08-03-2 0.6 % 0.1-12. complet hil Fr 013 0 ed Bld 06:20 Auto Basophi 08-03-2 0.1 % 0.1-2.0 complet ls Fr 013 ed Bld 06:20 Auto Granulo 08-03-2 9.5 1.8-7.8 complet cytes # 013 K/mm3 ed Bld 06:20 Auto Lymphoc 08-03-2 0.7 0.7-4.5 complet ytes Fr 013 K/mm3 ed Bld 06:20 Auto Monocyt 08-03-2 0.4 0.1-1.0 complet es # 013 K/mm3 ed Bld 06:20 Auto Eosinop 08-03-2 0.1 0.0-0.4 complet hil # 013 K/mm3 ed Bld 06:20 Auto Basophi 08-03-2 0.0 0-0.2 complet ls # 013 K/MM3 ed Bld 06:20 Auto Glucose BldC [facility] (11-19-2012 16:17) Glucose 11-19-2 268 70-110 complet BldC 013 mg/[facility] (11-19-2012 11:34) Glucose 11-19-2 260 70-110 complet BldC 013 mg/dl ed Glucomt 11:34 r-[facility] Glucose BldC [facility] (11-19-2012 06:27) Glucose 11-19-2 245 70-110 complet BldC 013 mg/dl ed Glucomt 06:27 r-[facility] BASIC METABOLIC PANEL (11-19-2012 05:00) Glucose 11-19-2 197 74-106 complet 013 mg/dL ed Bld-mCn 05:00 c BUN 12 7-18 complet Bld-mCn 013 mg/dL ed c 05:00 Creat 11-19-2 0.7 0.6-1.0 complet SerPl-m 013 mg/dL ed Cnc 05:00 ESTIMAT 64 50-200 complet ED 013 ML/MIN ed CREATIN 05:00 INE CLEARAN CE GFR 88 59- complet (ESTIMA 013 ML/MIN ed YENNY) 05:00 Sodium 138 136-145 complet SerPl-s 013 mmoL/L ed Cnc 05:00 Potassi 4.6 3.5-5.1 complet um 013 mmoL/L ed SerPl-s 05:00 Cnc Chlorid 106 98-107 complet e 013 mmoL/L ed SerPl-s 05:00 Cnc CO2 23 21.0-32 complet SerPl-s 013 mmoL/L .0 ed Cnc 05:00 Calcium 9.2 8.5-10. complet 013 mg/dL 1 ed SerPl-m 05:00 Cnc Phosphate SerPl-mCnc (11-19-2012 05:00) Phospha 3.3 2.4-4.9 complet te 013 mg/dL ed SerPl-m 05:00 Cnc Magnesium SerPl-mCnc (11-19-2012 05:00) Magnesi 1.7 1.4-2.2 complet um 013 mg/dL ed SerPl-m 05:00 Cnc Glucose BldC Glucomtr-mCnc (11-18-2012 21:46) Glucose 223 70-110 complet BldC 013 mg/dl ed Glucomt 21:46 r-mCnc Glucose BldC Glucomtr-mCnc (11-18-2012 17:12) Glucose 244 70-110 complet BldC 013 mg/dl ed Glucomt 17:12 r-mCnc Phosphate SerPl-mCnc (11-18-2012 16:50) Phospha 2.9 2.4-4.9 complet te 013 mg/dL ed SerPl-m 16:50 Cnc Cholest SerPl-mCnc (11-18-2012 16:50) Cholest 178 Less complet 013 mg/dL than ed SerPl-m 16:50 200 Cnc Trigl SerPl-mCnc (11-18-2012 16:50) Trigl 92 30-200 complet SerPl-m 013 mg/dL ed Cnc 16:50 COMPREHENSIVE METABOLIC PANEL (11-18-2012 04:35) Glucose 179 74-106 complet 013 mg/dL ed Bld-mCn 04:35 c BUN 12 7-18 complet Bld-mCn 013 mg/dL ed c 04:35 Creat 0.9 0.6-1.0 complet SerPl-m 013 mg/dL ed Cnc 04:35 ESTIMAT 50 50-200 complet ED 013 ML/MIN ed CREATIN 04:35 INE CLEARAN CE GFR 66 59- complet (ESTIMA 013 ML/MIN ed YENNY) 04:35 Sodium 139 136-145 complet SerPl-s 013 mmoL/L ed Cnc 04:35 Potassi 5.1 3.5-5.1 complet um 013 mmoL/L ed SerPl-s 04:35 Cnc Chlorid 105 98-107 complet e 013 mmoL/L ed SerPl-s 04:35 Cnc CO2 30 21.0-32 complet SerPl-s 013 mmoL/L .0 ed Cnc 04:35 Calcium 8.7 8.5-10. complet 013 mg/dL 1 ed SerPl-m 04:35 Cnc Prot 6.1 6.4-8.2 complet SerPl-m 013 gm/dL ed Cnc 04:35 Albumin 2.7 3.4-5.0 complet 013 gm/dL ed SerPl-m 04:35 Cnc GLOBULI 3.4 1.3-3.2 complet N 013 gm/dL ed 04:35 ALB/UMESH 0.8 UNK 1.1-1.8 complet B RATIO 013 ed 04:35 Bilirub 11-18-2 0.7 0.2-1.0 complet 013 mg/dL ed SerPl-m 04:35 Cnc AST 11-18- 13 U/L 15-37 complet SerPl-c 013 ed Cnc 04:35 ALT 11-18- 31 U/L 30-65 complet SerPl-c 013 ed Cnc 04:35 ALP 11-18- 258 U/L 50-136 complet SerPl-c 013 ed Cnc 04:35 Amylase SerPl-cCnc (11-18-2012 04:35) Amylase 11-18-2 39 U/L 25-115 complet 013 ed SerPl-c 04:35 Cnc LIPASE (11-18-2012 04:35) LIPASE 11-18-2 219 U/L 73-393 complet 013 ed 04:35 CBC with AUTO DIFF (11-18-2012 04:35) WBC # 08-01-2 11.0 4.8-10. complet Bld 013 K/MM3 8 ed Auto 04:35 RBC # 11-18-2 3.78 4.2-5.4 complet Bld 013 M/mm3 ed Auto 04:35 Hgb 11-18-2 10.8 12.2-16 complet Bld-mCn 013 g/dL .2 ed c 04:35 Hct Fr 35.2 % 37.0-47 complet Bld 013 .0 ed 04:35 MCV RBC 93.0 fl 82.2-97 complet 013 .8 ed 04:35 MCH RBC 2 28.5 pg 27-31.2 complet Qn 013 ed Auto 04:35 MEAN 30.6 31.8-35 complet CORPUSC 013 g/dl .4 ed ULAR 04:35 HGB CONC RDW RBC 11-18-2 15.7 % 11.5-17 complet Auto 013 .5 ed 04:35 Platele 11-18-2 230 142-424 complet t Bld 013 K/mm3 ed Ql 04:35 Manual MEAN 7.5 fl 7.4-10. complet PLATELE 013 4 ed T 04:35 VOLUME Granulo 2 92.2 % 37.0-80 complet cytes 013 .0 ed Fr Bld 04:35 Auto LYMPH % 11-18-2 5.3 % 10-50.0 complet 013 ed 04:35 Monocyt 11-18-2 2.4 % 1.7-9.3 complet es Fr 013 ed Bld 04:35 Auto Eosinop 11-18-2 0.0 % 0.1-12. complet hil Fr 013 0 ed Bld 04:35 Auto Basophi 11-18-2 0.1 % 0.1-2.0 complet ls Fr 013 ed Bld 04:35 Auto Granulo 08-01-2 10.2 1.8-7.8 complet cytes # 013 K/mm3 ed Bld 04:35 Auto Lymphoc 08-01-2 0.6 0.7-4.5 complet ytes Fr 013 K/mm3 ed Bld 04:35 Auto Monocyt 08-01-2 0.3 0.1-1.0 complet es # 013 K/mm3 ed Bld 04:35 Auto Eosinop 08-01-2 0.0 0.0-0.4 complet hil # 013 K/mm3 ed Bld 04:35 Auto Basophi 08-01-2 0.0 0-0.2 complet ls # 013 K/MM3 ed Bld 04:35 Auto URINALYSIS/COMPLETE (11-17-2012 16:44) URINE -31-2 YELLOW YELLOW complet COLOR 013 ed 16:44 URINE -31-2 CLEAR CLEAR complet APPEARA 013 ed NCE 16:44 URINE -31-2 NEGATIV NEG complet GLUCOSE 013 E ed - 16:44 DIPSTIC K URINE -31-2 NEGATIV NEG complet BILIRUB 013 E ed IN - 16:44 DIPSTIC K URINE -31-2 NEGATIV NEG complet KETONE 013 E mg/dL ed 16:44 URINE -31-2 Less 1.005-1 complet SPECIFI 013 than or .030 ed C 16:44 equal GRAVITY to 1.005 URINE -31-2 NEGATIV NEG complet BLOOD 013 E ed 16:44 URINE 11-17-2 7.0 UNK 5.0-8.5 complet PH 013 ed 16:44 URINE -31-2 NEGATIV NEG complet PROTEIN 013 E mg/dL ed - 16:44 DIPSTIC K URINE 07-31-2 0.2 NEG complet UROBILI 013 E.U./dL ed NOGEN - 16:44 DIPSTIC K URINE -31-2 NEGATIV NEG complet NITRATE 013 E ed - 16:44 DIPSTIC K URINE 07-31-2 NEGATIV NEG complet LEUK 013 E ed ESTERAS 16:44 E URINE 07-31-2 OCC 0 complet RBC 013 rbc/hpf ed 16:44 URINE 07-31-2 3-5 O complet WBC 013 wbc/hpf ed 16:44 URINE 07-31-2 10-20 0-5 complet SQUAMOU 013 #/hpf ed S CELLS 16:44 URINE 11-17-2 TRACE O complet BACTERI 013 ed A 16:44 COMPREHENSIVE METABOLIC PANEL (11-17-2012 09:50) Glucose 11-17-2 161 74-106 complet 013 mg/dL ed Bld-mCn 09:50 c BUN 11-17-2 15 7-18 complet Bld-mCn 013 mg/dL ed c 09:50 Creat 11-17-2 0.7 0.6-1.0 complet SerPl-m 013 mg/dL ed Cnc 09:50 GFR 11-17-2 88 59- complet (ESTIMA 013 ML/MIN ed YENNY) 09:50 Sodium 11-17-2 139 136-145 complet SerPl-s 013 mmoL/L ed Cnc 09:50 Potassi 11-17-2 4.1 3.5-5.1 complet um 013 mmoL/L ed SerPl-s 09:50 Cnc Chlorid 11-17-2 100 98-107 complet e 013 mmoL/L ed SerPl-s 09:50 Cnc CO2 11-17-2 32 21.0-32 complet SerPl-s 013 mmoL/L .0 ed Cnc 09:50 Calcium 11-17-2 9.5 8.5-10. complet 013 mg/dL 1 ed SerPl-m 09:50 Cnc Prot 11-17-2 8.1 6.4-8.2 complet SerPl-m 013 gm/dL ed Cnc 09:50 Albumin 11-17-2 3.6 3.4-5.0 complet 013 gm/dL ed SerPl-m 09:50 Cnc Globuli 11-17-2 4.5 1.3-3.2 complet n 013 gm/dL ed Ser-mCn 09:50 c Albumin 11-17-2 0.8 UNK 1.1-1.8 complet /Glob 013 ed SerPl-m 09:50 Rto Bilirub 11-17-2 0.5 0.2-1.0 complet 013 mg/dL ed SerPl-m 09:50 Cnc AST 11-17-2 25 U/L 15-37 complet SerPl-c 013 ed Cnc 09:50 ALT 11-17-2 38 U/L 30-65 complet SerPl-c 013 ed Cnc 09:50 ALP 11-17-2 494 U/L 50-136 complet SerPl-c 013 ed Cnc 09:50 TROPONIN I (11-17-2012 09:50) TROPONI 31-2 Less 0.00-0. complet N I 013 than 06 ed 09:50 0.02 ng/mL D Dimer PPP (11-17-2012 09:50) D Dimer 11-17-2 391 0-400 complet PPP 013 ng/mL ed 09:50 CBC with AUTO DIFF (11-17-2012 09:50) WBC # -31-2 22.9 4.8-10. High complet Bld 013 K/MM3 8 alert ed Auto 09:50 RBC # 31-2 4.82 4.2-5.4 complet Bld 013 M/mm3 ed Auto 09:50 Hgb 11-17-2 13.6 12.2-16 complet Bld-mCn 013 g/dL .2 ed c 09:50 Hct Fr 11-17-2 44.0 % 37.0-47 complet Bld 013 .0 ed 09:50 MCV RBC 11-17-2 91.4 fl 82.2-97 complet 013 .8 ed 09:50 MCH RBC 31-2 28.3 pg 27-31.2 complet Qn 013 ed Auto 09:50 MEAN 11-17-2 30.9 31.8-35 complet CORPUSC 013 g/dl .4 ed ULAR 09:50 HGB CONC RDW RBC 31-2 15.9 % 11.5-17 complet Auto 013 .5 ed 09:50 Platele 31-2 519 142-424 complet t Bld 013 K/mm3 ed Ql 09:50 Manual MEAN 31-2 7.6 fl 7.4-10. complet PLATELE 013 4 ed T 09:50 VOLUME Granulo 11-17-2 88.2 % 37.0-80 complet cytes 013 .0 ed Fr Bld 09:50 Auto LYMPH % -31-2 6.6 % 10-50.0 complet 013 ed 09:50 Monocyt 31-2 4.7 % 1.7-9.3 complet es Fr 013 ed Bld 09:50 Auto Eosinop -31-2 0.3 % 0.1-12. complet hil Fr 013 0 ed Bld 09:50 Auto Basophi 07-31-2 0.3 % 0.1-2.0 complet ls Fr 013 ed Bld 09:50 Auto Granulo 11-17-2 20.2 1.8-7.8 complet cytes # 013 K/mm3 ed Bld 09:50 Auto Lymphoc 31-2 1.5 0.7-4.5 complet ytes Fr 013 K/mm3 ed Bld 09:50 Auto Monocyt 31-2 1.1 0.1-1.0 complet es # 013 K/mm3 ed Bld 09:50 Auto Eosinop -31-2 0.1 0.0-0.4 complet hil # 013 K/mm3 ed Bld 09:50 Auto Basophi 31-2 0.1 0-0.2 complet ls # 013 K/MM3 ed Bld 09:50 Auto Amylase SerPl-cCnc (11-17-2012 09:10) Amylase 11-17-2 61 U/L 25-115 complet 013 ed SerPl-c 09:10 Cnc LIPASE (11-17-2012 09:10) LIPASE 11-17-2 494 U/L 73-393 complet 013 ed 09:10 COMPREHENSIVE METABOLIC PANEL (10-27-2012 08:05) Glucose 117 74-106 complet 013 mg/dL ed Bld-mCn 08:05 c BUN 6 mg/dL 7-18 complet Bld-mCn 013 ed c 08:05 Creat 10-27- 0.5 0.6-1.0 complet SerPl-m 013 mg/dL ed Cnc 08:05 GFR 130 59- complet (ESTIMA 013 ML/MIN ed YENNY) 08:05 Sodium 10-27- 139 136-145 complet SerPl-s 013 mmoL/L ed Cnc 08:05 Potassi 3.9 3.5-5.1 complet um 013 mmoL/L ed SerPl-s 08:05 Cnc Chlorid 103 98-107 complet e 013 mmoL/L ed SerPl-s 08:05 Cnc CO2 27 21.0-32 complet SerPl-s 013 mmoL/L .0 ed Cnc 08:05 Calcium 8.9 8.5-10. complet 013 mg/dL 1 ed SerPl-m 08:05 Cnc Prot 10-2 6.5 6.4-8.2 complet SerPl-m 013 gm/dL ed Cnc 08:05 Albumin 10-2 2.8 3.4-5.0 complet 013 gm/dL ed SerPl-m 08:05 Cnc Globuli 10-27-2 3.7 1.3-3.2 complet n 013 gm/dL ed Ser-mCn 08:05 c Albumin 10-27-2 0.8 UNK 1.1-1.8 complet /Glob 013 ed SerPl-m 08:05 Rto Bilirub 10-27-2 0.5 0.2-1.0 complet 013 mg/dL ed SerPl-m 08:05 Cnc AST 10-27- 6 U/L 15-37 complet SerPl-c 013 ed Cnc 08:05 ALT 10-27- 24 U/L 30-65 complet SerPl-c 013 ed Cnc 08:05 ALP 10-27-2 319 U/L 50-136 complet SerPl-c 013 ed Cnc 08:05 Amylase SerPl-cCnc (10-27-2012 08:05) Amylase 10-27-2 32 U/L 25-115 complet 013 ed SerPl-c 08:05 Cnc LIPASE (10-27-2012 08:05) LIPASE 10-27-2 87 U/L 73-393 complet 013 ed 08:05 CBC with AUTO DIFF (10-27-2012 08:05) WBC # 10-2 8.7 4.8-10. complet Bld 013 K/MM3 8 ed Auto 08:05 RBC # 10-2 3.61 4.2-5.4 complet Bld 013 M/mm3 ed Auto 08:05 Hgb 10-27-2 10.7 12.2-16 complet Bld-mCn 013 g/dL .2 ed c 08:05 Hct Fr 33.5 % 37.0-47 complet Bld 013 .0 ed 08:05 MCV RBC 10-27- 92.7 fl 82.2-97 complet 013 .8 ed 08:05 MCH RBC 10-27- 29.6 pg 27-31.2 complet Qn 013 ed Auto 08:05 MEAN 07-10-2 31.9 31.8-35 complet CORPUSC 013 g/dl .4 ed ULAR 08:05 HGB CONC RDW RBC 07-10-2 14.7 % 11.5-17 complet Auto 013 .5 ed 08:05 Platele 07-10-2 436 142-424 complet t Bld 013 K/mm3 ed Ql 08:05 Manual MEAN 07-10-2 8.0 fl 7.4-10. complet PLATELE 013 4 ed T 08:05 VOLUME Granulo 07-10-2 80.7 % 37.0-80 complet cytes 013 .0 ed Fr Bld 08:05 Auto LYMPH % 07-10-2 11.8 % 10-50.0 complet 013 ed 08:05 Monocyt 07-10-2 6.2 % 1.7-9.3 complet es Fr 013 ed Bld 08:05 Auto Eosinop 07-10-2 0.9 % 0.1-12. complet hil Fr 013 0 ed Bld 08:05 Auto Basophi 07-10-2 0.3 % 0.1-2.0 complet ls Fr 013 ed Bld 08:05 Auto Granulo 07-10-2 7.1 1.8-7.8 complet cytes # 013 K/mm3 ed Bld 08:05 Auto Lymphoc 07-10-2 1.0 0.7-4.5 complet ytes Fr 013 K/mm3 ed Bld 08:05 Auto Monocyt 07-10-2 0.5 0.1-1.0 complet es # 013 K/mm3 ed Bld 08:05 Auto Eosinop 07-10-2 0.1 0.0-0.4 complet hil # 013 K/mm3 ed Bld 08:05 Auto Basophi 07-10-2 0.0 0-0.2 complet ls # 013 K/MM3 ed Bld 08:05 Auto COMPREHENSIVE METABOLIC PANEL (10-09-2012 06:15) Glucose 10-09-2 115 74-106 complet 013 mg/dL ed Bld-mCn 06:15 c BUN 10-09-2 3 mg/dL 7-18 complet Bld-mCn 013 ed c 06:15 Creat 10-09-2 0.6 0.6-1.0 complet SerPl-m 013 mg/dL ed Cnc 06:15 ESTIMAT 10-09-2 68 50-200 complet ED 013 ML/MIN ed CREATIN 06:15 INE CLEARAN CE GFR 10-09-2 105 59- complet (ESTIMA 013 ML/MIN ed YENNY) 06:15 Sodium 10-09-2 138 136-145 complet SerPl-s 013 mmoL/L ed Cnc 06:15 Potassi 10-09-2 3.7 3.5-5.1 complet um 013 mmoL/L ed SerPl-s 06:15 Cnc Chlorid 105 98-107 complet e 013 mmoL/L ed SerPl-s 06:15 Cnc CO2 10-09-2 28 21.0-32 complet SerPl-s 013 mmoL/L .0 ed Cnc 06:15 Calcium 10-09-2 8.1 8.5-10. complet 013 mg/dL 1 ed SerPl-m 06:15 Cnc Prot 10-09-2 5.2 6.4-8.2 complet SerPl-m 013 gm/dL ed Cnc 06:15 Albumin 2 2.5 3.4-5.0 complet 013 gm/dL ed SerPl-m 06:15 Cnc Globuli 10-09-2 2.7 1.3-3.2 complet n 013 gm/dL ed Ser-mCn 06:15 c Albumin 10-09-2 0.9 UNK 1.1-1.8 complet /Glob 013 ed SerPl-m 06:15 Rto Bilirub 10-09-2 0.5 0.2-1.0 complet 013 mg/dL ed SerPl-m 06:15 Cnc AST 10-09-2 17 U/L 15-37 complet SerPl-c 013 ed Cnc 06:15 ALT 10-09-2 30 U/L 30-65 complet SerPl-c 013 ed Cnc 06:15 ALP 10-09-2 276 U/L 50-136 complet SerPl-c 013 ed Cnc 06:15 Amylase SerPl-cCnc (10-09-2012 06:15) Amylase 10-09-2 66 U/L 25-115 complet 013 ed SerPl-c 06:15 Cnc LIPASE (10-09-2012 06:15) LIPASE 10-09-2 232 U/L 73-393 complet 013 ed 06:15 CBC with AUTO DIFF (10-09-2012 06:15) WBC # 22-2 5.3 4.8-10. complet Bld 013 K/MM3 8 ed Auto 06:15 RBC # 22-2 3.76 4.2-5.4 complet Bld 013 M/mm3 ed Auto 06:15 Hgb 10-09-2 11.7 12.2-16 complet Bld-mCn 013 g/dL .2 ed c 06:15 Hct Fr 10-09-2 37.0 % 37.0-47 complet Bld 013 .0 ed 06:15 MCV RBC 10-09-2 98.4 fl 82.2-97 complet 013 .8 ed 06:15 MCH RBC 10-09-2 31.1 pg 27-31.2 complet Qn 013 ed Auto 06:15 MEAN 10-09-2 31.6 31.8-35 complet CORPUSC 013 g/dl .4 ed ULAR 06:15 HGB CONC RDW RBC 2 15.1 % 11.5-17 complet Auto 013 .5 ed 06:15 Platele 10-09-2 321 142-424 complet t Bld 013 K/mm3 ed Ql 06:15 Manual MEAN 10-09-2 7.1 fl 7.4-10. complet PLATELE 013 4 ed T 06:15 VOLUME Granulo 10-09-2 67.9 % 37.0-80 complet cytes 013 .0 ed Fr Bld 06:15 Auto LYMPH % 10-09-2 22.0 % 10-50.0 complet 013 ed 06:15 Monocyt 10-09-2 6.2 % 1.7-9.3 complet es Fr 013 ed Bld 06:15 Auto Eosinop 10-09-2 3.3 % 0.1-12. complet hil Fr 013 0 ed Bld 06:15 Auto Basophi 22-2 0.5 % 0.1-2.0 complet ls Fr 013 ed Bld 06:15 Auto Granulo -22-2 3.6 1.8-7.8 complet cytes # 013 K/mm3 ed Bld 06:15 Auto Lymphoc 22-2 1.2 0.7-4.5 complet ytes Fr 013 K/mm3 ed Bld 06:15 Auto Monocyt 22-2 0.3 0.1-1.0 complet es # 013 K/mm3 ed Bld 06:15 Auto Eosinop 10-09-2 0.2 0.0-0.4 complet hil # 013 K/mm3 ed Bld 06:15 Auto Basophi 10-09-2 0.0 0-0.2 complet ls # 013 K/MM3 ed Bld 06:15 Auto COMPREHENSIVE METABOLIC PANEL (10-07-2012 08:57) Glucose 10-07-2 71 74-106 complet 013 mg/dL ed Bld-mCn 08:57 c BUN 10-07-2 17 7-18 complet Bld-mCn 013 mg/dL ed c 08:57 Creat 10-07-2 1.0 0.6-1.0 complet SerPl-m 013 mg/dL ed Cnc 08:57 ESTIMAT 10-07-2 41 50-200 complet ED 013 ML/MIN ed CREATIN 08:57 INE CLEARAN CE GFR 10-07-2 58 59- complet (ESTIMA 013 ML/MIN ed YENNY) 08:57 Sodium 10-07-2 137 136-145 complet SerPl-s 013 mmoL/L ed Cnc 08:57 Potassi 2 3.5 3.5-5.1 complet um 013 mmoL/L ed SerPl-s 08:57 Cnc Chlorid 10-07-2 102 98-107 complet e 013 mmoL/L ed SerPl-s 08:57 Cnc CO2 10-07-2 26 21.0-32 complet SerPl-s 013 mmoL/L .0 ed Cnc 08:57 Calcium 10-07-2 8.6 8.5-10. complet 013 mg/dL 1 ed SerPl-m 08:57 Cnc Prot 10-07-2 6.1 6.4-8.2 complet SerPl-m 013 gm/dL ed Cnc 08:57 Albumin 20-2 2.7 3.4-5.0 complet 013 gm/dL ed SerPl-m 08:57 Cnc GLOBULI 10-07-2 3.4 1.3-3.2 complet N 013 gm/dL ed 08:57 ALB/UMESH 20-2 0.8 UNK 1.1-1.8 complet B RATIO 013 ed 08:57 Bilirub 10-07-2 0.5 0.2-1.0 complet 013 mg/dL ed SerPl-m 08:57 Cnc AST 10-07-2 12 U/L 15-37 complet SerPl-c 013 ed Cnc 08:57 ALT 06-20-2 24 U/L 30-65 complet SerPl-c 013 ed Cnc 08:57 ALP 06-20-2 297 U/L 50-136 complet SerPl-c 013 ed Cnc 08:57 Amylase SerPl-cCnc (10-07-2012 08:57) Amylase 06-20-2 80 U/L 25-115 complet 013 ed SerPl-c 08:57 Cnc LIPASE (10-07-2012 08:57) LIPASE 06-20-2 291 U/L 73-393 complet 013 ed 08:57 CBC with AUTO DIFF (10-07-2012 08:57) WBC # 06-20-2 6.8 4.8-10. complet Bld 013 K/MM3 8 ed Auto 08:57 RBC # 06-20-2 3.77 4.2-5.4 complet Bld 013 M/mm3 ed Auto 08:57 Hgb 06-20-2 11.8 12.2-16 complet Bld-mCn 013 g/dL .2 ed c 08:57 Hct Fr 06-20-2 37.1 % 37.0-47 complet Bld 013 .0 ed 08:57 MCV RBC 06-20-2 98.4 fl 82.2-97 complet 013 .8 ed 08:57 MCH RBC 06-20-2 31.2 pg 27-31.2 complet Qn 013 ed Auto 08:57 MEAN 06-20-2 31.7 31.8-35 complet CORPUSC 013 g/dl .4 ed ULAR 08:57 HGB CONC RDW RBC 06-20-2 15.3 % 11.5-17 complet Auto 013 .5 ed 08:57 Platele 06-20-2 359 142-424 complet t Bld 013 K/mm3 ed Ql 08:57 Manual MEAN 06-20-2 7.7 fl 7.4-10. complet PLATELE 013 4 ed T 08:57 VOLUME Granulo 06-20-2 66.1 % 37.0-80 complet cytes 013 .0 ed Fr Bld 08:57 Auto LYMPH % 06-20-2 24.1 % 10-50.0 complet 013 ed 08:57 Monocyt 06-20-2 6.4 % 1.7-9.3 complet es Fr 013 ed Bld 08:57 Auto Eosinop 06-20-2 2.7 % 0.1-12. complet hil Fr 013 0 ed Bld 08:57 Auto Basophi 06-20-2 0.6 % 0.1-2.0 complet ls Fr 013 ed Bld 08:57 Auto Granulo 06-20-2 4.5 1.8-7.8 complet cytes # 013 K/mm3 ed Bld 08:57 Auto Lymphoc 06-20-2 1.6 0.7-4.5 complet ytes Fr 013 K/mm3 ed Bld 08:57 Auto Monocyt 06-20-2 0.4 0.1-1.0 complet es # 013 K/mm3 ed Bld 08:57 Auto Eosinop 06-20-2 0.2 0.0-0.4 complet hil # 013 K/mm3 ed Bld 08:57 Auto Basophi 06-20-2 0.0 0-0.2 complet ls # 013 K/MM3 ed Bld 08:57 Auto COMPREHENSIVE METABOLIC PANEL (10-06-2012 14:00) Glucose 142 74-106 complet 013 mg/dL ed Bld-mCn 14:00 c BUN 10-06- 13 7-18 complet Bld-mCn 013 mg/dL ed c 14:00 Creat 1.7 0.6-1.0 complet SerPl-m 013 mg/dL ed Cnc 14:00 GFR 32 59- complet (ESTIMA 013 ML/MIN ed YENNY) 14:00 Sodium 131 136-145 complet SerPl-s 013 mmoL/L ed Cnc 14:00 Potassi 3.6 3.5-5.1 complet um 013 mmoL/L ed SerPl-s 14:00 Cnc Chlorid 93 98-107 complet e 013 mmoL/L ed SerPl-s 14:00 Cnc CO2 22 21.0-32 complet SerPl-s 013 mmoL/L .0 ed Cnc 14:00 Calcium 10.8 8.5-10. complet 013 mg/dL 1 ed SerPl-m 14:00 Cnc Prot 8.9 6.4-8.2 complet SerPl-m 013 gm/dL ed Cnc 14:00 Albumin 10-06-2 3.7 3.4-5.0 complet 013 gm/dL ed SerPl-m 14:00 Cnc Globuli 10-06-2 5.2 1.3-3.2 complet n 013 gm/dL ed Ser-mCn 14:00 c Albumin 0.7 UNK 1.1-1.8 complet /Glob 013 ed SerPl-m 14:00 Rto Bilirub 10-06-2 0.6 0.2-1.0 complet 013 mg/dL ed SerPl-m 14:00 Cnc AST 17 U/L 15-37 complet SerPl-c 013 ed Cnc 14:00 ALT 30 U/L 30-65 complet SerPl-c 013 ed Cnc 14:00 ALP 487 U/L 50-136 complet SerPl-c 013 ed Cnc 14:00 LIPASE (10-06-2012 14:00) LIPASE 308 U/L 73-393 complet 013 ed 14:00 CBC with AUTO DIFF (10-06-2012 14:00) WBC # 10-06-2 12.3 4.8-10. complet Bld 013 K/MM3 8 ed Auto 14:00 RBC # 10-06-2 5.17 4.2-5.4 complet Bld 013 M/mm3 ed Auto 14:00 Hgb 10-06- 15.6 12.2-16 complet Bld-mCn 013 g/dL .2 ed c 14:00 Hct Fr 50.1 % 37.0-47 complet Bld 013 .0 ed 14:00 MCV RBC 97.0 fl 82.2-97 complet 013 .8 ed 14:00 MCH RBC 10-06- 30.1 pg 27-31.2 complet Qn 013 ed Auto 14:00 MEAN 10-06- 31.1 31.8-35 complet CORPUSC 013 g/dl .4 ed ULAR 14:00 HGB CONC RDW RBC 10-06- 15.6 % 11.5-17 complet Auto 013 .5 ed 14:00 Platele 597 142-424 complet t Bld 013 K/mm3 ed Ql 14:00 Manual MEAN 10-06-2 7.8 fl 7.4-10. complet PLATELE 013 4 ed T 14:00 VOLUME Granulo 19-2 75.8 % 37.0-80 complet cytes 013 .0 ed Fr Bld 14:00 Auto LYMPH % 19-2 17.3 % 10-50.0 complet 013 ed 14:00 Monocyt 19-2 5.4 % 1.7-9.3 complet es Fr 013 ed Bld 14:00 Auto Eosinop -19-2 1.0 % 0.1-12. complet hil Fr 013 0 ed Bld 14:00 Auto Basophi 19-2 0.5 % 0.1-2.0 complet ls Fr 013 ed Bld 14:00 Auto Granulo 19-2 9.4 1.8-7.8 complet cytes # 013 K/mm3 ed Bld 14:00 Auto Lymphoc 19-2 2.1 0.7-4.5 complet ytes Fr 013 K/mm3 ed Bld 14:00 Auto Monocyt 19-2 0.7 0.1-1.0 complet es # 013 K/mm3 ed Bld 14:00 Auto Eosinop -19-2 0.1 0.0-0.4 complet hil # 013 K/mm3 ed Bld 14:00 Auto Basophi -19-2 0.1 0-0.2 complet ls # 013 K/MM3 ed Bld 14:00 Auto COMPREHENSIVE METABOLIC PANEL (09-08-2012 06:30) Glucose 105 74-106 complet 013 mg/dL ed Bld-mCn 06:30 c BUN 10 7-18 complet Bld-mCn 013 mg/dL ed c 06:30 Creat 0.6 0.6-1.0 complet SerPl-m 013 mg/dL ed Cnc 06:30 ESTIMAT 09-08- 76 50-200 complet ED 013 ML/MIN ed CREATIN 06:30 INE CLEARAN CE GFR 09-08- 105 59- complet (ESTIMA 013 ML/MIN ed YENNY) 06:30 Sodium 09-08- 136 136-145 complet SerPl-s 013 mmoL/L ed Cnc 06:30 Potassi 4.2 3.5-5.1 complet um 013 mmoL/L ed SerPl-s 06:30 Cnc Chlorid 22-2 102 98-107 complet e 013 mmoL/L ed SerPl-s 06:30 Cnc CO2 -22-2 30 21.0-32 complet SerPl-s 013 mmoL/L .0 ed Cnc 06:30 Calcium 05-22-2 8.3 8.5-10. complet 013 mg/dL 1 ed SerPl-m 06:30 Cnc Prot -22-2 5.8 6.4-8.2 complet SerPl-m 013 gm/dL ed Cnc 06:30 Albumin 05-22-2 2.3 3.4-5.0 complet 013 gm/dL ed SerPl-m 06:30 Cnc Globuli 22-2 3.5 1.3-3.2 complet n 013 gm/dL ed Ser-mCn 06:30 c Albumin 22-2 0.7 UNK 1.1-1.8 complet /Glob 013 ed SerPl-m 06:30 Rto Bilirub 09-08-2 0.3 0.2-1.0 complet 013 mg/dL ed SerPl-m 06:30 Cnc AST 22-2 24 U/L 15-37 complet SerPl-c 013 ed Cnc 06:30 ALT -22-2 32 U/L 30-65 complet SerPl-c 013 ed Cnc 06:30 ALP -22-2 382 U/L 50-136 complet SerPl-c 013 ed Cnc 06:30 Amylase SerPl-cCnc (09-08-2012 06:30) Amylase -22-2 77 U/L 25-115 complet 013 ed SerPl-c 06:30 Cnc LIPASE (09-08-2012 06:30) LIPASE -22-2 215 U/L 73-393 complet 013 ed 06:30 CBC with AUTO DIFF (09-08-2012 06:30) WBC # 05-22-2 9.0 4.8-10. complet Bld 013 K/MM3 8 ed Auto 06:30 RBC # 05-22-2 3.66 4.2-5.4 complet Bld 013 M/mm3 ed Auto 06:30 Hgb 05-22-2 11.8 12.2-16 complet Bld-mCn 013 g/dL .2 ed c 06:30 Hct Fr 09-08-2 38.2 % 37.0-47 complet Bld 013 .0 ed 06:30 MCV RBC 09-08-2 104.4 82.2-97 complet 013 fl .8 ed 06:30 MCH RBC 09-08-2 32.1 pg 27-31.2 complet Qn 013 ed Auto 06:30 MEAN -22-2 30.8 31.8-35 complet CORPUSC 013 g/dl .4 ed ULAR 06:30 HGB CONC RDW RBC 09-08-2 15.5 % 11.5-17 complet Auto 013 .5 ed 06:30 Platele -22-2 287 142-424 complet t Bld 013 K/mm3 ed Ql 06:30 Manual MEAN 09-08-2 7.9 fl 7.4-10. complet PLATELE 013 4 ed T 06:30 VOLUME Granulo 22-2 74.8 % 37.0-80 complet cytes 013 .0 ed Fr Bld 06:30 Auto LYMPH % 05-22-2 17.2 % 10-50.0 complet 013 ed 06:30 Monocyt 05-22-2 6.2 % 1.7-9.3 complet es Fr 013 ed Bld 06:30 Auto Eosinop 05-22-2 1.4 % 0.1-12. complet hil Fr 013 0 ed Bld 06:30 Auto Basophi 05-22-2 0.3 % 0.1-2.0 complet ls Fr 013 ed Bld 06:30 Auto Granulo 05-22-2 6.7 1.8-7.8 complet cytes # 013 K/mm3 ed Bld 06:30 Auto Lymphoc 05-22-2 1.5 0.7-4.5 complet ytes Fr 013 K/mm3 ed Bld 06:30 Auto Monocyt 05-22-2 0.6 0.1-1.0 complet es # 013 K/mm3 ed Bld 06:30 Auto Eosinop 05-22-2 0.1 0.0-0.4 complet hil # 013 K/mm3 ed Bld 06:30 Auto Basophi 05-22-2 0.0 0-0.2 complet ls # 013 K/MM3 ed Bld 06:30 Auto COMPREHENSIVE METABOLIC PANEL (09-07-2012 06:30) Glucose 05-21-2 102 74-106 complet 013 mg/dL ed Bld-mCn 06:30 c BUN 09-07-2 10 7-18 complet Bld-mCn 013 mg/dL ed c 06:30 Creat 09-07-2 0.7 0.6-1.0 complet SerPl-m 013 mg/dL ed Cnc 06:30 ESTIMAT 09-07-2 65 50-200 complet ED 013 ML/MIN ed CREATIN 06:30 INE CLEARAN CE GFR 88 59- complet (ESTIMA 013 ML/MIN ed YENNY) 06:30 Sodium 09-07- 135 136-145 complet SerPl-s 013 mmoL/L ed Cnc 06:30 Potassi 4.5 3.5-5.1 complet um 013 mmoL/L ed SerPl-s 06:30 Cnc Chlorid 97 98-107 complet e 013 mmoL/L ed SerPl-s 06:30 Cnc CO2 32 21.0-32 complet SerPl-s 013 mmoL/L .0 ed Cnc 06:30 Calcium 09-07- 8.6 8.5-10. complet 013 mg/dL 1 ed SerPl-m 06:30 Cnc Prot 09-07- 5.7 6.4-8.2 complet SerPl-m 013 gm/dL ed Cnc 06:30 Albumin 09-07-2 2.5 3.4-5.0 complet 013 gm/dL ed SerPl-m 06:30 Cnc GLOBULI 09-07- 3.2 1.3-3.2 complet N 013 gm/dL ed 06:30 ALB/UMESH 09-07-2 0.8 UNK 1.1-1.8 complet B RATIO 013 ed 06:30 Bilirub 09-07-2 0.4 0.2-1.0 complet 013 mg/dL ed SerPl-m 06:30 Cnc AST 09-07-2 29 U/L 15-37 complet SerPl-c 013 ed Cnc 06:30 ALT 09-07-2 34 U/L 30-65 complet SerPl-c 013 ed Cnc 06:30 ALP 09-07-2 545 U/L 50-136 complet SerPl-c 013 ed Cnc 06:30 Amylase SerPl-cCnc (09-07-2012 06:30) Amylase 05-21-2 104 U/L 25-115 complet 013 ed SerPl-c 06:30 Cnc LIPASE (09-07-2012 06:30) LIPASE 09-07- 299 U/L 73-393 complet 013 ed 06:30 COMPREHENSIVE METABOLIC PANEL (09-06-2012 16:09) Glucose 09-06- 104 74-106 complet 013 mg/dL ed Bld-mCn 16:09 c BUN 09-06-2 17 7-18 complet Bld-mCn 013 mg/dL ed c 16:09 Creat 20-2 0.8 0.6-1.0 complet SerPl-m 013 mg/dL ed Cnc 16:09 ESTIMAT 20-2 57 50-200 complet ED 013 ML/MIN ed CREATIN 16:09 INE CLEARAN CE GFR 09-06-2 75 59- complet (ESTIMA 013 ML/MIN ed YENNY) 16:09 Sodium 09-06-2 138 136-145 complet SerPl-s 013 mmoL/L ed Cnc 16:09 Potassi 09-06-2 3.8 3.5-5.1 complet um 013 mmoL/L ed SerPl-s 16:09 Cnc Chlorid 09-06-2 97 98-107 complet e 013 mmoL/L ed SerPl-s 16:09 Cnc CO2 09-06-2 34 21.0-32 complet SerPl-s 013 mmoL/L .0 ed Cnc 16:09 Calcium 20-2 8.8 8.5-10. complet 013 mg/dL 1 ed SerPl-m 16:09 Cnc Prot 20-2 7.3 6.4-8.2 complet SerPl-m 013 gm/dL ed Cnc 16:09 Albumin -20-2 2.9 3.4-5.0 complet 013 gm/dL ed SerPl-m 16:09 Cnc Globuli 20-2 4.4 1.3-3.2 complet n 013 gm/dL ed Ser-mCn 16:09 c Albumin 20-2 0.7 UNK 1.1-1.8 complet /Glob 013 ed SerPl-m 16:09 Rto Bilirub 20-2 0.6 0.2-1.0 complet 013 mg/dL ed SerPl-m 16:09 Cnc AST 05-20-2 46 U/L 15-37 complet SerPl-c 013 ed Cnc 16:09 ALT 05-20-2 39 U/L 30-65 complet SerPl-c 013 ed Cnc 16:09 ALP 05-20-2 652 U/L 50-136 complet SerPl-c 013 ed Cnc 16:09 Amylase SerPl-cCnc (09-06-2012 16:09) Amylase 05-20-2 136 U/L 25-115 complet 013 ed SerPl-c 16:09 Cnc LIPASE (09-06-2012 16:09) LIPASE 05-20-2 487 U/L 73-393 complet 013 ed 16:09 CBC with AUTO DIFF (09-06-2012 16:09) WBC # 05-20-2 9.1 4.8-10. complet Bld 013 K/MM3 8 ed Auto 16:09 RBC # 05-20-2 4.14 4.2-5.4 complet Bld 013 M/mm3 ed Auto 16:09 Hgb 05-20-2 13.3 12.2-16 complet Bld-mCn 013 g/dL .2 ed c 16:09 Hct Fr 05-20-2 42.6 % 37.0-47 complet Bld 013 .0 ed 16:09 MCV RBC 05-20-2 102.9 82.2-97 complet 013 fl .8 ed 16:09 MCH RBC 05-20-2 32.1 pg 27-31.2 complet Qn 013 ed Auto 16:09 MEAN 05-20-2 31.2 31.8-35 complet CORPUSC 013 g/dl .4 ed ULAR 16:09 HGB CONC RDW RBC 05-20-2 15.8 % 11.5-17 complet Auto 013 .5 ed 16:09 Platele 05-20-2 408 142-424 complet t Bld 013 K/mm3 ed Ql 16:09 Manual MEAN 05-20-2 7.8 fl 7.4-10. complet PLATELE 013 4 ed T 16:09 VOLUME Granulo 05-20-2 72.7 % 37.0-80 complet cytes 013 .0 ed Fr Bld 16:09 Auto LYMPH % 05-20-2 18.0 % 10-50.0 complet 013 ed 16:09 Monocyt 05-20-2 6.7 % 1.7-9.3 complet es Fr 013 ed Bld 16:09 Auto Eosinop 05-20-2 2.0 % 0.1-12. complet hil Fr 013 0 ed Bld 16:09 Auto Basophi 05-20-2 0.5 % 0.1-2.0 complet ls Fr 013 ed Bld 16:09 Auto Granulo 05-20-2 6.6 1.8-7.8 complet cytes # 013 K/mm3 ed Bld 16:09 Auto Lymphoc 05-20-2 1.6 0.7-4.5 complet ytes Fr 013 K/mm3 ed Bld 16:09 Auto Monocyt 05-20-2 0.6 0.1-1.0 complet es # 013 K/mm3 ed Bld 16:09 Auto Eosinop 05-20-2 0.2 0.0-0.4 complet hil # 013 K/mm3 ed Bld 16:09 Auto Basophi 05-20-2 0.1 0-0.2 complet ls # 013 K/MM3 ed Bld 16:09 Auto Procedures Procedure DOS Code Location Performer Comment CONTINUOU 96.71 Ewelina Adorno INVASIVE MECHANICA L VENTILATI ON <96 CONSEC HRS INSERT 96.04 Ewelina ENDOTRACH Kyree EAL TUBE LEFT 37.22 Nezar HEART Abhijeet CARDIAC CATH LT HEART 88.53 Nezar ANGIOCARD Abhijeet IOGRAM CORONAR 88.55 Princess ARTERIOGR Falluji -1 CATH MD Encounters Encounter Start End Date Code Location Performer Type Date Inpatient HIEU Adorno MD (IN) 4 14:24 4 13:40 [facility] Inpatient HIEU Adorno MD (IN) 4 21:31 4 13:50 [facility] Inpatient HIEU (IN) 3 11:20 3 12:10 Inpatient HIEU Adorno MD (IN) 3 13:50 3 10:47 [facility] Inpatient HIEU Adorno MD (IN) 3 14:01 3 13:20 [facility] Inpatient HIEU Adorno MD (IN) 3 10:17 3 13:49 [facility] LorenaMiguelinaAlphonse Emergency ROSMERY Betancur (ER) 3 07:49 3 10:20 [facility] Inpatient HIEU Adorno MD (IN) 3 13:46 3 12:00 [facility] GonzaloAlphonse Inpatient HIEU Adorno MD (IN) 3 15:17 3 09:50 [facility]
--- OUTSIDE RECORDS SUMMARY | 2017-01-23 21:45 | External Medical Summary Rpt ---
Author Author , DAGOBERTO ARENAS Address Unknown Phone [email or web address] [email or web address] Care [email or web address] Development Project Manager Name Role Phone Charlene PHIPPS, Unavailable Unavailable Charlene Adorno MD, Unavailable Unavailable Ewelina Juárez APRN, Unavailable Unavailable Rosanne Jha MD, Unavailable Unavailable Princess Jha MD Purpose Continuity of Care Document - 09-06-2012 through 2016 Problems Code Diagnosis DOS Provider Status [id number] Acute [facility] [id number] Abdominal [place] pain [facility] 288.8 Leukocytosi [facility] 305.1 Tobacco [place] user [facility] [id number] Active [facility] 571.2 Alcoholic [place] cirrhosis [facility] 577.1 Chronic [facility] 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 9% SO YTREL TI ON BI 00 01 0 No SO 18 -0 W[place] 50 6- Lo OL 77 20 ng [...] SI 73 -0 NO 90 6- Lo WY 35 20 ng IL 01 14 er [...] LA ve TE 10 MG TA B WY 00 12 0 No ED 05 -3 [...] SI 73 -2 NO 90 7- Lo WY 35 20 ng IL 01 13 er [...] 00 12 4 No SO 18 -2 WY 50 6- Lo OL 77 20 ng [...] SI 73 -2 NO 90 5- Lo WY 35 20 ng IL 01 13 er [...] -D 5W DI 63 12 1 No WY 32 -2 IV 30 4- Lo AN [...] 12 Ac 5 ti MG ve AL IL 00 12 0 No DA 40 -2 [...] 51 12 2 No TO 07 -2 WY 90 4- Lo OL 25 20 ng [...] SO L TA 00 12 1 No IL 00 -2 FL 40 3- Lo U 80 20 ng 75 08 13 er 5 MG Ac ti CA ve PS UL E WY 00 12 1 No ED 05 -2 [...] ER ve 15 MG TA BL ET WY 00 09 1 No ED 05 -2 [...] ve 0. 9% SO TYREL TI ON WY 00 09 3 No ED 05 -1 [...] SI 73 -1 NO 90 9- Lo WY 35 20 ng IL 01 13 er [...] NG E TO 00 08 2 No WY 18 -3 OL 61 1- Lo 08 20 ng XL 83 13 er 9 25 Ac ti MG ve TA BL ET [place] 00 08 4 No ED 05 -2 [...] SI 73 -2 NO 90 9- Lo WY 35 20 ng IL 01 13 er [...] 10 0 MC G/ ML AM P WY 00 08 0 No ED 05 -2 [...] Ml ti ve Sy ri ng e WY 00 08 6 No OT 00 -2 [...] ve /M L CA RP UJ CT [place] 00 08 6 No OM 64 -2 [...] SI 73 -0 NO 90 4- Lo WY 35 20 ng IL 01 13 er [...] 00 08 0 No TA 59 -0 WY 70 3- Lo ES 03 20 ng [...] 00 08 1 No TA 40 -0 IL 99 1- Lo N 15 20 ng [...] Ml ti ve Sy ri ng e WY 00 07 6 No OM 64 -3 [...] ve 0. 9% SO TYREL TI ON WY 00 07 0 No OM 64 -1 [...] Ac G ti Ta ve bl et WY 00 06 3 No ED 05 -2 [...] Ml ti ve Sy ri ng e WY 00 06 0 No OM 64 -1 [...] ve ET TO 00 05 1 No WY 18 -2 OL 61 1- Lo 09 [...] ti ve 0. 45 % SO LN [place] 00 05 2 No ED 05 -2 [...] complet BldC 014 mg/dl ed Glucomt 06:54 r-[facility] BASIC METABOLIC PANEL (06-09-2013 06:10) Glucose [...] BldC 014 mg/dl alert ed [facility] 21:[facility] Glucomtr-nc (06-07-2013 16:49) Glucose 06-07-2 336 70-110 High complet BldC 014 mg/dl alert ed Glucomt 16:49 [facility] COMPREHENSIVE METABOLIC PANEL (06-07-2013 16:00) Glucose 06-07-2 [...] mg/dL ed SerPl-m 08:40 Cnc Glucose BldC Glucomtr-[facility] (11-23-2012 06:32) Glucose 257 70-110 complet BldC 013 mg/dl ed Glucomt 06:32 r-mCnc Glucose BldC Glucomtr-[facility] (11-22-2012 17:02) Glucose 380 70-110 High [...] mg/dL ed SerPl-m 05:40 Cnc Glucose BldC Glucomtr-[facility] (11-21-2012 20:40) Glucose 245 70-110 complet BldC 013 mg/dl ed Glucomt 20:40 r-nc Glucose BldC Glucomtr-[facility] (11-21-2012 18:51) Glucose 451 70-110 High complet BldC 013 mg/dl alert ed Glucomt 18:51 r-[facility] Glucose Bld-nc (11-21-2012 16:30) Glucose 458 74-106 complet 013 mg/dL ed Bld-mCn 16:30 c Glucose BldC Glucomtr-[facility] (11-21-2012 11:25) Glucose 187 70-110 complet BldC 013 mg/dl ed Glucomt 11:25 r-[facility] BASIC METABOLIC PANEL (11-21-2012 06:30) Glucose [...] mg/dL 1 ed SerPl-m 06:30 Cnc Phosphate SerPl-[facility] (11-21-2012 06:30) Phospha 3.1 2.4-4.9 complet [...] 105 59- complet (ESTIMA 013 ML/MIN ed EYNNY) 06:20 Sodium 138 136-145 complet SerPl-s 013 [...] K/MM3 ed Bld 06:20 Auto Glucose BldC Glucomtr-[facility] (11-19-2012 16:17) Glucose 11-19-2 268 70-110 complet BldC 013 mg/dl ed Glucomt 16:17 [facility] Glucom[facility] (11-19-2012 11:34) Glucose 11-19-2 260 70-110 complet BldC 013 mg/dl ed Glucomt 11:34 r-[facility] Glucose BldC Glucomtr-[facility] (11-19-2012 06:27) Glucose 11-19-2 245 70-110 complet BldC 013 mg/dl ed Glucomt 06:27 r-[facility] BASIC METABOLIC PANEL (11-19-2012 05:00) Glucose [...] Adorno MD (IN) 4 14:24 4 13:40 [facility] Inpatient HIEU Adorno MD (IN) 4 21:31 4 13:50 [facility] Inpatient HIEU (IN) 3 11:20 3 12:10 Inpatient HIEU Adorno MD (IN) 3 13:50 3 10:47 [facility] Inpatient HIEU Adorno MD (IN) 3 14:01 3 13:20 [facility] Inpatient HIEU Adorno MD (IN) 3 10:17 3 13:49 [facility] LorenaMiguelinaAlphonse Emergency ROSMERY Betancur (ER) 3 07:49 3 10:20 [facility] Inpatient HIEU Adorno MD (IN) 3 13:46 3 12:00 [facility] GonzaloAlphonse Inpatient HIEU Adorno MD (IN) 3 15:17 3 09:50 [facility]
--- OUTSIDE RECORDS SUMMARY | 2017-01-23 21:50 | External Medical Summary Rpt ---
Author Author , CHRIS ARENAS Address Unknown Phone [email or web address] Immunization Name Date Rout CVX Reac Dose Comm Prov Is Faci e tion ent ider Refu lity Give sed n Infl 09-2 0.5 Hist D049 No D049 uenz 7-20 mL oric 01 01 a 17 al Quad Info rmat W/Pr ion es - Sour ce Unsp ecif ied PPV2 01-0 Intr 33 999 Hist [facility] No [facility] 3 1-20 amus oric 1 1 14 cula al r Info rmat ion - Sour ce Unsp ecif ied
--- OUTSIDE RECORDS SUMMARY | 2017-01-23 21:50 | External Medical Summary Rpt ---
Author Author , CHRIS ARENAS Address Unknown Phone [email or web address] Immunization Name Date Rout CVX Reac Dose [...]
--- OUTSIDE RECORDS SUMMARY | 2017-01-23 21:51 | External Medical Summary Rpt ---
Author Author DAGOBERTO Balbuena, DAGOBERTO Production Organization [facility] Address Unknown Phone Unavailable Results Basic metabolic panel in Blood Observa Value Referen Units Interpr Notes Date tion ce etation Range Urea 7 - 18 mg/dL Low No Sep 14 nitrogen informati 2017 9:48 [Mass/vol on in AM ume] in source Serum or data Plasma Calcium 8.5 - mg/dL Low No Sep 14 [Mass/vol 10.1 informati 2017 9:48 ume] in on in AM Serum or source Plasma data Chloride 98 - 107 mmoL/L Normal No Sep 14 [Moles/vo informati 2017 9:48 lume] in on in AM Serum or source Plasma data Carbon 21.0 - mmoL/L Normal No Sep 14 dioxide, 32.0 informati 2017 9:48 total on in AM [Moles/vo source lume] in data Serum or Plasma Creatinin 0.55 - mg/dL Normal No Sep 14 e 1.02 informati 2017 9:48 [Mass/vol on in AM ume] in source Serum or data Plasma Creatinin 50 - 200 ML/MIN Normal No Sep 14 e renal informati 2017 9:48 clearance on in AM source predicted data by Cockcroft -Gault formula Estimated 59- ML/MIN No REFERENCE Sep 14 informati RANGE: 2017 9:48 glomerula on in >60 AM r source ML/MIN/1. filtratio data 73 SQUARE n rate METERSIf (GF this patient is -A merican, then multiply theresult by 1.210. Glucose 74 - 106 mg/dL High No Sep 14 [Mass/vol informati 2017 9:48 ume] in on in AM Serum or source Plasma data Potassium 3.5 - 5.1 mmoL/L Normal No Sep 14 informati 2017 9:48 [Moles/vo on in AM lume] in source Serum or data Plasma Sodium 136 - 145 mmoL/L Normal No Sep 14 [Moles/vo informati 2017 9:48 lume] in on in AM Serum or source Plasma data CBC W Auto Differential panel in Blood Observa Value Referen Units Interpr Notes Date tion ce etation Range Basophils 0 - 0.2 K/MM3 Normal No Sep 14 informati 2017 9:48 [#/volume on in AM ] in source Blood by data Automated count Basophils 0.1 - 2.0 % Normal No Sep 14 /100 informati 2017 9:48 leukocyte on in AM s in source Blood by data Automated count Eosinophi 0.0 - 0.4 K/mm3 Normal No Sep 14 ls informati 2016 9:48 [#/volume on in AM ] in source Blood by data Automated count Eosinophi 0.1 - % Normal No Sep 14 ls/100 12.0 informati 2017 9:48 leukocyte on in AM s in source Blood by data Automated count Granulocy 1.8 - 7.8 K/mm3 Normal No Sep 14 casey informati 2017 9:48 [#/volume on in AM ] in source Blood by data Automated count Granulocy 37.0 - % Normal No Sep 14 casey/100 80.0 informati 2016 9:48 leukocyte on in AM s in source Blood by data Automated count Hematocri 37.0 - % Normal No Sep 14 t [Volume 47.0 informati 2017 9:48 on in AM Fraction] source of Blood data Hemoglobi 12.2 - g/dL Low No Sep 14 n 16.2 informati 2017 9:48 [Mass/vol on in AM ume] in source Blood data Lymphocyt 0.7 - 4.5 K/mm3 Normal No Sep 14 es informati 2017 9:48 [#/volume on in AM ] in source Unspecifi data ed specimen by Automated count Lymphocyt 10 - 50.0 % Normal No Sep 14 es informati 2016 9:48 [#/volume on in AM ] in source Unspecifi data ed specimen by Automated count Erythrocy 27 - 31.2 pg Normal No Sep 14 te mean informati 2017 9:48 corpuscul on in AM ar source hemoglobi data n [Entitic mass] Erythrocy 31.8 - g/dl Low No Sep 14 te mean 35.4 informati 2017 9:48 corpuscul on in AM ar source hemoglobi data n concentra tion [Mass/vol ume] by Automated count Erythrocy 82.2 - fl High No Sep 14 te mean 97.8 informati 2016 9:48 corpuscul on in AM ar volume source [Entitic data volume] by Automated count Monocytes 0.1 - 1.0 K/mm3 Normal No Sep 14 informati 2016 9:48 [#/volume on in AM ] in source Blood by data Automated count Monocytes 1.7 - 9.3 % Normal No Sep 14 /100 inform2016 9:48 leukocyte on in AM s in source Blood by data Automated count Platelet 7.4 - fl Normal No Sep 14 mean 10.4 informati 2016 9:48 volume on in AM [Entitic source volume] data in Blood by Automated count Platelets 142 - 424 K/mm3 Normal No Sep 14 informati 2016 9:48 [#/volume on in AM ] in source Blood data Erythrocy 4.2 - 5.4 M/mm3 Low No Sep 14 casey informati 2016 9:48 [#/volume on in AM ] in source Amniotic data fluid Erythrocy 11.5 - % Normal No Sep 14 te 17.5 informati 2016 9:48 distribut on in AM ion width source [Entitic data volume] by Automated count Leukocyte 4.8 - K/MM3 Normal No Sep 14 s 10.8 informati 2016 9:48 [#/volume on in AM ] in source Blood data Fibrin D-dimer FEU [Mass/volume] in Platelet poor plasma Observa Value Referen Units Interpr Notes Date tion ce etation Range Fibrin 0 - 400 ng/mL Normal The Dec 12 D-dimer D-Dimer 2016 9:18 FEU values AM [Mass/vol are ume] in presented Platelet in units poor of plasma mass(ng/m L) ofD-Dimer units(DDU ).This test has been FDA approved as an aid in the assessmen tand evaluatio n of suspected DIC, and thromboem bolic eventsinc luding PE and DVT. However, it does not have approvalf or cut-off values for the exclusion of these condition s. PT & aPTT panel in Platelet poor plasma by Coagulation assay Observa Value Referen Units Interpr Notes Date tion ce etation Range INR in 0.9 - 1.1 No Normal INDICATIO Sep 12 Blood by informati N 2016 9:18 Coagulati on in AM on assay source INR data RANGETHER APY FOR DVT, PE, ATRIAL FIB; 2.0 - 3.0PROPHY LAXIS FOR VTETHERAP Y FOR MECHANICA L HEART 2.5 - 3.5VALVE; PREVENTIO N OF SYSTEMICE MBOLISM SECONDARY TO AMI Prothromb 9.4 - SECONDS Normal No Sep 12 in time 11.8 informati 2017 9:18 (PT) in on in AM Platelet source poor data plasma by Coagulati on assay Activated 23.6 - SECONDS Normal No Sep 12 partial 34.0 informati 2017 9:18 thrombpla on in AM stin time source (aPTT) data in Platelet poor plasma by Coagulati on assay Amylase [Enzymatic activity/volume] in Serum or Plasma Observa Value Referen Units Interpr Notes Date tion ce etation Range Amylase 25 - 115 U/L Low No Sep 12 [Enzymati informati 2017 8:55 c on in AM activity/ source volume] data in Serum or Plasma Comprehensive metabolic 2000 panel in Serum or Plasma Observa Value Referen Units Interpr Notes Date tion ce etation Range Albumin/G 1.1 - 1.8 No Low No Sep 12 lobulin informati informati 2017 8:55 [Mass on in on in AM ratio] in source source Serum or data data Plasma Albumin 3.4 - 5.0 gm/dL Low No Sep 12 [Mass/vol informati 2017 8:55 ume] in on in AM Serum or source Plasma data Alkaline 46 - 116 U/L High No Sep 12 phosphata informati 2017 8:55 se on in AM [Enzymati source c data activity/ volume] in Serum or Plasma Bilirubin 0.2 - 1.0 mg/dL Normal No Sep 12 .total informati 2017 8:55 [Mass/vol on in AM ume] in source Serum or data Plasma Urea 7 - 18 mg/dL Normal No Sep 12 nitrogen informati 2017 8:55 [Mass/vol on in AM ume] in source Serum or data Plasma Calcium 8.5 - mg/dL Normal No Sep 12 [Mass/vol 10.1 informati 2017 8:55 ume] in on in AM Serum or source Plasma data Chloride 98 - 107 mmoL/L Normal No Sep 12 [Moles/vo informati 2017 8:55 lume] in on in AM Serum or source Plasma data Carbon 21.0 - mmoL/L Normal No Sep 12 dioxide, 32.0 informati 2017 8:55 total on in AM [Moles/vo source lume] in data Serum or Plasma Creatinin 0.55 - mg/dL Normal No Sep 12 e 1.02 informati 2016 8:55 [Mass/vol on in AM ume] in source Serum or data Plasma Creatinin 50 - 200 ML/MIN Normal No Sep 12 e renal informati 2016 8:55 clearance on in AM source predicted data by Cockcroft -Gault formula Estimated 59- ML/MIN No REFERENCE Sep 12 informati RANGE: 2017 8:55 glomerula on in >60 AM r source ML/MIN/1. filtratio data 73 SQUARE n rate METERSIf (GF this patient is -A merican, then multiply theresult by 1.210. Globulin 1.3 - 3.2 gm/dL Normal No Sep 12 [Mass/vol informati 2016 8:55 ume] in on in AM Serum source data Glucose 74 - 106 mg/dL Low No Sep 12 [Mass/vol informati 2016 8:55 ume] in on in AM Serum or source Plasma data Potassium 3.5 - 5.1 mmoL/L Normal No Sep 12 informati 2016 8:55 [Moles/vo on in AM lume] in source Serum or data Plasma Sodium 136 - 145 mmoL/L Normal No Sep 12 [Moles/vo informati 2017 8:55 lume] in on in AM Serum or source Plasma data Aspartate 15 - 37 U/L Normal No Sep 12 informati 2016 8:55 aminotran on in AM sferase source [Enzymati data c activity/ volume] in Serum or Plasma Alanine 12 - 78 U/L Normal No Sep 12 aminotran informati 2016 8:55 sferase on in AM [Enzymati source c data activity/ volume] in Serum or Plasma Protein 6.4 - 8.2 gm/dL Low No Sep 12 [Mass/vol informati 2016 8:55 ume] in on in AM Serum or source Plasma data Lipase [Enzymatic activity/volume] in Serum or Plasma Observa Value Referen Units Interpr Notes Date tion ce etation Range Lipase 73 - 393 U/L Low No Sep 12 [Enzymati informati 2017 8:55 c on in AM activity/ source volume] data in Serum or Plasma CBC W Auto Differential panel in Blood Observa Value Referen Units Interpr Notes Date tion ce etation Range Basophils 0 - 0.2 K/MM3 Normal No Sep 12 informati 2016 8:55 [#/volume on in AM ] in source Blood by data Automated count Basophils 0.1 - 2.0 % Normal No Sep 12 /100 informati 2017 8:55 leukocyte on in AM s in source Blood by data Automated count Eosinophi 0.0 - 0.4 K/mm3 Normal No Sep 12 ls informati 2016 8:55 [#/volume on in AM ] in source Blood by data Automated count Eosinophi 0.1 - % Normal No Sep 12 ls/100 12.0 informati 2017 8:55 leukocyte on in AM s in source Blood by data Automated count Granulocy 1.8 - 7.8 K/mm3 Normal No Sep 12 casey informati 2017 8:55 [#/volume on in AM ] in source Blood by data Automated count Granulocy 37.0 - % Normal No Sep 12 casey/100 80.0 informati 2017 8:55 leukocyte on in AM s in source Blood by data Automated count Hematocri 37.0 - % Normal No Sep 12 t [Volume 47.0 informati 2016 8:55 on in AM Fraction] source of Blood data Hemoglobi 12.2 - g/dL Normal No Sep 12 n 16.2 informati 2017 8:55 [Mass/vol on in AM ume] in source Blood data Lymphocyt 0.7 - 4.5 K/mm3 Normal No Sep 12 es informati 2017 8:55 [#/volume on in AM ] in source Unspecifi data ed specimen by Automated count Lymphocyt 10 - 50.0 % Normal No Sep 12 es informati 2017 8:55 [#/volume on in AM ] in source Unspecifi data ed specimen by Automated count Erythrocy 27 - 31.2 pg Normal No Sep 12 te mean informati 2017 8:55 corpuscul on in AM ar source hemoglobi data n [Entitic mass] Erythrocy 31.8 - g/dl Low No Sep 12 te mean 35.4 informati 2017 8:55 corpuscul on in AM ar source hemoglobi data n concentra tion [Mass/vol ume] by Automated count Erythrocy 82.2 - fl Normal No Sep 12 te mean 97.8 informati 2016 8:55 corpuscul on in AM ar volume source [Entitic data volume] by Automated count Monocytes 0.1 - 1.0 K/mm3 Normal No Sep 12 informati 2016 8:55 [#/volume on in AM ] in source Blood by data Automated count Monocytes 1.7 - 9.3 % Normal No Sep 12 /100 informati 2017 8:55 leukocyte on in AM s in source Blood by data Automated count Platelet 7.4 - fl Normal No Sep 12 mean 10.4 informati 2016 8:55 volume on in AM [Entitic source volume] data in Blood by Automated count Platelets 142 - 424 K/mm3 No No Sep 12 informati informati 2017 8:55 [#/volume on in on in AM ] in source source Blood data data Erythrocy 4.2 - 5.4 M/mm3 Normal No Sep 12 casey informati 2016 8:55 [#/volume on in AM ] in source Amniotic data fluid Erythrocy 11.5 - % Normal No Sep 12 te 17.5 informati 2016 8:55 distribut on in AM ion width source [Entitic data volume] by Automated count Leukocyte 4.8 - K/MM3 Normal No Sep 12 s 10.8 informati 2016 8:55 [#/volume on in AM ] in source Blood data Glucose [Mass/volume] in Capillary blood by Glucometer Observa Value Referen Units Interpr Notes Date tion ce etation Range Glucose 70 - 110 mg/dl Normal No Sep 12 [Mass/vol informati 2017 8:52 ume] in on in AM Capillary source blood by data Glucomete r Glucose [Mass/volume] in Capillary blood by Glucometer Observa Value Referen Units Interpr Notes Date tion ce etation Range Glucose 70 - 110 mg/dl Normal No Sep 3 [Mass/vol informati 2017 ume] in on in 12:10 PM Capillary source blood by data Glucomete r Glucose [Mass/volume] in Capillary blood by Glucometer Observa Value Referen Units Interpr Notes Date tion ce etation Range Glucose 70 - 110 mg/dl No No Sep 3 [Mass/vol informati informati 2016 6:13 ume] in on in on in AM Capillary source source blood by data data Glucomete r Basic metabolic panel in Blood Observa Value Referen Units Interpr Notes Date tion ce etation Range Urea 7 - 18 mg/dL Low No Sep 3 nitrogen informati 2017 5:55 [Mass/vol on in AM ume] in source Serum or data Plasma Calcium 8.5 - mg/dL Low No Sep 3 [Mass/vol 10.1 informati 2017 5:55 ume] in on in AM Serum or source Plasma data Chloride 98 - 107 mmoL/L High No Sep 3 [Moles/vo informati 2017 5:55 lume] in on in AM Serum or source Plasma data Carbon 21.0 - mmoL/L Low No Sep 3 dioxide, 32.0 informati 2017 5:55 total on in AM [Moles/vo source lume] in data Serum or Plasma Creatinin 0.55 - mg/dL Normal No Sep 3 e 1.02 informati 2016 5:55 [Mass/vol on in AM ume] in source Serum or data Plasma Creatinin 50 - 200 ML/MIN Normal No Sep 3 e renal informati 2017 5:55 clearance on in AM source predicted data by Cockcroft -Gault formula Estimated 59- ML/MIN No REFERENCE Sep 3 informati RANGE: 2017 5:55 glomerula on in >60 AM r source ML/MIN/1. filtratio data 73 SQUARE n rate METERSIf (GF this patient is -A merican, then multiply theresult by 1.210. Glucose 74 - 106 mg/dL Normal No Sep 3 [Mass/vol informati 2017 5:55 ume] in on in AM Serum or source Plasma data Potassium 3.5 - 5.1 mmoL/L Normal POTASSIUM Sep 3 August 5:55 [Moles/vo FALSELY AM lume] in ELEVATED Serum or DUE TO Plasma SLIGHT HEMOLYSIS Sodium 136 - 145 mmoL/L Normal No Sep 3 [Moles/vo informati 2017 5:55 lume] in on in AM Serum or source Plasma data CBC W Auto Differential panel in Blood Observa Value Referen Units Interpr Notes Date tion ce etation Range Basophils 0 - 0.2 K/MM3 Normal No Sep 3 informati 2016 5:55 [#/volume on in AM ] in source Blood by data Automated count Basophils 0.1 - 2.0 % Normal No Sep 3 /100 informati 2016 5:55 leukocyte on in AM s in source Blood by data Automated count Eosinophi 0.0 - 0.4 K/mm3 Normal No Sep 3 ls informati 2016 5:55 [#/volume on in AM ] in source Blood by data Automated count Eosinophi 0.1 - % Normal No Sep 3 ls/100 12.0 informati 2016 5:55 leukocyte on in AM s in source Blood by data Automated count Granulocy 1.8 - 7.8 K/mm3 Normal No Sep 3 casey informati 2016 5:55 [#/volume on in AM ] in source Blood by data Automated count Granulocy 37.0 - % Normal No Sep 3 casey/100 80.0 informati 2017 5:55 leukocyte on in AM s in source Blood by data Automated count Hematocri 37.0 - % Normal No Sep 3 t [Volume 47.0 informati 2016 5:55 on in AM Fraction] source of Blood data Hemoglobi 12.2 - g/dL Low No Sep 3 n 16.2 informati 2017 5:55 [Mass/vol on in AM ume] in source Blood data Lymphocyt 0.7 - 4.5 K/mm3 Normal No Sep 3 es informati 2017 5:55 [#/volume on in AM ] in source Unspecifi data ed specimen by Automated count Lymphocyt 10 - 50.0 % Normal No Sep 3 es informati 2016 5:55 [#/volume on in AM ] in source Unspecifi data ed specimen by Automated count Erythrocy 27 - 31.2 pg Normal No Sep 3 te mean informati 2016 5:55 corpuscul on in AM ar source hemoglobi data n [Entitic mass] Erythrocy 31.8 - g/dl Low No Sep 3 te mean 35.4 informati 2016 5:55 corpuscul on in AM ar source hemoglobi data n concentra tion [Mass/vol ume] by Automated count Erythrocy 82.2 - fl Normal No Sep 3 te mean 97.8 informati 2016 5:55 corpuscul on in AM ar volume source [Entitic data volume] by Automated count Monocytes 0.1 - 1.0 K/mm3 Normal No Sep 3 informati 2016 5:55 [#/volume on in AM ] in source Blood by data Automated count Monocytes 1.7 - 9.3 % Normal No Sep 3 /100 informati 2017 5:55 leukocyte on in AM s in source Blood by data Automated count Platelet 7.4 - fl Normal No Sep 3 mean 10.4 informati 2016 5:55 volume on in AM [Entitic source volume] data in Blood by Automated count Platelets 142 - 424 K/mm3 Normal No Sep 3 informati 2016 5:55 [#/volume on in AM ] in source Blood data Erythrocy 4.2 - 5.4 M/mm3 Low No Sep 3 casey informati 2017 5:55 [#/volume on in AM ] in source Amniotic data fluid Erythrocy 11.5 - % Normal No Sep 3 te 17.5 informati 2017 5:55 distribut on in AM ion width source [Entitic data volume] by Automated count Leukocyte 4.8 - K/MM3 Normal No Sep 3 s 10.8 informati 2017 5:55 [#/volume on in AM ] in source Blood data Glucose [Mass/volume] in Capillary blood by Glucometer Observa Value Referen Units Interpr Notes Date tion ce etation Range Glucose 70 - 110 mg/dl High No Sep 2 [Mass/vol informati 2017 8:06 ume] in on in PM Capillary source blood by data Glucomete r Glucose [Mass/volume] in Capillary blood by Glucometer Observa Value Referen Units Interpr Notes Date tion ce etation Range Glucose 70 - 110 mg/dl No No Sep 2 [Mass/vol informati informati 2017 4:31 ume] in on in on in PM Capillary source source blood by data data Glucomete r Glucose [Mass/volume] in Capillary blood by Glucometer Observa Value Referen Units Interpr Notes Date tion ce etation Range Glucose 70 - 110 mg/dl High No Sep 2 [Mass/vol informati 2017 ume] in on in 12:06 PM Capillary source blood by data Glucomete r Glucose [Mass/volume] in Capillary blood by Glucometer Observa Value Referen Units Interpr Notes Date tion ce etation Range Glucose 70 - 110 mg/dl Normal No Sep 2 [Mass/vol informati 2016 6:15 ume] in on in AM Capillary source blood by data Glucomete r Glucose [Mass/volume] in Capillary blood by Glucometer Observa Value Referen Units Interpr Notes Date tion ce etation Range Glucose 70 - 110 mg/dl No No Sep 1 [Mass/vol informati informati 2017 8:25 ume] in on in on in PM Capillary source source blood by data data Glucomete r Glucose [Mass/volume] in Capillary blood by Glucometer Observa Value Referen Units Interpr Notes Date tion ce etation Range Glucose 70 - 110 mg/dl High No Sep 1 [Mass/vol informati 2017 4:54 ume] in on in PM Capillary source blood by data Glucomete r Glucose [Mass/volume] in Capillary blood by Glucometer Observa Value Referen Units Interpr Notes Date tion ce etation Range Glucose 70 - 110 mg/dl High No Sep 1 [Mass/vol informati 2017 ume] in on in 12:06 PM Capillary source blood by data Glucomete r Amylase [Enzymatic activity/volume] in Serum or Plasma Observa Value Referen Units Interpr Notes Date tion ce etation Range Amylase 25 - 115 U/L Low No Sep 1 [Enzymati informati 2017 6:30 c on in AM activity/ source volume] data in Serum or Plasma Lipase [Enzymatic activity/volume] in Serum or Plasma Observa Value Referen Units Interpr Notes Date tion ce etation Range Lipase 73 - 393 U/L Low No Sep 1 [Enzymati informati 2017 6:30 c on in AM activity/ source volume] data in Serum or Plasma CBC W Auto Differential panel in Blood Observa Value Referen Units Interpr Notes Date tion ce etation Range Basophils 0 - 0.2 K/MM3 Normal No Sep 1 informati 2017 6:30 [#/volume on in AM ] in source Blood by data Automated count Basophils 0.1 - 2.0 % Normal No Sep 1 /100 informati 2017 6:30 leukocyte on in AM s in source Blood by data Automated count Eosinophi 0.0 - 0.4 K/mm3 Normal No Sep 1 ls informati 2017 6:30 [#/volume on in AM ] in source Blood by data Automated count Eosinophi 0.1 - % Normal No Sep 1 ls/100 12.0 informati 2017 6:30 leukocyte on in AM s in source Blood by data Automated count Granulocy 1.8 - 7.8 K/mm3 Normal No Sep 1 casey informati 2017 6:30 [#/volume on in AM ] in source Blood by data Automated count Granulocy 37.0 - % Normal No Sep 1 casey/100 80.0 informati 2017 6:30 leukocyte on in AM s in source Blood by data Automated count Hematocri 37.0 - % Normal No Sep 1 t [Volume 47.0 informati 2017 6:30 on in AM Fraction] source of Blood data Hemoglobi 12.2 - g/dL No No Sep 1 n 16.2 informati informati 2016 6:30 [Mass/vol on in on in AM ume] in source source Blood data data Lymphocyt 0.7 - 4.5 K/mm3 Normal No Sep 1 es informati 2017 6:30 [#/volume on in AM ] in source Unspecifi data ed specimen by Automated count Lymphocyt 10 - 50.0 % Normal No Sep 1 es informati 2017 6:30 [#/volume on in AM ] in source Unspecifi data ed specimen by Automated count Erythrocy 27 - 31.2 pg Normal No Sep 1 te mean informati 2017 6:30 corpuscul on in AM ar source hemoglobi data n [Entitic mass] Erythrocy 31.8 - g/dl Normal No Sep 1 te mean 35.4 informati 2017 6:30 corpuscul on in AM ar source hemoglobi data n concentra tion [Mass/vol ume] by Automated count Erythrocy 82.2 - fl Normal No Sep 1 te mean 97.8 informati 2017 6:30 corpuscul on in AM ar volume source [Entitic data volume] by Automated count Monocytes 0.1 - 1.0 K/mm3 Normal No Sep 1 informati 2017 6:30 [#/volume on in AM ] in source Blood by data Automated count Monocytes 1.7 - 9.3 % Normal No Sep 1 /100 informati 2017 6:30 leukocyte on in AM s in source Blood by data Automated count Platelet 7.4 - fl Normal No Sep 1 mean 10.4 informati 2017 6:30 volume on in AM [Entitic source volume] data in Blood by Automated count Platelets 142 - 424 K/mm3 High No Sep 1 informati 2017 6:30 [#/volume on in AM ] in source Blood data Erythrocy 4.2 - 5.4 M/mm3 Low No Sep 1 casey informati 2017 6:30 [#/volume on in AM ] in source Amniotic data fluid Erythrocy 11.5 - % Normal No Sep 1 te 17.5 informati 2017 6:30 distribut on in AM ion width source [Entitic data volume] by Automated count Leukocyte 4.8 - K/MM3 No No Sep 1 s 10.8 informati informati 2017 6:30 [#/volume on in on in AM ] in source source Blood data data Basic metabolic panel in Blood Observa Value Referen Units Interpr Notes Date tion ce etation Range Urea 7 - 18 mg/dL Normal No Sep 1 nitrogen informati 2017 6:30 [Mass/vol on in AM ume] in source Serum or data Plasma Calcium 8.5 - mg/dL Low No Sep 1 [Mass/vol 10.1 informati 2017 6:30 ume] in on in AM Serum or source Plasma data Chloride 98 - 107 mmoL/L Normal No Sep 1 [Moles/vo informati 2017 6:30 lume] in on in AM Serum or source Plasma data Carbon 21.0 - mmoL/L Normal No Sep 1 dioxide, 32.0 informati 2017 6:30 total on in AM [Moles/vo source lume] in data Serum or Plasma Creatinin 0.55 - mg/dL Normal No Sep 1 e 1.02 informati 2017 6:30 [Mass/vol on in AM ume] in source Serum or data Plasma Creatinin 50 - 200 ML/MIN Normal No Sep 1 e renal informati 2017 6:30 clearance on in AM source predicted data by Cockcroft -Gault formula Estimated 59- ML/MIN No REFERENCE Sep 1 informati RANGE: 2017 6:30 glomerula on in >60 AM r source ML/MIN/1. filtratio data 73 SQUARE n rate METERSIf (GF this patient is -A merican, then multiply theresult by 1.210. Glucose 74 - 106 mg/dL Normal No Sep 1 [Mass/vol informati 2017 6:30 ume] in on in AM Serum or source Plasma data Potassium 3.5 - 5.1 mmoL/L Normal No Sep 1 informati 2017 6:30 [Moles/vo on in AM lume] in source Serum or data Plasma Sodium 136 - 145 mmoL/L Normal No Sep 1 [Moles/vo informati 2017 6:30 lume] in on in AM Serum or source Plasma data Lactate [Moles/volume] in Blood Observa Value Referen Units Interpr Notes Date tion ce etation Range Lactate 0.4 - 2.0 mmol/L Normal No Dec 18 [Moles/vo informati 2016 8:49 lume] in on in PM Blood source data OCC BLOOD EMESIS Observa Value Referen Units Interpr Notes Date tion ce etation Range OCC POSITIV NEG No No No Dec 18 BLOOD E informa informa informa 2017 EMESIS tion in tion in tion in 8:30 PM source source source data data data DIARRHEA PANEL,PCR Observa Value Referen Units Interpr Notes Date tion ce etation Range Adenovi NOT NOT No No No Dec 18 sue DETECTE DETECTE informa informa informa 2017 40+41 D tion in tion in tion in 8:10 PM Ag source source source [Presen data data data ce] in Stool Aeromon NOT NOT No No No Dec 18 as DETECTE DETECTE informa informa informa 2017 salmoni D tion in tion in tion in 8:10 PM ines source source source [Presen data data data ce] in Unspeci fied specime n Astrovi NOT NOT No No No Dec 18 sue DETECTE DETECTE informa informa informa 2017 [Presen D tion in tion in tion in 8:10 PM ce] in source source source Stool data data data by Electro n microsc opy Campylo NOT NOT No No No Dec 18 bacter DETECTE DETECTE informa informa informa 2017 sp Ab D tion in tion in tion in 8:10 PM [Presen source source source ce] in data data data Serum Clostri NOT NOT No No No Dec 18 dium DETECTE DETECTE informa informa informa 2017 diffici D tion in tion in tion in 8:10 PM le source source source toxin data data data A+B [Presen ce] in Stool Cryptos NOT NOT No No No Dec 18 poridiu DETECTE DETECTE informa informa informa 2016 m sp Ag D tion in tion in tion in 8:10 PM source source source [Presen data data data ce] in Unspeci fied specime n Cyclosp NOT NOT No No No Dec 18 ora DETECTE DETECTE informa informa informa 2016 cayetan D tion in tion in tion in 8:10 PM stephen source source source [Presen data data data ce] in Unspeci fied specime n Escheri NOT NOT No No No Dec 18 amy DETECTE DETECTE informa informa informa 2017 coli D tion in tion in tion in 8:10 PM [Presen source source source ce] in data data data Unspeci fied specime n by Culture FDA method Escheri NOT NOT No No No Dec 18 amy DETECTE DETECTE informa informa informa 2017 coli D tion in tion in tion in 8:10 PM [Presen source source source ce] in data data data Unspeci fied specime n by Culture FDA method Escheri NOT NOT No No No Dec 18 amy DETECTE DETECTE informa informa informa 2017 coli D tion in tion in tion in 8:10 PM Shiga-l source source source abigail data data data toxin 1 assa Escheri NOT NOT No No No Dec 18 may DETECTE DETECTE informa informa informa 2017 coli D tion in tion in tion in 8:10 PM [id number] source source source data data data [Presen ce] in Stool by Organis m specifi c culture Entamoe NOT NOT No No No Dec 18 ba DETECTE DETECTE informa informa informa 2017 histoly D tion in tion in tion in 8:10 PM arsenio source source source [Presen data data data ce] in Stool by Trichro me stain Giardia NOT NOT No No No Dec 18 DETECTE DETECTE informa informa informa 2017 lamblia D tion in tion in tion in 8:10 PM Ag source source source [Presen data data data ce] in Stool Norovir NOT NOT No No No Dec 18 us Ag DETECTE DETECTE informa informa informa 2016 [Presen D tion in tion in tion in 8:10 PM ce] in source source source Stool data data data Stool NOT NOT No No No Dec 18 Plesiom DETECTE DETECTE informa informa informa 2017 onas D tion in tion in tion in 8:10 PM shigell source source source oides data data data DNA detec Rotavir NOT NOT No No No Dec 18 us RNA DETECTE DETECTE informa informa informa 2017 detecti D tion in tion in tion in 8:10 PM on by source source source probe data data data and tar Salmone NOT NOT No No No Dec 18 lla sp DETECTE DETECTE informa informa informa 2017 DNA D tion in tion in tion in 8:10 PM [Identi source source source fier] data data data in Unspeci fied specime n by Probe & target amplifi cation method Caliciv NOT NOT No No No Dec 18 irus DETECTE DETECTE informa informa informa 2017 [Identi D tion in tion in tion in 8:10 PM fier] source source source in data data data Stool by Electro n microsc opy Escheri NOT NOT No No No Dec 18 amy DETECTE DETECTE informa informa informa 2017 coli D tion in tion in tion in 8:10 PM [Presen source source source ce] in data data data Unspeci fied specime n by Culture FDA method Escheri NOT NOT No No No Dec 18 amy DETECTE DETECTE informa informa informa 2017 coli D tion in tion in tion in 8:10 PM SXT source source source gene+H7 data data data gene [Identi fier] in Unspeci fied specime n by Probe & target amplifi cation method Vibrio NOT NOT No No No Dec 18 cholera DETECTE DETECTE informa informa informa 2016 e DNA D tion in tion in tion in 8:10 PM [Presen source source source ce] in data data data Unspeci fied specime n by Probe & target amplifi cation method Vibrio NOT NOT No No No Dec 18 sp DNA DETECTE DETECTE informa informa informa 2017 [Identi D tion in tion in tion in 8:10 PM fier] source source source in data data data Unspeci fied specime n by Probe & target amplifi cation method Vibrio NOT NOT No No No Dec 18 sp DETECTE DETECTE informa informa informa 2017 identif D tion in tion in tion in 8:10 PM ied in source source source Stool data data data by Organis m specifi c culture Natriutietic peptide B [Mass/volume] in Serum or Plasma Observa Value Referen Units Interpr Notes Date tion ce etation Range Natriutie 0 - 100 pg/mL Normal No Dec 18 tic informati 2016 5:05 peptide B on in PM source [Mass/vol data ume] in Serum or Plasma Free T4 & TSH panel in Serum or Plasma Observa Value Referen Units Interpr Notes Date tion ce etation Range Thyroxine 5.93 - ug/dl Normal No Dec 18 (T4) 13.13 informati 2016 5:05 free on in PM index in source Serum or data Plasma Triiodoth 31 - 39 % Normal No Dec 18 yronine informati 2016 5:05 (T3) on in PM resin source uptake in data Serum or Plasma Thyroxine 4.7 - ug/dl Normal No Dec 18 (T4) 13.3 informati 2017 5:05 [Mass/vol on in PM ume] in source Serum or data Plasma Thyrotrop 0.358 - uIU/ml No No Dec 18 in 3.740 informati informati 2017 5:05 [Units/vo on in on in PM lume] in source source Serum or data data Plasma CBC W Auto Differential panel in Blood Observa Value Referen Units Interpr Notes Date tion ce etation Range Basophils 0 - 0.2 K/MM3 Normal No Dec 18 informati 2016 5:05 [#/volume on in PM ] in source Blood by data Automated count Basophils 0.1 - 2.0 % Normal No Dec 18 /100 informati 2017 5:05 leukocyte on in PM s in source Blood by data Automated count Eosinophi 0.0 - 0.4 K/mm3 Normal No Dec 18 ls informati 2016 5:05 [#/volume on in PM ] in source Blood by data Automated count Eosinophi 0.1 - % Normal No Dec 18 ls/100 12.0 informati 2016 5:05 leukocyte on in PM s in source Blood by data Automated count Granulocy 1.8 - 7.8 K/mm3 High No Dec 18 casey informati 2017 5:05 [#/volume on in PM ] in source Blood by data Automated count Granulocy 37.0 - % Normal No Dec 18 casey/100 80.0 informati 2017 5:05 leukocyte on in PM s in source Blood by data Automated count Hematocri 37.0 - % High No Dec 18 t [Volume 47.0 informati 2017 5:05 on in PM Fraction] source of Blood data Hemoglobi 12.2 - g/dL No Dec 18 n 16.2 informati informati 2016 5:05 [Mass/vol on in on in PM ume] in source source Blood data data Lymphocyt 0.7 - 4.5 K/mm3 Normal No Dec 18 es informati 2016 5:05 [#/volume on in PM ] in source Unspecifi data ed specimen by Automated count Lymphocyt 10 - 50.0 % Normal No Dec 18 es informati 2017 5:05 [#/volume on in PM ] in source Unspecifi data ed specimen by Automated count Erythrocy 27 - 31.2 pg Normal No Dec 18 te mean informati 2016 5:05 corpuscul on in PM ar source hemoglobi data n [Entitic mass] Erythrocy 31.8 - g/dl Normal No Dec 18 te mean 35.4 informati 2017 5:05 corpuscul on in PM ar source hemoglobi data n concentra tion [Mass/vol ume] by Automated count Erythrocy 82.2 - fl Normal No Dec 18 te mean 97.8 informati 2017 5:05 corpuscul on in PM ar volume source [Entitic data volume] by Automated count Monocytes 0.1 - 1.0 K/mm3 Normal No Dec 18 informati 2017 5:05 [#/volume on in PM ] in source Blood by data Automated count Monocytes 1.7 - 9.3 % Normal No Dec 18 /100 informati 2017 5:05 leukocyte on in PM s in source Blood by data Automated count Platelet 7.4 - fl Low No Dec 18 mean 10.4 informati 2017 5:05 volume on in PM [Entitic source volume] data in Blood by Automated count Platelets 142 - 424 K/mm3 High No Dec 18 informati 2017 5:05 [#/volume on in PM ] in source Blood data Erythrocy 4.2 - 5.4 M/mm3 Normal No Dec 18 casey informati 2017 5:05 [#/volume on in PM ] in source Amniotic data fluid Erythrocy 11.5 - % Normal No Dec 18 te 17.5 informati 2016 5:05 distribut on in PM ion width source [Entitic data volume] by Automated count Leukocyte 4.8 - K/MM3 High No Dec 18 s 10.8 informati 2016 5:05 [#/volume on in PM ] in source Blood data Glucose [Mass/volume] in Capillary blood by Glucometer Observa Value Referen Units Interpr Notes Date ti ce etation Range Glucose 70 - 110 mg/dl High No Dec 13 [Mass/vol informati 2016 6:27 ume] in on in AM Capillary source blood by data Glucomete r Glucose [Mass/volume] in Capillary blood by Glucometer Observa Value Referen Units Interpr Notes Date ce etation Range Glucose 70 - 110 mg/dl High No Dec 12 [Mass/vol informati 2016 8:17 ume] in on in PM Capillary source blood by data Glucomete r Glucose [Mass/volume] in Capillary blood by Glucometer Observa Value Referen Units Interpr Notes Date ti ce etation Range Glucose 70 - 110 mg/dl High No Dec 12 [Mass/vol informati 2017 4:47 ume] in on in PM Capillary source blood by data Glucomete r Glucose [Mass/volume] in Capillary blood by Glucometer Observa Value Referen Units Interpr Notes Date tion ce etation Range Glucose 70 - 110 mg/dl High No Dec 12 [Mass/vol informati 2017 ume] in on in 11:41 AM Capillary source blood by data Glucomete r Glucose [Mass/volume] in Capillary blood by Glucometer Observa Value Referen Units Interpr Notes Date tion ce etation Range Glucose 70 - 110 mg/dl High No Dec 12 [Mass/vol informati 2017 6:15 ume] in on in AM Capillary source blood by data Glucomete r Glucose [Mass/volume] in Capillary blood by Glucometer Observa Value Referen Units Interpr Notes Date ti ce etation Range Glucose 70 - 110 mg/dl High No Dec 11 [Mass/vol informati 2016 9:26 ume] in on in PM Capillary source blood by data Glucomete r Glucose [Mass/volume] in Capillary blood by Glucometer Observa Value Referen Units Interpr Notes Date ti ce etation Range Glucose 70 - 110 mg/dl High No Dec 11 [Mass/vol informati 2017 5:11 ume] in on in PM Capillary source blood by data Glucomete r Glucose [Mass/volume] in Capillary blood by Glucometer Observa Value Referen Units Interpr Notes Date ti ce etation Range Glucose 70 - 110 mg/dl High No Dec 11 [Mass/vol informati 2016 ume] in on in 12:22 PM Capillary source blood by data Glucomete r Glucose [Mass/volume] in Capillary blood by Glucometer Observa Value Referen Units Interpr Notes Date ti ce etation Range Glucose 70 - 110 mg/dl High No Dec 11 [Mass/vol informati 2017 6:34 ume] in on in AM Capillary source blood by data Glucomete r CBC W Auto Differential panel in Blood Observa Value Referen Units Interpr Notes Date tion ce etation Range Basophils 0 - 0.2 K/MM3 Normal No Dec 11 informati 2017 6:14 [#/volume on in AM ] in source Blood by data Automated count Basophils 0.1 - 2.0 % Normal No Dec 11 informati 2017 6:14 leukocyte on in AM s in source Blood by data Automated count Eosinophi 0.0 - 0.4 K/mm3 Normal No Dec 11 ls informati 2016 6:14 [#/volume on in AM ] in source Blood by data Automated count Eosinophi 0.1 - % Normal No Dec 11 ls/100 12.0 informati 2017 6:14 leukocyte on in AM s in source Blood by data Automated count Granulocy 1.8 - 7.8 K/mm3 Normal No Dec 11 casey informati 2016 6:14 [#/volume on in AM ] in source Blood by data Automated count Granulocy 37.0 - % Normal No Dec 11 casey/100 80.0 informati 2017 6:14 leukocyte on in AM s in source Blood by data Automated count Hematocri 37.0 - % Normal No Dec 11 t [Volume 47.0 informati 2016 6:14 on in AM Fraction] source of Blood data Hemoglobi 12.2 - g/dL Normal No Dec 11 n 16.2 informati 2017 6:14 [Mass/vol on in AM ume] in source Blood data Lymphocyt 0.7 - 4.5 K/mm3 Normal No Dec 11 es informati 2016 6:14 [#/volume on in AM ] in source Unspecifi data ed specimen by Automated count Lymphocyt 10 - 50.0 % Normal No Dec 11 es informati 2016 6:14 [#/volume on in AM ] in source Unspecifi data ed specimen by Automated count Erythrocy 27 - 31.2 pg Normal No Dec 11 te mean informati 2017 6:14 corpuscul on in AM ar source hemoglobi data n [Entitic mass] Erythrocy 31.8 - g/dl Low No Dec 11 te mean 35.4 informati 2016 6:14 corpuscul on in AM ar source hemoglobi data n concentra tion [Mass/vol ume] by Automated count Erythrocy 82.2 - fl High No Dec 11 te mean 97.8 informati 2016 6:14 corpuscul on in AM ar volume source [Entitic data volume] by Automated count Monocytes 0.1 - 1.0 K/mm3 Normal No Dec 11 informati 2016 6:14 [#/volume on in AM ] in source Blood by data Automated count Monocytes 1.7 - 9.3 % Normal No Dec 11 /100 informati 2017 6:14 leukocyte on in AM s in source Blood by data Automated count Platelet 7.4 - fl Normal No Dec 11 mean 10.4 informati 2017 6:14 volume on in AM [Entitic source volume] data in Blood by Automated count Platelets 142 - 424 K/mm3 Normal No Dec 11 informati 2017 6:14 [#/volume on in AM ] in source Blood data Erythrocy 4.2 - 5.4 M/mm3 Low No Dec 11 casey informati 2017 6:14 [#/volume on in AM ] in source Amniotic data fluid Erythrocy 11.5 - % Normal No Dec 11 te 17.5 informati 2017 6:14 distribut on in AM ion width source [Entitic data volume] by Automated count Leukocyte 4.8 - K/MM3 No No Dec 11 s 10.8 informati informati 2017 6:14 [#/volume on in on in AM ] in source source Blood data data Basic metabolic panel in Blood Observa Value Referen Units Interpr Notes Date tion ce etation Range Urea 7 - 18 mg/dL Low No Dec 11 nitrogen informati 2017 6:14 [Mass/vol on in AM ume] in source Serum or data Plasma Calcium 8.5 - mg/dL Normal No Dec 11 [Mass/vol 10.1 informati 2017 6:14 ume] in on in AM Serum or source Plasma data Chloride 98 - 107 mmoL/L Normal No Dec 11 [Moles/vo informati 2017 6:14 lume] in on in AM Serum or source Plasma data Carbon 21.0 - mmoL/L High No Dec 11 dioxide, 32.0 informati 2017 6:14 total on in AM [Moles/vo source lume] in data Serum or Plasma Creatinin 0.55 - mg/dL Low No Dec 11 e 1.02 informati 2017 6:14 [Mass/vol on in AM ume] in source Serum or data Plasma Creatinin 50 - 200 ML/MIN No No Dec 11 e renal informati informati 2017 6:14 clearance on in on in AM source source predicted data data by Cockcroft -Gault formula Estimated 59- ML/MIN No REFERENCE Dec 11 informati RANGE: 2017 6:14 glomerula on in >60 AM r source ML/MIN/1. filtratio data 73 SQUARE n rate METERSIf (GF this patient is -A merican, then multiply theresult by 1.210. Glucose 74 - 106 mg/dL High No Dec 11 [Mass/vol informati 2017 6:14 ume] in on in AM Serum or source Plasma data Potassium 3.5 - 5.1 mmoL/L Normal No Dec 11 informati 2017 6:14 [Moles/vo on in AM lume] in source Serum or data Plasma Sodium 136 - 145 mmoL/L Normal No Dec 11 [Moles/vo informati 2017 6:14 lume] in on in AM Serum or source Plasma data Glucose [Mass/volume] in Capillary blood by Glucometer Observa Value Referen Units Interpr Notes Date tion ce etation Range Glucose 70 - 110 mg/dl High No Dec 10 [Mass/vol informati 2016 9:34 ume] in on in PM Capillary source blood by data Glucomete r Glucose [Mass/volume] in Capillary blood by Glucometer Observa Value Referen Units Interpr Notes Date ti ce etation Range Glucose 70 - 110 mg/dl High No Dec 10 [Mass/vol informati 2016 4:18 ume] in on in PM Capillary source blood by data Glucomete r Glucose [Mass/volume] in Capillary blood by Glucometer Observa Value Referen Units Interpr Notes Date ti ce etation Range Glucose 70 - 110 mg/dl High No Dec 10 [Mass/vol informati 2017 ume] in on in 11:16 AM Capillary source blood by data Glucomete r Glucose [Mass/volume] in Capillary blood by Glucometer Observa Value Referen Units Interpr Notes Date ti ce etation Range Glucose 70 - 110 mg/dl High No Dec 10 [Mass/vol informati 2016 6:33 ume] in on in AM Capillary source blood by data Glucomete r Glucose [Mass/volume] in Capillary blood by Glucometer Observa Value Referen Units Interpr Notes Date tion ce etation Range Glucose 70 - 110 mg/dl High No Dec 09 [Mass/vol informati 2016 9:41 ume] in on in PM Capillary source blood by data Glucomete r Glucose [Mass/volume] in Capillary blood by Glucometer Observa Value Referen Units Interpr Notes Date ti ce etation Range Glucose 70 - 110 mg/dl High No Dec 09 [Mass/vol informati 2017 5:29 ume] in on in PM Capillary source blood by data Glucomete r Glucose [Mass/volume] in Capillary blood by Glucometer Observa Value Referen Units Interpr Notes Date tion ce etation Range Glucose 70 - 110 mg/dl Normal No Dec 09 [Mass/vol informati 2016 ume] in on in 11:41 AM Capillary source blood by data Glucomete r Glucose [Mass/volume] in Capillary blood by Glucometer Observa Value Referen Units Interpr Notes Date tion ce etation Range Glucose 70 - 110 mg/dl Normal No Dec 09 [Mass/vol informati 2016 6:32 ume] in on in AM Capillary source blood by data Glucomete r CBC W Auto Differential panel in Blood Observa Value Referen Units Interpr Notes Date tion ce etation Range Basophils 0 - 0.2 K/MM3 Normal No Dec 09 informati 2016 5:45 [#/volume on in AM ] in source Blood by data Automated count Basophils 0.1 - 2.0 % Normal No Dec 09 informati 2016 5:45 leukocyte on in AM s in source Blood by data Automated count Eosinophi 0.0 - 0.4 K/mm3 Normal No Dec 09 ls informati 2016 5:45 [#/volume on in AM ] in source Blood by data Automated count Eosinophi 0.1 - % Normal No Dec 09 ls/100 12.0 informati 2016 5:45 leukocyte on in AM s in source Blood by data Automated count Granulocy 1.8 - 7.8 K/mm3 Normal No Dec 09 casey informati 2016 5:45 [#/volume on in AM ] in source Blood by data Automated count Granulocy 37.0 - % Normal No Dec 09 casey/100 80.0 informati 2016 5:45 leukocyte on in AM s in source Blood by data Automated count Hematocri 37.0 - % Normal No Dec 09 t [Volume 47.0 informati 2016 5:45 on in AM Fraction] source of Blood data Hemoglobi 12.2 - g/dL No No Dec 09 n 16.2 informati informati 2016 5:45 [Mass/vol on in on in AM ume] in source source Blood data data Lymphocyt 0.7 - 4.5 K/mm3 Normal No Dec 09 es informati 2016 5:45 [#/volume on in AM ] in source Unspecifi data ed specimen by Automated count Lymphocyt 10 - 50.0 % Normal No Dec 09 es informati 2016 5:45 [#/volume on in AM ] in source Unspecifi data ed specimen by Automated count Erythrocy 27 - 31.2 pg Normal No Dec 09 te mean informati 2016 5:45 corpuscul on in AM ar source hemoglobi data n [Entitic mass] Erythrocy 31.8 - g/dl Normal No Dec 09 te mean 35.4 informati 2016 5:45 corpuscul on in AM ar source hemoglobi data n concentra tion [Mass/vol ume] by Automated count Erythrocy 82.2 - fl Normal No Dec 09 te mean 97.8 informati 2016 5:45 corpuscul on in AM ar volume source [Entitic data volume] by Automated count Monocytes 0.1 - 1.0 K/mm3 Normal No Dec 09 informati 2016 5:45 [#/volume on in AM ] in source Blood by data Automated count Monocytes 1.7 - 9.3 % Normal No Dec 09 /100 informati 2017 5:45 leukocyte on in AM s in source Blood by data Automated count Platelet 7.4 - fl Normal No Dec 09 mean 10.4 informati 2016 5:45 volume on in AM [Entitic source volume] data in Blood by Automated count Platelets 142 - 424 K/mm3 Normal No Dec 09 informati 2016 5:45 [#/volume on in AM ] in source Blood data Erythrocy 4.2 - 5.4 M/mm3 Low No Dec 09 casey informati 2017 5:45 [#/volume on in AM ] in source Amniotic data fluid Erythrocy 11.5 - % Normal No Dec 09 te 17.5 informati 2016 5:45 distribut on in AM ion width source [Entitic data volume] by Automated count Leukocyte 4.8 - K/MM3 Normal No Dec 09 s 10.8 informati 2016 5:45 [#/volume on in AM ] in source Blood data Basic metabolic panel in Blood Observa Value Referen Units Interpr Notes Date tion ce etation Range Urea 7 - 18 mg/dL Normal No Dec 09 nitrogen informati 2016 5:45 [Mass/vol on in AM ume] in source Serum or data Plasma Calcium 8.5 - mg/dL Low No Dec 09 [Mass/vol 10.1 informati 2016 5:45 ume] in on in AM Serum or source Plasma data Chloride 98 - 107 mmoL/L Normal No Dec 09 [Moles/vo informati 2016 5:45 lume] in on in AM Serum or source Plasma data Carbon 21.0 - mmoL/L Normal No Dec 09 dioxide, 32.0 informati 2016 5:45 total on in AM [Moles/vo source lume] in data Serum or Plasma Creatinin 0.55 - mg/dL Low No Dec 09 e 1.02 informati 2016 5:45 [Mass/vol on in AM ume] in source Serum or data Plasma Creatinin 50 - 200 ML/MIN No No Dec 09 e renal informati informati 2016 5:45 clearance on in on in AM source source predicted data data by Cockcroft -Gault formula Estimated 59- ML/MIN No REFERENCE Dec 09 informati RANGE: 2017 5:45 glomerula on in >60 AM r source ML/MIN/1. filtratio data 73 SQUARE n rate METERSIf (GF this patient is -A merican, then multiply theresult by 1.210. Glucose 74 - 106 mg/dL Normal No Dec 09 [Mass/vol informati 2016 5:45 ume] in on in AM Serum or source Plasma data Potassium 3.5 - 5.1 mmoL/L Normal No Dec 09 informati 2016 5:45 [Moles/vo on in AM lume] in source Serum or data Plasma Sodium 136 - 145 mmoL/L Low No Dec 09 [Moles/vo informati 2016 5:45 lume] in on in AM Serum or source Plasma data Glucose [Mass/volume] in Capillary blood by Glucometer Observa Value Referen Units Interpr Notes Date ti etation Range Glucose 70 - 110 mg/dl Normal No Dec 08 [Mass/vol informati 2016 9:19 ume] in on in PM Capillary source blood by data Glucomete r Glucose [Mass/volume] in Capillary blood by Glucometer Observa Value Referen Units Interpr Notes Date ti ce etation Range Glucose 70 - 110 mg/dl Normal No Dec 08 [Mass/vol informati 2016 7:03 ume] in on in PM Capillary source blood by data Glucomete r Glucose [Mass/volume] in Capillary blood by Glucometer Observa Value Referen Units Interpr Notes Date ti ce etation Range Glucose 70 - 110 mg/dl Normal No Dec 08 [Mass/vol informati 2016 ume] in on in 12:45 PM Capillary source blood by data Glucomete r Glucose [Mass/volume] in Capillary blood by Glucometer Observa Value Referen Units Interpr Notes Date tion ce etation Range Glucose 70 - 110 mg/dl High No Dec 08 [Mass/vol informati 2016 5:54 ume] in on in AM Capillary source blood by data Glucomete r CBC W Auto Differential panel in Blood Observa Value Referen Units Interpr Notes Date tion ce etation Range Basophils 0 - 0.2 K/MM3 Normal No Dec 08 informati 2016 5:10 [#/volume on in AM ] in source Blood by data Automated count Basophils 0.1 - 2.0 % Low No Dec 08 /100 informati 2017 5:10 leukocyte on in AM s in source Blood by data Automated count Eosinophi 0.0 - 0.4 K/mm3 Normal No Dec 08 ls informati 2016 5:10 [#/volume on in AM ] in source Blood by data Automated count Eosinophi 0.1 - % Normal No Dec 08 ls/100 12.0 informati 2016 5:10 leukocyte on in AM s in source Blood by data Automated count Granulocy 1.8 - 7.8 K/mm3 High No Dec 08 casey informati 2017 5:10 [#/volume on in AM ] in source Blood by data Automated count Granulocy 37.0 - % High No Dec 08 casey/100 80.0 informati 2016 5:10 leukocyte on in AM s in source Blood by data Automated count Hematocri 37.0 - % Normal No Dec 08 t [Volume 47.0 informati 2016 5:10 on in AM Fraction] source of Blood data Hemoglobi 12.2 - g/dL Normal No Dec 08 n 16.2 informati 2016 5:10 [Mass/vol on in AM ume] in source Blood data Lymphocyt 0.7 - 4.5 K/mm3 Normal No Dec 08 es informati 2016 5:10 [#/volume on in AM ] in source Unspecifi data ed specimen by Automated count Lymphocyt 10 - 50.0 % Low No Dec 08 es informati 2016 5:10 [#/volume on in AM ] in source Unspecifi data ed specimen by Automated count Erythrocy 27 - 31.2 pg Normal No Dec 08 te mean informati 2016 5:10 corpuscul on in AM ar source hemoglobi data n [Entitic mass] Erythrocy 31.8 - g/dl Normal No Dec 08 te mean 35.4 informati 2016 5:10 corpuscul on in AM ar source hemoglobi data n concentra tion [Mass/vol ume] by Automated count Erythrocy 82.2 - fl Normal No Dec 08 te mean 97.8 informati 2016 5:10 corpuscul on in AM ar volume source [Entitic data volume] by Automated count Monocytes 0.1 - 1.0 K/mm3 Normal No Dec 08 informati 2016 5:10 [#/volume on in AM ] in source Blood by data Automated count Monocytes 1.7 - 9.3 % Normal No Dec 08 informati 2016 5:10 leukocyte on in AM s in source Blood by data Automated count Platelet 7.4 - fl Normal No Dec 08 mean 10.4 informati 2016 5:10 volume on in AM [Entitic source volume] data in Blood by Automated count Platelets 142 - 424 K/mm3 Normal No Dec 08 informati 2016 5:10 [#/volume on in AM ] in source Blood data Erythrocy 4.2 - 5.4 M/mm3 Normal No Dec 08 casey informati 2016 5:10 [#/volume on in AM ] in source Amniotic data fluid Erythrocy 11.5 - % Normal No Dec 08 te 17.5 informati 2016 5:10 distribut on in AM ion width source [Entitic data volume] by Automated count Leukocyte 4.8 - K/MM3 High No Dec 08 s 10.8 informati 2016 5:10 [#/volume on in AM ] in source Blood data Differential panel, method unspecified - Observa Value Referen Units Interpr Notes Date tion ce etation Range Neutrophi 0 - 8 % Normal No Dec 08 ls.band informati 2016 5:10 form/100 on in AM leukocyte source s in data Blood by Automated count Hypochr 1+ No No No No Dec 08 omia informa informa informa informa 2016 [Presen tion in tion in tion in tion in 5:10 AM ce] in source source source source Blood data data data data LYMPH 10 10 - 50 % Normal No Dec 08 inform2016 tion in 5:10 AM source data Monocytes 2 - 9 % Normal No Dec 08 informati 2016 5:10 leukocyte on in AM s in source Blood by data Automated count Platele NORMAL No No No No Dec 08 ts informa informa informa informa 2017 [Presen tion in tion in tion in tion in 5:10 AM ce] in source source source source Blood data data data data by Light microsc opy Polychr 1+ No No No No Dec 08 omasia informa informa informa informa 2016 [Presen tion in tion in tion in tion in 5:10 AM ce] in source source source source Blood data data data data by Light microsc opy Neutrophi 42 - 76 % High No Dec 08 ls informati 2017 5:10 [#/volume on in AM ] in source Blood by data Automated count Stomato FEW No No No No Dec 08 cytes informa informa informa informa 2016 [Presen tion in tion in tion in tion in 5:10 AM ce] in source source source source Blood data data data data by Light microsc opy Cells No #CELLS No No Dec 08 Counted informati informati informati 2017 5:10 Total [#] on in on in on in AM in Blood source source source data data data Dacrocy FEW No No No No Dec 08 casey informa informa informa informa 2016 [Presen tion in tion in tion in tion in 5:10 AM ce] in source source source source Blood data data data data by Light microsc opy Basic metabolic panel in Blood Observa Value Referen Units Interpr Notes Date tion ce etation Range Urea 7 - 18 mg/dL No No Dec 08 nitrogen informati informati 2017 5:10 [Mass/vol on in on in AM ume] in source source Serum or data data Plasma Calcium 8.5 - mg/dL Low No Dec 08 [Mass/vol 10.1 informati 2017 5:10 ume] in on in AM Serum or source Plasma data Chloride 98 - 107 mmoL/L Low No Dec 08 [Moles/vo informati 2017 5:10 lume] in on in AM Serum or source Plasma data Carbon 21.0 - mmoL/L Normal No Dec 08 dioxide, 32.0 informati 2017 5:10 total on in AM [Moles/vo source lume] in data Serum or Plasma Creatinin 0.55 - mg/dL No No Dec 08 e 1.02 informati informati 2017 5:10 [Mass/vol on in on in AM ume] in source source Serum or data data Plasma Creatinin 50 - 200 ML/MIN No No Dec 08 e renal informati informati 2017 5:10 clearance on in on in AM source source predicted data data by Cockcroft -Gault formula Estimated 59- ML/MIN No REFERENCE Dec 08 informati RANGE: 2017 5:10 glomerula on in >60 AM r source ML/MIN/1. filtratio data 73 SQUARE n rate METERSIf (GF this patient is -A merican, then multiply theresult by 1.210. Glucose 74 - 106 mg/dL High No Dec 08 [Mass/vol informati 2016 5:10 ume] in on in AM Serum or source Plasma data Potassium 3.5 - 5.1 mmoL/L Normal No Dec 08 informati 2016 5:10 [Moles/vo on in AM lume] in source Serum or data Plasma Sodium 136 - 145 mmoL/L Low No Dec 08 [Moles/vo informati 2016 5:10 lume] in on in AM Serum or source Plasma data Glucose [Mass/volume] in Capillary blood by Glucometer Observa Value Referen Units Interpr Notes Date tion ce etation Range Glucose 70 - 110 mg/dl High No Dec 07 [Mass/vol informati 2017 8:07 ume] in on in PM Capillary source blood by data Glucomete r Glucose [Mass/volume] in Capillary blood by Glucometer Observa Value Referen Units Interpr Notes Date tion ce etation Range Glucose 70 - 110 mg/dl High No Dec 07 [Mass/vol informati 2016 3:54 ume] in on in PM Capillary source blood by data Glucomete r Urinalysis dipstick W Reflex Microscopic panel in Urine Observa Value Referen Units Interpr Notes Date tion ce etation Range Collected by nurse? Y Hold specimen in OE? N Appeara SL CLEAR No No No Dec 07 nce of CLOUDY informa informa informa 2016 Urine tion in tion in tion in 2:15 PM source source source data data data Bacteri 4+ O No No No Dec 07 a informa informa informa 2016 [Presen tion in tion in tion in 2:15 PM ce] in source source source Urine data data data sedimen t by Light microsc opy Bilirub NEGATIV NEG No No No Dec 07 in E informa informa informa 2016 [Presen tion in tion in tion in 2:15 PM ce] in source source source Urine data data data by Test strip Erythro NEGATIV NEG No No No Dec 07 cytes E informa informa informa 2016 [Presen tion in tion in tion in 2:15 PM ce] in source source source Urine data data data Color YELLOW YELLOW No No No Nov 20 of informa informa informa 2017 Urine tion in tion in tion in 2:15 PM source source source data data data Glucose NEG No No No Dec 07 [Mass/vol informati informati informati 2016 2:15 ume] in on in on in on in PM Urine by source source source Test data data data strip Ketones 1+ NEG mg/dL Abnorma No Dec 07 l informa 2016 [Presen tion in 2:15 PM ce] in source Urine data by Automat ed test strip Mucus 1+ NEG No Abnorma No Dec 07 [Pres informa l inform2016 ce] in tion in tion in 2:15 PM Urine source source sedimen data data t by Light microsc opy Nitrite POSITIV NEG No Abnorma No Dec 07 E informa l informa 2016 [Presen tion in tion in 2:15 PM ce] in source source Urine data data by Test strip pH of 5.0 - 8.5 No Normal No Dec 07 Urine informati informati 2017 2:15 on in on in PM source source data data Protein NEG mg/dL No No Dec 07 [Mass/vol informati informati 2016 2:15 ume] in on in on in PM Urine by source source Automated data data test strip Specific 1.005 - No Normal No Dec 07 gravity 1.030 informati informati 2017 2:15 of Urine on in on in PM source source data data Urobili 0.2 NEG E.U./dL No No Dec 07 nogen informa informa 2016 [Presen tion in tion in 2:15 PM ce] in source source Urine data data by Test strip Leukocy [5 O wbc/hpf No No Nov 20 casey wbc/hpf informa informa 2016 [#/volu ; 10 tion in tion in 2:15 PM me] in wbc/hpf source source Urine ] data data Urinalysis dipstick W Reflex Microscopic panel in Urine Observa Value Referen Units Interpr Notes Date tion ce etation Range Collected by nurse? Y Hold specimen in OE? N Appeara SL CLEAR No No No Dec 07 nce of CLOUDY informa informa informa 2016 Urine tion in tion in tion in 2:15 PM source source source data data data Bilirub NEGATIV NEG No No No Dec 07 in E informa informa informa 2016 [Presen tion in tion in tion in 2:15 PM ce] in source source source Urine data data data by Test strip Erythro NEGATIV NEG No No No Dec 07 cytes E informa informa informa 2016 [Presen tion in tion in tion in 2:15 PM ce] in source source source Urine data data data Color YELLOW YELLOW No No No Dec 07 of informa informa informa 2016 Urine tion in tion in tion in 2:15 PM source source source data data data Glucose NEG No No No Dec 07 [Mass/vol informati informati informati 2016 2:15 ume] in on in on in on in PM Urine by source source source Test data data data strip Ketones 1+ NEG mg/dL Abnorma No Dec 07 l informa 2016 [Presen tion in 2:15 PM ce] in source Urine data by Automat ed test strip Mucus 1+ NEG No Abnorma No Dec 07 [Pres informa l inform2016 ce] in tion in tion in 2:15 PM Urine source source sedimen data data t by Light microsc opy Nitrite POSITIV NEG No Abnorma No Dec 07 E informa l informa 2016 [Presen tion in tion in 2:15 PM ce] in source source Urine data data by Test strip pH of 5.0 - 8.5 No Normal No Nov 20 Urine informati informati 2017 2:15 on in on in PM source source data data Protein NEG mg/dL No No Dec 07 [Mass/vol informati informati 2017 2:15 ume] in on in on in PM Urine by source source Automated data data test strip Specific 1.005 - No Normal No Dec 07 gravity 1.030 informati informati 2017 2:15 of Urine on in on in PM source source data data Urobili 0.2 NEG E.U./dL No No Nov 20 nogen informa informa 2017 [Presen tion in tion in 2:15 PM ce] in source source Urine data data by Test strip Glucose [Mass/volume] in Capillary blood by Glucometer Observa Value Referen Units Interpr Notes Date tion ce etation Range Glucose 70 - 110 mg/dl High No Dec 07 [Mass/vol 2016 ume] in on in 11:38 AM Capillary source blood by data Glucomete r CBC W Auto Differential panel in Blood Observa Value Referen Units Interpr Notes Date tion ce etation Range Basophils 0 - 0.2 K/MM3 Normal No Dec 072016 [#/volume on in 10:35 AM ] in source Blood by data Automated count Basophils 0.1 - 2.0 % Normal No Dec 07 / inform2016 leukocyte on in 10:35 AM s in source Blood by data Automated count Eosinophi 0.0 - 0.4 K/mm3 Normal No Dec 07 ls 2016 [#/volume on in 10:35 AM ] in source Blood by data Automated count Eosinophi 0.1 - % Normal No Dec 07 ls/100 12.0 2016 leukocyte on in 10:35 AM s in source Blood by data Automated count Granulocy 1.8 - 7.8 K/mm3 Normal No Dec 07 casey 2016 [#/volume on in 10:35 AM ] in source Blood by data Automated count Granulocy 37.0 - % Normal No Dec 07 casey/100 80.0 2016 leukocyte on in 10:35 AM s in source Blood by data Automated count Hematocri 37.0 - % Normal No Dec 07 t [Volume 47.0 2016 on in 10:35 AM Fraction] source of Blood data Hemoglobi 12.2 - g/dL No No Dec 07 n 16.2 informati 2016 [Mass/vol on in on in 10:35 AM ume] in source source Blood data data Lymphocyt 0.7 - 4.5 K/mm3 Normal No Dec 07 es 2016 [#/volume on in 10:35 AM ] in source Unspecifi data ed specimen by Automated count Lymphocyt 10 - 50.0 % Normal No Dec 07 es 2016 [#/volume on in 10:35 AM ] in source Unspecifi data ed specimen by Automated count Erythrocy 27 - 31.2 pg Normal No Dec 07 te mean 2016 corpuscul on in 10:35 AM ar source hemoglobi data n [Entitic mass] Erythrocy 31.8 - g/dl Normal No Dec 07 te mean 35.4 2016 corpuscul on in 10:35 AM ar source hemoglobi data n concentra tion [Mass/vol ume] by Automated count Erythrocy 82.2 - fl Normal No Dec 07 te mean 97.8 2016 corpuscul on in 10:35 AM ar volume source [Entitic data volume] by Automated count Monocytes 0.1 - 1.0 K/mm3 Normal No Dec 072016 [#/volume on in 10:35 AM ] in source Blood by data Automated count Monocytes 1.7 - 9.3 % Normal No Dec 07 /100 2016 leukocyte on in 10:35 AM s in source Blood by data Automated count Platelet 7.4 - fl Normal No Dec 07 mean 10.4 2016 volume on in 10:35 AM [Entitic source volume] data in Blood by Automated count Platelets 142 - 424 K/mm3 No No Dec 07 informati 2016 [#/volume on in on in 10:35 AM ] in source source Blood data data Erythrocy 4.2 - 5.4 M/mm3 Normal No Dec 07 casey 2016 [#/volume on in 10:35 AM ] in source Amniotic data fluid Erythrocy 11.5 - % Normal No Dec 07 te 17.5 2016 distribut on in 10:35 AM ion width source [Entitic data volume] by Automated count Leukocyte 4.8 - K/MM3 Normal No Dec 07 s 10.8 2016 [#/volume on in 10:35 AM ] in source Blood data Glucose [Mass/volume] in Capillary blood by Glucometer Observa Value Referen Units Interpr Notes Date ti ce etation Range Glucose 70 - 110 mg/dl No No Dec 07 [Mass/vol informati informati 2016 6:15 ume] in on in on in AM Capillary source source blood by data data Glucomete r Glucose [Mass/volume] in Capillary blood by Glucometer Observa Value Referen Units Interpr Notes Date ti ce etation Range Glucose 70 - 110 mg/dl High No Dec 06 [Mass/vol informati 2016 8:12 ume] in on in PM Capillary source blood by data Glucomete r Glucose [Mass/volume] in Capillary blood by Glucometer Observa Value Referen Units Interpr Notes Date tion ce etation Range Glucose 70 - 110 mg/dl Low No Dec 06 [Mass/vol informati 2017 5:22 ume] in on in PM Capillary source blood by data Glucomete r Amylase [Enzymatic activity/volume] in Serum or Plasma Observa Value Referen Units Interpr Notes Date tion ce etation Range Amylase 25 - 115 U/L Low No Dec 06 [Enzymati informati 2017 c on in 12:55 PM activity/ source volume] data in Serum or Plasma Comprehensive metabolic 2000 panel in Serum or Plasma Observa Value Referen Units Interpr Notes Date tion ce etation Range Albumin/G 1.1 - 1.8 No Low No Dec 06 lobulin informati informati 2016 [Mass on in on in 12:55 PM ratio] in source source Serum or data data Plasma Albumin 3.4 - 5.0 gm/dL Normal No Dec 06 [Mass/vol informati 2016 ume] in on in 12:55 PM Serum or source Plasma data Alkaline 46 - 116 U/L High No Dec 06 phosphata informati 2017 se on in 12:55 PM [Enzymati source c data activity/ volume] in Serum or Plasma Bilirubin 0.2 - 1.0 mg/dL Normal No Dec 06 .total informati 2016 [Mass/vol on in 12:55 PM ume] in source Serum or data Plasma Urea 7 - 18 mg/dL Normal No Dec 06 nitrogen informati 2016 [Mass/vol on in 12:55 PM ume] in source Serum or data Plasma Calcium 8.5 - mg/dL Normal No Dec 06 [Mass/vol 10.1 informati 2016 ume] in on in 12:55 PM Serum or source Plasma data Chloride 98 - 107 mmoL/L Normal No Dec 06 [Moles/vo informati 2017 lume] in on in 12:55 PM Serum or source Plasma data Carbon 21.0 - mmoL/L Normal No Dec 06 dioxide, 32.0 informati 2017 total on in 12:55 PM [Moles/vo source lume] in data Serum or Plasma Creatinin 0.55 - mg/dL Normal No Dec 06 e 1.02 informati 2016 [Mass/vol on in 12:55 PM ume] in source Serum or data Plasma Creatinin 50 - 200 ML/MIN Low No Dec 06 e renal informati 2017 clearance on in 12:55 PM source predicted data by Cockcroft -Gault formula Estimated 59- ML/MIN No REFERENCE Dec 06 informati RANGE: 2017 glomerula on in >60 12:55 PM r source ML/MIN/1. filtratio data 73 SQUARE n rate METERSIf (GF this patient is -A merican, then multiply theresult by 1.210. Globulin 1.3 - 3.2 gm/dL High No Dec 06 [Mass/vol informati 2016 ume] in on in 12:55 PM Serum source data Glucose 74 - 106 mg/dL Normal No Dec 06 [Mass/vol informati 2016 ume] in on in 12:55 PM Serum or source Plasma data Potassium 3.5 - 5.1 mmoL/L Normal No Dec 06 inform2016 [Moles/vo on in 12:55 PM lume] in source Serum or data Plasma Sodium 136 - 145 mmoL/L Normal No Dec 06 [Moles/vo informati 2016 lume] in on in 12:55 PM Serum or source Plasma data Aspartate 15 - 37 U/L Normal No Dec 06 inform2016 aminotran on in 12:55 PM sferase source [Enzymati data c activity/ volume] in Serum or Plasma Alanine 12 - 78 U/L Normal No Dec 06 aminotran informati 2016 sferase on in 12:55 PM [Enzymati source c data activity/ volume] in Serum or Plasma Protein 6.4 - 8.2 gm/dL Normal No Dec 06 [Mass/vol informati 2016 ume] in on in 12:55 PM Serum or source Plasma data Lipase [Enzymatic activity/volume] in Serum or Plasma Observa Value Referen Units Interpr Notes Date tion ce etation Range Lipase 73 - 393 U/L Low No Dec 06 [Enzymati informati 2017 c on in 12:55 PM activity/ source volume] data in Serum or Plasma
--- OUTSIDE RECORDS SUMMARY | 2017-01-23 22:34 | External Medical Summary Rpt ---
Author Author , DAGOBERTO ARENAS Address Unknown Phone [email or web address] Team Providers Care Manager Management Name Role Phone Charlene PHIPPS, Unavailable Unavailable Charlene Adorno MD, Unavailable Unavailable Ewelina Juárez APRN, Unavailable Unavailable Rosanne Jha MD, Unavailable Unavailable Princess Jha MD Purpose Continuity of Care Document - 09-06-2012 through 2016 Problems Code Diagnosis DOS Provider Status [id number] Acute [facility] [id number] Abdominal [place] pain [facility] 288.8 Leukocytosi [facility] 305.1 Tobacco [place] user [facility] [id number] Active [facility] 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 [facility] 577.1 Chronic [facility] 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 [facility] 787.01 Nausea and [place] vomiting [facility] 787.91 Diarrhea [facility] [id number] [facility] Allergies, Adverse Reactions, Alerts Type Allergy to [...] SI 73 -2 NO 90 0- Lo RI 34 20 ng IL 91 14 er [...] SI 73 -1 NO 90 9- Lo RI 35 20 ng IL 01 14 er [...] SI 73 -1 NO 90 8- Lo RI 35 20 ng IL 01 14 er [...] 00 01 0 No SO 18 -0 RI 50 6- Lo OL 77 20 ng [...] SI 73 -0 NO 90 6- Lo RI 35 20 ng IL 01 14 er [...] LA ve TE 10 MG TA B RI 00 12 0 No ED 05 -3 NI 40 0- Lo SO 01 20 ng NE 72 13 er 0 10 Ac ti MG ve TA BL ET AM 51 12 0 No LO 07 -2 DI 90 9- Lo PI 45 20 ng NE 12 13 er 0 BE Ac SY ti LA ve TE 5 MG TA B CL 51 12 1 No ON 07 [...] MG ve TA BL ET CL 00 12 0 No ON 90 -2 ID 45 8- Lo IN 65 20 ng E 66 13 er HC 1 L Ac 0. ti 1 ve MG TA BL ET SO 00 12 2 No TYREL 00 -2 -M 90 7- Lo ED 04 20 ng RO 72 13 er L 2 12 Ac 5 ti MG ve AL LI 63 12 3 No SI 73 -2 NO 90 7- Lo RI 35 20 ng IL 01 13 er [...] .4 ve ML SY RI NG E PA 12 3 No TI -2 EN [...] ve 0. 9% SO TYREL TI ON Po 00 12 0 No ta 24 [...] 00 12 4 No SO 18 -2 RI 50 6- Lo OL 77 20 ng [...] ti ve 0. 45 % SO LN CL 00 12 1 No ON 90 [...] ti ML ve Sy ri ng e LI 63 12 1 No SI 73 -2 NO 90 5- Lo RI 35 20 ng IL 01 13 er 0 20 Ac ti MG ve TA BL ET Sa 63 12 1 No li 80 -2 ne 70 5- Lo 10 20 ng Fl 07 13 er us 5 h Ac 10 ti ML ve Sy ri ng e DI 63 12 1 No RI 32 -2 IV 30 4- Lo AN 26 20 ng 96 13 er 1, 5 00 Ac 0 ti MG ve /1 00 ML AL CE 00 12 2 No FT 40 -2 RI 97 4- Lo AX 33 20 ng ON 30 13 er E 4 1 Ac GM ti ve AL LE 25 12 4 No VO 02 -2 FL 10 4- Lo OX 13 20 ng AC 28 13 er IN 3 Ac 75 ti 0 ve MG /1 50 ML -D 5W Mo 00 12 2 No rp 40 [...] Ml ti ve Sy ri ng e AL 00 12 0 No BU 48 -2 TE 79 4- Lo RO 50 20 ng L 10 13 er GARZA 1 L Ac 2. ti 5 ve MG /3 ML SO LN SO 00 12 0 No TYREL 00 -2 -M 90 4- Lo ED 04 20 ng RO 72 13 er L 2 12 Ac 5 ti MG ve AL ME 00 12 0 No DA 40 -2 [...] 3( ve 2. 5) MG /3 ML 63 12 0 No PI 73 -2 RI 90 4- Lo N 02 20 ng EC 30 13 er 1 32 Ac 5 ti MG ve TA BL ET ME 51 12 2 No TO 07 -2 RI 90 4- Lo OL 25 20 ng OL 52 13 er 0 TA Ac RT ti RA ve TE 25 MG TA B CL 00 12 0 No ON 90 -2 ID 45 4- Lo IN 65 20 ng E 66 13 er HC 1 L Ac 0. ti 1 ve MG TA BL ET TA 00 12 1 No ME 00 -2 FL 40 3- Lo U 80 20 ng 75 08 13 er 5 MG Ac ti CA ve PS UL E RI 00 12 1 No ED 05 -2 [...] ER ve 15 MG TA BL ET CL 00 12 1 No ON 90 -2 ID 45 3- Lo IN 65 20 ng E 66 13 er HC 1 L Ac 0. ti 1 ve MG TA BL ET Le 00 12 3 No va 59 -2 lb 12 3- Lo ut 92 20 ng er 02 13 er ol 3 Ac 1. ti 25 ve MG /3 ML Ne b DE 00 12 2 No XT 40 -2 RO 97 3- Lo SE 92 20 ng 40 13 er 5% 9 -0 Ac .2 ti 25 ve % NA CL IV SO L PN 00 09 0 No EU 00 [...] ER ve 15 MG TA BL ET RI 00 09 1 No ED 05 -2 [...] Ac HO ti ME ve ME DS SO 00 09 3 No DI 40 -1 UM 97 9- Lo 98 20 ng CH 30 13 er LO 9 RI Ac DE ti ve 0. 9% SO TYREL TI ON RI 00 09 3 No ED 05 -1 [...] SI 73 -1 NO 90 9- Lo RI 35 20 ng IL 01 13 er [...] ti 1 ve MG TA BL ET LE 50 09 3 No VA 45 -1 QU 80 9- Lo IN 16 20 ng -D 80 13 er 5W 1 Ac 50 ti 0 ve MG /1 00 ML BA G HY [address] 07 -0 OC 90 2- Lo HL 77 20 ng OR 62 13 er OT 0 HI Ac AZ ti ID ve E 12 .5 MG CP IS 00 09 0 No OV 27 [...] ve 10 ML SY RI NG E RA 63 09 0 No D- 80 -0 SA 70 1- Lo LI 10 20 ng NE 07 13 er 5A FL Ac US ti H ve 10 ML SY RI NG E TO 00 08 2 No RI 18 -3 OL 61 1- Lo 08 [...] SI 73 -2 NO 90 9- Lo RI 35 20 ng IL 01 13 er 0 20 Ac ti MG ve TA BL ET RI 00 08 4 No ED 05 -2 [...] 10 0 MC G/ ML AM P HY [address] 40 -2 OM 91 8- Lo OR 31 20 ng PH 23 13 er ON 0 E Ac 2 ti MG ve /M L CA RP UJ CT RI 00 08 0 No ED 05 -2 NI 40 8- Lo SO 01 20 ng NE 82 13 er 0 20 Ac ti MG ve TA BL ET AN 00 08 5 No 22 -2 PA 50 8- Lo Z 29 20 ng 0. 51 13 er 12 5 5 Ac MG ti ve TA BL ET OD T RI 00 08 6 No OT 00 -2 ON 80 7- Lo IX 92 20 ng 35 13 er IV 5 Ac 40 ti ve MG AL SO 00 08 6 No DI 40 -2 UM 97 7- Lo 98 20 ng CH 43 13 er LO 7 RI Ac DE ti ve 0. 9% SO TYREL TI ON RA 63 08 [...] ve Sy ri ng e ON 00 08 0 No DA 64 [...] -1 ve 0 SO TYREL TI ON IS 00 08 0 No OV 27 [...] ve /M L CA RP UJ CT RI 00 08 6 No OM 64 -2 ET 11 7- Lo BURCH 49 20 ng ZI 53 13 er NE 5 Ac 25 ti ve MG /M L AM PU L Mo 00 08 0 No rp 40 -2 hi 91 7- Lo ne 26 20 ng 06 13 er 8M 9 G/ Ac Ml ti ve Sy ri ng e MA 00 08 0 No GN 51 -0 ES 72 5- Lo IU 60 20 ng M 22 13 er GARZA 5 LF Ac AT ti E ve 50 % AL SO 00 08 0 No DI 40 -0 UM 97 5- Lo 98 20 ng CH 43 13 er LO 6 RI Ac DE ti ve 0. 9% SO TYREL TI ON CL 00 08 0 No IN 33 [...] er GARZA GA Ac R ti ve CL 00 08 0 No IN 33 -0 IM 81 4- Lo IX 14 20 ng E 50 13 er 3 4. Ac 25 ti %- ve 10 % SO TYREL TI ON LI 63 08 2 No SI 73 -0 NO 90 4- Lo RI 35 20 ng IL 01 13 er 0 20 Ac ti MG ve TA BL ET CL 00 08 2 No ON 90 -0 ID 45 4- Lo IN 65 20 ng E 66 13 er HC 1 L Ac 0. ti 1 ve MG TA BL ET MA 00 08 0 No GN 51 -0 ES 72 4- Lo IU 60 20 ng M 22 13 er GARZA 5 LF Ac AT ti E ve 50 % AL SO 00 08 0 No DI 40 -0 UM 97 4- Lo 98 20 ng CH 43 13 er LO 6 RI Ac DE ti ve 0. 9% SO TYREL TI ON PO 00 08 0 No TA 40 -0 SS 97 4- Lo IU 07 20 ng M 42 13 er CL 6 Ac 10 ti ve ME Q/ 10 0 ML SO L FS 08 0 No -0 BL 4- Lo OO 20 ng D 13 er GARZA GA Ac R ti ve Li 00 08 1 No si 17 -0 no 23 3- Lo pr 75 20 ng il 91 13 er 0 10 Ac MG ti ve Ta bl et CL 00 08 0 No ON 90 [...] UL 2 T Ac ti AL ve Li 00 08 1 No si 17 -0 no 23 3- Lo pr 75 20 ng il 91 13 er 0 10 Ac MG ti ve Ta bl et CA 00 08 0 No TA 59 -0 RI 70 3- Lo ES 03 20 ng -T 13 13 er TS 4 1 Ac ti PA ve TC H PA 08 0 No TI -0 EN 2- Lo T' 20 ng S 13 er OW N Ac HO ti ME ve ME DS OC 62 08 4 No TR 75 -0 EO 60 2- Lo TI 34 20 ng DE 94 13 er 4 AC Ac ET ti ve 10 0 MC G/ ML AM P IN 00 08 4 No TR 33 -0 AL 80 2- Lo IP 51 20 ng ID 90 13 er 2 20 Ac % ti IV ve FA T EM UL CL 00 08 1 No IN 33 -0 IM 81 2- Lo IX 14 20 ng E 50 13 er 3 4. Ac 25 ti %- ve 10 % SO TYREL TI ON MA 00 08 0 No GN 51 [...] UL 2 T Ac ti AL ve CL 00 08 1 No IN 33 -0 IM 81 1- Lo IX 14 20 ng E 50 13 er 3 4. Ac 25 ti %- ve 10 % SO TYREL TI ON SO 00 08 5 No DI 40 -0 UM 97 1- Lo 10 20 ng CH 16 13 er LO 6 RI Ac DE ti ve 0. 9% SO LN PA 08 5 No TI -0 EN 1- Lo T' 20 ng S 13 er OW N Ac HO ti ME ve ME DS HU 00 08 4 No MA 00 -0 LO 27 1- Lo G 51 20 ng 10 01 13 er 0 7 UN Ac IT ti S/ ve ML AL OX 00 08 5 No YC 40 -0 OD 60 1- Lo ON 55 20 ng E 26 13 er HC 2 L Ac 5 ti MG ve TA BL ET LO 00 08 5 No VE 07 -0 NO 50 1- Lo X 62 20 ng 40 04 13 er 1 MG Ac /0 ti .4 ve ML SY RI NG E FS 08 4 No -0 BL 1- Lo OO 20 ng D 13 er GARZA GA Ac R ti ve M. 61 08 1 No V. 70 -0 I. 30 1- Lo 42 20 ng AD 28 13 er UL 2 T Ac ti AL ve 00 08 1 No TA 40 -0 ME 99 1- Lo N 15 20 ng K- 80 13 er 1 1 10 Ac ti MG ve /M L AM PU L CY 00 08 1 No AN 51 -0 OC 70 1- Lo OB 03 20 ng AL 12 13 er AM 5 IN Ac ti 1, ve 00 0 MC G/ ML IN 00 08 5 No VA 00 -0 NZ 63 1- Lo 1 84 20 ng 57 13 er GM 1 Ac AD ti D- ve VA NT AG E AL SO 00 07 6 No DI 40 -3 UM 97 1- Lo 98 20 ng CH 42 13 er LO 0 RI Ac DE ti ve 0. 9% SO TYREL TI ON CE 00 07 0 No FT 40 -3 RI 97 1- Lo AX 33 20 ng ON 30 13 er E 4 1 Ac GM ti ve AL Sa 63 07 1 No li 80 [...] Ml ti ve Sy ri ng e RI 00 07 6 No OM 64 -3 ET 11 1- Lo BURCH 49 20 ng ZI 53 13 er NE 5 Ac 25 ti ve MG /M L AM PU L SO 00 07 6 No TYREL 00 -3 -M 90 1- Lo ED 04 20 ng RO 72 13 er L 2 12 Ac 5 ti MG ve AL MO 00 07 6 No RP 40 -3 HI 68 1- Lo NE 31 20 ng 50 13 er GARZA 1 LF Ac ti ER ve 15 MG TA BL ET LA [address] 40 [...] ve 00 0 ML IV SO LN IN 00 07 1 No VA 00 -3 NZ 63 1- Lo 1 84 20 ng 57 13 er GM 1 Ac AD ti D- ve VA NT AG E AL Sa 63 07 1 No li 80 [...] ve Sy ri ng e SO 00 07 0 No DI 40 -1 UM 97 0- Lo 98 20 ng CH 30 13 er LO 9 RI Ac DE ti ve 0. 9% SO TYREL TI ON RI 00 07 0 No OM 64 -1 [...] Ml ti ve Sy ri ng e RI 00 06 3 No ED 05 -2 NI 40 2- Lo SO 01 20 ng NE 72 13 er 0 10 Ac ti MG ve TA BL ET Ib 62 06 3 No up 58 -2 ro 40 2- Lo fe 74 20 ng n 70 13 er 60 1 0M Ac G ti Ta ve bl et Ib 62 06 3 No up 58 [...] MG TA BL ET Mo 00 06 0 No rp 40 [...] ve 0. 9% SO TYREL TI ON RI 00 06 0 No OM 64 -1 [...] ve ET TO 00 05 1 No RI 18 -2 OL 61 1- Lo 09 [...] ti ve 0. 45 % SO LN RI 00 05 2 No ED 05 -2 [...] GM ti /3 ve 0 ML SO TRYEL TI ON Vital Signs 06-11-2013 12:50 Name [...] Order Detail nces retati t Range on Differential panel, method unspecified - (12-08-2016 05:10) Hypochr 1+ complet omia 017 ed [Presen 05:10 ce] in Blood LYMPH 10 % 10% - Normal complet 017 50% ed 05:10 Platele NORMAL complet ts 017 ed [Presen 05:10 ce] in Blood by Light microsc opy Polychr 1+ complet omasia 017 ed [Presen 05:10 ce] in Blood by Light microsc opy Stomato FEW complet cytes 017 ed [Presen 05:10 ce] in Blood by Light microsc opy Dacrocy FEW complet casey 017 ed [Presen 05:10 ce] in Blood by Light microsc opy Urinalysis dipstick W Reflex Microscopic panel in Urine (12-07-2016 14:15) Bacteri 4+ O complet a 017 ed [Presen 14:15 ce] in Urine sedimen t by Light microsc opy Leukocy 5-10 O complet casey 017 wbc/hpf ed [#/volu 14:15 me] in Urine Urinalysis dipstick W Reflex Microscopic panel in Urine (12-07-2016 14:15) Appeara SL CLEAR complet nce of 017 CLOUDY ed Urine 14:15 Bilirub NEGATIV NEG complet in 017 E ed [Presen 14:15 ce] in Urine by Test strip Erythro NEGATIV NEG complet cytes 017 E ed [Presen 14:15 ce] in Urine Color YELLOW YELLOW complet of 017 ed Urine 14:15 Ketones 1+ NEG Abnorma complet 017 l ed [Presen 14:15 ce] in Urine by Automat ed test strip Mucus 1+ NEG Abnorma complet [Presen 017 l ed ce] in 14:15 Urine sedimen t by Light microsc opy Nitrite POSITIV NEG Abnorma complet 017 E l ed [Presen 14:15 ce] in Urine by Test strip Urobili 0.2 NEG complet nogen 017 ed [Presen 14:15 ce] in Urine by Test strip Glucose BldC Glucomtr-mCnc (06-11-2013 11:45) Glucose 187 [...] complet BldC 014 mg/dl ed Glucomt 16:40 r-mCnc Glucose BldC Glucomtr-mCnc (06-09-2013 11:33) Glucose 156 70-110 complet BldC 014 mg/dl ed Glucomt 11:33 r-mCnc Glucose BldC Glucomtr-nc (06-09-2013 06:54) Glucose 143 70-110 complet BldC 014 mg/dl ed Glucomt 06:54 r-nc BASIC METABOLIC PANEL (06-09-2013 06:10) Glucose 157 [...] 014 mmoL/L .0 ed Cnc 06:10 Calcium 20-2 8.3 8.5-10. complet 014 mg/dL 1 ed SerPl-m 06:10 Cnc CBC with AUTO DIFF (06-09-2013 06:10) WBC # 02-20-2 6.6 4.8-10. complet Bld 014 K/MM3 8 ed Auto 06:10 RBC # -20-2 4.18 4.2-5.4 complet Bld 014 M/mm3 ed Auto 06:10 Hgb 20-2 11.7 12.2-16 complet Bld-mCn 014 g/dL .2 ed c 06:10 Hct Fr 06-09- 36.6 % 37.0-47 complet Bld 014 .0 ed 06:10 MCV RBC 20-2 87.8 fl 82.2-97 complet 014 .8 ed 06:10 MCH RBC 06-09- 28.0 pg 27-31.2 complet Qn 014 ed Auto 06:10 MEAN 06-09-2 31.9 31.8-35 complet CORPUSC 014 g/dl .4 ed ULAR 06:10 HGB CONC RDW RBC 06-09-2 15.6 % 11.5-17 complet Auto 014 .5 ed 06:10 Platele 06-09-2 192 142-424 complet t Bld 014 K/mm3 ed Ql 06:10 Manual MEAN 06-09-2 7.9 fl 7.4-10. complet PLATELE 014 4 ed T 06:10 VOLUME Granulo 06-09-2 53.7 % 37.0-80 complet cytes 014 .0 ed Fr Bld 06:10 Auto LYMPH % 20-2 37.1 % 10-50.0 complet 014 ed 06:10 Monocyt 20-2 5.9 % 1.7-9.3 complet es Fr 014 [...] 014 K/mm3 ed Bld 06:10 Auto Monocyt 20-2 0.4 0.1-1.0 complet es # 014 K/mm3 ed Bld 06:10 Auto Eosinop 20-2 0.2 0.0-0.4 complet hil # 014 K/mm3 ed Bld 06:10 Auto Basophi 20-2 0.0 0-0.2 complet ls # 014 K/MM3 ed Bld 06:10 Auto Glucose BldC Glucomtr-nc (06-08-2013 20:03) Glucose 239 70-110 complet BldC 014 mg/dl ed Glucomt 20:03 r-nc Glucose BldC Glucomtr-[facility] (06-08-2013 16:40) Glucose 363 70-110 High complet BldC 014 mg/dl alert ed Glucomt 16:40 r-nc Glucose BldC Glucomtr-nc (06-08-2013 11:33) Glucose 326 70-110 High complet BldC 014 mg/dl alert ed Glucomt 11:33 r-nc Glucose BldC Glucomtr-nc (06-08-2013 06:25) Glucose 202 70-110 complet BldC 014 mg/dl ed Glucomt 06:25 r-[facility] BASIC METABOLIC PANEL (06-08-2013 06:15) Glucose 203 [...] Bld 014 M/mm3 ed Auto 06:15 Hgb 06-08- 14.1 12.2-16 complet Bld-mCn 014 g/dL .2 ed c 06:15 Hct Fr 44.7 % 37.0-47 complet Bld 014 .0 ed 06:15 MCV RBC 87.7 fl 82.2-97 complet 014 .8 ed 06:15 MCH RBC 27.6 pg 27-31.2 complet Qn 014 ed Auto 06:15 MEAN 31.5 31.8-35 complet CORPUSC 014 g/dl .4 ed ULAR 06:15 HGB CONC RDW RBC 15.9 % 11.5-17 complet Auto 014 .5 ed 06:15 Platele 297 142-424 complet t Bld 014 K/mm3 ed Ql 06:15 Manual MEAN 02-19-2 8.4 fl 7.4-10. complet PLATELE 014 4 [...] 06:15 Auto GLYCOHEMOGLOBIN (A1c) (06-08-2013 06:15) HEMOGLO 02-19-2 13.2 % 0.0-7.0 complet BIN A1C 014 ed 06:15 Glucose BldC Glucomtr-[facility] (06-07-2013 21:00) Glucose 06-07-2 447 70-110 High complet BldC 014 mg/dl alert ed Glucomt 21:00 [facility] Glucose BldC Glucomtr-nc (06-07-2013 16:49) Glucose 18-2 336 70-110 High complet BldC 014 mg/dl alert ed Glucomt 16:49 [facility] COMPREHENSIVE METABOLIC PANEL (06-07-2013 16:00) Glucose 06-07-2 376 74-106 complet 014 mg/dL ed Bld-n 16:00 c BUN 02-18-2 13 7-18 complet Bld-mCn 014 mg/dL ed c 16:00 Creat 06-07- 0.7 0.6-1.0 complet SerPl-m 014 mg/dL ed [...] 014 gm/dL ed Ser-mCn 16:00 c Albumin 06-07- 0.9 UNK 1.1-1.8 complet /Glob 014 ed SerPl-m 16:00 Rto Bilirub 0.7 0.2-1.0 complet 014 mg/dL ed SerPl-m 16:00 Cnc AST 31 U/L 15-37 complet SerPl-c 014 ed Cnc 16:00 ALT 06-07- 33 U/L 12-78 complet SerPl-c 014 ed Cnc 16:00 ALP 550 U/L 50-136 complet SerPl-c 014 ed Cnc 16:00 Amylase SerPl-cCnc (06-07-2013 16:00) Amylase 13 U/L 25-115 complet 014 ed SerPl-c [...] 2 UNK complet 014 ed 21:19 Arteria 01-05-2 Y complet l 014 ed patency 21:19 [...] complet SerPl-c 014 ed Cnc 21:15 ALP 01-05-2 423 U/L 50-136 complet SerPl-c 014 ed Cnc 21:15 CBC with AUTO DIFF (04-24-2013 21:15) WBC # -05-2 8.0 4.8-10. complet Bld 014 K/MM3 8 ed Auto 21:15 RBC # -05-2 4.27 4.2-5.4 complet Bld 014 M/mm3 ed Auto 21:15 Hgb 05-2 11.7 12.2-16 complet Bld-mCn 014 g/dL .2 ed c 21:15 Hct Fr 04-24-2 37.4 % 37.0-47 complet Bld 014 .0 ed 21:15 MCV RBC 05-2 87.6 fl 82.2-97 complet 014 .8 ed 21:15 MCH RBC 04-24-2 27.5 pg 27-31.2 complet Qn 014 ed Auto 21:15 MEAN 04-24- 31.4 31.8-35 complet CORPUSC 014 g/dl .4 ed ULAR 21:15 HGB CONC RDW RBC 05-2 17.3 % 11.5-17 complet Auto 014 .5 ed 21:15 Platele 04-24-2 273 142-424 complet t Bld 014 K/mm3 ed Ql 21:15 Manual MEAN 04-24-2 7.5 fl 7.4-10. complet PLATELE 014 4 ed T 21:15 VOLUME Granulo 04-24-2 72.0 % 37.0-80 complet cytes 014 .0 [...] 014 K/mm3 ed Bld 21:15 Auto Monocyt 04-24-2 0.6 0.1-1.0 complet es # 014 K/mm3 ed Bld 21:15 Auto Eosinop 2 0.1 0.0-0.4 complet hil # 014 K/mm3 ed Bld 21:15 Auto Basophi 2 0.0 0-0.2 complet ls # 014 K/MM3 [...] with AUTO DIFF (04-15-2013 06:15) WBC # 04-15-2 9.6 4.8-10. complet Bld 013 K/MM3 8 [...] complet Auto 013 .5 ed 06:15 Platele 224 142-424 complet t Bld 013 K/mm3 [...] Auto ARTERIAL BLOOD GAS (04-14-2013 10:35) ARTERIA 04-14-2 7.47 7.35-7. complet L PH 013 MMOL/L 45 ed 10:35 ARTERIA 04-14-2 35.1 35.0-45 complet L PCO2 013 MMHG .0 ed 10:35 ARTERIA 04-14-2 80.8 80-100 complet L PO2 013 MMHG ed 10:35 ARTERIA 04-14- 24.7 22.0-26 complet L HCO3 013 MMOL/L [...] K/MM3 8 ed Auto 10:15 RBC # 04-14- 4.43 4.2-5.4 complet Bld 013 M/mm3 ed Auto 10:15 Hgb 12.2 12.2-16 complet Bld-mCn 013 g/dL .2 ed c 10:15 Hct Fr 37.9 % 37.0-47 complet Bld 013 .0 ed 10:15 MCV RBC 85.5 fl 82.2-97 complet 013 .8 ed 10:15 MCH RBC 27.5 pg 27-31.2 complet Qn 013 ed Auto 10:15 MEAN 32.1 31.8-35 complet CORPUSC 013 g/dl .4 ed ULAR 10:15 HGB CONC RDW RBC 17.1 % 11.5-17 complet Auto 013 .5 ed 10:15 Platele 183 142-424 complet t Bld 013 K/mm3 ed Ql 10:15 Manual MEAN 8.3 fl 7.4-10. complet PLATELE 013 4 ed T 10:15 VOLUME Granulo 83.3 % 37.0-80 complet cytes 013 .0 ed Fr Bld 10:15 Auto LYMPH % 04-14-2 12.0 % 10-50.0 complet 013 ed 10:15 Monocyt 04-14- 4.5 % 1.7-9.3 complet es Fr 013 ed Bld 10:15 Auto Eosinop 2 0.1 % 0.1-12. complet hil Fr 013 [...] PH 013 MMOL/L 45 ed 12:38 ARTERIA 2 36.3 35.0-45 complet L PCO2 013 MMHG .0 ed 12:38 ARTERIA 125.2 80-100 complet L PO2 013 MMHG ed 12:38 ARTERIA 04-13- 24.8 22.0-26 complet L HCO3 013 MMOL/L .0 ed 12:38 ARTERIA 25.9 23-27 complet L TCO2 013 MMOL/L ed 12:38 Base 0.9 -2.4-+2 complet excess 013 MMOL/L .3 ed BldA-sC 12:38 nc ARTERIA 98.9 % 90-100 complet L O2 013 ed SAT 12:38 TIDAL 450 UNK complet VOLUME 013 ed 12:38 OXYGEN 04-13- 40 UNK complet 013 ed 12:38 VENT [...] 013 mmoL/L .0 ed Cnc 04:35 Calcium 12-25-2 8.8 8.5-10. complet 013 mg/dL 1 ed SerPl-m 04:35 Cnc LIPID PROFILE (04-13-2013 04:35) Cholest 12-25-2 139 Less complet 013 mg/dL than ed SerPl-m 04:35 200 Cnc HDLc -25-2 29.0 40-60 complet SerPl-m 013 MG/DL ed Cnc 04:35 LDLc -25-2 79.6 0-130 complet SerPl 013 mg/dL ed Calc-mC 04:35 nc VLDL 04-13-2 30.4 0-40 complet CHOLEST 013 UNK ed LANEY 04:35 Trigl 25-2 152 30-200 complet SerPl-m 013 mg/dL ed Cnc 04:35 CBC with AUTO DIFF (04-13-2013 04:35) WBC # -25-2 3.9 4.8-10. complet Bld 013 K/MM3 8 ed Auto 04:35 RBC # 25-2 4.19 4.2-5.4 complet Bld 013 M/mm3 ed Auto 04:35 Hgb 25-2 11.8 12.2-16 complet Bld-mCn 013 g/dL .2 ed c 04:35 Hct Fr 04-13-2 37.3 % 37.0-47 complet Bld 013 .0 ed 04:35 MCV RBC 25-2 88.9 fl 82.2-97 complet 013 .8 ed 04:35 MCH RBC 04-13-2 28.0 pg 27-31.2 complet Qn 013 ed Auto 04:35 MEAN 12-25-2 31.6 31.8-35 complet CORPUSC 013 g/dl .4 ed ULAR 04:35 HGB CONC RDW RBC 25-2 17.4 % 11.5-17 complet Auto 013 .5 ed 04:35 Platele 12-25-2 113 142-424 complet t Bld 013 K/mm3 ed Ql 04:35 Manual MEAN 12-25-2 8.9 fl 7.4-10. complet PLATELE 013 4 [...] ed NOGEN - 09:39 DIPSTIC K URINE 2 NEGATIV NEG complet NITRATE 013 E ed - 09:39 DIPSTIC K URINE 2 NEGATIV NEG complet LEUK 013 E ed ESTERAS 09:39 E URINE 2 5-10 0 complet RBC 013 rbc/hpf ed 09:39 URINE 04-12-2 5-10 O complet WBC 013 wbc/hpf ed 09:39 URINE 04-12-2 OCC 0-5 complet SQUAMOU 013 #/hpf ed S CELLS 09:39 URINE 2 3+ O complet BACTERI 013 ed A 09:39 ARTERIAL BLOOD GAS (04-12-2013 08:45) ARTERIA 7.35 7.35-7. complet L PH 013 MMOL/L 45 ed 08:45 ARTERIA 46.0 35.0-45 complet L PCO2 013 MMHG .0 ed 08:45 ARTERIA 76.0 80-100 complet L PO2 013 MMHG ed 08:45 ARTERIA 25.0 22.0-26 complet L HCO3 013 MMOL/L .0 ed 08:45 ARTERIA 16.0 23-27 complet L TCO2 013 MMOL/L ed 08:45 Base 04-12-2 -0.5 -2.4-+2 complet excess 013 MMOL/L .3 ed BldA-sC 08:45 nc ARTERIA 95 % 90-100 complet L O2 013 ed SAT 08:45 TIDAL 500 UNK complet VOLUME 013 ed 08:45 OXYGEN 04-12-2 50 UNK complet 013 ed 08:45 VENT 2 16 UNK complet RATE 013 ed 08:45 PEEP 04-12-2 5 UNK complet 013 ed 08:45 Arteria 2 ACCEPTA complet l 013 BLE ed patency 08:45 Wrist a SOURCE RIGHT complet 013 RADIAL ed 08:45 ARTERIAL BLOOD GAS (04-12-2013 07:30) ARTERIA 04-12-2 7.12 7.35-7. Low complet L PH 013 MMOL/L 45 alert ed 07:30 ARTERIA 12-24-2 84.0 35.0-45 complet L PCO2 013 MMHG [...] complet Auto 013 .5 ed 07:09 Platele 24-2 225 142-424 complet t Bld 013 K/mm3 ed Ql 07:09 Manual Granulo 24-2 74.7 % 37.0-80 complet cytes 013 .0 ed Fr Bld 07:09 Auto LYMPH % 24-2 20.1 % 10-50.0 complet 013 ed 07:09 Monocyt 24-2 5.2 % 1.7-9.3 complet es Fr 013 ed Bld 07:09 Auto Granulo -24-2 9.1 1.8-7.8 complet cytes # 013 K/mm3 ed Bld 07:09 Auto Lymphoc -24-2 2.5 0.7-4.5 complet ytes Fr 013 K/mm3 ed Bld 07:09 Auto Monocyt 12-24-2 0.6 0.1-1.0 complet es # 013 K/mm3 ed Bld 07:09 Auto COMPREHENSIVE METABOLIC PANEL (04-11-2013 14:20) Glucose 04-11-2 147 74-106 complet 013 mg/dL ed Bld-mCn 14:20 c BUN 04-11-2 21 7-18 complet Bld-mCn 013 mg/dL ed c 14:20 Creat 04-11-2 0.7 0.6-1.0 complet SerPl-m 013 mg/dL ed Cnc 14:20 Creat 66 50-200 complet Cl 013 ML/MIN [...] SerPl-c 013 ed Cnc 14:20 Amylase SerPl-cCnc (04-11-2013 14:20) Amylase 23-2 22 U/L 25-115 complet 013 ed SerPl-c 14:20 Cnc LIPASE (04-11-2013 14:20) LIPASE 23-2 123 U/L 73-393 complet 013 ed 14:20 CBC with AUTO DIFF (04-11-2013 14:20) WBC # 12-23-2 8.2 4.8-10. complet Bld 013 K/MM3 8 ed Auto 14:20 RBC # 1223-2 4.29 4.2-5.4 complet Bld 013 M/mm3 ed Auto 14:20 Hgb 23-2 11.6 12.2-16 complet Bld-mCn 013 g/dL .2 ed c 14:20 Hct Fr 04-11-2 36.8 % 37.0-47 complet Bld 013 .0 ed 14:20 MCV RBC 23-2 85.8 fl 82.2-97 complet 013 .8 ed 14:20 MCH RBC 04-11-2 27.0 pg 27-31.2 complet Qn 013 ed Auto 14:20 MEAN 23-2 31.5 31.8-35 complet CORPUSC 013 g/dl .4 ed ULAR 14:20 HGB CONC RDW RBC 23-2 17.3 % 11.5-17 complet Auto 013 .5 ed 14:20 Platele -23-2 164 142-424 complet t Bld 013 K/mm3 ed Ql 14:20 Manual MEAN 23-2 7.9 fl 7.4-10. complet PLATELE 013 4 ed T 14:20 VOLUME Granulo 23-2 82.6 % 37.0-80 complet cytes 013 .0 ed Fr Bld 14:20 Auto LYMPH % -23-2 10.7 % 10-50.0 complet 013 ed 14:20 Monocyt 12-23-2 6.2 % 1.7-9.3 complet es Fr 013 ed Bld 14:20 Auto Eosinop -23-2 0.3 % 0.1-12. complet hil Fr 013 0 ed Bld 14:20 Auto Basophi -23-2 0.2 % 0.1-2.0 complet ls Fr 013 [...] Auto COMPREHENSIVE METABOLIC PANEL (01-07-2013 08:25) Glucose 01-07- 252 74-106 complet 013 mg/dL ed Bld-mCn [...] SerPl-m 013 gm/dL ed Cnc 08:25 Albumin 01-07- 3.1 3.4-5.0 complet 013 gm/dL ed SerPl-m 08:25 Cnc GLOBULI 09-20-2 3.8 1.3-3.2 complet N 013 gm/dL ed 08:25 ALB/UMESH 09-20-2 0.8 UNK 1.1-1.8 complet B RATIO 013 ed 08:25 Bilirub 09-20-2 0.8 0.2-1.0 complet 013 mg/dL ed SerPl-m 08:25 Cnc AST -20-2 14 U/L 15-37 complet SerPl-c 013 ed [...] g/dL .2 ed c 08:25 Hct Fr -20-2 34.9 % 37.0-47 complet Bld 013 .0 ed 08:25 MCV RBC 09-20-2 92.4 fl 82.2-97 complet 013 .8 ed 08:25 MCH RBC -20-2 27.4 pg 27-31.2 complet Qn 013 ed Auto 08:25 MEAN 09-20-2 29.7 31.8-35 complet CORPUSC 013 g/dl .4 ed ULAR 08:25 HGB CONC RDW RBC 09-20-2 17.9 % 11.5-17 complet Auto 013 .5 [...] Bld-mCn 013 mg/dL ed c 14:20 Creat 01-06-2 0.6 0.6-1.0 complet SerPl-m 013 mg/dL ed [...] SerPl-m 013 gm/dL ed Cnc 14:20 Albumin 4.0 3.4-5.0 complet 013 gm/dL ed SerPl-m [...] Cnc 14:20 Amylase SerPl-cCnc (01-06-2013 14:20) Amylase 54 U/L 25-115 complet 013 ed SerPl-c 14:20 Cnc LIPASE (01-06-2013 14:20) LIPASE 293 U/L 73-393 complet 013 ed 14:20 CBC with AUTO DIFF (12-19-2012 10:30) WBC # 12-19- 11.9 4.8-10. complet Bld 013 K/MM3 8 ed Auto 10:30 RBC # 3.98 4.2-5.4 complet Bld 013 M/mm3 ed [...] ed ULAR 10:30 HGB CONC RDW RBC 12-19-2 16.5 % 11.5-17 complet Auto 013 .5 ed 10:30 Platele --2 384 142-424 complet t Bld 013 K/mm3 ed Ql 10:30 Manual MEAN 12-19-2 7.5 fl 7.4-10. complet PLATELE 013 4 ed T 10:30 VOLUME Granulo 12-19-2 83.6 % 37.0-80 complet cytes 013 .0 ed Fr Bld 10:30 Auto LYMPH % --2 10.2 % 10-50.0 complet 013 ed 10:30 Monocyt 12-19-2 5.4 % 1.7-9.3 complet es Fr 013 ed Bld 10:30 Auto Eosinop -01-2 0.5 % 0.1-12. complet hil Fr 013 0 ed Bld 10:30 Auto Basophi 12-19-2 0.3 % 0.1-2.0 complet ls Fr 013 ed Bld 10:30 Auto Granulo 12-19-2 9.9 1.8-7.8 complet cytes # 013 K/mm3 ed Bld 10:30 Auto Lymphoc --2 1.2 0.7-4.5 complet ytes Fr 013 K/mm3 ed Bld 10:30 Auto Monocyt -01-2 0.7 0.1-1.0 complet es # 013 K/mm3 ed Bld 10:30 Auto Eosinop -01-2 0.1 0.0-0.4 complet hil # 013 K/mm3 ed Bld 10:30 Auto Basophi 09-01-2 0.0 0-0.2 complet ls # 013 K/MM3 ed Bld 10:30 Auto BASIC METABOLIC PANEL (12-18-2012 10:05) Glucose 181 74-106 complet 013 mg/dL ed Bld-mCn 10:05 c BUN 8 mg/dL 7-18 complet Bld-mCn 013 ed c 10:05 Creat 12-18- 0.8 0.6-1.0 complet SerPl-m 013 mg/dL ed [...] SerPl-c 06:15 Cnc LIPASE (12-15-2012 06:15) LIPASE 284 U/L 73-393 complet 013 ed 06:15 CBC with AUTO DIFF (12-15-2012 06:15) WBC # 08-2 6.9 4.8-10. complet Bld 013 K/MM3 8 ed Auto 06:15 RBC # 12-15-2 3.75 4.2-5.4 complet Bld 013 M/mm3 ed Auto 06:15 Hgb 2 10.2 12.2-16 complet Bld-mCn 013 g/dL .2 ed c 06:15 Hct Fr 2 33.4 % 37.0-47 complet Bld 013 .0 ed 06:15 MCV RBC 89.0 fl 82.2-97 complet 013 .8 ed 06:15 MCH RBC 27.1 pg 27-31.2 complet Qn 013 ed Auto 06:15 MEAN 30.4 31.8-35 complet CORPUSC 013 g/dl .4 ed ULAR 06:15 HGB CONC RDW RBC 2 16.7 % 11.5-17 complet Auto 013 .5 ed 06:15 Platele 12-15-2 389 142-424 complet t Bld 013 K/mm3 ed Ql 06:15 Manual MEAN 7.2 fl 7.4-10. complet PLATELE 013 4 ed T 06:15 VOLUME Granulo 2 72.5 % 37.0-80 complet cytes 013 .0 [...] SerPl-m 013 gm/dL ed Cnc 14:25 Albumin 12-14- 3.4 3.4-5.0 complet 013 gm/dL ed SerPl-m 14:25 Cnc GLOBULI 2 4.4 1.3-3.2 complet N 013 gm/dL ed 14:25 ALB/UMESH 0.8 UNK 1.1-1.8 complet B RATIO 013 ed 14:25 Bilirub 2 0.5 0.2-1.0 complet 013 mg/dL ed SerPl-m 14:25 Cnc AST 08-27-2 65 U/L 15-37 complet SerPl-c 013 ed [...] complet Auto 013 .5 ed 14:25 Platele --2 699 142-424 complet t Bld 013 K/mm3 ed Ql 14:25 Manual MEAN 12-14-2 7.6 fl 7.4-10. complet PLATELE 013 4 ed T 14:25 VOLUME Granulo 12-14-2 77.1 % 37.0-80 complet cytes 013 .0 ed Fr Bld 14:25 Auto LYMPH % 12-14-2 14.4 % 10-50.0 complet 013 ed 14:25 Monocyt 0827-2 6.6 % 1.7-9.3 complet es Fr 013 [...] 013 K/mm3 ed Bld 14:25 Auto Basophi 0827-2 0.0 0-0.2 complet ls # 013 K/MM3 ed Bld 14:25 Auto Glucose BldC Glucomtr-mCnc (11-23-2012 12:25) Glucose 2 189 70-110 complet BldC 013 mg/dl ed [...] SerPl-m 013 mg/dL ed Cnc 08:40 ESTIMAT 0806-2 65 50-200 complet ED 013 ML/MIN ed CREATIN 08:40 INE CLEARAN CE GFR 11-23-2 75 59- complet (ESTIMA 013 ML/MIN ed [...] 013 mg/dL ed SerPl-m 08:40 Cnc Magnesium SerPl-mCnc (11-23-2012 08:40) Magnesi 1.8 1.4-2.2 complet um 013 mg/dL ed SerPl-m 08:40 Cnc Glucose BldC Glucomtr-[facility] (11-23-2012 06:32) Glucose 257 70-110 complet BldC 013 mg/dl ed Glucomt 06:32 r-mCnc Glucose BldC Glucomtr-[facility] (11-22-2012 17:02) Glucose 380 70-110 High [...] 013 mmoL/L ed SerPl-s 05:40 Cnc CO2 33 21.0-32 complet SerPl-s 013 mmoL/L .0 ed Cnc 05:40 Calcium 9.0 8.5-10. complet 013 mg/dL 1 ed SerPl-m 05:40 Cnc Prot 5.9 6.4-8.2 complet SerPl-m 013 gm/dL ed Cnc 05:40 Albumin 2.8 3.4-5.0 complet 013 gm/dL ed SerPl-m 05:40 Cnc Globuli 3.1 1.3-3.2 complet n 013 gm/dL ed Ser-mCn 05:40 c Albumin 0.9 UNK 1.1-1.8 complet /Glob 013 ed SerPl-m 05:40 Rto Bilirub 0.4 0.2-1.0 complet 013 mg/dL ed SerPl-m [...] mg/dL ed SerPl-m 05:40 Cnc Glucose BldC [facility]comtr[facility] (11-21-2012 20:40) Glucose 245 70-110 complet BldC 013 mg/dl ed Glucomt 20:40 r-[facility] Glucose BldC [facility]tr[facility] (11-21-2012 18:51) Glucose 451 70-110 High complet BldC 013 mg/dl alert ed Glucomt 18:51 r-[facility] Glucose Bld-nc (11-21-2012 16:30) Glucose 458 74-106 complet 013 mg/dL ed Bld-mCn 16:30 c Glucose BldC [facility]tr[facility] (11-21-2012 11:25) Glucose 187 70-110 complet BldC 013 mg/dl ed Glucomt 11:25 r-[facility] BASIC METABOLIC PANEL (11-21-2012 06:30) Glucose [...] mg/dL 1 ed SerPl-m 06:30 Cnc Phosphate SerPl-[facility] (11-21-2012 06:30) Phospha 3.1 2.4-4.9 complet [...] alert ed Glucomt 11:21 r-mCnc Glucose BldC Glucomtr-nc (11-20-2012 06:42) Glucose 203 70-110 complet BldC [...] 013 mmoL/L ed SerPl-s 06:20 Cnc CO2 2 24 21.0-32 complet SerPl-s 013 mmoL/L .0 ed Cnc 06:20 Calcium 11-20-2 9.4 8.5-10. complet 013 mg/dL 1 ed SerPl-m 06:20 Cnc Phosphate SerPl-mCnc (11-20-2012 06:20) Phospha 11-20-2 3.2 2.4-4.9 complet te 013 mg/dL ed SerPl-m 06:20 Cnc Magnesium SerPl-mCnc (11-20-2012 06:20) Magnesi 11-20-2 2.0 1.4-2.2 complet um 013 mg/dL ed SerPl-m 06:20 Cnc CBC with AUTO DIFF (11-20-2012 06:20) WBC # 08-03-2 10.6 4.8-10. complet Bld 013 K/MM3 8 ed Auto 06:20 RBC # 0803-2 3.83 4.2-5.4 complet Bld 013 M/mm3 ed Auto 06:20 Hgb 11-20-2 11.2 12.2-16 complet Bld-mCn 013 g/dL .2 ed c 06:20 Hct Fr 35.6 % 37.0-47 complet Bld 013 .0 ed 06:20 MCV RBC 11-20- 92.9 fl 82.2-97 complet 013 .8 ed 06:20 MCH RBC 11-20-2 29.1 pg 27-31.2 complet Qn 013 ed Auto 06:20 MEAN 2 31.4 31.8-35 complet CORPUSC 013 g/dl .4 ed ULAR 06:20 HGB CONC RDW RBC 11-20-2 15.6 % 11.5-17 complet Auto 013 .5 ed 06:20 Platele 11-20-2 244 142-424 complet t Bld 013 K/mm3 ed Ql 06:20 Manual MEAN 2 9.3 fl 7.4-10. complet PLATELE 013 4 [...] K/MM3 ed Bld 06:20 Auto Glucose BldC Glucomtr[facility] (11-19-2012 16:17) Glucose 0802-2 268 70-110 complet BldC 013 mg/dl [facility] (11-19-2012 11:34) Glucose 0802-2 260 70-110 complet BldC 013 mg/dl ed Glucomt 11:34 r-[facility] Glucose BldC [facility]comtr[facility] (11-19-2012 06:27) Glucose 0802-2 245 70-110 complet BldC 013 mg/dl ed Glucomt 06:27 r-[facility] BASIC METABOLIC PANEL (11-19-2012 05:00) Glucose 08-02-2 197 74-106 complet 013 mg/dL ed Bld-mCn 05:00 c BUN 0802-2 12 7-18 complet Bld-mCn 013 mg/dL ed c 05:00 Creat 11-19-2 0.7 0.6-1.0 complet SerPl-m 013 mg/dL ed Cnc 05:00 ESTIMAT 08-02-2 64 50-200 complet ED 013 ML/MIN ed [...] 16:50 COMPREHENSIVE METABOLIC PANEL (11-18-2012 04:35) Glucose 11-18- 179 74-106 complet 013 mg/dL ed Bld-mCn 04:35 c BUN 12 7-18 complet Bld-mCn 013 mg/dL ed c 04:35 Creat 2 0.9 0.6-1.0 complet SerPl-m 013 mg/dL ed [...] complet N 013 gm/dL ed 04:35 ALB/UMESH 2 0.8 UNK 1.1-1.8 complet B RATIO 013 ed 04:35 Bilirub 11-18-2 0.7 0.2-1.0 complet 013 mg/dL ed SerPl-m 04:35 Cnc AST 13 U/L 15-37 complet SerPl-c 013 ed Cnc 04:35 ALT 11-18- 31 U/L 30-65 complet SerPl-c 013 ed Cnc 04:35 ALP 11-18-2 258 U/L 50-136 complet SerPl-c 013 ed Cnc 04:35 Amylase SerPl-cCnc (11-18-2012 04:35) Amylase 39 U/L 25-115 complet 013 ed SerPl-c 04:35 Cnc LIPASE (11-18-2012 04:35) LIPASE 219 U/L 73-393 complet 013 ed 04:35 CBC with AUTO DIFF (11-18-2012 04:35) WBC # 08--2 11.0 4.8-10. complet Bld 013 K/MM3 8 ed Auto 04:35 RBC # 11-18-2 3.78 4.2-5.4 complet Bld 013 M/mm3 ed Auto 04:35 Hgb 10.8 12.2-16 complet Bld-mCn 013 g/dL .2 ed c 04:35 Hct Fr 35.2 % 37.0-47 complet Bld 013 .0 ed 04:35 MCV RBC 93.0 fl 82.2-97 complet 013 .8 ed 04:35 MCH RBC 28.5 pg 27-31.2 complet Qn 013 ed Auto 04:35 MEAN 30.6 31.8-35 complet CORPUSC 013 g/dl .4 ed ULAR 04:35 HGB CONC RDW RBC 15.7 % 11.5-17 complet Auto 013 .5 ed 04:35 Platele 11-18- 230 142-424 complet t Bld 013 K/mm3 ed Ql 04:35 Manual MEAN 7.5 fl 7.4-10. complet PLATELE 013 4 ed T 04:35 VOLUME Granulo 92.2 % 37.0-80 complet cytes 013 .0 [...] 013 mg/dL ed SerPl-m 09:50 Cnc AST 31-2 25 U/L 15-37 complet SerPl-c 013 ed Cnc 09:50 ALT 11-17-2 38 U/L 30-65 complet SerPl-c 013 ed Cnc 09:50 ALP 07-31-2 494 U/L 50-136 complet SerPl-c 013 ed Cnc 09:50 TROPONIN I (11-17-2012 09:50) TROPONI -31-2 Less 0.00-0. complet N I 013 than 06 ed 09:50 0.02 ng/mL D Dimer PPP (11-17-2012 09:50) D Dimer 11-17-2 391 0-400 complet PPP 013 ng/mL ed 09:50 CBC with AUTO DIFF (11-17-2012 09:50) WBC # 07-31-2 22.9 4.8-10. High complet Bld 013 K/MM3 8 alert ed Auto 09:50 RBC # -31-2 4.82 4.2-5.4 complet Bld 013 M/mm3 ed Auto 09:50 Hgb -31-2 13.6 12.2-16 complet Bld-mCn 013 g/dL .2 ed c 09:50 Hct Fr 11-17-2 44.0 % 37.0-47 complet Bld 013 .0 ed 09:50 MCV RBC 31-2 91.4 fl 82.2-97 complet 013 .8 ed 09:50 MCH RBC 31-2 28.3 pg 27-31.2 complet Qn 013 ed Auto 09:50 MEAN 31-2 30.9 31.8-35 complet CORPUSC 013 g/dl .4 ed ULAR 09:50 HGB CONC RDW RBC 31-2 15.9 % 11.5-17 complet Auto 013 .5 ed 09:50 Platele -31-2 519 142-424 complet t Bld 013 K/mm3 ed Ql 09:50 Manual MEAN 31-2 7.6 fl 7.4-10. complet PLATELE 013 4 ed T 09:50 VOLUME Granulo 31-2 88.2 % 37.0-80 complet cytes 013 .0 ed Fr Bld 09:50 Auto LYMPH % -31-2 6.6 % 10-50.0 complet 013 ed 09:50 Monocyt 07-31-2 4.7 % 1.7-9.3 complet es Fr 013 ed Bld 09:50 Auto Eosinop 07-31-2 0.3 % 0.1-12. complet hil Fr 013 0 ed Bld 09:50 Auto Basophi 31-2 0.3 % 0.1-2.0 complet ls Fr 013 ed Bld 09:50 Auto Granulo --2 20.2 1.8-7.8 complet cytes # 013 K/mm3 [...] 013 gm/dL ed SerPl-m 08:05 Cnc Globuli 10-2 3.7 1.3-3.2 complet n 013 gm/dL ed Ser-mCn 08:05 c Albumin 10-2 0.8 UNK 1.1-1.8 complet /Glob 013 ed SerPl-m 08:05 Rto Bilirub 10-2 0.5 0.2-1.0 complet 013 mg/dL ed SerPl-m 08:05 Cnc AST 10-2 6 U/L 15-37 complet SerPl-c 013 ed Cnc 08:05 ALT 10-2 24 U/L 30-65 complet SerPl-c 013 ed Cnc 08:05 ALP 10-27-2 319 U/L 50-136 complet SerPl-c 013 ed Cnc 08:05 Amylase SerPl-cCnc (10-27-2012 08:05) Amylase 10-2 32 U/L 25-115 complet 013 ed SerPl-c 08:05 Cnc LIPASE (10-27-2012 08:05) LIPASE 10-2 87 U/L 73-393 complet 013 ed 08:05 CBC with AUTO DIFF (10-27-2012 08:05) WBC # -10-2 8.7 4.8-10. complet Bld 013 K/MM3 8 ed Auto 08:05 RBC # 10-2 3.61 4.2-5.4 complet Bld 013 M/mm3 ed Auto 08:05 Hgb 10-2 10.7 12.2-16 complet Bld-mCn 013 g/dL .2 ed c 08:05 Hct Fr 10-2 33.5 % 37.0-47 complet Bld 013 .0 ed 08:05 MCV RBC 10-2 92.7 fl 82.2-97 complet 013 .8 ed 08:05 MCH RBC 10-2 29.6 pg 27-31.2 complet Qn 013 ed [...] SerPl-s 013 mmoL/L ed Cnc 06:15 Potassi 3.7 3.5-5.1 complet um 013 mmoL/L ed SerPl-s 06:15 Cnc Chlorid 105 98-107 complet e 013 mmoL/L ed SerPl-s 06:15 Cnc CO2 28 21.0-32 complet SerPl-s 013 mmoL/L .0 ed Cnc 06:15 Calcium 8.1 8.5-10. complet 013 mg/dL 1 ed SerPl-m 06:15 Cnc Prot 5.2 6.4-8.2 complet SerPl-m 013 gm/dL ed Cnc 06:15 Albumin 2.5 3.4-5.0 complet 013 gm/dL ed SerPl-m 06:15 Cnc Globuli 2.7 1.3-3.2 complet n 013 gm/dL ed Ser-mCn 06:15 c Albumin 0.9 UNK 1.1-1.8 complet /Glob 013 ed SerPl-m 06:15 Rto Bilirub 0.5 0.2-1.0 complet 013 mg/dL ed SerPl-m 06:15 Cnc AST 17 U/L 15-37 complet SerPl-c 013 ed Cnc 06:15 ALT 30 U/L 30-65 complet SerPl-c 013 ed Cnc 06:15 ALP 276 U/L 50-136 complet SerPl-c 013 ed Cnc 06:15 Amylase SerPl-cCnc (10-09-2012 06:15) Amylase 66 U/L 25-115 complet 013 ed SerPl-c 06:15 Cnc LIPASE (10-09-2012 06:15) LIPASE 232 U/L 73-393 complet 013 ed 06:15 CBC with AUTO DIFF (10-09-2012 06:15) WBC # 06-22-2 5.3 4.8-10. complet Bld 013 K/MM3 8 ed Auto 06:15 RBC # 0622-2 3.76 4.2-5.4 complet Bld 013 M/mm3 ed Auto 06:15 Hgb 22-2 11.7 12.2-16 complet Bld-mCn 013 g/dL .2 ed c 06:15 Hct Fr 10-09-2 37.0 % 37.0-47 complet Bld 013 .0 ed 06:15 MCV RBC 10-09-2 98.4 fl 82.2-97 complet 013 .8 ed 06:15 MCH RBC 10-09-2 31.1 pg 27-31.2 complet Qn 013 ed Auto 06:15 MEAN 10-09-2 31.6 31.8-35 complet CORPUSC 013 g/dl .4 ed ULAR 06:15 HGB CONC RDW RBC 10-09-2 15.1 % 11.5-17 complet Auto 013 .5 ed 06:15 Platele 10-09-2 321 142-424 complet t Bld 013 K/mm3 ed Ql 06:15 Manual MEAN 10-09-2 7.1 fl 7.4-10. complet PLATELE 013 4 ed T 06:15 VOLUME Granulo 10-09-2 67.9 % 37.0-80 complet cytes 013 .0 ed Fr Bld 06:15 Auto LYMPH % 10-09-2 22.0 % 10-50.0 complet 013 ed 06:15 Monocyt 22-2 6.2 % 1.7-9.3 complet es Fr 013 ed Bld 06:15 Auto Eosinop 22-2 3.3 % 0.1-12. complet hil Fr 013 0 ed Bld 06:15 Auto Basophi 22-2 0.5 % 0.1-2.0 complet ls Fr 013 ed Bld 06:15 Auto Granulo 06-22-2 3.6 1.8-7.8 complet cytes # 013 K/mm3 ed Bld 06:15 Auto Lymphoc -22-2 1.2 0.7-4.5 complet ytes Fr 013 K/mm3 ed Bld 06:15 Auto Monocyt -22-2 0.3 0.1-1.0 complet es # 013 K/mm3 ed Bld 06:15 Auto Eosinop 06-22-2 0.2 0.0-0.4 complet hil # 013 K/mm3 [...] 013 mg/dL ed SerPl-m 08:57 Cnc AST 06-20-2 12 U/L 15-37 complet SerPl-c 013 ed [...] complet SerPl-c 013 ed Cnc 14:00 ALT 10-06- 30 U/L 30-65 complet SerPl-c 013 ed Cnc 14:00 ALP 10-06- 487 U/L 50-136 complet SerPl-c 013 ed [...] Bld 013 .0 ed 14:00 MCV RBC 10-06- 97.0 fl 82.2-97 complet 013 .8 ed [...] ed Fr Bld 14:00 Auto LYMPH % -19-2 17.3 % 10-50.0 complet 013 ed 14:00 Monocyt -19-2 5.4 % 1.7-9.3 complet es Fr 013 [...] 013 K/mm3 ed Bld 14:00 Auto Monocyt -19-2 0.7 0.1-1.0 complet es # 013 K/mm3 ed Bld 14:00 Auto Eosinop -19-2 0.1 0.0-0.4 complet hil # 013 K/mm3 ed Bld 14:00 Auto Basophi -19-2 0.1 0-0.2 complet ls # 013 K/MM3 ed Bld 14:00 Auto COMPREHENSIVE METABOLIC PANEL (09-08-2012 06:30) Glucose 105 74-106 complet 013 mg/dL ed Bld-mCn 06:30 c BUN 09-08- 10 7-18 complet Bld-mCn 013 mg/dL ed [...] 013 mmoL/L ed SerPl-s 06:30 Cnc Chlorid 09-08-2 102 98-107 complet e 013 mmoL/L ed SerPl-s 06:30 Cnc CO2 09-08-2 30 21.0-32 complet SerPl-s 013 mmoL/L .0 ed Cnc 06:30 Calcium 05-22-2 8.3 8.5-10. complet 013 mg/dL 1 ed SerPl-m 06:30 Cnc Prot -22-2 5.8 6.4-8.2 complet SerPl-m 013 gm/dL ed Cnc 06:30 Albumin -22-2 2.3 3.4-5.0 complet 013 gm/dL ed SerPl-m 06:30 Cnc Globuli 09-08-2 3.5 1.3-3.2 complet n 013 gm/dL ed Ser-mCn 06:30 c Albumin 09-08-2 0.7 UNK 1.1-1.8 complet /Glob 013 ed SerPl-m 06:30 Rto Bilirub 09-08-2 0.3 0.2-1.0 complet 013 mg/dL ed SerPl-m 06:30 Cnc AST 09-08-2 24 U/L 15-37 complet SerPl-c 013 ed Cnc 06:30 ALT 09-08-2 32 U/L 30-65 complet SerPl-c 013 ed Cnc 06:30 ALP 09-08-2 382 U/L 50-136 complet SerPl-c 013 ed Cnc 06:30 Amylase SerPl-cCnc (09-08-2012 06:30) Amylase 22-2 77 U/L 25-115 complet 013 ed SerPl-c [...] complet Qn 013 ed Auto 06:30 MEAN 05-22-2 30.8 31.8-35 complet CORPUSC 013 g/dl .4 ed ULAR 06:30 HGB CONC RDW RBC 09-08-2 15.5 % 11.5-17 complet Auto 013 .5 ed 06:30 Platele -22-2 287 142-424 complet t Bld 013 K/mm3 ed Ql 06:30 Manual MEAN 09-08-2 7.9 fl 7.4-10. complet PLATELE 013 4 ed T 06:30 VOLUME Granulo -22-2 74.8 % 37.0-80 complet cytes 013 .0 [...] 013 mg/dL ed Bld-mCn 06:30 c BUN 09-07- 10 7-18 complet Bld-mCn 013 mg/dL ed c 06:30 Creat 09-07-2 0.7 0.6-1.0 complet SerPl-m 013 mg/dL ed Cnc 06:30 ESTIMAT 09-07- 65 50-200 complet ED 013 ML/MIN ed [...] 013 mmoL/L .0 ed Cnc 06:30 Calcium 8.6 8.5-10. complet 013 mg/dL 1 ed SerPl-m 06:30 Cnc Prot 09-07- 5.7 6.4-8.2 complet SerPl-m 013 gm/dL ed Cnc 06:30 Albumin 09-07- 2.5 3.4-5.0 complet 013 gm/dL ed SerPl-m 06:30 Cnc GLOBULI 3.2 1.3-3.2 complet N 013 gm/dL ed 06:30 ALB/UMESH 0.8 UNK 1.1-1.8 complet B RATIO 013 ed 06:30 Bilirub 09-07-2 0.4 0.2-1.0 complet 013 mg/dL ed SerPl-m 06:30 Cnc AST 09-07- 29 U/L 15-37 complet SerPl-c 013 ed Cnc 06:30 ALT 09-07- 34 U/L 30-65 complet SerPl-c 013 ed Cnc 06:30 ALP 09-07- 545 U/L 50-136 complet SerPl-c 013 ed Cnc 06:30 Amylase SerPl-cCnc (09-07-2012 06:30) Amylase 104 U/L 25-115 complet 013 ed SerPl-c [...] (ESTIMA 013 ML/MIN ed YENNY) 16:09 Sodium 09-06- 138 136-145 complet SerPl-s 013 mmoL/L ed [...] Ewelina ENDOTRACH Kyree EAL TUBE LEFT 37.22 Patriazar HEART Abhijeet CARDIAC CATH LT HEART 88.53 Nezar ANGIOCARD Abhijeet IOGRAM CORONAR 88.55 Princess ARTERIOGR Falluji -1 CATH MD Encounters Encounter Start End Date Code Location Performer Type Date Inpatient HIEU Adorno MD (IN) 4 14:24 4 13:40 [facility] Inpatient HIEU Adorno MD ([place]) 4 21:31 4 13:50 [facility] Inpatient IMP (IN) 3 11:20 3 12:10 Inpatient HIEU Adorno MD (IN) 3 13:50 3 10:47 [facility] Inpatient HIEU Adorno MD (IN) 3 14:01 3 13:20 [facility] Inpatient HIEU Adorno MD (IN) 3 10:17 3 13:49 [facility] LorenaMiguelinaAlphonse Emergency ROSMERY Betancur (ER) 3 07:49 3 10:20 [facility] Inpatient HIEU Adorno MD ([place]) 3 13:46 3 12:00 [facility] GonzaloAlphonse Inpatient HIEU Adorno MD ([place]) 3 15:17 [facility]
--- OUTSIDE RECORDS SUMMARY | 2017-01-23 22:34 | External Medical Summary Rpt ---
Author Author , DAGOBERTO ARENAS Address Unknown Phone [email or web address] Team Providers Care Radioisotope Technician Name Role Phone Charlene PHIPPS, Unavailable Unavailable Charlene Adorno MD, Unavailable Unavailable Ewelina Juárez APRN, Unavailable Unavailable Rosanne Jha MD, Unavailable Unavailable Princess Jha MD Purpose Continuity of Care Document - 09-06-2012 through 2016 Problems Code Diagnosis DOS Provider Status [id number] Acute 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 [facility] 787.01 Nausea and [place] vomiting [facility] 787.91 Diarrhea [facility] [id number] [facility] Allergies, Adverse Reactions, Alerts Type Allergy to [...] SI 73 -2 NO 90 0- Lo IN 34 20 ng IL 91 14 er [...] SI 73 -1 NO 90 9- Lo IN 35 20 ng IL 01 14 er [...] SI 73 -1 NO 90 8- Lo IN 35 20 ng IL 01 14 er [...] 00 01 0 No SO 18 -0 IN 50 6- Lo OL 77 20 ng [...] SI 73 -0 NO 90 6- Lo IN 35 20 ng IL 01 14 er [...] LA ve TE 10 MG TA B IN 00 12 0 No ED 05 -3 [...] SI 73 -2 NO 90 7- Lo IN 35 20 ng IL 01 13 er [...] 00 12 4 No SO 18 -2 IN 50 6- Lo OL 77 20 ng [...] SI 73 -2 NO 90 5- Lo IN 35 20 ng IL 01 13 er 0 20 Ac ti MG ve TA BL ET Sa 63 12 1 No li 80 -2 ne 70 5- Lo 10 20 ng Fl 07 13 er us 5 h Ac 10 ti ML ve Sy ri ng e DI 63 12 1 No IN 32 -2 IV 30 4- Lo AN [...] 12 Ac 5 ti MG ve AL WI 00 12 0 No DA 40 -2 [...] 51 12 2 No TO 07 -2 IN 90 4- Lo OL 25 20 ng OL 52 13 er 0 TA Ac RT ti RA ve TE 25 MG TA B CL 00 12 0 No ON 90 -2 ID 45 4- Lo IN 65 20 ng E 66 13 er HC 1 L Ac 0. ti 1 ve MG TA BL ET TA 00 12 1 No WI 00 -2 FL 40 3- Lo U 80 20 ng 75 08 13 er 5 MG Ac ti CA ve PS UL E IN 00 12 1 No ED 05 -2 [...] ER ve 15 MG TA BL ET IN 00 09 1 No ED 05 -2 [...] ve 0. 9% SO TYREL TI ON IN 00 09 3 No ED 05 -1 [...] SI 73 -1 NO 90 9- Lo IN 35 20 ng IL 01 13 er [...] NG E TO 00 08 2 No IN 18 -3 OL 61 1- Lo 08 [...] SI 73 -2 NO 90 9- Lo IN 35 20 ng IL 01 13 er 0 20 Ac ti MG ve TA BL ET IN 00 08 4 No ED 05 -2 [...] ve /M L CA RP UJ CT IN 00 08 0 No ED 05 -2 NI 40 8- Lo SO 01 20 ng NE 82 13 er 0 20 Ac ti MG ve TA BL ET AN 00 08 5 No 22 -2 PA 50 8- Lo Z 29 20 ng 0. 51 13 er 12 5 5 Ac MG ti ve TA BL ET OD T IN 00 08 6 No OT 00 -2 [...] ve /M L CA RP UJ CT IN 00 08 6 No OM 64 -2 [...] SI 73 -0 NO 90 4- Lo IN 35 20 ng IL 01 13 er [...] 00 08 0 No TA 59 -0 IN 70 3- Lo ES 03 20 ng [...] 00 08 1 No TA 40 -0 WI 99 1- Lo N 15 20 ng [...] Ml ti ve Sy ri ng e IN 00 07 6 No OM 64 -3 [...] ve 0. 9% SO TYREL TI ON IN 00 07 0 No OM 64 -1 [...] Ml ti ve Sy ri ng e IN 00 06 3 No ED 05 -2 [...] ve 0. 9% SO TYREL TI ON IN 00 06 0 No OM 64 -1 [...] ve ET TO 00 05 1 No IN 18 -2 OL 61 1- Lo 09 [...] ti ve 0. 45 % SO LN IN 00 05 2 No ED 05 -2 [...] ed Glucomt 20:03 r-nc Glucose BldC Glucomtr-[facility] (06-08-2013 16:40) Glucose 363 70-110 High complet BldC 014 mg/dl alert ed Glucomt 16:40 r-nc Glucose BldC Glucomtr-nc (06-08-2013 11:33) Glucose 326 70-110 High complet BldC 014 mg/dl alert ed Glucomt 11:33 r-nc Glucose BldC Glucomtr-nc (06-08-2013 06:25) Glucose 202 70-110 complet BldC 014 mg/dl ed Glucomt 06:25 r-[facility] BASIC METABOLIC PANEL (06-08-2013 06:15) Glucose 203 [...] A1C 014 ed 06:15 Glucose BldC Glucomtr-[facility] (06-07-2013 21:00) Glucose 06-07-2 447 70-110 High complet BldC 014 mg/dl alert ed Glucomt 21:00 [facility] Glucose BldC Glucomtr-nc (06-07-2013 16:49) Glucose 18-2 336 70-110 High complet BldC 014 mg/dl alert ed Glucomt 16:49 [facility] COMPREHENSIVE METABOLIC PANEL (06-07-2013 16:00) Glucose [...] ed SerPl-m 08:40 Cnc Glucose BldC Glucomtr-[facility] (11-23-2012 06:32) Glucose 257 70-110 complet BldC 013 mg/dl ed Glucomt 06:32 r-mCnc Glucose BldC Glucomtr-[facility] (11-22-2012 17:02) Glucose 380 70-110 High complet [...] ed SerPl-m 05:40 Cnc Glucose BldC Glucomtr-[facility] (11-21-2012 20:40) Glucose 245 70-110 complet BldC 013 mg/dl ed Glucomt 20:40 r-[facility] Glucose BldC Glucomtr-[facility] (11-21-2012 18:51) Glucose 451 70-110 High complet BldC 013 mg/dl alert ed Glucomt 18:51 r-[facility] Glucose Bld-nc (11-21-2012 16:30) Glucose 458 74-106 complet 013 mg/dL ed Bld-mCn 16:30 c Glucose BldC Glucomtr-[facility] (11-21-2012 11:25) Glucose 187 70-110 complet BldC 013 mg/dl ed Glucomt 11:25 r-[facility] BASIC METABOLIC PANEL (11-21-2012 06:30) Glucose 202 [...] 1 ed SerPl-m 06:30 Cnc Phosphate SerPl-[facility] (11-21-2012 06:30) Phospha 3.1 2.4-4.9 complet te [...] ed Bld 06:20 Auto Glucose BldC Glucomtr-[facility] (11-19-2012 16:17) Glucose 0802-2 268 70-110 complet BldC 013 mg/[facility] (11-19-2012 11:34) Glucose 0802-2 260 70-110 complet BldC 013 mg/dl ed Glucomt 11:34 r-[facility] Glucose BldC Glucomtr-[facility] (11-19-2012 06:27) Glucose 0802-2 245 70-110 complet BldC 013 mg/dl ed Glucomt 06:27 r-[facility] BASIC METABOLIC PANEL (11-19-2012 05:00) Glucose 08-02-2 [...] Adorno MD (IN) 4 14:24 4 13:40 [facility] Inpatient HIEU Adorno MD (IN) 4 21:31 4 13:50 [facility] Inpatient IMP (IN) 3 11:20 3 12:10 Inpatient HIEU Adorno MD (IN) 3 13:50 3 10:47 [facility] Inpatient HIEU Adorno MD (IN) 3 14:01 3 13:20 [facility] Inpatient HIEU Adorno MD (IN) 3 10:17 3 13:49 [facility] ROSMERY Betancur (ER) 3 07:49 3 10:20 [facility] Inpatient HIEU Adorno MD (IN) 3 13:46 3 12:00 [facility] GonzaloAlphonse Inpatient HIEU Adorno MD (IN) 3 15:17 3 09:50 [facility]
--- OUTSIDE RECORDS SUMMARY | 2017-01-23 22:39 | External Medical Summary Rpt ---
Author Author , CHRIS ARENAS Address Unknown Phone [email or web address] Immunization Name Date Rout CVX Reac Dose [...]
--- OUTSIDE RECORDS SUMMARY | 2017-01-23 22:39 | External Medical Summary Rpt ---
Author Author , CHRIS ARENAS Address Unknown Phone [email or web address] Immunization Name Date Rout CVX Reac Dose [...]
--- OUTSIDE RECORDS SUMMARY | 2017-01-23 22:41 | External Medical Summary Rpt ---
[...] in tion in tion in 8:10 PM arseino source source source [Presen data data data [...]
== END 2016-12-21 13:30 | disposition home or self-care (01) ==
LOC: ER 16:55 → 2ND 20:16
PROVIDERS: Emergency Medicine; Family Medicine
PROC: 0DB68ZX Excision of Stomach, Via Natural or Artificial Opening Endoscopic, Diagnostic (ICD-10-PCS; principal; 2016-12-19)
DX: K92.0 Hematemesis (principal); K27.9 Peptic ulcer, site unspecified, unspecified as acute or chronic, without hemorrhage or perforation; J44.9 Chronic obstructive pulmonary disease, unspecified; E11.9 Type 2 diabetes mellitus without complications; I10 Essential (primary) hypertension; K56.7 Ileus, unspecified; R06.00 Dyspnea, unspecified

== ENCOUNTER 2016-12-29 16:15 | Observation (INO) | payer MEDICARE ==
[~2016-12-29] VITALS: Ht 160 cm; Wt 37.6 kg
[~2016-12-29 16:15] MED LIST: ABILIFY10 MG PO; AEROSOL THERAPY1 DEV XX; ALBUTEROL SULF0.5 ML IH; ALBUTEROL2.5 MG/NEB IN; ALBUTEROL2.5 MG/NEB INH; ALDACTONE100 MG PO; ALDACTONE25 MG PO; AMLODIPINE10 MG PO; ANASPAZ0.125 M1 PO; ASPIRIN EC81 MG PO; ASPIRIN LOW DOS81 MG PO; AUGMENTIN XR 101 TER PO; BENICAR20 MG PO; BENZONATATE200 MG PO; BISOPROLOL 5MG T5 MG PO; CARAFATE1 GM PO; CARDIZEM CD120 MG PO; CARTIA XT240 MG PO; CARVEDILOL6.25 MG PO; CATAPRES GENER0.1 MG PO; CATAPRES0.2 MG PO; CEFDINIR300 M1 PO; CENTRUM SILVER1 TAB PO; CHRONULAC 30ML30 ML PO; CIPROFLOXACIN500 MG PO; CLONIDINE HYDR0.1 MG PO; CLONIDINE PO; CORGARD 40MG TA40 MG PO; CREON 120000 U-1 ECC PO; CREON PO; CREON1 EC1 PO; Ciprofloxacin250 MG OR; DAILY MULTIPLE1 T11 PO; DE-CHLOR DM 47473 ML PO; DIAZEPAM2 MG PO; DUONEB 3 MG/3 ML3 ML IH; DURAGESIC 50MC50 MCG TD; ELIQUIS2.5 MG PO; ELIQUIS5 MG PO; ESTRADIOL0.5 MG PO; FAMOTIDINE 20MG20 MG PO; FOLIC ACID 1MG T1 MG PO; FUROSEMIDE 20MG20 MG PO; HYOSCYAMINE0.125 M1 PO; HYOSCYAMINE0.125 M3 PO; HYOSCYAMINE0.125 MG PO; IBU400 MG PO; IMDUR30 MG PO; INSULIN GL100 UNITS/ SC; KEFLEX 500MG.500 MG PO; KLONOPIN 0.5MG0.5 MG NG; KLONOPIN 0.5MG0.5 MG PO; KLOR-CON 1010 ME1 PO; LANTUS INS100 UNITS/ SC; LASIX20 MG PO; LASIX40 MG PO; LEVALBUTER1.25 MG/2 IN; LEVAQUIN 750 M750 MG PO; LEVSIN-SL0.125 MG SL; LISINOPRIL 20MG20 MG PO; LISINOPRIL 5MG T5 MG PO; LORATADINE 10MG10 M1 PO; LORAZEPAM0.5 MG/TAB PO; LORTAB 5/500 501 TAB PO; MAG-OX 400MG T400 MG PO; MEDROL 4MG. DOSE4 MG PO; METOPROLOL SUCC50 M1 PO; MIRALAX17 GM/DOSE PO; MORPHINE SULFAT PO; MORPHINE SULFAT15 M3 PO; MULTI VITAMINS1 TAB PO; NADOLOL40 MG PO; NORVASC 10MG. T10 MG PO; NYSTATIN SUSPEN60 ML PO; OCTREOTIDE ACETATE SC; OMEPRAZOLE D/R20 MG PO; OMEPRAZOLE40 MG PO; OMNICEF 300 MG300 MG PO; ONDANSETRON4 MG PO; OXY IR5 MG PO; OXYCODONE5 MG PO; Oxycodone5 MG NG; Oxycodone5 MG PO; PAROXETINE20 M1 PO; PHENERGAN 25MG.25 M1 PO; PHENERGAN25 M3 PO; POTASSIUM CHLO10 ME3 PO; PREDNISONE 10MG10 MG PO; PREDNISONE 20MG20 MG PO; PREDNISONE 5MG.5 MG PO; PREDNISONE5 MG PO; PROPRANOLOL10 MG PO; PROVENTIL0.09 MG/A1 IH; SYMBICORT 10.10.2 M1 IH; SYMBICORT1 AER IH; THERAPEUTIC M1 TAB PO; THIAMINE 100MG100 MG PO; TORADOL10 MG PO; ULTRAM 50 MG TA50 MG PO; VENTOLIN H0.09 MG/AC IH; VENTOLIN H0.09 MG/Ac IH; VIVELLE0.1 MG/24 OR; ZITHROMAX Z-PA250 M2 PO; ZOFRAN4 MG PO
[2016-12-29 18:44] VITALS: BP 126/93
--- NOTE | 2016-12-29 19:01 | ACUTE CARE PROGRESS NOTE (QUA) ---
Progress Notes Subjective Date 12/29/16 Time 1858 Note See H&P from office [facility]. Admitted with dehydration, abdominal pain. S/P recent SBO and adhesion release. Objective Findings Last VS-Temp:97.5 B/P:126/93 Pulse:118 Resp:16 SaO2:97 ROOM AIR Last weight lbs:83 oz:0 K.648 Method:Bed Scales Assessment/Plan Patient condition Guarded Plan: See orders. CT This inpt stay is expected to cross 2 MNs from start of care No at 1901
[2016-12-29 20:00] VITALS: BP 118/76
[2016-12-29 20:28] VITALS: BP 118/76
--- NOTE | 2016-12-29 22:58 | RADIOLOGY REPORT PS360 ---
CT ABD PELVIS W/ CONTRAST HISTORY: RLQ PAIN, recent lelease of adhesions, SBO RLQ and mid abdominal pain. Previous recent surgery to remove adhesions.Patient Age: 56 years: Female Ordering Physician: Lorena Adorno MD TECHNIQUE: Helical CT scans abdomen and pelvis following 75 cc Isovue-370. Sagittal coronal reconstructions performed. Oral contrast also utilized. COMPARISON :CT abdomen pelvis 12/18/2016 FINDINGS:. Lung bases Centrilobular emphysematous changes involve the lower chest. Small hiatal hernia. Partially visualized breast implant. Abdomen/pelvis. The free fluid surrounding the liver & minimal ascites has resolved since on 12/07/2016 & decreased on 12/18/2016. Period only scant fluid remains behind stomach. The extensive calcifications at spleen from chronic pancreatitis again noted. Gallbladder remains. Common duct appears normal diameter and head of pancreas. Liver. Cirrhotic changes of liver again suggested. Pineda mildly enlarged. Right lobe Liver measures nearly 18 cm maximum length extending into upright pelvis, similar in size to previous studies. Kidneys enhance normally bilaterally. Left adrenal is generous but within normal limits. No significant nodule or mass. Kidneys unremarkable. There is no bowel obstruction or dilatation. There is progression of oral contrast through the small bowel & passing nearly entire large bowel. Fairly rapid passage of contrast may reflect enteritis versus a reflection of the patient's bowel resection. On close inspection I would note would appear to be some borderline to mild wall thickening small bowel loop anterior abdomen just posterior to the region of umbilicus.. But there is no obstruction evident at this level or other features to raise concern.. Bowel wall otherwise appears normal caliber.. .. No evidence of appendicitis.q Pelvis hysterectomy. Possible scant residual free fluid towards the posterior right pelvis axial image 83, 84- this could be related to generous vaginal cuff extending to the right. There is a cystic area seen at the base of the left labia likely either reflecting incidental Bartholin or Pam's duct cyst noted. Liver margin is somewhat irregular anteriorly.. Right lobe liver measures 18 seem in length extends down to the upper right pelvis as it did on previous study. Small 7 mm cystic area anterior left lobe liver.. The spleen, adrenalglands, have an unremarkable appearance. There is diffuse calcification of thepancreas consistent with chronic pancreatitis.. No acute bony anomalies. Degenerative disc changes most evident at L3/4 IMPRESSION: 1. Chronic pancreatitis. Extensive dense calcification at pancreas reflects such . 2... Irregular contour of the liver. Possible developing cirrhosi 3.No significant bowel dilatation or obstruction... Fairly rapid transit oral contrast through large and small bowel could reflect enteritis. No bowel dilatation or obstruction. 4. Upper normal to borderline wall thickening at proximal small bowel posterior to the umbilicus incidentally noted. 5. Tiny stable cystic area seen at the anterior aspect left lobe liver. Benign feature No suspicious masses or areas liver. Possible developing cirrhosis
--- NOTE | 2016-12-29 22:59 | RADIOLOGY REPORT PS360 ---
CHEST(2 VIEWS-NOT PORTABLE) Ordering physician: Lorena Adorno MD Age: 56 years Female INDICATION: chest symptomsRLQ pain, S/p lysis of adhesions, SBO PROCEDURE: CHEST(2 VIEWS-NOT PORTABLE) FINDINGS: The December 05, 2016 CXR PA and lateral used as comparison. The lungs are hyperexpanded and clear with nothing definitely acute. Underlying COPD and emphysematous changes with flattening of the diaphragm the lateral view and slight increased AP diameter. Bilateral breast implants noted. Heart florian and mediastinal structures appear stable and satisfactory no acute findings. Contrast in the kidneys from preceding CT noted. Chest wall and ribs unremarkable. No pneumothorax. No pleural effusion.. IMPRESSION ----- Stable COPD No active disease .
--- NOTE | 2016-12-29 23:06 | RADIOLOGY REPORT PS360 ---
ABDOMEN-FLAT UPRIGHT HISTORY: RLQ pain, Recent SBO with adhesion release Patient Age: 56 years: Female Ordering Physician: Lorena Adorno MD TECHNIQUE: Flat and upright views abdomen COMPARISON :Pre and previous recent CT abdomen FINDINGS Air-fluid levels are seen throughout nondilated large bowel suggesting a likely liquid stool enteritis or colitis. There is a few small scattered air-fluid levels and the small bowel but these are not dilated. & Again likely reflect the same . Calcifications throughout region of pancreas reflecting chronic pancreatitis. Postsurgical changes left bowel anastomosis seen at the right abdomen on today's IMPRESSION: 1.. Suspect developing enteritis ... Scattered moderate air-fluid levels most evident throughout nondilated large bowel, suggesting liquid stool and diarrhea. Clinical correlation required.. ... A few air-fluid levels in nondilated small bowel again reflecting a slight increase fluid here. ... Note Residual dense oral contrast from the previous procedure seen mainly at the rectosigmoid and left colon...
[2016-12-30 04:07] VITALS: BP 142/91
[2016-12-30 08:03] VITALS: BP 118/77
[2016-12-30] MEDS ORDERED: CARDIZEM CD240 MG PO (08:29)
[2016-12-30] MEDS ORDERED: LISINOPRIL40 MG PO (08:31)
[2016-12-30 08:46] VITALS: BP 118/77
--- NOTE | 2016-12-30 09:03 | ACUTE CARE PROGRESS NOTE (QUA) ---
Progress Notes Subjective Date 12/30/16 Time 0852 Note She feels better this morning. She is urinating. 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 The CT is reviewed and shows nothing alarming. She does exhibit cirrhosis of the liver and changes in the pancreas consistent with her chronic pancreatitis. Her gallbladder appeared normal. Objective Findings Last VS-Temp:98.4 B/P:118/77 Pulse:79 Resp:18 SaO2:90 ROOM AIR Last weight lbs:83 oz:0 K.648 Method:Bed Scales Exam General appearance: alert, no acute distress Eyes: anicteric Cardiovascular: regular rate & rhythm Respiratory: diminished breath sounds, wheezing (none) ABD: tenderness Extremities: edema (none) Neuro: no deficit Reviewed: medications, vital signs, lab results, radiology report Assessment/Plan Problem List 1. Alcoholic cirrhosis Status: Chronic 2. Chronic pancreatitis Status: Chronic 3. Tobacco user Status: Chronic 4. Nausea & vomiting Status: Acute 5. Hyperglycemia Status: Acute 6. Abdominal pain Status: Acute 7. Anxiety 8. COPD (chronic obstructive pulmonary disease) Status: Chronic 9. Type 2 diabetes mellitus Status: Chronic 10. Post-operative state Patient condition Guarded Plan: continue current care, US gallbladder. Notify Dr. Garland. This inpt stay is expected to cross 2 MNs from start of care No at 0903
--- NOTE | 2016-12-30 09:03 | ACUTE CARE PROGRESS NOTE (QUA) ---
Progress Notes Subjective Date 12/30/16 Time 0852 Note She feels better this morning. She is urinating. Her abdomen is cube machine tender but less so, she states. The CT is reviewed and shows nothing alarming. She does exhibit cirrhosis of the liver and changes in the pancreas consistent with her chronic pancreatitis. Her gallbladder appeared normal. Objective Findings Last VS-Temp:98.4 B/P:118/77 Pulse:79 Resp:18 SaO2:90 ROOM AIR Last weight lbs:83 oz:0 K.648 Method:Bed Scales Exam General appearance: alert, no acute distress Eyes: anicteric Cardiovascular: regular rate & rhythm Respiratory: diminished breath sounds, wheezing (none) ABD: tenderness Extremities: edema (none) Neuro: no deficit Reviewed: medications, vital signs, lab results, radiology report Assessment/Plan Problem List 1. Alcoholic cirrhosis Status: Chronic 2. Chronic pancreatitis Status: Chronic 3. Tobacco user Status: Chronic 4. Nausea & vomiting Status: Acute 5. Hyperglycemia Status: Acute 6. Abdominal pain Status: Acute 7. Anxiety 8. COPD (chronic obstructive pulmonary disease) Status: Chronic 9. Type 2 diabetes mellitus Status: Chronic 10. Post-operative state Patient condition Guarded Plan: continue current care, US gallbladder. Notify Dr. Garland. This inpt stay is expected to cross 2 MNs from start of care No at 0903
[2016-12-30 09:04] LABS: HEMOGLOBIN 12.8 g/dL (12.2-16.2); LYMPH # 1.6 K/mm3 (0.7-4.5); LYMPH % 29.6 % (10-50.0)
--- NOTE | 2016-12-30 09:11 | PHARMACY CLINIC NOTE ---
Patient Demographics Patient Demographics Admission date: 12/29/16 Date: 12/30/16 Time: 0910 Allergies Coded Allergies: cinnamon (Severe, TONGUE SWELL, NAUSEA 12/07/16) acetaminophen (LIVER ISSUE 12/07/16) HEIGHT- FT: 5 IN: 3.00 K.648 VTE General Information Labs: Laboratory Tests 12/30 0855 Hematology Hgb (12.2 - 16.2 g/dL) 12.8 Hct (37.0 - 47.0 %) 40.8 Plt Count (142 - 424 K/mm3) 230 Disclaimer The following section includes nursing documentation that has been pulled in for pharmacy review. Clinical trial participant? No VTE prophylaxis [id number] VTE prophylaxis ordered? Yes Type of prophylaxis/treatment: YENNY at 0911
--- NOTE | 2016-12-30 09:48 | CONSULT NOTE ---
Standard Demographics Patient Demo Date of Consultation: 12/30/16 Referring Provider: Ewelina Adorno MD Reason for Consultation: abdominal pain and nausea PRIMARY DIAGNOSIS: DEHYDRATION Allergies: Coded Allergies: cinnamon (Severe, TONGUE SWELL, NAUSEA 12/07/16) acetaminophen (LIVER ISSUE 12/07/16) History of Present Illness Chief Complaint: Abdominal pain and nausea History of Present Illness: This is a 56-year-old female who is recently status post lysis of adhesions for small bowel obstruction. She presents with increasing nausea, vomiting, and abdominal pain. She has been admitted to her primary service for management of this, as well as concomitant dehydration. This is her second admission during the postoperative period for similar complaints. Repeat CT scan confirms changes consistent with enteritis. No fevers. Past Medical History Reports: hypertension, diabetes mellitus. Surgical History Previous Surgery?Y Hysterect TUBAL LIGATION L 4 FUSION BREAST AUGMENTATION PANCREATIC STENT HEART CATH HERNIA REPAIR Recent lysis of adhesions for small bowel obstruction Allergies Coded Allergies: cinnamon (Severe, TONGUE SWELL, NAUSEA 12/07/16) acetaminophen (LIVER ISSUE 12/07/16) Medications: Active Scripts OXYCODONE HCL (Oxycodone) 5 MG NG TID #60 TAB Prov: 12/21/16 Reported Medications Aspirin (Aspirin EC) 81 MG PO DAILY Clonazepam (Klonopin 0.5MG) 0.5 MG PO TIDP PRN ANXIETY Omeprazole (Omeprazole 40MG) 40 MG PO QHS INSULIN GLARGINE (Lantus 3ML Solostar Pen) 15 UNITS SC QHS Apixaban (Eliquis) 2.5 MG PO BID ALBUTEROL (Albuterol 0.083% Neb) 3 ML INH QIDP PRN BREATHING LIPASE/PROTEASE/AMYLASE (Tashia Little 36,000 Units Capsule) 2 ECC PO TID Sucralfate (Carafate) 2 GM PO BID Hyoscyamine Sulfate (Anaspaz) 0.125 MG PO W/MEALS&HS KETOROLAC TROMETHAMINE (TORADOL 10MG) 10 MG PO QID Estradiol 0.5 MG PO DAILY BUDESONIDE/FORMOTEROL FUMARATE (Symbicort 160-4.5 Mcg Inhaler) 2 PUFFS IH DAILY MULTIVITAMIN (Daily Multiple Vitamin) 1 TAB PO DAILY DILTIAZEM HCL (Tiazac) 180 MG PO DAILY LISINOPRIL (Lisinopril) 20 MG PO BID Family history Postive for: HTN. Smoking Hx Tobacco: Yes Smoker: Current Every Day Smoker Type: Cigarettes Packs/day: < 1 Pack Are you/the child exposed to second-hand smoke: Yes Alcohol Alcohol: No Hx of Drug Use Drug Use? No Review of Systems Constitutional No: chills. Skin No: bruising. Immune/allergy No: anaphalaxis. Eyes No: discharge. ENT No: nose bleed. Respiratory No: pneumonia. Cardiovascular No: palpitations. GI Positive for: nausea, vomitting. (female) No: hematuria. Musculoskeletal No: thoracic pain. Heme No: petechia. Endocrine No: polydipsia. Neurological No: bladder dysfunction. Psychiatric No: anxious. Physical Exam VS/I&O Vital Signs Date Time Temp Pulse Resp B/P Pulse O2 O2 Flow FiO2 Ox Delivery Rate 12/30 0846 98.4 79 18 118/77 90 12/30 0803 98.4 79 18 118/77 90 ROOM AIR 12/30 0737 18 12/30 0407 98.4 84 16 142/91 97 ROOM AIR 12/29 2028 98.5 102 18 118/76 93 ROOM AIR 12/30 2015 16 12/29 2000 98.5 102 18 118/76 93 12/29 1844 118 11 1844 97.5 118 16 126/93 12/29 1844 97.5 118 16 126/93 97 ROOM AIR 12/29 1844 97 ROOM AIR I&O 12/30 0700 Intake Total Output Total Balance Output, Stool Patient 37.648 kg Weight Exam General appearance no acute distress Respiratory no distress Cardiovascular regular rate and rhythm Abdomen no distention (+ TTP (mostly RUQ)) Findings/Data CT scan shows changes consistent with enteritis, as well as possible cirrhosis Plan Plan: Impression: Abdominal pain (mostly right upper quadrant) Enteritis Recent lysis of adhesions for small bowel obstruction Cirrhosis Chronic pancreatitis Plan: 1) FU pending RUQ US (as ordered by PCP) 2) SBFT 3) Recommend gastroenterology consultation with regard to complicated enteritis, cirrhosis, and chronic pancreatitis 4) PT/INR 5) Serial abdominal exams at 0948
[2016-12-30] MEDS ORDERED: VENTOLIN H0.09 MG/AC IH (11:06)
--- NOTE | 2016-12-30 15:51 | RADIOLOGY REPORT PS360 ---
US RUQ-(ABD LTD)1ORGAN/QUAD/FU HISTORY: Vomiting, right upper quadrant pain abdominal; abnormal liver ORDERING PHYSICIAN: Lorena Adorno MD PATIENT AGE: 56 years COMPARISON: None FINDINGS: PANCREAS:Unremarkable. No obvious mass or abnormal fluid collection. No ductal dilatation LIVER:No focal liver lesions demonstrated. There are mild coarse echogenicity of the liver. No intrahepatic biliary ductal dilatation evident RIGHT KIDNEY:Minimal prominence of the right renal pelvis nonspecific. Gallbladder: No gallstones, gallbladder wall thickening, or pericholecystic fluid. Gallbladder is somewhat elongated measuring 9 x 2 cm. Common duct is slightly prominent at 7 mm. No intrahepatic biliary dilatation is evident. There is a small amount of ascites. IMPRESSION: 1. No gallstones or gallbladder wall thickening or pericholecystic fluid. Common hepatic duct is slightly prominent at 7 mm 2. Small amount of ascites
[2016-12-30 19:36] VITALS: BP 113/60
[2016-12-31 04:12] VITALS: BP 113/71
[2016-12-31 08:00] VITALS: BP 100/66
[2016-12-31 08:20] VITALS: BP 100/66
--- NOTE | 2016-12-31 08:28 | SURGEON PROGRESS NOTE ---
Subjective data Subjective data: Feels "much better". Objective data Vitals,I&O,and Labs: Vital signs, intake and output,and available lab data for the last 24 hours is as noted below. Vital Signs Date Time Temp Pulse Resp B/P Pulse O2 O2 Flow FiO2 Ox Delivery Rate 12/31 0820 97.3 74 16 100/66 92 12/31 0811 16 12/31 0417 16 12/31 0412 98.3 66 16 113/71 90 ROOM AIR 12/30 2338 18 12/30 2145 98.4 91 18 113/60 92 12/30 2135 18 12/30 1936 98.4 91 18 113/60 92 ROOM AIR 12/30 1840 18 12/30 1800 18 12/30 1312 18 12/30 0846 98.4 79 18 118/77 90 12/30 1500 12/30 2300 12/31 0700 Intake Total 0 677 1187 Output Total Balance 0 677 1187 Intake, IV 677 1187 Intake, Oral 0 0 Output, Stool Laboratory Tests Test Result Date Time Chemistry Sodium (mmoL/L) 136 12/30 0855 Potassium (mmoL/L) 4.0 12/30 0855 Chloride (mmoL/L) 98 12/30 0855 Carbon Dioxide (mmoL/L) 28 12/30 0855 BUN (mg/dL) 12 12/30 0855 Creatinine (mg/dL) 0.6 12/30 0855 Estimated Creat Clear (ML/MIN) 62 12/30 0855 Estimated GFR (MDRD) (ML/MIN) 103 12/30 0855 Glucose (mg/dL) 66 12/30 0855 POC Glucose (mg/dl) 71 12/30 0852 Calcium (mg/dL) 8.8 12/30 0855 Total Bilirubin (mg/dL) 0.5 12/30 0855 AST (U/L) 36 12/30 0855 ALT (U/L) 23 12/30 0855 Alkaline Phosphatase (U/L) 283 12/30 0855 Total Protein (gm/dL) 6.2 12/30 0855 Albumin (gm/dL) 3.1 12/30 0855 Globulin (gm/dL) 3.1 12/30 0855 Albumin/Globulin Ratio 1.0 12/30 0855 Amylase (U/L) 9 12/30 0855 Lipase (U/L) 40 12/30 0855 Coagulation PT (SECONDS) 11.5 12/30 0918 INR 1.06 12/30 0818 APTT (SECONDS) 27.6 12/30 0818 D-Dimer (ng/mL) 193 /03 2818 Hematology WBC (K/MM3) 5.5 / 0855 RBC (M/mm3) 4.26 12/30 0855 Hgb (g/dL) 12.8 12/30 08 Hct (%) 40.8 12/30 0855 MCV (fl) 95.7 / 0855 RDW (%) 13.9 / 0855 Plt Count (K/mm3) 230 / 0855 MPV (fl) 8.0 / 0855 Gran % (%) 59.9 / 0855 Gran # (K/mm3) 3.3 / 0855 Lymphocytes % (%) 29.6 / 0855 Monocytes % (%) 7.8 / 0855 Eosinophils % (%) 2.5 / 0855 Basophils % (%) 0.2 / 0855 Lymphocytes # (K/mm3) 1.6 / 0855 Monocytes # (K/mm3) 0.4 / 0855 Eosinophils # (K/mm3) 0.1 / 0855 Basophils # (K/MM3) 0.0 / 0855 PUBS MCHC (g/dl) 31.4 12/30 0855 Immunology MCH (pg) 30.0 12/30 0855 Additional data: Ultrasound reveals some prominent biliary ducts. The gallbladder seems slightly elongated, but shows no signs of inflammation. Small bowel follow-through reveals fairly slow passage through portion of her jejunum. Follow-up films reveal passage of contrast throughout her gastrointestinal tract. Assessment findings Assessment Exam General appearance: alert, no acute distress Cardiovascular: regular rate & rhythm Respiratory: no respiratory distress ABD: non-distended (softer and less TTP) Patient plan Diagnoses: 1) enteritis 2) chronic pancreatitis 3) cirrhosis 4) ileus versus persistent/recurrent partial obstruction Plan: Advance diet, Full liquids only Additional data: No need for acute surgical intervention Will not advance beyond full liquids for now at 1004
--- NOTE | 2016-12-31 08:44 | ACUTE CARE PROGRESS NOTE (QUA) ---
Progress Notes Subjective Date 12/31/16 Time 0740 Note Had SBFT yesterday after which she has had more pain requiring med. results are pending; She actually is hungry and would like some food. Had barium diarrhea. voiding QS. Denies CP and SOB Objective Findings Laboratory Tests 12/30/16 0918: PT 11.5, INR 1.06, APTT 27.6, D-Dimer 193 12/30/16 0855: Sodium 136, Potassium 4.0, Chloride 98, Carbon Dioxide 28, BUN 12, Creatinine 0.6, Estimated Creat Clear 62, Estimated GFR (MDRD) 103, Glucose 66 L, Calcium 8.8, Total Bilirubin 0.5, AST 36, ALT 23, Alkaline Phosphatase 283 H, Total Protein 6.2 L, Albumin 3.1 L, Globulin 3.1, Albumin/Globulin Ratio 1.0 L, Amylase 9 L, Lipase 40 L, WBC 5.5, RBC 4.26, Hgb 12.8, Hct 40.8, MCV 95.7, RDW 13.9, Plt Count 230, MPV 8.0, Gran % 59.9, Gran # 3.3, Lymphocytes % 29.6, Monocytes % 7.8, Eosinophils % 2.5, Basophils % 0.2, Lymphocytes # 1.6, Monocytes # 0.4, Eosinophils # 0.1, Basophils # 0.0, PUBS MCHC 31.4 L, MCH 30.0 12/30/16 0852: POC Glucose 71 Vital Signs Date Time Temp Pulse Resp B/P Pulse O2 O2 Flow FiO2 Ox Delivery Rate 01/01 0820 97.3 74 16 100/66 92 12/31 0811 16 12/31 0417 16 12/31 0412 98.3 66 16 113/71 90 ROOM AIR 12/30 2338 18 12/30 2145 98.4 91 18 113/60 92 12/30 2135 18 12/30 1936 98.4 91 18 113/60 92 ROOM AIR 12/30 1840 18 12/30 1800 18 12/30 1312 18 12/30 0846 98.4 79 18 118/77 90 Current Medications Clonazepam 0 .STK-MED ONE .ROUTE (DC) Oxycodone HCl 0 .STK-MED ONE .ROUTE (DC) Morphine Sulfate 0 .STK-MED ONE .ROUTE (DC) Ondansetron HCl 0 .STK-MED ONE .ROUTE (DC) Morphine Sulfate 0 .STK-MED ONE .ROUTE (DC) Ondansetron HCl 0 .STK-MED ONE .ROUTE (DC) Oxycodone HCl 0 .STK-MED ONE .ROUTE (DC) Clonazepam 0 .STK-MED ONE .ROUTE (DC) Morphine Sulfate 4 MG Q4HP PRN IV Morphine Sulfate 0 .STK-MED ONE .ROUTE (DC) Oxycodone HCl 0 .STK-MED ONE .ROUTE (DC) Oxycodone HCl 5 MG 1730 PO (DC) Barium Sulfate 135 ML ONCE ONE PO (DC) Diatrizoate Meglum/Diatrizoate Sod 120 ML ONCE ONE [place] (DC) Oxycodone HCl 0 .STK-MED ONE .ROUTE (DC) Clonazepam 0 .STK-MED ONE .ROUTE (DC) Metoclopramide HCl 5 MG TID PO Patient Own Medication 1 UNIT ACHS PO Sodium Chloride 1,000 ML .STK-MED ONE IV (DC) Diltiazem HCl 180 MG DAILY PO Lisinopril 40 MG DAILY PO (DC) Pantoprazole Sodium 40 MG DAILY PO Patient Own Medication 1 UNIT DAILY PO Clonazepam 0 .STK-MED ONE .ROUTE (DC) Sodium Chloride 10 ML PRN PRN IV Clonazepam 0.5 MG TID PO Metoprolol Tartrate 12.5 MG BID PO Oxycodone HCl 5 MG TID PO Sucralfate 1 GM ACHS PO (DC) Ondansetron HCl 4 MG Q8HP PRN IV Albuterol/Ipratropium 3 ML Q6H6 INH Nicotine 21 MG DAILYP PRN TD Sodium Chloride 1,000 ML .Q8H IV 12/30 1500 12/30 2300 / 0700 Intake Total 0 677 1187 Output Total Balance 0 677 1187 Intake, IV 677 1187 Intake, Oral 0 0 Output, Stool Last VS-Temp:97.3 B/P:100/66 Pulse:74 Resp:16 SaO2:92 ROOM AIR Last weight lbs:83 oz:0 K.648 Method:Bed Scales RUQ 12/30/16 IMPRESSION: 1. No gallstones or gallbladder wall thickening or pericholecystic fluid. Common hepatic duct is slightly prominent at 7 mm 2. Small amount of ascites Exam General appearance: alert, no acute distress, thin, appears hydrated Cardiovascular: regular rate & rhythm Respiratory: diminished breath sounds (posterior) ABD: non-distended, soft, tenderness (RUQ) Extremities: no peripheral edema Neuro: alert, oriented, speech clear Assessment/Plan Problem List 1. Alcoholic cirrhosis Status: Chronic 2. Chronic pancreatitis Status: Chronic 3. Tobacco user Status: Chronic 4. Nausea & vomiting Status: Acute 5. Hyperglycemia Status: Acute 6. Abdominal pain Status: Acute 7. Anxiety 8. COPD (chronic obstructive pulmonary disease) Status: Chronic 9. Type 2 diabetes mellitus Status: Chronic 10. Post-operative state 11. Body mass index (BMI) less than 16.5 Patient condition Stable Plan: continue current care, await SBFT results; trying ice chips now. This inpt stay is expected to cross 2 MNs from start of care Yes at 0843
--- NOTE | 2016-12-31 14:48 | RADIOLOGY REPORT PS360 ---
KUB (SINGLE VIEW) HISTORY: Follow-up small bowel obstruction 7:00 AM SMALL BOWEL IMAGE ORDERING PHYSICIAN: Lorena Adorno MD PATIENT AGE: 56 years COMPARISON: Small bowel series of 12/30/2016 FINDINGS: Contrast is present within large bowel. No significant residual contrast in the small bowel. Calcification noted from chronic pancreatitis. IMPRESSION: 1. No evidence of significant residual contrast within the small bowel. 2. Chronic pancreatitis
--- NOTE | 2016-12-31 14:48 | RADIOLOGY REPORT PS360 ---
SMALL BOWEL SERIES CLINICAL INDICATION: Abdominal pain, history of small bowel structure with adhesion lysis. abdominal pain ORDERING PHYSICIAN: Lorena Adorno MD PATIENT AGE: 56 years Fluoroscopy time: 1 minute and 16 seconds COMPARISON: None FINDINGS: Automatic Log Cut Off Sawyer exam shows some residual contrast within large bowel from recent CT scan. Upper abdominal calcifications are present consistent with chronic pancreatitis Multiple KUBs were performed following ingestion of oral contrast. Fluoroscopic evaluation was also performed. There is mild persistent dilatation of the proximal small bowel with a transition point involving the mid jejunum in the mid pelvic region. This persisted upon multiple images. It may be an adhesion at this region causing partial small bowel structure. The contrast did go past this region with the distal small bowel have an unremarkable appearance. IMPRESSION: Partial small bowel obstruction of the mid jejunum which may be secondary to underlying adhesion
[2016-12-31 16:00] VITALS: BP 88/57
[2016-12-31 16:50] VITALS: BP 103/64
[2016-12-31 20:00] VITALS: BP 107/65
[2017-01-01 04:07] VITALS: BP 80/57
--- NOTE | 2017-01-01 07:07 | SURGEON PROGRESS NOTE ---
Subjective data Subjective data: She states that she "feel(s) almost normal". Objective data Vitals,I&O,and Labs: Vital signs, intake and output,and available lab data for the last 24 hours is as noted below. Vital Signs Date Time Temp Pulse Resp B/P Pulse O2 O2 Flow FiO2 Ox Delivery Rate 01/01 613 93 ROOM AIR 01/01 0407 97.6 72 18 80/57 94 ROOM AIR 01/01 0316 18 12/31 2316 16 12/31 2046 18 12/31 2000 97.5 84 18 107/65 93 12/31 2000 97.5 84 18 107/65 93 ROOM AIR 12/31 1830 18 12/31 1650 63 103/64 12/31 1600 97.3 61 18 88/57 94 ROOM AIR 12/31 1331 16 12/31 1301 16 12/31 0820 97.3 74 16 100/66 92 12/31 0811 16 12/31 0800 97.3 74 16 100/66 92 ROOM AIR 12/31 1500 12/31 2300 01/01 0700 Intake Total 600 2314 1328 Output Total Balance 600 2314 1328 Intake, IV 1614 1328 Intake, Oral 600 700 Output, Stool Patient 37.648 kg Weight Laboratory Tests Test Result Date Time Chemistry Sodium (mmoL/L) 136 12/30 0855 Potassium (mmoL/L) 4.0 12/30 0855 Chloride (mmoL/L) 98 12/30 0855 Carbon Dioxide (mmoL/L) 28 12/30 0855 BUN (mg/dL) 12 12/30 0855 Creatinine (mg/dL) 0.6 12/30 0855 Estimated Creat Clear (ML/MIN) 62 12/30 0855 Estimated GFR (MDRD) (ML/MIN) 103 12/30 0855 Glucose (mg/dL) 66 12/30 0855 POC Glucose (mg/dl) 71 12/30 0852 Calcium (mg/dL) 8.8 12/30 0855 Total Bilirubin (mg/dL) 0.5 12/30 0855 AST (U/L) 36 12/30 0855 ALT (U/L) 23 12/30 0855 Alkaline Phosphatase (U/L) 283 12/30 0855 Total Protein (gm/dL) 6.2 12/30 0855 Albumin (gm/dL) 3.1 12/30 0855 Globulin (gm/dL) 3.1 12/30 854 Albumin/Globulin Ratio 1.0 12/30 854 Amylase (U/L) 9 12/31 0755 Lipase (U/L) 40 12/30 854 Coagulation PT (SECONDS) 11.5 12/30 917 INR 1.06 12/30 917 APTT (SECONDS) 27.6 12/30 917 D-Dimer (ng/mL) 193 12/30 917 Hematology WBC (K/MM3) 5.5 12/30 854 RBC (M/mm3) 4.26 12/30 854 Hgb (g/dL) 12.8 12/30 08 Hct (%) 40.8 12/30 854 MCV (fl) 95.7 12/30 854 RDW (%) 13.9 12/30 854 Plt Count (K/mm3) 230 12/30 854 MPV (fl) 8.0 12/30 854 Gran % (%) 59.9 12/31 0755 Gran # (K/mm3) 3.3 12/30 0855 Lymphocytes % (%) 29.6 / 0855 Monocytes % (%) 7.8 12/30 0855 Eosinophils % (%) 2.5 12/30 0855 Basophils % (%) 0.2 12/30 0855 Lymphocytes # (K/mm3) 1.6 12/30 0855 Monocytes # (K/mm3) 0.4 /03 2755 Eosinophils # (K/mm3) 0.1 12/31 0755 Basophils # (K/MM3) 0.0 12/30 854 PUBS MCHC (g/dl) 31.4 12/30 854 Immunology MCH (pg) 30.0 12/30 854 Assessment findings Assessment Exam General appearance: normal appearance Cardiovascular: regular rate & rhythm Respiratory: no respiratory distress ABD: soft (much less TTP) Patient plan Diagnoses: Enteritis Partial SBO (vs. ileus) Recent complete SBO requiring extensive JOSE Chronic pancreatitis Cirrhosis Overall, she is continuing to improve. Plan: continue therapy as per PCP Additional data: The patient understands the likelihood of repeat exploration with lysis of adhesions. She is improving and certainly does not require emergent intervention. She states that she "only want(s) it if absolutely necessary". Outpatient gastroenterology consultation still warranted secondary to complex enteritis, cirrhosis, and chronic pancreatitis. Close and continued surgical follow-up as outpatient also warranted. I recommend no advancement of her diet beyond full liquids for at least 2-3 weeks. I also recommend supplementation in the form of "nutrition shakes". at 0706
[2017-01-01 08:08] VITALS: BP 98/63
[2017-01-01 08:19] VITALS: BP 98/63
--- NOTE | 2017-01-01 10:04 | ACUTE CARE PROGRESS NOTE (QUA) ---
Progress Notes Subjective Date 01/01/17 Time 0957 Note Pt is feeling much better this morning and "ready to go home." She has been tolerating full liquid diet without nausea and only minimal pain. She denies any CP or SOB. She reports a few loose stools yesterday due to previous barium study. She has been voidining normally and up in her room without difficulty. Objective Findings Last VS-Temp:98.2 B/P:98/63 Pulse:76 Resp:16 SaO2:93 ROOM AIR Last weight lbs:83 oz:0 K.648 Method:Bed Scales Vital Signs Date Time Temp Pulse Resp B/P Pulse O2 O2 Flow FiO2 Ox Delivery Rate 01/01 0819 98.2 76 16 98/63 93 01/01 0813 16 01/01 0808 98.2 76 18 98/63 93 ROOM AIR 01/01 0725 16 01/01 0613 93 ROOM AIR 01/01 0407 97.6 72 18 80/57 94 ROOM AIR 01/01 0316 18 12/31 2316 16 12/31 2046 18 01/01 2000 97.5 84 18 107/65 93 12/31 2000 97.5 84 18 107/65 93 ROOM AIR 12/31 1830 18 12/31 1650 63 103/64 12/31 1600 97.3 61 18 88/57 94 ROOM AIR 12/31 1331 16 12/31 1301 16 Exam General appearance: alert, awake, no acute distress Cardiovascular: regular rate & rhythm, normal peripheral pulses Respiratory: CTAB A&P ABD: non-distended, no rebound, soft, no guarding, bowel sounds present, mild ttp RUQ Extremities: moves all, no peripheral edema, warm, no calf tenderness Neuro: alert, oriented, speech clear, no focal deficit Reviewed: medications, vital signs, lab results, radiology report, consult note, nursing notes Assessment/Plan Problem List 1. Alcoholic cirrhosis Status: Chronic 2. Chronic pancreatitis Status: Chronic 3. Tobacco user Status: Chronic 4. Nausea & vomiting Status: Acute 5. Hyperglycemia Status: Acute 6. Abdominal pain Status: Acute 7. Anxiety 8. COPD (chronic obstructive pulmonary disease) Status: Chronic 9. Type 2 diabetes mellitus Status: Chronic 10. Post-operative state 11. Body mass index (BMI) less than 16.5 Patient condition Stable Plan: GI note seen and appreciated. Will plan for discharge today with reinforcement of no advancement of diet beyond full liquid for 2-3 weeks and supplementation in the form of nutrition shakes, as well as close f/u per GI recommendations. This inpt stay is expected to cross 2 MNs from start of care Yes at 1004
[2017-01-01] MEDS ORDERED: TIAZAC180 MG PO (10:09)
[2017-01-01] MEDS ORDERED: METOCLOPRAMIDE H5 MG PO (10:10)
[2017-01-01] MEDS ORDERED: LOPRESSOR 25MG.25 MG PO (10:11)
[2017-01-01 10:12] LABS: HEMOGLOBIN 12.1 g/dL (12.2-16.2); LYMPH # 1.2 K/mm3 (0.7-4.5); LYMPH % 21.2 % (10-50.0)
[2017-01-01 13:00] VITALS: BP 98/63
--- NOTE | 2017-01-03 11:55 | DISCHARGE SUMMARY STANDARD ---
Discharge Summary ([facility]) Date of admission: 12/29/16 Date of discharge: 01/01/17 Problem List: 1. Alcoholic cirrhosis 2. Chronic pancreatitis 3. Tobacco user 4. Nausea & vomiting 5. Hyperglycemia 6. Abdominal pain 7. Anxiety 8. COPD (chronic obstructive pulmonary disease) 9. Type 2 diabetes mellitus 10. Post-operative state 11. Body mass index (BMI) less than 16.5 History of present illness: Ms Pineda is a 56 year old female recently status post lysis of adhesions for small bowel obstruction who presented to the office of [facility] 12/29/16 with severe abdominal pain which worsened with eating and drinking. She had been vomiting with diarrhea as well. She had not voided in 2 days. With exam patient was felt to be dehydrated and was admitted to [facility] for rehydration and management of symptoms. This was noted to be her second admission during the postoperative period for similar complaints. Repeat CT scan confirmed changes consistent with enteritis. Exam on admission: Last VS-Temp:97.5 B/P:126/93 Pulse:118 Resp:16 SaO2:97 ROOM AIR Last weight lbs:83 oz:0 K.648 Method:Bed Scales General Exam: NAD, thin, uncomfortable HEENT: unremarkable. Oral cavity: tongue and mucosa dry. NECK: supple; No LAD CHEST: normal shape and expansion HEART: Sinus tachycardia at 120/min LUNGS: CTA, decreased BS ABDOMEN: soft RLQ tenderness, hypoactive BS; scar from previous surgery NEURO: Intact; gait normal SKIN: tents Extremities: no leg edema; legs are very thin Hospital Course: Patient received IVF on admission and did feel mush better the day after admission. She was started on Reglan. She was seen by her surgeon, Dr. Sewell, with the following assessment: Abdominal pain (mostly right upper quadrant); Enteritis; Recent lysis of adhesions for small bowel obstruction; Cirrhosis; Chronic pancreatitis He discussed with her the likelihood of repeat exploration with lysis of adhesions. He felt that she was improving and did not now require emergent intervention. He followed her throughout the admission and recommend no advancement of her diet beyond full liquids for at least 2-3 weeks with supplementation in the form of "nutrition shakes". Patient actually became hungry and diet was advanced to full liquids which she tolerated. She did require prn pain med. She began to have barium stools. On 01/01/17 she was feeling like normal and ready to go home and was discharged. Laboratory data this visit: 12/30/16 0918: PT 11.5, INR 1.06, APTT 27.6, D-Dimer 193 12/30/16 0855: Sodium 136, Potassium 4.0, Chloride 98, Carbon Dioxide 28, BUN 12, Creatinine 0.6, Estimated Creat Clear 62, Estimated GFR (MDRD) 103, Glucose 66 L, Calcium 8.8, Total Bilirubin 0.5, AST 36, ALT 23, Alkaline Phosphatase 283 H, Total Protein 6.2 L, Albumin 3.1 L, Globulin 3.1, Albumin/Globulin Ratio 1.0 L, Amylase 9 L, Lipase 40 L, WBC 5.5, RBC 4.26, Hgb 12.8, Hct 40.8, MCV 95.7, RDW 13.9, Plt Count 230, MPV 8.0, Gran % 59.9, Gran # 3.3, Lymphocytes % 29.6, Monocytes % 7.8, Eosinophils % 2.5, Basophils % 0.2, Lymphocytes # 1.6, Monocytes # 0.4, Eosinophils # 0.1, Basophils # 0.0, PUBS MCHC 31.4 L, MCH 30.0 12/30/16 0852: POC Glucose 71 Imagin12/29/16 Abdominal x-ray IMPRESSION: 1.. Suspect developing enteritis Scattered moderate air-fluid levels most evident throughout nondilated large bowel, suggesting liquid stool and diarrhea. Clinical correlation required.. A few air-fluid levels in nondilated small bowel again reflecting a slight increase fluid here. Note Residual dense oral contrast from the previous procedure seen mainly at the rectosigmoid and left colon... IMPRESSION ----- 12/29/16 CXR Stable COPD No active disease 12/29/16 CT of abdomen/pelvis IMPRESSION: 1. Chronic pancreatitis. Extensive dense calcification at pancreas reflects such .2... Irregular contour of the liver. Possible developing cirrhosi 3.No significant bowel dilatation or obstruction... Fairly rapid transit oral contrast through large and small bowel could reflect enteritis. No bowel dilatation or obstruction. 4. Upper normal to borderline wall thickening at proximal small bowel posterior to the umbilicus incidentally noted. 5. Tiny stable cystic area seen at the anterior aspect left lobe liver. Benign feature No suspicious masses or areas liver. Possible developing cirrhosis 12/30/16 RUQ US IMPRESSION: 1. No gallstones or gallbladder wall thickening or pericholecystic fluid. Common hepatic duct is slightly prominent at 7 mm 2. Small amount of ascites 12/30/16 Small bowel series IMPRESSION: Partial small bowel obstruction of the mid jejunum which may be secondary to underlying adhesion 12/31/16 KUB IMPRESSION: 1. No evidence of significant residual contrast within the small bowel. 2. Chronic pancreatitis Discharge medications: Stop taking the following medications: Hyoscyamine Sulfate (Anaspaz) 0.125 MG TAB.RAPDIS ORAL WITH MEALS & AT BEDTIME DILTIAZEM HCL (Diltiazem 24HR Cd) 240 MG CAP.ER.24H ORAL DAILY Continue taking these medications: Estradiol (Estradiol) 0.5 MG TABLET 0.5 MILLIGRAM ORAL DAILY ALBUTEROL (Albuterol 0.083% Neb) 2.5 MG/3 ML NEB 3 MILLILITER INHALATION (NEB) FOUR TIMES A DAY NEEDED as needed for BREATHING BUDESONIDE/FORMOTEROL FUMARATE (Symbicort 160-4.5 Mcg Inhaler) 10.2 GM HFA.AER.AD 2 PUFFS INHALATION DAILY Instructions: PT STATES SHE DOESN'T USE THIS A LOT BECAUSE "SHE CAN'T AFFORD IT." Clonazepam (Klonopin 0.5MG) 0.5 MG TABLET 0.5 MILLIGRAM ORAL THREE TIMES A DAY NEEDED as needed for ANXIETY Omeprazole (Omeprazole 40MG) 40 MG CAPSULE. 40 MILLIGRAM ORAL AT BEDTIME NIGHTLY INSULIN GLARGINE (Lantus 3ML Solostar Pen) 100 UNIT/ML VIAL 15 UNITS Subcutaneous Injection AT BEDTIME NIGHTLY Aspirin (Aspirin EC) 81 MG TABLET. 81 MILLIGRAM ORAL DAILY MULTIVITAMIN (Daily Multiple Vitamin) 1 EACH TABLET 1 TABLET ORAL DAILY Apixaban (Eliquis) 5 MG TABLET 2.5 MILLIGRAM ORAL TWICE A DAY LIPASE/PROTEASE/AMYLASE (Reaon 36,000 Units Capsule) 1 EACH CAPSULE. 2 CAPSULE, ENTERIC COATED ORAL THREE TIMES A DAY Instructions: WITH MEALS Sucralfate (Carafate) 1 GM TABLET 2 GRAM ORAL TWICE A DAY KETOROLAC TROMETHAMINE (TORADOL 10MG) 10 MG TABLET 10 MILLIGRAM ORAL FOUR TIMES A DAY OXYCODONE HCL (Oxycodone) 5 MG TABLET 5 MILLIGRAM NASOGASTRIC TUBE THREE TIMES A DAY Qty = 60 Lisinopril (Lisinopril 40MG) 40 MG TABLET 20 MILLIGRAM ORAL TWICE A DAY ALBUTEROL (Ventolin Hfa) 8 GM HFA.AER.AD 2 PUFF INHALATION FOUR TIMES A DAY NEEDED as needed for SHORTNESS OF BREATH Start taking the following new medications: Metoclopramide Hydrochloride (Metoclopramide HCl) 5 MG TABLET 5 MILLIGRAM ORAL TID AC Qty = 90 Refills = 2 DILTIAZEM HCL (Tiazac 180MG) 180 MG CAPSULE.ER 180 MILLIGRAM ORAL DAILY Qty = 30 Refills = 4 Metoprolol Tartrate (Lopressor) 25 MG TABLET 12.5 MILLIGRAM ORAL TWICE A DAY Qty = 60 Refills = 4 Disposition: Patient was discharged to home in stable and fair condition. Follow up: 7 DAYS with Activity: Limited activity Diet: Continue same diet (full liquids) Discharge to: HOME Meds as per reconciliation sheet at 1245
--- OUTSIDE RECORDS SUMMARY | 2017-01-26 10:20 | External Medical Summary Rpt ---
Author Author , DAGOBERTO PEREZSILVINO Address Unknown Phone [email or web address] Care Team Providers Care [employer] Consultant Name Role Phone Charlene PHIPPS, Unavailable Unavailable Charlene Adorno MD, Unavailable Unavailable Ewelina Juárez APRN, Unavailable Unavailable Rosanne Jha MD, Unavailable Unavailable Princess Jha MD Purpose Continuity of Care Document - 09-06-2012 through 2016 Problems Code Diagnosis DOS Provider Status [id number] Acute [facility] [id number] Abdominal [place] pain [facility] 288.8 Leukocytosi [facility] 305.1 Tobacco [place] user [facility] [id number] Active [facility] 571.2 Alcoholic [place] cirrhosis [facility] 577.1 Chronic [facility] 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] SI 73 -0 NO 90 6- Lo MS 35 20 ng IL 01 14 er [...] LA ve TE 10 MG TA B MS 00 12 0 No ED 05 -3 [...] SI 73 -2 NO 90 7- Lo MS 35 20 ng IL 01 13 er [...] 00 12 4 No SO 18 -2 MS 50 6- Lo OL 77 20 ng [...] SI 73 -2 NO 90 5- Lo MS 35 20 ng IL 01 13 er [...] -D 5W DI 63 12 1 No MS 32 -2 IV 30 4- Lo AN [...] 12 Ac 5 ti MG ve AL WA 00 12 0 No DA 40 -2 [...] 51 12 2 No TO 07 -2 MS 90 4- Lo OL 25 20 ng [...] SO L TA 00 12 1 No WA 00 -2 FL 40 3- Lo U 80 20 ng 75 08 13 er 5 MG Ac ti CA ve PS UL E MS 00 12 1 No ED 05 -2 [...] ER ve 15 MG TA BL ET MS 00 09 1 No ED 05 -2 [...] ve 0. 9% SO TYREL TI ON MS 00 09 3 No ED 05 -1 [...] SI 73 -1 NO 90 9- Lo MS 35 20 ng IL 01 13 er [...] NG E TO 00 08 2 No MS 18 -3 OL 61 1- Lo 08 20 ng XL 83 13 er 9 25 Ac ti MG ve TA BL ET MS 00 08 4 No ED 05 -2 [...] SI 73 -2 NO 90 9- Lo MS 35 20 ng IL 01 13 er [...] 10 0 MC G/ ML AM P MS 00 08 0 No ED 05 -2 [...] Ml ti ve Sy ri ng e MS 00 08 6 No OT 00 -2 [...] ve /M L CA RP UJ CT MS 00 08 6 No OM 64 -2 [...] SI 73 -0 NO 90 4- Lo MS 35 20 ng IL 01 13 er [...] 00 08 0 No TA 59 -0 MS 70 3- Lo ES 03 20 ng [...] 00 08 1 No TA 40 -0 WA 99 1- Lo N 15 20 ng [...] Ml ti ve Sy ri ng e MS 00 07 6 No OM 64 -3 [...] ve 0. 9% SO TYREL TI ON MS 00 07 0 No OM 64 -1 [...] Ac G ti Ta ve bl et MS 00 06 3 No ED 05 -2 [...] Ml ti ve Sy ri ng e MS 00 06 0 No OM 64 -1 [...] ve ET TO 00 05 1 No MS 18 -2 OL 61 1- Lo 09 [...] ti ve 0. 45 % SO LN MS 00 05 2 No ED 05 -2 [...] complet BldC 014 mg/dl ed Glucomt 11:45 r-nc Glucose BldC Glucomtr-mCnc (06-10-2013 20:45) Glucose 132 70-110 complet BldC 014 mg/dl ed Glucomt 20:45 r-mCnc Glucose BldC Glucomtr-mCnc (06-10-2013 17:58) Glucose 126 70-110 complet BldC 014 mg/dl ed Glucomt 17:58 r-[facility] Glucose BldC Glucomtr-mCnc (06-10-2013 17:06) Glucose 158 70-110 complet BldC 014 mg/dl ed Glucomt 17:06 r-[facility] Glucose BldC Glucomtr-nc (06-10-2013 11:39) Glucose 322 70-110 High complet BldC 014 mg/dl alert ed Glucomt 11:39 r-mCnc Glucose BldC Glucomtr-nc (06-10-2013 06:48) Glucose 138 70-110 complet BldC 014 mg/dl ed Glucomt 06:48 r-mCnc Glucose BldC Glucomtr-nc (06-09-2013 20:28) Glucose 144 70-110 complet BldC 014 mg/dl ed Glucomt 20:28 r-mCnc Glucose BldC Glucomtr-[facility] (06-09-2013 16:40) Glucose 246 70-110 complet BldC 014 mg/dl ed Glucomt 16:40 r-[facility] Glucose BldC Glucomtr-[facility] (06-09-2013 11:33) Glucose 156 70-110 complet BldC 014 mg/dl ed Glucomt 11:33 r-nc Glucose BldC Glucomtr-[facility] (06-09-2013 06:54) Glucose 143 70-110 complet BldC 014 mg/dl ed Glucomt 06:54 r-[facility] BASIC METABOLIC PANEL (06-09-2013 06:10) Glucose 157 [...] 014 mmoL/L ed SerPl-s 06:10 Cnc CO2 06-09- 25 21.0-32 complet SerPl-s 014 mmoL/L .0 ed Cnc 06:10 Calcium 06-09-2 8.3 8.5-10. complet 014 mg/dL 1 ed SerPl-m 06:10 Cnc CBC with AUTO DIFF (06-09-2013 06:10) WBC # 02-20-2 6.6 4.8-10. complet Bld 014 K/MM3 8 ed Auto 06:10 RBC # 20-2 4.18 4.2-5.4 complet Bld 014 M/mm3 ed Auto 06:10 Hgb 06-09- 11.7 12.2-16 complet Bld-mCn 014 g/dL .2 ed c 06:10 Hct Fr 36.6 % 37.0-47 complet Bld 014 .0 ed 06:10 MCV RBC 06-09- 87.8 fl 82.2-97 complet 014 .8 ed [...] ed Fr Bld 06:10 Auto LYMPH % 06-09-2 37.1 % 10-50.0 complet 014 ed 06:10 Monocyt 06-09-2 5.9 % 1.7-9.3 complet es Fr 014 ed Bld 06:10 Auto Eosinop 06-09-2 2.6 % 0.1-12. complet hil Fr 014 0 ed Bld 06:10 Auto Basophi 20-2 0.6 % 0.1-2.0 complet ls Fr 014 ed Bld 06:10 Auto Granulo 06-09-2 3.5 1.8-7.8 complet cytes # 014 K/mm3 [...] K/MM3 ed Bld 06:10 Auto Glucose BldC Glucomtr-mCnc (06-08-2013 20:03) Glucose 239 70-110 complet BldC 014 mg/dl ed Glucomt 20:03 r-nc Glucose BldC Glucomtr-nc (06-08-2013 16:40) Glucose 363 70-110 High complet BldC 014 mg/dl alert ed Glucomt 16:40 r-mCnc Glucose BldC Glucomtr-mCnc (06-08-2013 11:33) Glucose 326 70-110 High complet [...] with AUTO DIFF (06-08-2013 06:15) WBC # 06-08- 10.5 4.8-10. complet Bld 014 K/MM3 8 [...] complet Auto 014 .5 ed 06:15 Platele 02-19-2 297 142-424 complet t Bld 014 K/mm3 ed Ql 06:15 Manual MEAN 06-08-2 8.4 fl 7.4-10. complet PLATELE 014 4 ed T 06:15 VOLUME Granulo 19-2 67.1 % 37.0-80 complet cytes 014 .0 ed Fr Bld 06:15 Auto LYMPH % 19-2 24.9 % 10-50.0 complet 014 ed 06:15 Monocyt 02-19-2 6.2 % 1.7-9.3 complet es Fr 014 ed Bld 06:15 Auto Eosinop -19-2 1.3 % 0.1-12. complet hil Fr 014 0 ed Bld 06:15 Auto Basophi 19-2 0.5 % 0.1-2.0 complet ls Fr 014 ed Bld 06:15 Auto Granulo -19-2 7.0 1.8-7.8 complet cytes # 014 K/mm3 ed Bld 06:15 Auto Lymphoc 19-2 2.6 0.7-4.5 complet ytes Fr 014 K/mm3 ed Bld 06:15 Auto Monocyt -19-2 0.7 0.1-1.0 complet es # 014 K/mm3 ed Bld 06:15 Auto Eosinop -19-2 0.1 0.0-0.4 complet hil # 014 K/mm3 ed Bld 06:15 Auto Basophi -19-2 0.1 0-0.2 complet ls # 014 K/MM3 ed Bld 06:15 Auto GLYCOHEMOGLOBIN (A1c) (06-08-2013 06:15) HEMOGLO 06-08-2 13.2 % 0.0-7.0 complet BIN A1C 014 ed 06:15 Glucose BldC Glucomtr-[facility] (06-07-2013 21:00) Glucose 06-07- 447 70-110 High complet BldC 014 mg/dl alert ed Glucomt 21:00 [facility] Glucose BldC Glucomtr-[facility] (06-07-2013 16:49) Glucose 336 70-110 High complet BldC 014 mg/dl alert ed Glucomt 16:49 [facility] COMPREHENSIVE METABOLIC PANEL (06-07-2013 16:00) Glucose 376 74-106 complet 014 mg/dL ed Bld-mCn 16:00 c BUN 06-07- 13 7-18 complet Bld-mCn 014 mg/dL ed [...] mg/dL 1 ed SerPl-m 16:00 Cnc Prot 06-07- 7.7 6.4-8.2 complet SerPl-m 014 gm/dL ed Cnc 16:00 Albumin 06-07- 3.7 3.4-5.0 complet 014 gm/dL ed SerPl-m 16:00 Cnc Globuli 4.0 1.3-3.2 complet n 014 gm/dL ed Ser-mCn 16:00 c Albumin 06-07-2 0.9 UNK 1.1-1.8 complet /Glob 014 ed SerPl-m 16:00 Rto Bilirub 06-07-2 0.7 0.2-1.0 complet 014 mg/dL ed SerPl-m [...] K/MM3 8 ed Auto 21:15 RBC # 05-2 4.27 4.2-5.4 complet Bld 014 M/mm3 ed Auto 21:15 Hgb 05-2 11.7 12.2-16 complet Bld-mCn 014 g/dL .2 ed c 21:15 Hct Fr 37.4 % 37.0-47 complet Bld 014 .0 ed 21:15 MCV RBC 87.6 fl 82.2-97 complet 014 .8 ed 21:15 MCH RBC 27.5 pg 27-31.2 complet Qn 014 ed Auto 21:15 MEAN 31.4 31.8-35 complet CORPUSC 014 g/dl .4 ed ULAR 21:15 HGB CONC RDW RBC 17.3 % 11.5-17 complet Auto 014 .5 ed 21:15 Platele 273 142-424 complet t Bld 014 K/mm3 ed Ql 21:15 Manual MEAN 7.5 fl 7.4-10. complet PLATELE 014 4 ed T 21:15 VOLUME Granulo 72.0 % 37.0-80 complet cytes 014 .0 ed Fr Bld 21:15 Auto LYMPH % 04-24-2 18.4 % 10-50.0 complet 014 ed 21:15 Monocyt 04-24-2 7.8 % 1.7-9.3 complet es Fr 014 ed Bld 21:15 Auto Eosinop 05-2 1.5 % 0.1-12. complet hil Fr 014 0 ed Bld 21:15 Auto Basophi 04-24-2 0.3 % 0.1-2.0 complet ls Fr 014 ed Bld 21:15 Auto Granulo 04-24-2 5.7 1.8-7.8 complet cytes # 014 K/mm3 ed Bld 21:15 Auto Lymphoc 01-05-2 1.5 0.7-4.5 complet ytes Fr 014 K/mm3 ed Bld 21:15 Auto Monocyt 04-24-2 0.6 0.1-1.0 complet es # 014 K/mm3 ed Bld 21:15 Auto Eosinop 0.1 0.0-0.4 complet hil # 014 K/mm3 [...] ed Fr Bld 06:15 Auto LYMPH % 18.0 % 10-50.0 complet 013 ed 06:15 [...] 013 K/mm3 ed Bld 06:15 Auto Monocyt 12-27-2 0.8 0.1-1.0 complet es # 013 K/mm3 ed Bld 06:15 Auto Eosinop 2 0.0 0.0-0.4 complet hil # 013 K/mm3 ed Bld 06:15 Auto Basophi 2 0.0 0-0.2 complet ls # 013 K/MM3 ed Bld 06:15 Auto ARTERIAL BLOOD GAS (04-14-2013 10:35) ARTERIA 7.47 7.35-7. complet L PH 013 MMOL/L 45 ed 10:35 ARTERIA 35.1 35.0-45 complet L PCO2 013 MMHG .0 ed 10:35 ARTERIA 80.8 80-100 complet L PO2 013 MMHG ed 10:35 ARTERIA 24.7 22.0-26 complet L HCO3 013 MMOL/L .0 ed 10:35 ARTERIA 25.8 23-27 complet L TCO2 013 MMOL/L [...] SerPl-s 013 mmoL/L ed Cnc 10:15 Potassi 04-14-2 3.0 3.5-5.1 complet um 013 mmoL/L ed SerPl-s 10:15 Cnc Chlorid 102 98-107 complet e 013 mmoL/L ed SerPl-s 10:15 Cnc CO2 28 21.0-32 complet SerPl-s 013 mmoL/L .0 ed Cnc 10:15 Calcium 04-14-2 8.6 8.5-10. complet 013 mg/dL 1 ed SerPl-m 10:15 Cnc CBC with AUTO DIFF (04-14-2013 10:15) WBC # 04-14-2 9.1 4.8-10. complet Bld 013 K/MM3 8 ed Auto 10:15 RBC # 04-14-2 4.43 4.2-5.4 complet Bld 013 M/mm3 ed Auto 10:15 Hgb 04-14-2 12.2 12.2-16 complet Bld-mCn 013 g/dL .2 ed c 10:15 Hct Fr 04-14-2 37.9 % 37.0-47 complet Bld 013 .0 ed 10:15 MCV RBC 04-14- 85.5 fl 82.2-97 complet 013 .8 ed 10:15 MCH RBC 04-14-2 27.5 pg 27-31.2 complet Qn 013 ed Auto 10:15 MEAN 04-14-2 32.1 31.8-35 complet CORPUSC 013 g/dl .4 ed ULAR 10:15 HGB CONC RDW RBC 04-14-2 17.1 % 11.5-17 complet Auto 013 .5 ed 10:15 Platele 04-14-2 183 142-424 complet t Bld 013 K/mm3 ed Ql 10:15 Manual MEAN 04-14-2 8.3 fl 7.4-10. complet PLATELE 013 4 ed T 10:15 VOLUME Granulo 04-14-2 83.3 % 37.0-80 complet cytes 013 .0 ed Fr Bld 10:15 Auto LYMPH % 04-14-2 12.0 % 10-50.0 complet 013 ed 10:15 Monocyt 04-14-2 4.5 % 1.7-9.3 complet es Fr 013 ed Bld 10:15 Auto Eosinop -26-2 0.1 % 0.1-12. complet hil Fr 013 0 ed Bld 10:15 Auto Basophi 26-2 0.2 % 0.1-2.0 complet ls Fr 013 ed Bld 10:15 Auto Granulo 04-14-2 7.6 1.8-7.8 complet cytes # 013 K/mm3 ed Bld 10:15 Auto Lymphoc 04-14-2 1.1 0.7-4.5 complet ytes Fr 013 K/mm3 ed Bld 10:15 Auto Monocyt 26-2 0.4 0.1-1.0 complet es # 013 K/mm3 ed Bld 10:15 Auto Eosinop 04-14-2 0.0 0.0-0.4 complet hil # 013 K/mm3 ed Bld 10:15 Auto Basophi 26-2 0.0 0-0.2 complet ls # 013 K/MM3 ed Bld 10:15 Auto ARTERIAL BLOOD GAS (04-13-2013 12:38) ARTERIA 04-13-2 7.45 7.35-7. complet L PH 013 MMOL/L 45 ed 12:38 ARTERIA 36.3 35.0-45 complet L PCO2 013 MMHG .0 ed 12:38 ARTERIA 125.2 80-100 complet L PO2 013 MMHG ed 12:38 ARTERIA 24.8 22.0-26 complet L HCO3 013 MMOL/L .0 ed 12:38 ARTERIA 2 25.9 23-27 complet L TCO2 013 MMOL/L ed 12:38 Base 2 0.9 -2.4-+2 complet excess 013 MMOL/L .3 ed BldA-sC 12:38 nc ARTERIA 98.9 % 90-100 complet L O2 013 ed SAT 12:38 TIDAL 04-13- 450 UNK complet VOLUME 013 ed 12:38 OXYGEN 04-13-2 40 UNK complet 013 ed 12:38 VENT [...] 013 mmoL/L ed SerPl-s 04:35 Cnc CO2 25 21.0-32 complet SerPl-s 013 mmoL/L .0 ed Cnc 04:35 Calcium 2 8.8 8.5-10. complet 013 mg/dL 1 ed SerPl-m 04:35 Cnc LIPID PROFILE (04-13-2013 04:35) Cholest 04-13-2 139 Less complet 013 mg/dL than ed SerPl-m 04:35 200 Cnc HDLc 2 29.0 40-60 complet SerPl-m 013 MG/DL ed Cnc 04:35 LDLc 2 79.6 0-130 complet SerPl 013 mg/dL ed Calc-mC 04:35 nc VLDL 2 30.4 0-40 complet CHOLEST 013 UNK ed LANEY 04:35 Trigl 152 30-200 complet SerPl-m 013 mg/dL ed Cnc 04:35 CBC with AUTO DIFF (04-13-2013 04:35) WBC # 04-13-2 3.9 4.8-10. complet Bld 013 K/MM3 8 ed Auto 04:35 RBC # 04-13-2 4.19 4.2-5.4 complet Bld 013 M/mm3 ed Auto 04:35 Hgb 04-13-2 11.8 12.2-16 complet Bld-mCn 013 g/dL .2 ed c 04:35 Hct Fr 37.3 % 37.0-47 complet Bld 013 .0 ed 04:35 MCV RBC 88.9 fl 82.2-97 complet 013 .8 ed 04:35 MCH RBC 28.0 pg 27-31.2 complet Qn 013 ed Auto 04:35 MEAN 04-13-2 31.6 31.8-35 complet CORPUSC 013 g/dl .4 ed ULAR 04:35 HGB CONC RDW RBC 04-13-2 17.4 % 11.5-17 complet Auto 013 .5 ed 04:35 Platele 113 142-424 complet t Bld 013 K/mm3 ed Ql 04:35 Manual MEAN 2 8.9 fl 7.4-10. complet PLATELE 013 4 ed T 04:35 VOLUME Granulo 12-25-2 80.6 % 37.0-80 complet cytes 013 .0 [...] mg/dL ed - 09:39 DIPSTIC K URINE 24-2 1.0 NEG complet UROBILI 013 E.U./dL ed NOGEN - 09:39 DIPSTIC K URINE 1224-2 NEGATIV NEG complet NITRATE 013 E ed - 09:39 DIPSTIC K URINE 12-24-2 NEGATIV NEG complet LEUK 013 E ed ESTERAS 09:39 E URINE 24-2 5-10 0 complet RBC 013 rbc/hpf ed 09:39 URINE 12-24-2 5-10 O complet WBC 013 wbc/hpf ed 09:39 URINE 1224-2 OCC 0-5 complet SQUAMOU 013 #/hpf ed S CELLS 09:39 URINE 24-2 3+ O complet BACTERI 013 ed A 09:39 ARTERIAL BLOOD GAS (04-12-2013 08:45) ARTERIA 24-2 7.35 7.35-7. complet L PH 013 MMOL/L 45 ed 08:45 ARTERIA 24-2 46.0 35.0-45 complet L PCO2 013 MMHG .0 ed 08:45 ARTERIA 24-2 76.0 80-100 complet L PO2 013 MMHG ed 08:45 ARTERIA 24-2 25.0 22.0-26 complet L HCO3 013 MMOL/L .0 ed 08:45 ARTERIA 24-2 16.0 23-27 complet L TCO2 013 MMOL/L ed 08:45 Base 12-24-2 -0.5 -2.4-+2 complet excess 013 MMOL/L .3 ed BldA-sC 08:45 nc ARTERIA 04-12-2 95 % 90-100 complet L O2 013 ed SAT 08:45 TIDAL 04-12-2 500 UNK complet VOLUME 013 ed 08:45 OXYGEN -24-2 50 UNK complet 013 ed 08:45 VENT 1224-2 16 UNK complet RATE 013 ed 08:45 PEEP 1224-2 5 UNK complet 013 ed 08:45 Arteria 1224-2 ACCEPTA complet l 013 BLE ed patency 08:45 Wrist a SOURCE 24-2 RIGHT complet 013 RADIAL ed 08:45 ARTERIAL BLOOD GAS (04-12-2013 07:30) ARTERIA 12-24-2 7.12 7.35-7. Low complet L PH 013 MMOL/L 45 alert ed 07:30 ARTERIA 84.0 35.0-45 complet L PCO2 013 MMHG .0 ed 07:30 ARTERIA 51.0 80-100 complet L PO2 013 MMHG ed 07:30 ARTERIA 27.0 22.0-26 complet L HCO3 013 MMOL/L .0 ed 07:30 ARTERIA 14.0 23-27 complet L TCO2 013 MMOL/L ed 07:30 Base 2 -2.5 -2.4-+2 complet excess 013 MMOL/L .3 [...] 013 mmoL/L ed SerPl-s 07:09 Cnc CO2 24-2 27 21.0-32 complet SerPl-s 013 mmoL/L .0 ed Cnc 07:09 Calcium 24-2 8.7 8.5-10. complet 013 mg/dL 1 ed SerPl-m 07:09 Cnc CBC with AUTO DIFF (04-12-2013 07:09) WBC # -24-2 12.2 4.8-10. complet Bld 013 K/MM3 8 ed Auto 07:09 RBC # 24-2 4.56 4.2-5.4 complet Bld 013 M/mm3 ed Auto 07:09 Hgb 24-2 11.9 12.2-16 complet Bld-mCn 013 g/dL .2 ed c 07:09 Hct Fr 04-12-2 39.1 % 37.0-47 complet Bld 013 .0 ed 07:09 MCV RBC 04-12-2 85.7 fl 82.2-97 complet 013 .8 ed 07:09 MCH RBC 04-12-2 26.1 pg 27-31.2 complet Qn 013 ed Auto 07:09 MEAN 04-12-2 30.4 31.8-35 complet CORPUSC 013 g/dl .4 ed ULAR 07:09 HGB CONC RDW RBC 04-12-2 18.5 % 11.5-17 complet Auto 013 .5 ed 07:09 Platele 04-12-2 225 142-424 complet t Bld 013 K/mm3 ed Ql 07:09 Manual Granulo 04-12-2 74.7 % 37.0-80 complet cytes 013 .0 ed Fr Bld 07:09 Auto LYMPH % 04-12-2 20.1 % 10-50.0 complet 013 ed 07:09 Monocyt 24-2 5.2 % 1.7-9.3 complet es Fr 013 ed Bld 07:09 Auto Granulo 24-2 9.1 1.8-7.8 complet cytes # 013 K/mm3 ed Bld 07:09 Auto Lymphoc 24-2 2.5 0.7-4.5 complet ytes Fr 013 K/mm3 ed Bld 07:09 Auto Monocyt 24-2 0.6 0.1-1.0 complet es # 013 K/mm3 ed Bld 07:09 Auto COMPREHENSIVE METABOLIC PANEL (04-11-2013 14:20) Glucose 147 74-106 complet 013 mg/dL ed Bld-mCn 14:20 c BUN 04-11- 21 7-18 complet Bld-mCn 013 mg/dL ed c 14:20 Creat 04-11-2 0.7 0.6-1.0 complet SerPl-m 013 mg/dL ed Cnc 14:20 Creat 66 50-200 complet Cl 013 ML/MIN ed predict 14:20 ed SerPl C-G-vRa te GFR/BSA 88 59- complet .pred 013 ML/MIN ed SerPl 14:20 Schwart z-vRate Sodium 135 136-145 complet SerPl-s 013 mmoL/L ed Cnc 14:20 Potassi 2 3.5 3.5-5.1 complet um 013 mmoL/L ed SerPl-s 14:20 Cnc Chlorid 96 98-107 complet e 013 mmoL/L ed SerPl-s 14:20 Cnc CO2 30 21.0-32 complet SerPl-s 013 mmoL/L .0 ed Cnc 14:20 Calcium 04-11-2 8.8 8.5-10. complet 013 mg/dL 1 ed SerPl-m 14:20 Cnc Prot 04-11-2 6.7 6.4-8.2 complet SerPl-m 013 gm/dL ed Cnc 14:20 Albumin 04-11-2 3.3 3.4-5.0 complet 013 gm/dL ed SerPl-m 14:20 Cnc Globuli 04-11-2 3.4 1.3-3.2 complet n 013 gm/dL ed Ser-mCn 14:20 c Albumin 04-11-2 1.0 UNK 1.1-1.8 complet /Glob 013 ed SerPl-m 14:20 Rto Bilirub 04-11-2 0.5 0.2-1.0 complet 013 mg/dL ed SerPl-m 14:20 Cnc AST 04-11-2 41 U/L 15-37 complet SerPl-c 013 ed Cnc 14:20 ALT 04-11-2 52 U/L 30-65 complet SerPl-c 013 ed Cnc 14:20 ALP 12-23-2 426 U/L 50-136 complet SerPl-c 013 ed Cnc 14:20 Amylase SerPl-cCnc (04-11-2013 14:20) Amylase 12-23-2 22 U/L 25-115 complet 013 ed SerPl-c 14:20 Cnc LIPASE (04-11-2013 14:20) LIPASE 12-23-2 123 U/L 73-393 complet 013 ed 14:20 CBC with AUTO DIFF (04-11-2013 14:20) WBC # 12-23-2 8.2 4.8-10. complet Bld 013 K/MM3 8 ed Auto 14:20 RBC # 12-23-2 4.29 4.2-5.4 complet Bld 013 M/mm3 ed Auto 14:20 Hgb 12-23-2 11.6 12.2-16 complet Bld-mCn 013 g/dL .2 ed c 14:20 Hct Fr -23-2 36.8 % 37.0-47 complet Bld 013 .0 ed 14:20 MCV RBC 12-23-2 85.8 fl 82.2-97 complet 013 .8 ed 14:20 MCH RBC 23-2 27.0 pg 27-31.2 complet Qn 013 ed Auto 14:20 MEAN 12-23-2 31.5 31.8-35 complet CORPUSC 013 g/dl .4 ed ULAR 14:20 HGB CONC RDW RBC 12-23-2 17.3 % 11.5-17 complet Auto 013 .5 ed 14:20 Platele 12-23-2 164 142-424 complet t Bld 013 K/mm3 ed Ql 14:20 Manual MEAN 12-23-2 7.9 fl 7.4-10. complet PLATELE 013 4 ed T 14:20 VOLUME Granulo 12-23-2 82.6 % 37.0-80 complet cytes 013 .0 ed Fr Bld 14:20 Auto LYMPH % 12-23-2 10.7 % 10-50.0 complet 013 ed 14:20 Monocyt 12-23-2 6.2 % 1.7-9.3 complet es Fr 013 ed Bld 14:20 Auto Eosinop 12-23-2 0.3 % 0.1-12. complet hil Fr 013 0 ed Bld 14:20 Auto Basophi 12-23-2 0.2 % 0.1-2.0 complet ls Fr 013 ed Bld 14:20 Auto Granulo 04-11-2 6.8 1.8-7.8 complet cytes # 013 K/mm3 [...] Bld-mCn 013 mg/dL ed c 08:25 Creat 2 0.8 0.6-1.0 complet SerPl-m 013 mg/dL ed Cnc 08:25 ESTIMAT 54 50-200 complet ED 013 ML/MIN ed CREATIN 08:25 INE CLEARAN CE GFR 75 59- complet (ESTIMA 013 ML/MIN ed YENNY) 08:25 Sodium 138 136-145 complet SerPl-s 013 mmoL/L ed Cnc 08:25 Potassi 4.3 3.5-5.1 complet um 013 mmoL/L ed SerPl-s 08:25 Cnc Chlorid 102 98-107 complet e 013 mmoL/L ed SerPl-s 08:25 Cnc CO2 01-07- 27 21.0-32 complet SerPl-s 013 mmoL/L .0 ed Cnc 08:25 Calcium 01-07- 8.9 8.5-10. complet 013 mg/dL 1 ed SerPl-m 08:25 Cnc Prot 01-07- 6.9 6.4-8.2 complet SerPl-m 013 gm/dL ed Cnc 08:25 Albumin 09-20-2 3.1 3.4-5.0 complet 013 gm/dL ed SerPl-m 08:25 Cnc GLOBULI 20-2 3.8 1.3-3.2 complet N 013 gm/dL ed 08:25 ALB/UMESH -20-2 0.8 UNK 1.1-1.8 complet B RATIO 013 ed 08:25 Bilirub 0920-2 0.8 0.2-1.0 complet 013 mg/dL ed SerPl-m 08:25 Cnc AST 20-2 14 U/L 15-37 complet SerPl-c 013 ed Cnc 08:25 ALT -20-2 55 U/L 30-65 complet SerPl-c 013 ed Cnc 08:25 ALP 20-2 527 U/L 50-136 complet SerPl-c 013 ed Cnc 08:25 CBC with AUTO DIFF (01-07-2013 08:25) WBC # -20-2 8.0 4.8-10. complet Bld 013 K/MM3 8 ed Auto 08:25 RBC # 20-2 3.78 4.2-5.4 complet Bld 013 M/mm3 ed Auto 08:25 Hgb -20-2 10.4 12.2-16 complet Bld-mCn 013 g/dL .2 ed c 08:25 Hct Fr 20-2 34.9 % 37.0-47 complet Bld 013 .0 ed 08:25 MCV RBC 20-2 92.4 fl 82.2-97 complet 013 .8 ed 08:25 MCH RBC 20-2 27.4 pg 27-31.2 complet Qn 013 ed Auto 08:25 MEAN -20-2 29.7 31.8-35 complet CORPUSC 013 g/dl .4 ed ULAR 08:25 HGB CONC RDW RBC -20-2 17.9 % 11.5-17 complet Auto 013 .5 ed 08:25 Platele 09-20-2 312 142-424 complet t Bld 013 K/mm3 ed Ql 08:25 Manual MEAN -20-2 7.7 fl 7.4-10. complet PLATELE 013 4 ed T 08:25 VOLUME Granulo -20-2 73.1 % 37.0-80 complet cytes 013 .0 [...] with AUTO DIFF (12-19-2012 10:30) WBC # 11.9 4.8-10. complet Bld 013 K/MM3 8 [...] complet Qn 013 ed Auto 10:30 MEAN 09-01-2 30.5 31.8-35 complet CORPUSC 013 g/dl .4 ed ULAR 10:30 HGB CONC RDW RBC 12-19-2 16.5 % 11.5-17 complet Auto 013 .5 ed 10:30 Platele 12-19-2 384 142-424 complet t Bld 013 K/mm3 ed Ql 10:30 Manual MEAN 7.5 fl 7.4-10. complet PLATELE [...] Fr 013 ed Bld 10:30 Auto Granulo --2 9.9 1.8-7.8 complet cytes # 013 K/mm3 ed Bld 10:30 Auto Lymphoc --2 1.2 0.7-4.5 complet ytes Fr 013 K/mm3 ed Bld 10:30 Auto Monocyt --2 0.7 0.1-1.0 complet es # 013 K/mm3 [...] complet ED 013 ML/MIN ed CREATIN 06:15 TK CLEARAN CE GFR 105 59- complet (ESTIMA [...] with AUTO DIFF (12-15-2012 06:15) WBC # 12-15-2 6.9 4.8-10. complet Bld 013 K/MM3 8 ed Auto 06:15 RBC # 12-15-2 3.75 4.2-5.4 complet Bld 013 M/mm3 ed Auto 06:15 Hgb 2 10.2 12.2-16 complet Bld-mCn 013 g/dL .2 ed c 06:15 Hct Fr 33.4 % 37.0-47 complet Bld 013 .0 ed 06:15 MCV RBC 89.0 fl 82.2-97 complet 013 .8 ed 06:15 MCH RBC 27.1 pg 27-31.2 complet Qn 013 ed Auto 06:15 MEAN 30.4 31.8-35 complet CORPUSC 013 g/dl .4 ed ULAR 06:15 HGB CONC RDW RBC 16.7 % 11.5-17 complet Auto 013 .5 ed 06:15 Platele 12-15- 389 142-424 complet t Bld 013 K/mm3 ed Ql 06:15 Manual MEAN 7.2 fl 7.4-10. complet PLATELE 013 4 ed T 06:15 VOLUME Granulo 72.5 % 37.0-80 complet cytes 013 .0 ed Fr Bld 06:15 Auto LYMPH % 2 15.3 % 10-50.0 complet 013 ed 06:15 Monocyt 2 9.8 % 1.7-9.3 complet es Fr 013 ed Bld 06:15 Auto Eosinop 12-15-2 2.2 % 0.1-12. complet hil Fr 013 0 ed Bld 06:15 Auto Basophi 12-15-2 0.2 % 0.1-2.0 complet ls Fr 013 ed Bld 06:15 Auto Granulo 2 5.0 1.8-7.8 complet cytes # 013 K/mm3 ed Bld 06:15 Auto Lymphoc 08-28-2 1.1 0.7-4.5 complet ytes Fr 013 K/mm3 ed Bld 06:15 Auto Monocyt 12-15-2 0.7 0.1-1.0 complet es # 013 K/mm3 ed Bld 06:15 Auto Eosinop 12-15-2 0.2 0.0-0.4 complet hil # 013 K/mm3 ed Bld 06:15 Auto Basophi 2 0.0 0-0.2 complet ls # 013 K/MM3 [...] mg/dL 1 ed SerPl-m 14:25 Cnc Prot 2 7.8 6.4-8.2 complet SerPl-m 013 gm/dL ed Cnc 14:25 Albumin 12-14- 3.4 3.4-5.0 complet 013 gm/dL ed SerPl-m 14:25 Cnc GLOBULI 4.4 1.3-3.2 complet N 013 gm/dL ed 14:25 ALB/UMESH 0.8 UNK 1.1-1.8 complet B RATIO 013 ed 14:25 Bilirub 12-14-2 0.5 0.2-1.0 complet 013 mg/dL ed SerPl-m 14:25 Cnc AST 2 65 U/L 15-37 complet SerPl-c 013 ed Cnc 14:25 ALT 87 U/L 30-65 complet SerPl-c 013 ed Cnc 14:25 ALP 12-14-2 585 U/L 50-136 complet SerPl-c 013 ed Cnc 14:25 Amylase SerPl-cCnc (12-14-2012 14:25) Amylase 12-14-2 127 U/L 25-115 complet 013 ed SerPl-c 14:25 Cnc LIPASE (12-14-2012 14:25) LIPASE 915 U/L 73-393 complet 013 ed 14:25 CBC with AUTO DIFF (12-14-2012 14:25) WBC # 12-14-2 12.7 4.8-10. complet Bld 013 K/MM3 8 ed Auto 14:25 RBC # 12-14-2 4.62 4.2-5.4 complet Bld 013 M/mm3 ed Auto 14:25 Hgb 12-14-2 12.8 12.2-16 complet Bld-mCn 013 g/dL .2 ed c 14:25 Hct Fr 2 40.0 % 37.0-47 complet Bld 013 .0 [...] ed Fr Bld 14:25 Auto LYMPH % 08-27-2 14.4 % 10-50.0 complet 013 ed 14:25 Monocyt 08-27-2 6.6 % 1.7-9.3 complet es Fr 013 [...] A+B Stl Ql (11-23-2012 11:03) C dif 06-2 NOT NOT complet Tox A+B 013 DETECTE DETECTE ed Stl Ql 11:03 D BASIC METABOLIC PANEL (11-23-2012 08:40) Glucose 06-2 146 74-106 complet 013 mg/dL ed Bld-mCn 08:40 c BUN -06-2 19 7-18 complet Bld-mCn 013 mg/dL ed c 08:40 Creat 0806-2 0.8 0.6-1.0 complet SerPl-m 013 mg/dL ed Cnc 08:40 ESTIMAT 0806-2 65 50-200 complet ED 013 ML/MIN ed CREATIN 08:40 INE CLEARAN CE GFR 06-2 75 59- complet (ESTIMA 013 ML/MIN ed YENNY) 08:40 Sodium 08-06-2 140 136-145 complet SerPl-s 013 mmoL/L ed Cnc 08:40 Potassi 4.1 3.5-5.1 complet um 013 mmoL/L ed [...] mg/dL ed SerPl-m 08:40 Cnc Glucose BldC Glucomtr-mCnc (11-23-2012 06:32) Glucose 257 70-110 complet BldC 013 mg/dl ed Glucomt 06:32 r-[facility] Glucose BldC Glucomtr-mCnc (11-22-2012 17:02) Glucose 380 70-110 High complet BldC 013 mg/dl alert ed Glucomt 17:02 r-[facility] Glucose BldC Glucomtr-mCnc (11-22-2012 11:17) Glucose 210 70-110 complet BldC 013 mg/dl ed Glucomt 11:17 r-[facility] Glucose BldC Glucomtr-mCnc (11-22-2012 05:44) Glucose 254 70-110 complet BldC 013 mg/dl ed Glucomt 05:44 r-[facility] COMPREHENSIVE METABOLIC PANEL (11-22-2012 05:40) Glucose 257 74-106 complet 013 mg/dL ed Bld-mCn 05:40 c BUN 17 7-18 complet Bld-mCn 013 mg/dL ed c 05:40 Creat 0.8 0.6-1.0 complet SerPl-m 013 mg/dL ed Cnc 05:40 ESTIMAT 59 50-200 complet ED 013 ML/MIN ed CREATIN 05:40 INE CLEARAN CE GFR 75 59- complet (ESTIMA 013 ML/MIN ed YENNY) 05:40 Sodium 139 136-145 complet SerPl-s 013 mmoL/L [...] Cnc 05:40 Phosphate SerPl-mCnc (11-22-2012 05:40) Phospha 3.3 2.4-4.9 complet te 013 mg/dL ed SerPl-m 05:40 Cnc Magnesium SerPl-mCnc (11-22-2012 05:40) Magnesi 1.9 1.4-2.2 complet um 013 mg/dL ed SerPl-m 05:40 Cnc Glucose BldC Glucomtr-mCnc (11-21-2012 20:40) Glucose 245 70-110 complet BldC 013 mg/dl ed Glucomt 20:40 r-mCnc Glucose BldC Glucomtr-nc (11-21-2012 18:51) Glucose 451 70-110 High complet BldC 013 mg/dl alert ed Glucomt 18:51 r-mCnc Glucose Bld-mCnc (11-21-2012 16:30) Glucose 458 74-106 complet 013 mg/dL ed Bld-mCn 16:30 c Glucose BldC Glucomtr-nc (11-21-2012 11:25) Glucose 187 70-110 complet BldC 013 mg/dl ed Glucomt 11:25 r-nc BASIC METABOLIC PANEL (11-21-2012 06:30) Glucose 202 [...] mg/dL 1 ed SerPl-m 06:30 Cnc Phosphate SerPl-mCnc (11-21-2012 06:30) Phospha 3.1 2.4-4.9 complet te [...] mg/dl ed Glucomt 16:43 r-mCnc Glucose BldC Glucomtr-nc (11-20-2012 11:21) Glucose 310 70-110 High complet BldC 013 mg/dl alert ed Glucomt 11:21 r-mCnc Glucose BldC Glucomtr-mCnc (11-20-2012 06:42) Glucose 203 70-110 complet BldC 013 mg/dl ed Glucomt 06:42 r-nc BASIC METABOLIC PANEL (11-20-2012 06:20) Glucose 191 [...] SerPl-s 013 mmoL/L ed Cnc 06:20 Potassi 08-03-2 4.5 3.5-5.1 complet um 013 mmoL/L ed SerPl-s 06:20 Cnc Chlorid 11-20-2 102 98-107 complet e 013 mmoL/L ed SerPl-s 06:20 Cnc CO2 11-20-2 24 21.0-32 complet SerPl-s 013 mmoL/L .0 ed Cnc 06:20 Calcium 08--2 9.4 8.5-10. complet 013 mg/dL 1 ed SerPl-m 06:20 Cnc Phosphate SerPl-mCnc (11-20-2012 06:20) Phospha 11-20-2 3.2 2.4-4.9 complet te 013 mg/dL ed SerPl-m 06:20 Cnc Magnesium SerPl-mCnc (11-20-2012 06:20) Magnesi 11-20-2 2.0 1.4-2.2 complet um 013 mg/dL ed SerPl-m 06:20 Cnc CBC with AUTO DIFF (11-20-2012 06:20) WBC # 08-03-2 10.6 4.8-10. complet Bld 013 K/MM3 8 ed Auto 06:20 RBC # 08-03-2 3.83 4.2-5.4 complet Bld 013 M/mm3 ed Auto 06:20 Hgb 03-2 11.2 12.2-16 complet Bld-mCn 013 g/dL .2 ed c 06:20 Hct Fr 11-20-2 35.6 % 37.0-47 complet Bld 013 .0 ed 06:20 MCV RBC 03-2 92.9 fl 82.2-97 complet 013 .8 ed 06:20 MCH RBC 03-2 29.1 pg 27-31.2 complet Qn 013 ed Auto 06:20 MEAN -03-2 31.4 31.8-35 complet CORPUSC 013 g/dl .4 ed ULAR 06:20 HGB CONC RDW RBC 0803-2 15.6 % 11.5-17 complet Auto 013 .5 ed 06:20 Platele 11-20-2 244 142-424 complet t Bld 013 K/mm3 ed Ql 06:20 Manual MEAN 03-2 9.3 fl 7.4-10. complet PLATELE 013 4 ed T 06:20 VOLUME Granulo 08-03-2 89.5 % 37.0-80 complet cytes 013 .0 [...] 013 K/MM3 ed Bld 06:20 Auto Glucose dC Glucomtr-[facility] (11-19-2012 16:17) Glucose 268 70-110 complet BldC 013 mg/dl ed [facility] (11-19-2012 11:34) Glucose 11-19-2 260 70-110 complet BldC 013 mg/dl ed Glucomt 11:34 [facility]ld[facility] Glucomtr-[facility] (11-19-2012 06:27) Glucose 11-19-2 245 70-110 complet BldC 013 mg/dl ed Glucomt 06:27 [facility] BASIC METABOLIC PANEL (11-19-2012 05:00) Glucose 11-19- 197 74-106 complet 013 mg/dL ed Bld-mCn 05:00 c BUN 11-19-2 12 7-18 complet Bld-mCn 013 mg/dL ed c 05:00 Creat 0.7 0.6-1.0 complet SerPl-m 013 mg/dL [...] mg/dL ed SerPl-m 05:00 Cnc Glucose BldC Glucomtr-[facility] (11-18-2012 21:46) Glucose 223 70-110 complet BldC [...] complet B RATIO 013 ed 04:35 Bilirub 0.7 0.2-1.0 complet 013 mg/dL ed SerPl-m 04:35 Cnc AST 13 U/L 15-37 complet SerPl-c 013 ed Cnc 04:35 ALT 31 U/L 30-65 complet SerPl-c 013 ed Cnc 04:35 ALP 258 U/L 50-136 complet SerPl-c 013 ed Cnc 04:35 Amylase SerPl-cCnc (11-18-2012 04:35) Amylase 39 U/L 25-115 complet 013 ed SerPl-c 04:35 Cnc LIPASE (11-18-2012 04:35) LIPASE 219 U/L 73-393 complet 013 ed 04:35 CBC with AUTO DIFF (11-18-2012 04:35) WBC # 11-18-2 11.0 4.8-10. complet Bld 013 K/MM3 8 ed Auto 04:35 RBC # 3.78 4.2-5.4 complet Bld 013 M/mm3 ed [...] complet Auto 013 .5 ed 04:35 Platele 230 142-424 complet t Bld 013 K/mm3 ed Ql 04:35 Manual MEAN 7.5 fl 7.4-10. complet PLATELE 013 4 ed T 04:35 VOLUME Granulo 92.2 % 37.0-80 complet cytes 013 .0 ed Fr Bld 04:35 Auto LYMPH % 11-18- 5.3 % 10-50.0 complet 013 ed 04:35 Monocyt 2.4 % 1.7-9.3 complet es Fr 013 ed Bld 04:35 Auto Eosinop 0.0 % 0.1-12. complet hil Fr 013 0 ed Bld 04:35 Auto Basophi 08-01-2 0.1 % 0.1-2.0 complet ls Fr 013 [...] Bld 04:35 Auto URINALYSIS/COMPLETE (11-17-2012 16:44) URINE 07-31-2 YELLOW YELLOW complet COLOR 013 ed 16:44 URINE -31-2 CLEAR CLEAR complet APPEARA 013 ed NCE 16:44 URINE 07-31-2 NEGATIV NEG complet GLUCOSE 013 E ed - 16:44 DIPSTIC K URINE 07-31-2 NEGATIV NEG complet BILIRUB 013 E ed IN - 16:44 DIPSTIC K URINE 07-31-2 NEGATIV NEG complet KETONE 013 E mg/dL ed 16:44 URINE 07-31-2 Less 1.005-1 complet SPECIFI 013 than or .030 ed C 16:44 equal GRAVITY to 1.005 URINE 07-31-2 NEGATIV NEG complet BLOOD 013 E ed 16:44 URINE 07-31-2 7.0 UNK 5.0-8.5 complet PH 013 ed 16:44 URINE 07-31-2 NEGATIV NEG complet PROTEIN 013 E mg/dL ed - 16:44 DIPSTIC K URINE 07-31-2 0.2 NEG complet UROBILI 013 E.U./dL ed NOGEN - 16:44 DIPSTIC K URINE 07-31-2 NEGATIV NEG complet NITRATE 013 E ed - 16:44 DIPSTIC K URINE 07-31-2 NEGATIV NEG complet LEUK 013 E ed ESTERAS 16:44 E URINE 07-31-2 OCC 0 complet RBC 013 rbc/hpf ed 16:44 URINE 11-17- 3-5 O complet WBC 013 wbc/hpf ed 16:44 URINE 11-17-2 10-20 0-5 complet SQUAMOU 013 #/hpf ed S CELLS 16:44 URINE 11-17-2 TRACE O complet BACTERI 013 ed A 16:44 COMPREHENSIVE METABOLIC PANEL (11-17-2012 09:50) Glucose 11-17- 161 74-106 complet 013 mg/dL ed Bld-mCn 09:50 c BUN 11-17-2 15 7-18 complet Bld-mCn 013 mg/dL ed c 09:50 Creat 11-17-2 0.7 0.6-1.0 complet SerPl-m 013 mg/dL ed Cnc 09:50 GFR 11-17- 88 59- complet (ESTIMA 013 ML/MIN ed YENNY) 09:50 Sodium 11-17- 139 136-145 complet SerPl-s 013 mmoL/L ed Cnc 09:50 Potassi 4.1 3.5-5.1 complet um 013 mmoL/L ed SerPl-s 09:50 Cnc Chlorid 11-17- 100 98-107 complet e 013 mmoL/L ed SerPl-s 09:50 Cnc CO2 11-17-2 32 21.0-32 complet SerPl-s 013 mmoL/L .0 ed Cnc 09:50 Calcium 11-17- 9.5 8.5-10. complet 013 mg/dL 1 ed [...] Cnc 09:50 TROPONIN I (11-17-2012 09:50) TROPONI 11-17-2 Less 0.00-0. complet N I 013 than 06 ed 09:50 0.02 ng/mL D Dimer PPP (11-17-2012 09:50) D Dimer 11-17-2 391 0-400 complet PPP 013 ng/mL ed 09:50 CBC with AUTO DIFF (11-17-2012 09:50) WBC # 31-2 22.9 4.8-10. High complet Bld 013 K/MM3 [...] ed Fr Bld 09:50 Auto LYMPH % 07-31-2 6.6 % 10-50.0 complet 013 ed 09:50 Monocyt 07-31-2 4.7 % 1.7-9.3 complet es Fr 013 ed Bld 09:50 Auto Eosinop 07-31-2 0.3 % 0.1-12. complet hil Fr 013 0 ed Bld 09:50 Auto Basophi 07-31-2 0.3 % 0.1-2.0 complet ls Fr 013 ed Bld 09:50 Auto Granulo --2 20.2 1.8-7.8 complet cytes # 013 K/mm3 ed Bld 09:50 Auto Lymphoc -31-2 1.5 0.7-4.5 complet ytes Fr 013 K/mm3 ed Bld 09:50 Auto Monocyt -31-2 1.1 0.1-1.0 complet es # 013 K/mm3 ed Bld 09:50 Auto Eosinop 31-2 0.1 0.0-0.4 complet hil # 013 K/mm3 ed Bld 09:50 Auto Basophi -31-2 0.1 0-0.2 complet ls # 013 K/MM3 ed Bld 09:50 Auto Amylase SerPl-cCnc (11-17-2012 09:10) Amylase 11-17- 61 U/L 25-115 complet 013 ed SerPl-c 09:10 Cnc LIPASE (11-17-2012 09:10) LIPASE 11-17- 494 U/L 73-393 complet 013 ed 09:10 COMPREHENSIVE METABOLIC PANEL (10-27-2012 08:05) Glucose 117 74-106 complet 013 mg/dL ed Bld-mCn 08:05 c BUN 6 mg/dL 7-18 complet Bld-mCn 013 ed c 08:05 Creat 0.5 0.6-1.0 complet SerPl-m 013 mg/dL ed Cnc 08:05 GFR 130 59- complet (ESTIMA 013 ML/MIN ed YENNY) 08:05 Sodium 139 136-145 complet SerPl-s 013 mmoL/L ed Cnc 08:05 Potassi 3.9 3.5-5.1 complet um 013 mmoL/L ed SerPl-s 08:05 Cnc Chlorid 103 98-107 complet e 013 mmoL/L ed SerPl-s 08:05 Cnc CO2 27 21.0-32 complet SerPl-s 013 mmoL/L .0 ed Cnc 08:05 Calcium 10-27-2 8.9 8.5-10. complet 013 mg/dL 1 ed SerPl-m 08:05 Cnc Prot 10-2 6.5 6.4-8.2 complet SerPl-m 013 gm/dL ed Cnc 08:05 Albumin 10-27-2 2.8 3.4-5.0 complet 013 gm/dL ed SerPl-m 08:05 Cnc Globuli 3.7 1.3-3.2 complet n 013 gm/dL ed Ser-mCn 08:05 c Albumin 10-27-2 0.8 UNK 1.1-1.8 complet /Glob 013 ed SerPl-m 08:05 Rto Bilirub 0.5 0.2-1.0 complet 013 mg/dL ed SerPl-m 08:05 Cnc AST 6 U/L 15-37 complet SerPl-c 013 ed Cnc 08:05 ALT 24 U/L 30-65 complet SerPl-c 013 ed Cnc 08:05 ALP 319 U/L 50-136 complet SerPl-c 013 ed Cnc 08:05 Amylase SerPl-cCnc (10-27-2012 08:05) Amylase 10-27-2 32 U/L 25-115 complet 013 ed SerPl-c 08:05 Cnc LIPASE (10-27-2012 08:05) LIPASE 10-27- 87 U/L 73-393 complet 013 ed 08:05 [...] complet 013 .8 ed 08:05 MCH RBC 07-10-2 29.6 pg 27-31.2 complet Qn 013 ed Auto 08:05 MEAN 07-10-2 31.9 31.8-35 complet CORPUSC 013 g/dl .4 ed ULAR 08:05 HGB CONC RDW RBC 07-10-2 14.7 % 11.5-17 complet Auto 013 .5 ed 08:05 Platele 07-10-2 436 142-424 complet t Bld 013 K/mm3 ed Ql 08:05 Manual MEAN 10-2 8.0 fl 7.4-10. complet PLATELE 013 4 [...] SerPl-m 013 mg/dL ed Cnc 06:15 ESTIMAT 68 50-200 complet ED 013 ML/MIN ed [...] SerPl-m 013 gm/dL ed Cnc 06:15 Albumin 10-09-2 2.5 3.4-5.0 complet 013 gm/dL ed SerPl-m 06:15 Cnc Globuli 10-09-2 2.7 1.3-3.2 complet n 013 gm/dL ed Ser-mCn 06:15 c Albumin 10-09-2 0.9 UNK 1.1-1.8 complet /Glob 013 ed SerPl-m 06:15 Rto Bilirub 2 0.5 0.2-1.0 complet 013 mg/dL [...] with AUTO DIFF (10-09-2012 06:15) WBC # 0622-2 5.3 4.8-10. complet Bld 013 K/MM3 8 [...] 013 K/mm3 ed Bld 06:15 Auto Monocyt 06-22-2 0.3 0.1-1.0 complet es # 013 K/mm3 ed Bld 06:15 Auto Eosinop 10-09-2 0.2 0.0-0.4 complet hil # 013 K/mm3 ed Bld 06:15 Auto Basophi 10-09-2 0.0 0-0.2 complet ls # 013 K/MM3 ed Bld 06:15 Auto COMPREHENSIVE METABOLIC PANEL (10-07-2012 08:57) Glucose 20-2 71 74-106 complet 013 mg/dL ed Bld-mCn 08:57 c BUN 20-2 17 7-18 complet Bld-mCn 013 mg/dL ed c 08:57 Creat 10-07-2 1.0 0.6-1.0 complet SerPl-m 013 mg/dL ed Cnc 08:57 ESTIMAT 20-2 41 50-200 complet ED 013 ML/MIN ed CREATIN 08:57 INE CLEARAN CE GFR 10-07-2 58 59- complet (ESTIMA 013 ML/MIN ed YENNY) 08:57 Sodium 10-07-2 137 136-145 complet SerPl-s 013 mmoL/L ed Cnc 08:57 Potassi 20-2 3.5 3.5-5.1 complet um 013 mmoL/L ed SerPl-s 08:57 Cnc Chlorid 10-07-2 102 98-107 complet e 013 mmoL/L ed SerPl-s 08:57 Cnc CO2 20-2 26 21.0-32 complet SerPl-s 013 mmoL/L .0 ed Cnc 08:57 Calcium 20-2 8.6 8.5-10. complet 013 mg/dL 1 ed SerPl-m 08:57 Cnc Prot 20-2 6.1 6.4-8.2 complet SerPl-m 013 gm/dL ed Cnc 08:57 Albumin 20-2 2.7 3.4-5.0 complet 013 gm/dL ed SerPl-m 08:57 Cnc GLOBULI 20-2 3.4 1.3-3.2 complet N 013 gm/dL ed 08:57 ALB/UMESH 20-2 0.8 UNK 1.1-1.8 complet B RATIO 013 ed 08:57 Bilirub 20-2 0.5 0.2-1.0 complet 013 mg/dL ed SerPl-m [...] Auto COMPREHENSIVE METABOLIC PANEL (10-06-2012 14:00) Glucose 10-06- 142 74-106 complet 013 mg/dL ed Bld-mCn 14:00 c BUN 19-2 13 7-18 complet Bld-mCn 013 mg/dL ed c 14:00 Creat 10-06-2 1.7 0.6-1.0 complet SerPl-m 013 mg/dL ed [...] mg/dL 1 ed SerPl-m 14:00 Cnc Prot 06-19-2 8.9 6.4-8.2 complet SerPl-m 013 gm/dL ed Cnc 14:00 Albumin 10-06-2 3.7 3.4-5.0 complet 013 gm/dL ed SerPl-m 14:00 Cnc Globuli 10-06-2 5.2 1.3-3.2 complet n 013 gm/dL ed Ser-mCn 14:00 c Albumin 10-06-2 0.7 UNK 1.1-1.8 complet /Glob 013 ed SerPl-m 14:00 Rto Bilirub 2 0.6 0.2-1.0 complet 013 mg/dL ed SerPl-m 14:00 Cnc AST 17 U/L 15-37 complet SerPl-c 013 ed Cnc 14:00 ALT 30 U/L 30-65 complet SerPl-c 013 ed Cnc 14:00 ALP 487 U/L 50-136 complet SerPl-c 013 ed Cnc 14:00 LIPASE (10-06-2012 14:00) LIPASE 10-06- 308 U/L 73-393 complet 013 ed 14:00 CBC with AUTO DIFF (10-06-2012 14:00) WBC # 10-06-2 12.3 4.8-10. complet Bld 013 K/MM3 8 ed Auto 14:00 RBC # 10-06-2 5.17 4.2-5.4 complet Bld 013 M/mm3 ed Auto 14:00 Hgb 10-06-2 15.6 12.2-16 complet Bld-mCn 013 g/dL .2 ed c 14:00 Hct Fr 50.1 % 37.0-47 complet Bld 013 .0 ed 14:00 MCV RBC 97.0 fl 82.2-97 complet 013 .8 ed 14:00 MCH RBC 30.1 pg 27-31.2 complet Qn 013 ed Auto 14:00 MEAN 31.1 31.8-35 complet CORPUSC 013 g/dl .4 ed ULAR 14:00 HGB CONC RDW RBC 15.6 % 11.5-17 complet Auto 013 .5 ed 14:00 Platele 06-19-2 597 142-424 complet t Bld 013 K/mm3 ed Ql 14:00 Manual MEAN 19-2 7.8 fl 7.4-10. complet PLATELE 013 4 ed T 14:00 VOLUME Granulo -19-2 75.8 % 37.0-80 complet cytes 013 .0 ed Fr Bld 14:00 Auto LYMPH % -19-2 17.3 % 10-50.0 complet 013 ed 14:00 Monocyt 06-19-2 5.4 % 1.7-9.3 complet es Fr 013 ed Bld 14:00 Auto Eosinop 06-19-2 1.0 % 0.1-12. complet hil Fr 013 0 ed Bld 14:00 Auto Basophi -19-2 0.5 % 0.1-2.0 complet ls Fr 013 ed Bld 14:00 Auto Granulo 06-19-2 9.4 1.8-7.8 complet cytes # 013 K/mm3 ed Bld 14:00 Auto Lymphoc 19-2 2.1 0.7-4.5 complet ytes Fr 013 K/mm3 ed Bld 14:00 Auto Monocyt 06-19-2 0.7 0.1-1.0 complet es # 013 K/mm3 ed Bld 14:00 Auto Eosinop 06-19-2 0.1 0.0-0.4 complet hil # 013 K/mm3 ed Bld 14:00 Auto Basophi 06-19-2 0.1 0-0.2 complet ls # 013 K/MM3 ed Bld 14:00 Auto COMPREHENSIVE METABOLIC PANEL (09-08-2012 06:30) Glucose 09-08- 105 74-106 complet 013 mg/dL ed Bld-mCn 06:30 c BUN 09-08- 10 7-18 complet Bld-mCn 013 mg/dL ed c 06:30 Creat 09-08- 0.6 0.6-1.0 complet SerPl-m 013 mg/dL ed Cnc 06:30 ESTIMAT 09-08- 76 50-200 complet ED 013 ML/MIN ed CREATIN 06:30 INE CLEARAN CE GFR 105 59- complet (ESTIMA 013 ML/MIN ed YENNY) 06:30 Sodium 136 136-145 complet SerPl-s 013 mmoL/L ed Cnc 06:30 Potassi -22-2 4.2 3.5-5.1 complet um 013 mmoL/L ed SerPl-s 06:30 Cnc Chlorid 22-2 102 98-107 complet e 013 mmoL/L ed SerPl-s 06:30 Cnc CO2 22-2 30 21.0-32 complet SerPl-s 013 mmoL/L .0 [...] /Glob 013 ed SerPl-m 06:30 Rto Bilirub 22-2 0.3 0.2-1.0 complet 013 mg/dL ed SerPl-m 06:30 Cnc AST 22-2 24 U/L 15-37 complet SerPl-c 013 ed Cnc 06:30 ALT -22-2 32 U/L 30-65 complet SerPl-c 013 ed Cnc 06:30 ALP 22-2 382 U/L 50-136 complet SerPl-c 013 ed [...] g/dL .2 ed c 06:30 Hct Fr 05-22-2 38.2 % 37.0-47 complet Bld 013 .0 ed 06:30 MCV RBC 05-22-2 104.4 82.2-97 complet 013 fl .8 ed 06:30 MCH RBC 05-22-2 32.1 pg 27-31.2 complet Qn 013 ed Auto 06:30 MEAN 05-22-2 30.8 31.8-35 complet CORPUSC 013 g/dl .4 ed ULAR 06:30 HGB CONC RDW RBC 05-22-2 15.5 % 11.5-17 complet Auto 013 .5 ed 06:30 Platele 05-22-2 287 142-424 complet t Bld 013 K/mm3 ed Ql 06:30 Manual MEAN 05-22-2 7.9 fl 7.4-10. complet PLATELE 013 4 ed T 06:30 VOLUME Granulo 05-22-2 74.8 % 37.0-80 complet cytes 013 .0 [...] Auto COMPREHENSIVE METABOLIC PANEL (09-07-2012 06:30) Glucose 09-07- 102 74-106 complet 013 mg/dL ed Bld-mCn [...] SerPl-s 013 mmoL/L ed Cnc 06:30 Potassi 09-07- 4.5 3.5-5.1 complet um 013 mmoL/L ed SerPl-s 06:30 Cnc Chlorid 97 98-107 complet e 013 mmoL/L ed SerPl-s 06:30 Cnc CO2 09-07-2 32 21.0-32 complet SerPl-s 013 mmoL/L .0 ed Cnc 06:30 Calcium 09-07-2 8.6 8.5-10. complet 013 mg/dL 1 ed SerPl-m 06:30 Cnc Prot 09-07-2 5.7 6.4-8.2 complet SerPl-m 013 gm/dL ed Cnc 06:30 Albumin 09-07-2 2.5 3.4-5.0 complet 013 gm/dL ed SerPl-m 06:30 Cnc GLOBULI 09-07-2 3.2 1.3-3.2 complet N 013 gm/dL ed [...] Cnc 06:30 Amylase SerPl-cCnc (09-07-2012 06:30) Amylase 09-07-2 104 U/L 25-115 complet 013 ed SerPl-c 06:30 Cnc LIPASE (09-07-2012 06:30) LIPASE 09-07-2 299 U/L 73-393 complet 013 ed 06:30 COMPREHENSIVE METABOLIC PANEL (09-06-2012 16:09) Glucose 09-06-2 104 74-106 complet 013 mg/dL ed Bld-mCn 16:09 c BUN 20-2 17 7-18 complet Bld-mCn 013 mg/dL ed c 16:09 Creat -20-2 0.8 0.6-1.0 complet SerPl-m 013 mg/dL ed Cnc 16:09 ESTIMAT -20-2 57 50-200 complet ED 013 ML/MIN ed CREATIN 16:09 INE CLEARAN CE GFR 09-06-2 75 59- complet (ESTIMA 013 ML/MIN ed YENNY) 16:09 Sodium 09-06-2 138 136-145 complet SerPl-s 013 mmoL/L ed Cnc 16:09 Potassi 20-2 3.8 3.5-5.1 complet um 013 mmoL/L ed SerPl-s 16:09 Cnc Chlorid 20-2 97 98-107 complet e 013 mmoL/L ed SerPl-s 16:09 Cnc CO2 20-2 34 21.0-32 complet SerPl-s 013 mmoL/L .0 ed Cnc 16:09 Calcium -20-2 8.8 8.5-10. complet 013 mg/dL 1 ed SerPl-m 16:09 Cnc Prot -20-2 7.3 6.4-8.2 complet SerPl-m 013 gm/dL ed Cnc 16:09 Albumin -20-2 2.9 3.4-5.0 complet 013 gm/dL ed SerPl-m 16:09 Cnc Globuli -20-2 4.4 1.3-3.2 complet n 013 gm/dL ed Ser-mCn 16:09 c Albumin -20-2 0.7 UNK 1.1-1.8 complet /Glob 013 ed SerPl-m 16:09 Rto Bilirub 05-20-2 0.6 0.2-1.0 complet 013 mg/dL ed SerPl-m [...] CORONAR 88.55 Princess ARTERIOGR Falluji -1 CATH Encounters Encounter Start End Date Code Location Performer Type Date Inpatient HIEU Adorno MD (IN) 4 14:24 4 13:40 [facility] RejiAlphonse Inpatient HIEU Adorno MD ([place]) 4 21:31 [facility] 11:20 3 12:10 Inpatient HIEU Adorno MD (IN) 3 13:50 3 10:47 [facility] RejiAlphonse Inpatient HIEU Adorno MD ([place]) 3 14:01 3 13:20 [facility] Ewelina Inpatient HIEU Adorno MD ([place]) 3 10:17 [facility]anc[facility] (ER[facility] 3 07:49 3 10:20 [facility] Inpatient HIEU Adorno MD ([place]) 3 13:46 3 12:00 [facility] Ewelina Inpatient HIEU Adorno MD ([place]) 3 15:17 [facility] 09[facility]
--- OUTSIDE RECORDS SUMMARY | 2017-01-26 10:20 | External Medical Summary Rpt ---
Author Author , DAGOBERTO PEREZSILVINO Address Unknown Phone [email or web address] Care Team Providers Care Manager Ems Name Role Phone Charlene PHIPPS, Unavailable Unavailable Charlene Adorno MD, Unavailable Unavailable Ewelina Juárez APRN, Unavailable Unavailable Rosanne Jha MD, Unavailable Unavailable Princess Jha MD Purpose Continuity of Care Document - 09-06-2012 through 2016 Problems Code Diagnosis DOS Provider Status [id number] Acute [facility] [id number] Abdominal Geraldine pain [facility] 288.8 Leukocytosi [facility] 305.1 Tobacco Geraldine user [facility] [id number] Active [facility] 571.2 Alcoholic Geraldine cirrhosis [facility] 577.1 Chronic [facility] 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 [facility] 787.01 Nausea and Geraldine vomiting [facility] 787.91 Diarrhea [facility] [id number] [facility] D72.829 ELEVATED WHITE BLOOD CELL COUNT, [...] SI 73 -2 NO 90 0- Lo OK 34 20 ng IL 91 14 er [...] SI 73 -1 NO 90 9- Lo OK 35 20 ng IL 01 14 er [...] SI 73 -1 NO 90 8- Lo OK 35 20 ng IL 01 14 er [...] 00 01 0 No SO 18 -0 OK 50 6- Lo OL 77 20 ng [...] SI 73 -0 NO 90 6- Lo OK 35 20 ng IL 01 14 er [...] LA ve TE 10 MG TA B OK 00 12 0 No ED 05 -3 [...] SI 73 -2 NO 90 7- Lo OK 35 20 ng IL 01 13 er [...] 00 12 4 No SO 18 -2 OK 50 6- Lo OL 77 20 ng [...] SI 73 -2 NO 90 5- Lo OK 35 20 ng IL 01 13 er [...] -D 5W DI 63 12 1 No OK 32 -2 IV 30 4- Lo AN [...] 12 Ac 5 ti MG ve AL VT 00 12 0 No DA 40 -2 [...] 51 12 2 No TO 07 -2 OK 90 4- Lo OL 25 20 ng [...] SO L TA 00 12 1 No VT 00 -2 FL 40 3- Lo U 80 20 ng 75 08 13 er 5 MG Ac ti CA ve PS UL E OK 00 12 1 No ED 05 -2 [...] ER ve 15 MG TA BL ET OK 00 09 1 No ED 05 -2 [...] ve 0. 9% SO TYREL TI ON OK 00 09 3 No ED 05 -1 [...] SI 73 -1 NO 90 9- Lo OK 35 20 ng IL 01 13 er [...] NG E TO 00 08 2 No OK 18 -3 OL 61 1- Lo 08 20 ng XL 83 13 er 9 25 Ac ti MG ve TA BL ET OK 00 08 4 No ED 05 -2 [...] SI 73 -2 NO 90 9- Lo OK 35 20 ng IL 01 13 er [...] 10 0 MC G/ ML AM P OK 00 08 0 No ED 05 -2 [...] Ml ti ve Sy ri ng e OK 00 08 6 No OT 00 -2 [...] ve /M L CA RP UJ CT OK 00 08 6 No OM 64 -2 [...] SI 73 -0 NO 90 4- Lo OK 35 20 ng IL 01 13 er [...] 00 08 0 No TA 59 -0 OK 70 3- Lo ES 03 20 ng [...] 00 08 1 No TA 40 -0 VT 99 1- Lo N 15 20 ng [...] Ml ti ve Sy ri ng e OK 00 07 6 No OM 64 -3 [...] ve 0. 9% SO TYREL TI ON OK 00 07 0 No OM 64 -1 ET 11 0- Lo BRUCH 49 20 ng ZI 53 13 er [...] Ac G ti Ta ve bl et OK 00 06 3 No ED 05 -2 [...] Ml ti ve Sy ri ng e OK 00 06 0 No OM 64 -1 [...] ve ET TO 00 05 1 No OK 18 -2 OL 61 1- Lo 09 [...] ti ve 0. 45 % SO LN OK 00 05 2 No ED 05 -2 [...] complet BldC 014 mg/dl ed Glucomt 17:58 r-[facility] Glucose BldC Glucomtr-mCnc (06-10-2013 17:06) Glucose 158 70-110 complet BldC 014 mg/dl ed Glucomt 17:06 r-[facility] Glucose BldC Glucomtr-nc (06-10-2013 11:39) Glucose 322 70-110 High complet BldC 014 mg/dl alert ed Glucomt 11:39 r-mCnc Glucose BldC Glucomtr-nc (06-10-2013 06:48) Glucose 138 70-110 complet BldC 014 mg/dl ed Glucomt 06:48 r-mCnc Glucose BldC Glucomtr-nc (06-09-2013 20:28) Glucose 144 70-110 complet BldC 014 mg/dl ed Glucomt 20:28 r-mCnc Glucose BldC Glucomtr-[facility] (06-09-2013 16:40) Glucose 246 70-110 complet BldC 014 mg/dl ed Glucomt 16:40 r-[facility] Glucose BldC Glucomtr-[facility] (06-09-2013 11:33) Glucose 156 70-110 complet BldC 014 mg/dl ed Glucomt 11:33 r-nc Glucose BldC Glucomtr-[facility] (06-09-2013 06:54) Glucose 143 70-110 complet BldC 014 mg/dl ed Glucomt 06:54 r-[facility] BASIC METABOLIC PANEL (06-09-2013 06:10) Glucose 157 [...] BIN A1C 014 ed 06:15 Glucose BldC Glucomtr-[facility] (06-07-2013 21:00) Glucose 06-07- 447 70-110 High complet BldC 014 mg/dl alert ed Glucomt 21:00 [facility] Glucose BldC Glucomtr-[facility] (06-07-2013 16:49) Glucose 336 70-110 High complet BldC 014 mg/dl alert ed Glucomt 16:49 [facility] COMPREHENSIVE METABOLIC PANEL (06-07-2013 16:00) Glucose 376 [...] complet BldC 013 mg/dl ed Glucomt 06:32 r-[facility] Glucose BldC Glucomtr-mCnc (11-22-2012 17:02) Glucose 380 70-110 High complet BldC 013 mg/dl alert ed Glucomt 17:02 r-[facility] Glucose BldC Glucomtr-mCnc (11-22-2012 11:17) Glucose 210 70-110 complet BldC 013 mg/dl ed Glucomt 11:17 r-[facility] Glucose BldC Glucomtr-mCnc (11-22-2012 05:44) Glucose 254 70-110 complet BldC 013 mg/dl ed Glucomt 05:44 r-[facility] COMPREHENSIVE METABOLIC PANEL (11-22-2012 05:40) Glucose 257 [...] K/MM3 ed Bld 06:20 Auto Glucose dC Glucomtr-[facility] (11-19-2012 16:17) Glucose 268 70-110 complet BldC 013 mg/dl ed [facility] (11-19-2012 11:34) Glucose 11-19-2 260 70-110 complet BldC 013 mg/dl ed [facility]comt 11:[facility] (11-19-2012 06:27) Glucose 11-19-2 245 70-110 complet BldC 013 mg/dl ed [facility]t 06:27 [facility] (11-19-2012 05:00) Glucose [...] mg/dL ed SerPl-m 05:00 Cnc Glucose BldC Glucomtr-[facility] (11-18-2012 21:46) Glucose 223 70-110 complet BldC [...] Adorno MD (IN) 4 14:24 4 13:40 [facility] RejiAlphonse Inpatient HIEU Adorno MD (IN) 4 21:31 4 13[facility] 3 11:20 3 12:10 Inpatient HIEU Adorno MD (IN) 3 13:50 3 10:47 [facility] RejiAlphonse Inpatient HIEU Adorno MD (IN) 3 14:01 3 13:20 [facility] Ewelina Inpatient HIEU Adorno MD (IN) 3 10:17 3 13[facility] (ER[facility] 3 07:49 3 10:20 [facility] Inpatient HIEU Adorno MD (IN) 3 13:46 3 12:00 [facility] Ewelina Inpatient HIEU Adorno MD (IN) 3 15:17 3 09:50 [facility]
--- OUTSIDE RECORDS SUMMARY | 2017-01-26 10:26 | External Medical Summary Rpt ---
Author Author , CHRIS ARENAS Address Unknown Phone [email or web address] Immunization Name Date Rout CVX Reac Dose [...]
--- OUTSIDE RECORDS SUMMARY | 2017-01-26 10:26 | External Medical Summary Rpt ---
Author Author , CHRIS ARENAS Address Unknown Phone [email or web address] Immunization Name Date Rout CVX Reac Dose [...]
== END 2017-01-01 13:30 | disposition home or self-care (01) ==
LOC: 2ND 16:15
PROVIDERS: Family Medicine
DX: E86.0 Dehydration (principal); K52.9 Noninfective gastroenteritis and colitis, unspecified; K70.30 Alcoholic cirrhosis of liver without ascites; K86.1 Other chronic pancreatitis; K86.81 Exocrine pancreatic insufficiency; E11.9 Type 2 diabetes mellitus without complications; F41.9 Anxiety disorder, unspecified; J44.9 Chronic obstructive pulmonary disease, unspecified; F17.213 Nicotine dependence, cigarettes, with withdrawal; Z79.01 Long term (current) use of anticoagulants; Z79.82 Long term (current) use of aspirin; Z79.4 Long term (current) use of insulin; Z79.51 Long term (current) use of inhaled steroids; Z79.899 Other long term (current) drug therapy; Z79.890 Hormone replacement therapy
CPT/HCPCS: G0378; J2405; Q9967